=== PATIENT | male | born 1955 | race Caucasian/White ===

== ENCOUNTER 2024-05-09 08:13 | Emergency (ER) | payer MEDICARE, MEDICAID, SELFPAY ==
--- NOTE | ~2024-05-09 | CT_ITS ---
CT of the Abdomen and Pelvis: Indication: Unable to urinate Technique: 2.5 mm axial scans were obtained through the abdomen and pelvis following intravenous adm inistration of 100 cc of Omnipaque 350. Dose reduction technique was used on this scan by utilizing a utomated exposure control and iterative reconstruction technique. The dose-length product (DLP) was 9 90.42 mGy-cm. Findings: Scans through the lung bases are unremarkable. The liver, spleen, pancreas, and gallbladder are within normal limits. Small bilateral adrenal nodule s are present. There is mild bilateral hydronephrosis. No evidence of aortic aneurysm. No lymphadeno nika. There is an extremely large left inguinal hernia containing essentially the entire sigmoid colon as w ell as multiple small bowel loops and large amount of mesenteric fat. No bowel obstruction or bowel w all thickening. Small fat-containing right inguinal hernia present. Images through the pelvis were performed. Urinary bladder markedly distended. Prostate gland is enlar ged, and indents through the bladder base. Impression: Distended urinary bladder with mild bilateral hydroureteronephrosis. This is likely related to BPH, w ith enlarged prostate gland present which indents the bladder base. Underlying prostate or bladder ma lignancy not completely excluded. Correlate clinically. Extremely large left inguinal hernia containing the entire sigmoid colon as well as multiple small daniel wel loops and large amount of mesenteric fat. No bowel obstruction or bowel wall thickening. Small fat-containing right inguinal hernia. Small bilateral adrenal nodules are indeterminate on this exam, but most likely adenomas. Reviewed, dictated and finalized at [facility]. Impression: Distended urinary bladder with mild bilateral hydroureteronephrosis. This is li pasquale related to BPH, with enlarged prostate gland present which indents the kirti dder base. Underlying prostate or bladder malignancy not completely excluded. C orrelate clinically. Extremely large left inguinal hernia containing the entire sigmoid colon as wel l as multiple small bowel loops and large amount of mesenteric fat. No bowel ob struction or bowel wall thickening. Small fat-containing right inguinal hernia. Small bilateral adrenal nodules are indeterminate on this exam, but most likely adenomas.
--- NOTE | ~2024-05-09 | XR_ITS ---
XR chest 1V portable Ordering provider: Cristina Broussard MD History: 68 years Male with . unable to urinate . Comparison: None. FINDINGS: MEDIASTINUM: The cardiac silhouette is slightly enlarged. LUNGS: No infiltrates, effusions or pneumothorax. Prominent markings in the lower lobes. OTHER: No free air under the diaphragm. Degenerative the spine. IMPRESSION: No acute cardiopulmonary pathology. Reviewed, dictated and finalized at location A.
[2024-05-09 08:15] VITALS: BP 153/78; PULSE 96; RESP 18; TEMP 36.8; O2SAT 99
--- OUTSIDE RECORDS SUMMARY | 2024-05-09 08:26 | XMS_ITS | Referral Summary ---
Author Organization [facility] Address [address] [place] [address] Care Team Providers Care Delivery Truck Driver Name Role Phone Chai Zhong MD Primary Care Provider [phone] [phone] Allergies No known active allergies Medications finasteride (PROSCAR) 5 mg tablet Take 1 tablet (5 mg total) by mouth daily 30 tablet 11 12/30/2022 Active tamsulosin (FLOMAX) 0.4 mg extended release capsule Take 1 capsule (0.4 mg total) by mouth daily with dinner 30 capsule 11 12/29/2022 Active risperiDONE (RisperDAL) 1 mg tablet Take 1 tablet (1 mg total) by mouth nightly 30 tablet 12/29/2022 Active Active Problems Problem Noted Date Diagnosed Date Acute psychosis 12/25/2022 Acute urinary retention 12/23/2022 Social History Tobacco Use Types Packs/Day Years Used Date Smoking Tobacco: Never Smokeless Tobacco: Never Tobacco Cessation:Counseling Given: Not Answered Personal Safety Answer Date Recorded Have you ever been in or are you currently in a harmful physical or emotional relationship or is someone making you feel afraid or unsafe? Denies 12/24/2022 Sex and Gender Information Value Date Recorded Sex Assigned at Not on file Legal Sex Male 2:21 AM REFRIGERATOR REPAIR TECHNICIAN Gender Identity Not on file Sexual Orientation Not on file Last Filed Vital Signs Vital Sign Reading Time Taken Comments Blood Pressure 124/69 12/29/2022 3:48 PM REFRIGERATOR REPAIR TECHNICIAN Pulse 85 12/29/2022 3:48 PM REFRIGERATOR REPAIR TECHNICIAN Temperature 36.3 C (97.4 F) 12/29/2022 3:48 PM REFRIGERATOR REPAIR TECHNICIAN Respiratory Rate 20 12/29/2022 6:19 AM REFRIGERATOR REPAIR TECHNICIAN Oxygen Saturation 99% 12/29/2022 3:48 PM REFRIGERATOR REPAIR TECHNICIAN Inhaled Oxygen Concentration - - Weight 95.4 kg (210 lb 4.8 oz) 12/23/2022 10:45 PM CDT Height 182.9 cm (6') 12/23/2022 10:45 PM CDT Body Mass Index 28.52 12/23/2022 10:45 PM CDT Plan of Treatment Not on file Insurance [facility] Member Subscriber Plan / Payer (Ef fective 2022-Present) Name:Cristhian Hernandez Relation to Subscriber:Self Name:Cristhian Hernandez Payer ID:[id number] (NAIC) Type:MEDICARE RISK OTHER Address: [address] Advance Directives For more information, please contact: [phone] * Full Code (Latest Code Status on File) Date Activated Date Inactivated Comments 12/24/2022 12:23 AM 12/29/2022 9:26 PM Care Teams Delivery Truck Driver Relationship Specialty Start Date End Date Chai Zhong MD [facility] [place] [address] PCP - General Family Medicine 12/23/22
--- OUTSIDE RECORDS SUMMARY | 2024-05-09 08:26 | XMS_ITS | Clinical Summary ---
Author Organization [facility] Address [address] [place] [address] Phone Care Team Providers Care Skill Labor Name Role Phone Chai Zhong MD Primary Care Provider [phone] Allergies No known active allergies Medications docusate sodium (COLACE) 100 MG Capsule Take 1 Cap by mouth 2 times daily as needed for Constipation . To be held for loose stools/diarr hea. 180 Cap 01/11/2018 Active metoprolol Succinate (TOPROL-XL) 25 MG TABLET SR 24 HR Take 0.5 Tablets by mouth daily for 90 days. 45 Tablet 01/20/2024 04/19/19 25 spironolactone (ALDACTONE) 25 MG Tablet Take 0.5 Tablets by mouth daily for 90 days. 45 Tablet 01/20/2024 04/19/19 25 tamsulosin (FLOMAX) 0.4 MG Capsule Take 1 Capsule by mouth daily (with dinner) for 90 days. 90 Capsule 01/20/2024 04/19/19 25 Active Problems Problem Noted Date Diagnosed Date Systolic congestive heart failure 01/20/2024 Urinary retention due to benign prostatic hyperp lasia 01/10/2018 Resolved Problems Problem Noted Date Diagnosed Date Resolved Date MRSA (methicillin resistant staph aureus) culture positive 01/20/2024 01/20/2024 Abscess 01/16/2024 01/20/2024 Family History Medical History Relation Name Comments Diabetes Mother Relation Name Status Comments Father Alive Mother Social History Tobacco Use Types Packs/Day Years Used Date Smoking Tobacco: Some Days Cigars Smokeless Tobacco: Never Tobacco Cessation:Ready to Q uit: No; Counseling Given: Yes Comments:celebratory Alcohol Use Standard Drinks/Week Comments No 0 (1 standard drink = 0.6 oz pur e alcohol) [facility] Utilities Answer Date Recorded In the past 12 months has th e electric, gas, oil, or water company threatened to shut off services in your home? Patient declined 01/16/2024 Hunger Vital Sign Answer Date Recorded Within the past 12 months, y ou worried that your food would run out before you got the money to buy more. Patient declined Within the past 12 months, t he food you bought just didn't last and you didn't have money to get more. Patient declined PRAPARE - Transportation Answer Date Re corded In the past 12 months, has l ack of transportation kept you from medical appointments or from getting medications? Patient declined 01/16/2024 In the past 12 months, has l ack of transportation kept you from meetings, work, or from getting things needed for daily living? Patient declined 01/16/2024 Housing Stability Vital Sign Answer Ronak e Recorded In the last 12 months, was t here a time when you were not able to pay the mortgage or rent on time? Patient declined 01/16/20 24 In the past 12 months, how m any times have you moved where you were living? 0 01/16/2024 [facility] were you homeless or living in a usp (including now)? Patient declined 01/16/2024 Sexually Active Control Partners Comments Never Sex and Gender Information Value Date Recorded Sex Assigned at Not on file Legal Sex Male 10:38 PM CDT Gender Identity Not on file Sexual Orientation Not on file Last Filed Vital Signs Vital Sign Reading Time Taken Comments Blood Pressure 126/61 01/20/2024 2:29 PM SERVICE TECHNICIAN Pulse 76 01/19/2024 12:47 PM SERVICE TECHNICIAN Temperature 36.8 C (98.2 F) 01/20/2024 2:29 PM SERVICE TECHNICIAN Respiratory Rate 20 01/20/2024 2:2 9 PM SERVICE TECHNICIAN Oxygen Saturation 100% 01/20/2024 2:29 PM SERVICE TECHNICIAN Inhaled Oxygen Concentration - - Weight 103.5 kg (228 lb 1.6 oz) 01/16/2024 6:30 PM SERVICE TECHNICIAN Height 185.4 cm (6' 1 ) 01/16/2024 6:30 PM SERVICE TECHNICIAN Body Mass Index 30.09 01/16/2024 6:30 PM SERVICE TECHNICIAN Plan of Treatment Health Maintenance Due Date Last Done Comments Hepatitis C Virus (HCV) Screening 1955 TdaP Immunization 1955 Pneumococcal Immunization (5 0+ years) (1 of 2 - PCV) 10/26/1975 Colonoscopy 2001 Colorectal Cancer Screening 2001 Cologuard 2006 Immunochemical Fecal Occult Blood 2006 Zoster Immunization (1 of 2) 2006 Respiratory Syncytial Virus (RSV) Immunization (Adult) (1 - Risk 60-74 years 1-dose series) 2016 AAA Screening Ultrasound 2021 Influenza Immunization (#1) 2023 SARS-COV-2 Immunization ( - season) 2023 Hepatitis B Immunization Aged Out No longer eligible based on patient's age to complete this topic Meningococcal Immunization (ACWY) Aged Out No longer eligible based on patient's age to complete this topic Rotavirus Immunization Aged Out No lo nger eligible based on patient's age to complete this topic Additional Health Concerns Infection Onset Date Last Indicated MRSA 01/16/2024 01/16/2024 Insurance MEDICAID [place] MEDICARE Advance Directives * Full Code (Latest Code Status on File) Date Activated Date Inactivated Comments 01/16/2024 9:27 PM CPR-Full Terri tment: FULL ARREST: Attempt Resuscitation/CPR wit intubation and mechanical ventilation. PRE-ARREST: Use entire range of life support measures to stabilize the patient. Care Teams Skill Labor Relationship Specialty Start Date End Date Chai Zhong MD [address] [place] [address] [address] [place] [address] PCP - General Family Medicine 12/12/17
--- OUTSIDE RECORDS SUMMARY | 2024-05-09 08:26 | XMS_ITS | Clinical Summary ---
Author Organization [facility] Address [address] [place] [address] Care Team Providers Care Behavioral Health Therapist Name Role Phone Chai Zhong MD Primary Care Provider [phone] [phone] Allergies No known active allergies Medications finasteride [...] on file Legal Sex Male 2:21 AM FAGOTER Gender Identity Not on file Sexual Orientation Not on file Obstetrics History Last Filed Vital Signs Vital Sign Reading Time Taken Comments Blood Pressure 124/69 12/29/2022 3:48 PM FAGOTER Pulse 85 12/29/2022 3:48 PM FAGOTER Temperature 36.3 C (97.4 F) 12/29/2022 3:48 PM FAGOTER Respiratory Rate 20 12/29/2022 6:19 AM FAGOTER Oxygen Saturation 99% 12/29/2022 3:48 PM FAGOTER Inhaled Oxygen Concentration - - Weight 95.4 kg (210 lb 4.8 oz) 12/23/2022 10:45 PM CDT Height 182.9 cm (6') 12/23/2022 10:45 PM CDT Body Mass Index 28.52 12/23/2022 10:45 PM CDT Plan of Treatment Health Maintenance Due Date Last Done Comments Colon Cancer Screening-Colonoscopy 1955 Depression Screening 1955 Hepatitis C Screening 1956 Prostate Cancer Screening-PSA 1956 DTaP/Tdap/Td Vaccine (1 - Tdap) 10/26/1967 Hepatitis B Screening 1974 Pneumococcal vaccine 65+ (1 of 1 - PCV) 2006 Zoster Vaccine (1 of 2) 2006 Abdominal Aortic Aneurysm (AAA) Screen 2021 Well Visit 65+ 2021 Influenza Vaccine (#1) 2023 Fall Risk Assessment 12/30/2023 12/29/2022 Insurance [facility] Advance Directives For more information, please contact: [phone] * Full Code (Latest Code Status on File) Date Activated Date Inactivated Comments 12/24/2022 12:23 AM 12/29/2022 9:26 PM Care Teams Behavioral Health Therapist Relationship Specialty Start Date End Date Chai Zhong MD [address] [place] [address] [address] PCP - General Family Medicine 12/23/22
--- NOTE | 2024-05-09 08:45 | ECG_ITS ---
Test Date: 2024-05-09 09:18:40 Measurements Intervals [place] Rate: 85 P: 74 [place]: 187 QRS: -76 QRSD: 165 T: 79 QT: 423 QTc: 505 Interpretive Statements SINUS RHYTHM RIGHT BUNDLE BRANCH BLOCK [120+ ms QRS DURATION, UPRIGHT V1, 40+ ms S IN I/aVL/V4/V5/V6] LEFT ANTERIOR FASCICULAR BLOCK [QRS AXIS <= -45, QR IN I, RS IN II] LEFT VENTRICULAR HYPERTROPHY AND ST-T CHANGE [VOLTAGE CRITERIA PLUS ST/T ABNORMALITY] POSSIBLE SEPTAL MYOCARDIAL INFARCTION , OF INDETERMINATE AGE [30 ms Q WAVE IN V1/V2] ABNORMAL ECG No previous ECG available for comparison Electronically Signed On 05-09-2024 12:29:33 CDT by Randolph Espinoza M.D.
[2024-05-09 09:05] LABS: Basophils Percent Auto 0.2 % (0.2-1.2); Eosinophils Absolute Auto 0.1 K/mm3 (0-0.3); Eosinophils Percent Auto 0.8 % (0-4.4); Hematocrit 45.5 % (42.0-52.0); Hemoglobin 14.7 g/dL (14.0-18.0); Immature Granulocyte Absolute 0.04 K/mm3 (0.00-0.031); Immature Granulocyte Percent A 0.4 % (0-0.5); Lymphocytes Absolute Auto 0.82 K/mm3 (0.9-3.2); Lymphocytes Percent Auto 8.9 % (18.3-44.2); Mean Corpuscular HGB Conc 32.3 g/dl (32-36); Mean Corpuscular Hemoglobin 28.2 pg (26-34); Mean Corpuscular Volume 87.2 fl (80-100); Monocytes Absolute Auto 0.9 K/mm3 (0.1-0.6); Monocytes Percent Auto 9.7 % (2.6-8.5); Neutrophils Absolute Auto 7.3 K/mm3 (1.3-6.7); Platelet Count Result 192 k/mm3 (150-375); Red Blood Count 5.22 M/mm3 (4.6-6.20); Red Cell Distribution Width 13.3 % (11.5-14.5); White Blood Count 9.2 K/mm3 (4.5-10.0)
[2024-05-09 09:16] LABS: Prothrombin Time 13.4 Seconds (11.1-14.7)
[2024-05-09 09:17] LABS: Partial Thromboplastin Time 31.3 Seconds (22.3-36.8)
[2024-05-09] MEDS: HYDROmorphone HCL INJ (*CRX) 1 MG/ML SYR 4 MG IV PUSH (09:17)
[2024-05-09] MEDS: WATER FOR IRRIGATION, STERILE 500 ML BOTTLE (09:18)
[2024-05-09] MEDS: LIDOCAINE 2% GEL UROJET 10 ML PKG (09:18)
[2024-05-09 09:24] VITALS: BP 121/77; PULSE 86; RESP 19; O2SAT 93
[2024-05-09 09:24] LABS: Lactic Acid Reflex 1.1 mmol/L (0.7-2.0)
[2024-05-09 09:27] LABS: Alanine Aminotransferase 16 U/L (6-50); Albumin Level 4.2 g/dL (3.5-5.1); Alkaline Phosphatase 77 U/L (38-126); Anion Gap 11 mmol/L (4-12); Aspartate Amino Transferase 23 U/L (17-59); Bilirubin,Total 0.8 mg/dL (0.2-1.3); Blood Urea Nitrogen 19 mg/dL (9-20); Calcium 9.2 mg/dL (8.4-10.2); Carbon Dioxide 25 mmol/L (22-30); Chloride 104 mmol/L (98-107); Estimated CRCL calculation 82 ml/min; Estimated Glomerular Filt Rate > 60; Glucose 137 mg/dL (65-110); Sodium 140 mmol/L (137-145)
[2024-05-09 09:32] LABS: Estimated CRCL calculation 79 ml/min; Estimated Glomerular Filt Rate > 60
--- NOTE | 2024-05-09 09:41 | PC.NURSE ---
Upon arrival to room bladder scan revealed 1500mls of urine, pt was writhing in pain on bed. Pt reports he has had to have mello cath before and stated I need that one with the curve on the end. Attempted to insert coude cath and cath would insert without difficulty but did not drain urine. When cath removed blood clots noted on end of mello. Then attempted to insert 3 way cath due to amount of urine in bladder and number of blood clots noted. # way inserted without difficulty but again no urine drained from mello. Cath removed and ERP immediately notified
--- NOTE | 2024-05-09 09:41 | ED.MALEGU ---
HPI - Male Genitourinary General Chief complaint: Urogenital-Male Stated complaint: unable to urinate Time Seen by Provider: 05/09/24 08:44 Source: patient and RN notes reviewed History of Present Illness HPI Narrative: Patient presents with complaint of low abdominal pain and left sided scrotal swelling. States it has been going on for awhile. Has not been caring for himself recently, particularly while/after going through divorce. Related Data Allergies Allergy/AdvReac Type Severity Reaction Status Date / Time No Known Allergies Allergy Verified 04/28/21 16:32 [facility] Past Medical History Medical History Inguinal hernia Enlarged prostate Degenerative arthritis of knee, bilateral Hemoglobin A1c less than 7.0% last A1c in chart was 6.5 in july of 2018 Type 2 diabetes mellitus without complication, without long-term current use of insulin Surgical History Surgical History History of prostate surgery 2018 Family History Family History Father Diabetes mellitus Mother Diabetes mellitus Family history of malignant neoplasm of breast in first degree relative Sibling Family history of cardiovascular disease Social History Social History Social History: Smoking status: Current some day smoker Tobacco type: cigars Alcohol intake: current Occupation/Education: retired Gender identity (if verbalized by the patient): Male Exam Narrative: GENERAL: In moderate acute distress. HEAD: Normocephalic, atraumatic. EYES: Non injected, non icteric ENT: Nares clear, no rhinorrhea or epistaxis. Tacky mucous membranes NECK: Supple. CHEST: Speaking in full sentences. No respiratory distress. HEART: Regular rate and rhythm. . ABDOMEN: Distended with particular firmness in the lower quadrants, L > R. Not peritoneal. Very large left scrotum which is otherwise with fullness but not firm. Causes distortion of penis, displaced to the right but which otherwise which appears normal except for blood at the meatus after catheter insertion attempts. EXTREMITIES: Normal range of motion. No lower extremity edema. SKIN: Warm, dry, no rash. NEURO: No focal deficits. Alert and oriented. PSYCH: Normal mood and affect. Course Vital Signs Vital signs: Vital Signs Temperature 98.3 F 05/09/24 08:15 Pulse Rate 96 05/09/24 08:15 Respiratory Rate 18 05/09/24 08:15 Blood Pressure 153/78 H 05/09/24 08:15 Pulse Oximetry 99 05/09/24 08:15 Temperature 98.3 F 05/09/24 15:41 Pulse Rate 84 05/09/24 15:41 Respiratory Rate 18 05/09/24 15:41 Blood Pressure 125/83 05/09/24 15:41 Pulse Oximetry 98 05/09/24 15:41 MDM - Male Genitourinary MDM Narrative Medical decision making narrative: Patient presents with abdominal pain and large left scrotal swelling. In the emergency department he is afebrile with vital signs notable for hypertension. He appears markedly uncomfortable and Dilaudid 1 mg ordered. Social determinants of care: Unclear/poor social support. Not caring for himself during/after divorce. Multiple RN attempts at inserting/placing urinary catheter. They note that it seems to advance easily without resistance but with no urine output despite bladder scan >500cc. Discussed with urology VIGNESH at bedside. Mild hyperglycemia but no anion gap acidosis. CRP mildly elevated. Lactic acid normal. Urology required for insertion of urinary catheter. Performed at bedside by attending Dr Rollins.. Hematuria likely due to traumatic insertion. Improper entry with O2 saturation listed as 14%. Spoke with general surgery Dr Hardy who confirms no acute surgical intervention necessary; recommends outpatient follow up to discuss elective surgical procedure for inguinal hernia. Dr. Escobar confirms that no indication for inpatient admission from his perspective. Catheter would need to be changed within a month so he needs to be seen by Urology by then. Reviewed consultation note written by VIGNESH which confirms patient to be on finasteride and tamsulosin. These are prescribed. Plan and need for follow up discussed with patient.Confirms understanding. Otherwise feeling better and stable for discharge. Differential Diagnosis Differential diagnosis: Likely urinary tract infection, acute retention of urine, inguinal hernia and other (incarcerated/strangulated hernia; bowel obstruction/necrosis; ) Medical Records Attestation: I reviewed the patient's medical records. Medical records narrative: Reviewed last note from health system in EMR during which time had been dealing with GI and issues (enlarged prostate and hernia) - 2021; supposed to be on tamsulosin and finasteride. Had been at the time but with complicated social dynamics as that note referenes stephanie outbursts to partner at the time Lab Data Attestation: I reviewed the patient's lab results. 05/09/24 08:54 05/09/24 09:29 Labs: Lab Results 05/09/24 05/09/24 05/09/24 Range/Units 08:54 09:29 11:07 WBC 9.2 (4.5-10.0) K/mm3 RBC 5.22 (4.6-6.20) M/mm3 Hgb 14.7 (14.0-18.0) g/dL Hct 45.5 (42.0-52.0) % MCV 87.2 (80-100) fl MCH 28.2 (26-34) pg MCHC 32.3 (32-36) g/dl RDW 13.3 (11.5-14.5) % Plt Count 192 (150-375) k/mm3 MPV 10.0 (7.4-10.4) fl Immature Gran % (Auto) 0.4 (0-0.5) % Neut % (Auto) 80.0 H (45.5-73.1) % Lymph % (Auto) 8.9 L (18.3-44.2) % [place] % (Auto) 9.7 H (2.6-8.5) % Eos % (Auto) 0.8 (0-4.4) % Baso % (Auto) 0.2 (0.2-1.2) % Lymph # (Auto) 0.82 L (0.9-3.2) K/mm3 [place] # (Auto) 0.9 H (0.1-0.6) K/mm3 Eos # (Auto) 0.1 (0-0.3) K/mm3 Baso # (Auto) 0.0 (0.0-0.1) K/mm3 Abs Immat Gran (auto) 0.04 H (0.00-0.031) K/mm3 Absolute Neuts (auto) 7.3 H (1.3-6.7) K/mm3 Absolute Nucleated RBC 0.000 (0.0-0.012) K/mm3 Nucleated RBC % 0.0 (0.0-0.2) % PT 13.4 (11.1-14.7) Seconds INR 1.0 APTT 31.3 (22.3-36.8) Seconds Sodium 140 (137-145) mmol/L Potassium 3.9 (3.4-5.0) mmol/L Chloride 104 (98-107) mmol/L Carbon Dioxide 25 (22-30) mmol/L Anion Gap 11 (4-12) mmol/L BUN 19 (9-20) mg/dL Creatinine 0.86 0.90 (0.7-1.3) mg/dL Estim Creat Clear Calc 82 79 ml/min Estimated GFR > 60 > 60 (59 - ) Glucose 137 H (65-110) mg/dL Lactic Acid 1.1 (0.7-2.0) mmol/L Calcium 9.2 (8.4-10.2) mg/dL Total Bilirubin 0.8 (0.2-1.3) mg/dL AST 23 (17-59) U/L ALT 16 (6-50) U/L Alkaline Phosphatase 77 (38-126) U/L C-Reactive Protein 1.8 H (<1.0) mg/dL Total Protein 7.0 (6.3-8.2) g/dL Albumin 4.2 (3.5-5.1) g/dL Urine Color Yellow (Yellow) Urine Appearance Clear (Clear) Urine pH 6.5 (5.0-9.0) Ur Specific [place] 1.017 (1.001-1.035) Urine Protein 1+ H (Negative) mg/dL Urine Glucose (UA) Negative (Negative) mg/dL Urine Ketones Negative (Negative) mg/dL Ur Blood (Man) 2+ H (Negative) Urine Nitrate Negative (Negative) Urine Bilirubin Negative (Negative) Urine Urobilinogen 1.0 (<2.0) mg/dL Leukocyte Esterase Rfl Negative (Negative) KATHARINA/UL Urine RBC 51-100 H (0-2) /hpf Urine WBC 0-5 (0-3) /hpf Ur Squamous Epith Cells None seen (Few) /hpf Urine Bacteria None seen /hpf Urine Casts 0-2 Imaging Data Radiologist's impression: Impressions Abdomen/Pelvis CT 05/09/24 09:53 Impression: Distended urinary bladder with mild bilateral hydroureteronephrosis. This is likely related to BPH, with enlarged prostate gland present which indents the bladder base. Underlying prostate or bladder malignancy not completely excluded. Correlate clinically. Extremely large left inguinal hernia containing the entire sigmoid colon as well as multiple small bowel loops and large amount of mesenteric fat. No bowel obstruction or bowel wall thickening. Small fat-containing right inguinal hernia. Small bilateral adrenal nodules are indeterminate on this exam, but most likely adenomas. Chest X-Ray 05/09/24 10:38 IMPRESSION: No acute cardiopulmonary pathology. ECG Data EKG #1: Attestation: I personally reviewed and interpreted this ECG as follows: ECG completion date: 05/09/24 ECG completion time: 09:18 Prior ECG tracings: not available for review (No prior for comparison) Interpretation: Normal sinus rhythm at a rate of 85 beats per minute. [place] interval 187. QRS 165. QT/QTC 423/465. Poor R-wave progression across the precordial leads. RBBB given QRS greater [id number]; RSR' M-shaped pattern in V1-V3; wide, slurred S wave in lateral leads (I, aVL, V5-6). Left anterior fascicular block with rS complexes in leads II, III, aVF (small R waves, deep S waves), qR complexes in lead I , avL (small Q waves and tall R waves) and left axis deviation with Leads II, III and aVF negative and leads I and aVL positive. Pre populated algorithm suggests left ventricular hypertrophy ; S wave depth in V1 + tallest R wave height in V5-6 is <35mm and R wave in lead I + S wave in lead III is =/>25mm. No T-wave inversions. Discharge Plan Discharge Clinical Impression: RBBB (right bundle branch block with left anterior fascicular block), CRP elevated, Hyperglycemia, Hydroureteronephrosis, BPH (benign prostatic hyperplasia), Inguinal hernia, left, Adrenal nodule, Acute urinary retention Patient Disposition: Home, Self-Care Condition: Stable Instructions: Antibiotic Form, Urinary Retention in Men (ED), Enlarged Prostate (BPH) (ED), Muniz Catheter Placement and Care (ED), Inguinal Hernia (ED), Nondiabetic Hyperglycemia (ED) Additional Instructions: As we discussed, is important to follow-up with urology in the next 3-4 weeks for Muniz catheter change versus removal. Take the medications prescribed. For the inguinal hernia, follow-up with the general surgeon listed below. For general concerns follow-up with your primary care physician. Return to the emergency department with any new or worsening symptoms. Patient Language: Citizen Of [place] Prescriptions: New finasteride 5 mg tablet 5 mg PO DAILY Qty: 30 0RF tamsulosin [Flomax] 0.4 mg capsule 0.4 mg PO HS Qty: 30 0RF No Action tamsulosin 0.4 mg capsule 0.4 mg PO DAILY Qty: 90 3RF finasteride 5 mg tablet 5 mg PO DAILY Qty: 90 3RF escitalopram oxalate [Lexapro] 5 mg tablet 5 mg PO DAILY Qty: 30 0RF Rx Instructions: LAST REFILL UNTIL SEEN Follow-up/Referrals: Sharad Navarrete MD [Physician] - 3 Weeks (Patient can be seen by first available MD or VIGNESH at [facility] or [facility] locations for indwelling Muniz management. ) Chai Zhong MD [Primary Care Provider] - Cooper Hardy MD [Physician] - (general surgery) Stand Alone Forms: Work/School Release IP Time of Disposition: 14:28
[2024-05-09 09:55] VITALS: BP 130/84; PULSE 86; RESP 18; O2SAT 96
[2024-05-09 10:08] LABS: CRP 1.8 mg/dL (<1.0); Potassium 3.9 mmol/L (3.4-5.0)
--- NOTE | 2024-05-09 10:57 | PC.NURSE ---
Dr Rollins at bedside for mello placement over wire. Procedure successful.
[2024-05-09 11:00] VITALS: BP 141/94; PULSE 87; RESP 20; O2SAT 14
--- NOTE | 2024-05-09 11:04 | P.CONUR_ITS ---
Assessment and Plan Assessment and plan (1) Enlarged prostate with urinary obstruction: Code(s): N40.1 - Benign prostatic hyperplasia with lower urinary tract symptoms; N13.8 - Other obstructive and reflux uropathy Status: Acute Assessment and Plan: - Continue home finasteride/tamsulosin, suspect poor medication compliance with history psychosocial issues (2) Acute on chronic urinary retention: Code(s): R33.9 - Retention of urine, unspecified Status: Acute Assessment and Plan: - >1.5L on bladder scan - Required complex indwelling Muniz catheter placement, 18Fr Counsil-tip over guide wire at beside with large-volume output Plan - No leukocytosis, renal function stable (Cr 0.9), afebrile - Maintain indwelling Muniz catheter, secure off-tension to upper thigh, plan for exchange in clinic in 3-4 weeks at a urology office of patient's choice - Suspect retention is a chronic, worsening issue ?Neurogenic bladder? - Recommend Urodynamics and cystoscopy as outpatient for formal evaluation - Priority at this time would be management of large left inguinal hernia, recommend general surgery evaluation - No plan for inpatient urologic surgical intervention Urology to follow peripherally. Please call with questions. Urology Consult Note HPI Date Seen: 05/09/24 Requesting Physician: Cristina Broussard MD Primary Care Provider: Chai Zhong MD Consult Narrative Reason for consult: Urinary retention Narrative: Cristhian Clay is a 68 year old male who presented to the ED with complaints of not being able to urinate in the past 24 hours and mental status changes. Urology was consulted after bladder scan showed >1.5L urine and several unsuccessful attempts to place indwelling Muniz. CT AP with contrast shows d istended urinary bladder with mild bilateral hydroureteronephrosis, enlarged prostate, extremely large left inguinal hernia containing the entire sigmoid colon as well as multiple small bowel loops and large amount of mesenteric fat, small fat-containing right inguinal hernia. On exam, left inguinal hernia extends down to the left scrotum with associated edema. There is abdominal distention consistent with large-volume urinary retention. Patient reports abdominal and scrotal pain. 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 History EtOH abuse with complex psychosocial needs. Dr. Rollins was able to successfully place an 18Fr Counsil-tip catheter over a guide wire in the ER with subsequent clear davey urinary output. Urological history significant for recurrent urinary retention, obstructive BPH on tamsulosin/finasteride at one point, TURP >5yrs ago, medication noncompliance. Family medical history of prostate cancer. On chart review, he was last evaluated as inpatient by Dr. Shukla at [facility] 12/2022 with a similar presentation. He has seen Dr. Toro at [facility] in the past, records unavailable for review. Last evaluated in clinic in 2018 for retention issues and BPH management, lost to follow-up. Review of Systems 2 Gastrointestinal: Gastrointestinal: Reports abdominal pain Genitourinary: Comments: Urinary retention, scrotal swelling Psychiatric: Psychiatric: Reports confusion PMFSH Past Medical History Medical History Degenerative arthritis of knee, bilateral Hemoglobin A1c less than 7.0% last A1c in chart was 6.5 in july of 2018 Type 2 diabetes mellitus without complication, without long-term current use of insulin Surgical History Surgical History History of prostate surgery 2017 Family History Family History Father Diabetes mellitus Mother Diabetes mellitus Family history of malignant neoplasm of breast in first degree relative Sibling Family history of cardiovascular disease Social History Social History (Updated 04/28/21 @ 16:31 by Manny Alex MA) Smoking status: Current some day smoker Tobacco type: cigars Alcohol intake: current Occupation/Education: retired Gender identity (if verbalized by the patient): Male Meds Home Medications and Allergies Home Medications ?Medication ?Instructions ?Recorded ?Confirmed ?Type finasteride 5 mg tablet 5 mg PO DAILY #90 tabs 07/13/21 Rx tamsulosin 0.4 mg capsule 0.4 mg PO DAILY #90 caps 07/13/21 Rx escitalopram oxalate 5 mg tablet 5 mg PO DAILY #30 tabs 06/09/22 Rx (Lexapro) Allergies Allergy/AdvReac Type Severity Reaction Status Date / Time No Known Allergies Allergy Verified 04/28/21 16:32 Vital Signs Vital Signs - 24 hr 05/09/24 08:15 05/09/24 09:24 05/09/24 09:55 Temperature 98.3 F Pulse Rate 96 86 86 Respiratory Rate 18 19 18 Blood Pressure 153/78 H 121/77 130/84 Pulse Oximetry 99 93 96 05/09/24 11:00 Temperature Pulse Rate 87 Respiratory Rate 20 Blood Pressure 141/94 H Pulse Oximetry 14 L Exam 2 Const: General: uncomfortable HENMT: Face/Nose/Sinus: Normal nares present Resp: Effort & Inspection: normal respiratory effort GI: Inspection: distended : Other: Large left inguinal hernia extending to left scrotum Urinary Catheter: Urinary Catheter: patent and draining Psych: Other: Confused Results Labs 05/09/24 08:54 05/09/24 09:29 Labs: Short CBC 05/09/24 Range/Units 08:54 WBC 9.2 (4.5-10.0) K/mm3 Hgb 14.7 (14.0-18.0) g/dL Hct 45.5 (42.0-52.0) % Plt Count 192 (150-375) k/mm3 [facility] 05/09/24 05/09/24 08:54 09:29 Sodium 140 Potassium 3.9 Chloride 104 Carbon Dioxide 25 BUN 19 Creatinine 0.86 0.90 Glucose 137 H Calcium 9.2 Liver Function 05/09/24 Range/Units 08:54 Total Bilirubin 0.8 (0.2-1.3) mg/dL AST 23 (17-59) U/L ALT 16 (6-50) U/L Alkaline Phosphatase 77 (38-126) U/L Albumin 4.2 (3.5-5.1) g/dL
--- OUTSIDE RECORDS SUMMARY | 2024-05-09 11:17 | XMS_ITS | Clinical Summary ---
Author Organization [facility] Address [address] [place] [address] Phone Care Team Providers Care Junior Sales Assistant Name Role Phone Chai Zhong MD Primary Care Provider +1- [phone] Allergies No known active allergies Medications docusate [...] drink = 0.6 oz pur e alcohol) [facility] Utilities Answer Date Recorded In the past [...] [facility] in the [facility] 12 m [facility], were you homeless or living in a [facility] (including now)? Patient declined 01/16/2024 Sexually Active Control Partners Comments Never Sex and Gender Information Value Date Recorded Sex Assigned at Not on file Legal Sex Male 10:38 PM CDT Gender Identity Not on file Sexual Orientation Not on file Last Filed Vital Signs Vital Sign Reading Time Taken Comments Blood Pressure 126/61 01/20/2024 2:29 PM EMERGENCY PLANNER Pulse 76 01/19/2024 12:47 PM EMERGENCY PLANNER Temperature 36.8 C (98.2 F) 01/20/2024 2:29 PM EMERGENCY PLANNER Respiratory Rate 20 01/20/2024 2:2 9 PM EMERGENCY PLANNER Oxygen Saturation 100% 01/20/2024 2:29 PM EMERGENCY PLANNER Inhaled Oxygen Concentration - - Weight 103.5 kg (228 lb 1.6 oz) 01/16/2024 6:30 PM EMERGENCY PLANNER Height 185.4 cm (6' 1 ) 01/16/2024 6:30 PM EMERGENCY PLANNER Body Mass Index 30.09 01/16/2024 6:30 PM EMERGENCY PLANNER Plan of Treatment Health Maintenance Due Date [...] measures to stabilize the patient. Care Teams Junior Sales Assistant Relationship Specialty Start Date End Date Chai Zhong MD [address] [place] [address] [address] [place] [address] PCP - General Family Medicine 12/12/17
[2024-05-09 11:28] LABS: Add Urine Microscopic? YES; Appearance Urine Clear (Clear); Bacteria Urine None Seen /hpf; Bilirubin Urine Negative (Negative); Blood Urine 2+ (Negative); Color Urine Yellow (Yellow); Glucose Urine UA Negative (Negative); Ketones Urine Negative (Negative); Leukocyte Esterase Ur Negative LEU/UL (Negative); Nitrate Urine Negative (Negative); Non Pathogenic Casts 0-2; Protein Urine 1+ mg/dL (Negative); RBC Urine 51-100 /hpf (0-2); Specific Grav Ur 1.017 (1.001-1.035); Squamous Epithelial Cell Urine None Seen /hpf (Few); WBC Urine 0-5 /hpf (0-3); pH Urine 6.5 (5.0-9.0)
[2024-05-09 15:41] VITALS: BP 125/83; PULSE 84; RESP 18; TEMP 36.8; O2SAT 98
--- NOTE | 2024-05-09 15:43 | PC.NURSE ---
pt going home with indwelling mello catheter. patient verbalized understanding of use of leg bag. Leg bag applied by this RN for discharge. Pt instructed on keeping cap and tips of both tubes clean.
== END 2024-05-09 16:15 | disposition home or self-care (01) ==
PROVIDERS: Emergency Provider Student in an Organized Health Care Education/Training Program; PCP Family Medicine
DX: N40.1 Benign prostatic hyperplasia with lower urinary tract symptoms (principal); R33.8 Other retention of urine; E27.8 Other specified disorders of adrenal gland; K40.90 Unilateral inguinal hernia, without obstruction or gangrene, not specified as recurrent; N13.30 Unspecified hydronephrosis; I45.10 Unspecified right bundle-branch block; R79.82 Elevated C-reactive protein (CRP); M17.0 Bilateral primary osteoarthritis of knee
CPT/HCPCS: 36415; 51702; 71045; 74177; 80053; 81001; 83605; 85025; 85610; 85730; 86140; 87040; 93005; 96361; 96374; 99284; C1769; J1171; Q9967

== ENCOUNTER 2024-05-10 18:36 | Emergency (ER) | payer MEDICARE, MEDICAID, SELFPAY ==
--- OUTSIDE RECORDS SUMMARY | 2024-05-10 18:39 | XMS_ITS | Clinical Summary ---
Author Organization [facility] Address [address] [place] [address] Phone Care Team Providers Care Haul Truck Driver Name Role Phone Chai Zhong MD Primary Care Provider +1- [phone] Allergies No known active allergies Medications docusate [...] drink = 0.6 oz pur e alcohol) [facility] Utilities Answer Date Recorded In the past [...] any time in the past 12 m [facility], were you homeless or living in a penitentiary (including now)? Patient declined 01/16/2024 Sexually Active Control Partners Comments Never Sex and Gender Information Value Date Recorded Sex Assigned at Not on file Legal Sex Male 10:38 PM CDT Gender Identity Not on file Sexual Orientation Not on file Last Filed Vital Signs Vital Sign Reading Time Taken Comments Blood Pressure 126/61 01/20/2024 2:29 PM PARTNER MANAGEMENT CONSULTANT Pulse 76 01/19/2024 12:47 PM PARTNER MANAGEMENT CONSULTANT Temperature 36.8 C (98.2 F) 01/20/2024 2:29 PM PARTNER MANAGEMENT CONSULTANT Respiratory Rate 20 01/20/2024 2:2 9 PM PARTNER MANAGEMENT CONSULTANT Oxygen Saturation 100% 01/20/2024 2:29 PM PARTNER MANAGEMENT CONSULTANT Inhaled Oxygen Concentration - - Weight 103.5 kg (228 lb 1.6 oz) 01/16/2024 6:30 PM PARTNER MANAGEMENT CONSULTANT Height 185.4 cm (6' 1 ) 01/16/2024 6:30 PM PARTNER MANAGEMENT CONSULTANT Body Mass Index 30.09 01/16/2024 6:30 PM PARTNER MANAGEMENT CONSULTANT Plan of Treatment Health Maintenance Due Date [...] measures to stabilize the patient. Care Teams Haul Truck Driver Relationship Specialty Start Date End Date Chai Zhong MD [address] [place] [address] [address] [place] [address] PCP - General Family Medicine 12/12/17
--- OUTSIDE RECORDS SUMMARY | 2024-05-10 18:39 | XMS_ITS | Clinical Summary ---
Author Organization [facility] Address [address] [place] [address] Care Team Providers Care Recooperer Name Role Phone Chai Zhong MD Primary Care Provider +1 -[phone] Allergies No known active allergies Medications finasteride [...] on file Legal Sex Male 2:21 AM SAAS ARCHITECT Gender Identity Not on file Sexual Orientation Not on file Obstetrics History Last Filed Vital Signs Vital Sign Reading Time Taken Comments Blood Pressure 124/69 12/29/2022 3:48 PM SAAS ARCHITECT Pulse 85 12/29/2022 3:48 PM SAAS ARCHITECT Temperature 36.3 C (97.4 F) 12/29/2022 3:48 PM SAAS ARCHITECT Respiratory Rate 20 12/29/2022 6:19 AM SAAS ARCHITECT Oxygen Saturation 99% 12/29/2022 3:48 PM SAAS ARCHITECT Inhaled Oxygen Concentration - - Weight 95.4 [...] 2023 Fall Risk Assessment 12/30/2023 12/29/2022 Insurance [facility] Advance Directives For more information, please contact: [phone] * Full Code (Latest Code Status on File) Date Activated Date Inactivated Comments 12/24/2022 12:23 AM 12/29/2022 9:26 PM Care Teams Recooperer Relationship Specialty Start Date End Date Chai Zhong MD [address] [place] [address] [address] PCP - General Family Medicine 12/23/22
--- OUTSIDE RECORDS SUMMARY | 2024-05-10 18:39 | XMS_ITS | Referral Summary ---
Author Organization [facility] Address [address] [place] [address] Care Team Providers Care Tool Design Checker Name Role Phone Chai Zhong MD Primary Care Provider +1 -[phone] Allergies No known active allergies Medications finasteride [...] on file Legal Sex Male 2:21 AM TRAVEL WRITER Gender Identity Not on file Sexual Orientation Not on file Last Filed Vital Signs Vital Sign Reading Time Taken Comments Blood Pressure 124/69 12/29/2022 3:48 PM TRAVEL WRITER Pulse 85 12/29/2022 3:48 PM TRAVEL WRITER Temperature 36.3 C (97.4 F) 12/29/2022 3:48 PM TRAVEL WRITER Respiratory Rate 20 12/29/2022 6:19 AM TRAVEL WRITER Oxygen Saturation 99% 12/29/2022 3:48 PM TRAVEL WRITER Inhaled Oxygen Concentration - - Weight 95.4 kg (210 lb 4.8 oz) 12/23/2022 10:45 PM CDT Height 182.9 cm (6') 12/23/2022 10:45 PM CDT Body Mass Index 28.52 12/23/2022 10:45 PM CDT Plan of Treatment Not on file Insurance [facility] Member Subscriber Plan / Payer (Ef fective 2022-Present) Name:Cristhian Hernandez Relation to Subscriber:Self Name:Cristhian Hernandez Payer ID:[id number] (NAIC) Type:MEDICARE RISK OTHER Address: [address] Advance Directives For more information, please contact: [phone] * Full Code (Latest Code Status on File) Date Activated Date Inactivated Comments 12/24/2022 12:23 AM 12/29/2022 9:26 PM Care Teams Tool Design Checker Relationship Specialty Start Date End Date Chai Zhong MD [facility] [facility] [address] [place] [address] PCP - General Family Medicine 12/23/22
[2024-05-10 19:11] VITALS: BP 138/96; PULSE 62; RESP 20; TEMP 36.9; O2SAT 98
[2024-05-10 22:55] VITALS: BP 112/88; PULSE 94; RESP 20; TEMP 36.6; O2SAT 97
[2024-05-10 23:05] LABS: Add Urine Microscopic? YES; Appearance Urine Clear (Clear); Bilirubin Urine Negative (Negative); Blood Urine 2+ (Negative); Color Urine Yellow (Yellow); Glucose Urine UA Negative (Negative); Ketones Urine Trace mg/dL (Negative); Leukocyte Esterase Ur 2+ LEU/UL (Negative); Nitrate Urine Negative (Negative); Protein Urine 1+ mg/dL (Negative); Specific Grav Ur 1.019 (1.001-1.035); Urobilinogen Urine 0.2 mg/dL (<2.0); pH Urine 5.5 (5.0-9.0)
--- NOTE | 2024-05-10 23:10 | ED_ITS ---
HPI - General Adult General Chief complaint: Urogenital-Male Stated complaint: Clogged urinary catheter-bloody Time Seen by Provider: 05/10/24 22:53 History of Present Illness HPI narrative: Patient is a 68-year-old gentleman who presents emergency department with chief complaint of urinary retention. Patient reports that he had a Muniz catheter placed yesterday for urinary retention and reports that he has swelling in his left scrotum the patient states that his catheter is plugged up and reports that he cannot urinate Related Data Allergies Allergy/AdvReac Type Severity Reaction Status Date / Time No Known Allergies Allergy Verified 05/10/24 19:15 Review of Systems Review of Systems: A 10 system review of systems was completed on the patient and is negative except for what is stated in the HPI. Nursing and ancillary documentation was reviewed. [facility] Past Medical History Medical History Inguinal hernia Enlarged prostate Degenerative arthritis of knee, bilateral Hemoglobin A1c less than 7.0% last A1c in chart was 6.5 in july of 2018 Type 2 diabetes mellitus without complication, without long-term current use of insulin Surgical History Surgical History History of prostate surgery 2018 Family History Family History Father Diabetes mellitus Mother Diabetes mellitus Family history of malignant neoplasm of breast in first degree relative Sibling Family history of cardiovascular disease Social History Social History Social History: Smoking status: Current some day smoker Tobacco type: cigars Alcohol intake: current Occupation/Education: retired Gender identity (if verbalized by the patient): Male Exam Narrative: GENERAL: Well-appearing, well-nourished, and in no acute distress. HEAD: Normocephalic, atraumatic. EYES: PERRLA and EOMI. ENT: Nares clear, no rhinorrhea or epistaxis. Mucous membranes moist. NECK: Supple. CHEST: Clear to auscultation. No respiratory distress. HEART: Regular rate and rhythm. No murmur heard. Normal peripheral pulses. ABDOMEN: Soft, nontender, nondistended, normal active bowel sounds. EXTREMITIES: Normal range of motion. No edema. : Muniz catheter in place and draining large left inguinal hernia SKIN: Warm, dry, no rash. NEURO: No focal deficits. Alert and oriented x3. PSYCH: Normal mood and affect. Course Vital Signs Vital signs: Vital Signs Temperature 36.9 C 05/10/24 19:11 Pulse Rate 62 05/10/24 19:11 Respiratory Rate 20 05/10/24 19:11 Blood Pressure 138/96 H 05/10/24 19:11 Pulse Oximetry 98 05/10/24 19:11 Oxygen Delivery Room Air 05/10/24 19:11 Temperature 36.6 C 05/10/24 22:55 Pulse Rate 94 05/10/24 22:55 Respiratory Rate 20 05/10/24 22:55 Blood Pressure 112/88 05/10/24 22:55 Pulse Oximetry 97 05/10/24 22:55 Oxygen Delivery Room Air 05/10/24 19:11 Medical Decision Making MDM Narrative Medical decision making narrative: Differential diagnosis includes urinary obstruction Imaging was reviewed from yesterday's visit that did show a large inguinal hernia but no evidence of obstruction The patient will be discharged home to follow-up with urology and General surgery Vital Signs Vital Signs: Vital Signs Temperature 36.9 C 05/10/24 19:11 Pulse Rate 62 05/10/24 19:11 Respiratory Rate 20 05/10/24 19:11 Blood Pressure 138/96 H 05/10/24 19:11 Pulse Oximetry 98 05/10/24 19:11 Oxygen Delivery Room Air 05/10/24 19:11 Temperature 36.6 C 05/10/24 22:55 Pulse Rate 94 05/10/24 22:55 Respiratory Rate 20 05/10/24 22:55 Blood Pressure 112/88 05/10/24 22:55 Pulse Oximetry 97 05/10/24 22:55 Oxygen Delivery Room Air 05/10/24 19:11 Lab Data Labs: Lab Results 05/10/24 Range/Units 22:53 Urine Color Yellow (Yellow) Urine Appearance Clear (Clear) Urine pH 5.5 (5.0-9.0) Ur Specific [place] 1.019 (1.001-1.035) Urine Protein 1+ H (Negative) mg/dL Urine Glucose (UA) Negative (Negative) mg/dL Urine Ketones Trace H (Negative) mg/dL Ur Blood (Man) 2+ H (Negative) Urine Nitrate Negative (Negative) Urine Bilirubin Negative (Negative) Urine Urobilinogen 0.2 (<2.0) mg/dL Leukocyte Esterase Rfl 2+ H (Negative) KATHARINA/UL Urine RBC 0-2 (0-2) /hpf Urine WBC None seen (0-3) /hpf Discharge Plan Discharge Clinical Impression: Malfunction of Muniz catheter, Acute urinary obstruction, Inguinal hernia, left Patient Disposition: Home, Self-Care Condition: Stable Instructions: Antibiotic Form, Muniz Catheter Placement and Care (ED), Inguinal Hernia (ED) Patient Language: Kiswahili Prescriptions: No Action finasteride 5 mg tablet 5 mg PO DAILY Qty: 30 0RF tamsulosin [Flomax] 0.4 mg capsule 0.4 mg PO HS Qty: 30 0RF tamsulosin 0.4 mg capsule 0.4 mg PO DAILY Qty: 90 3RF finasteride 5 mg tablet 5 mg PO DAILY Qty: 90 3RF escitalopram oxalate [Lexapro] 5 mg tablet 5 mg PO DAILY Qty: 30 0RF Rx Instructions: LAST REFILL UNTIL SEEN Follow-up/Referrals: Paulina Werner MD [Physician] - Chai Zhong MD [Primary Care Provider] - Alo Aguirre MD [Physician] - Time of Disposition: 23:46
--- OUTSIDE RECORDS SUMMARY | 2024-05-10 23:11 | XMS_ITS | Clinical Summary ---
Author Organization [facility] Address [address] [place] [address] Phone Care Team Providers Care Chief Architect Name Role Phone Chai Zhong MD Primary Care Provider +1- [phone] Allergies No known active allergies Medications docusate [...] 0.6 oz pur e alcohol) [facility] Utilities Answer Date Recorded In the [...] any time in the past 12 m [facility], were you homeless or living in a retirement (including now)? Patient declined 01/16/2024 Sexually Active Control Partners Comments Never Sex and Gender Information Value Date Recorded Sex Assigned at Not on file Legal Sex Male 10:38 PM CDT Gender Identity Not on file Sexual Orientation Not on file Last Filed Vital Signs Vital Sign Reading Time Taken Comments Blood Pressure 126/61 01/20/2024 2:29 PM SEASONAL DRIVER Pulse 76 01/19/2024 12:47 PM SEASONAL DRIVER Temperature 36.8 C (98.2 F) 01/20/2024 2:29 PM SEASONAL DRIVER Respiratory Rate 20 01/20/2024 2:2 9 PM SEASONAL DRIVER Oxygen Saturation 100% 01/20/2024 2:29 PM SEASONAL DRIVER Inhaled Oxygen Concentration - - Weight 103.5 kg (228 lb 1.6 oz) 01/16/2024 6:30 PM SEASONAL DRIVER Height 185.4 cm (6' 1 ) 01/16/2024 6:30 PM SEASONAL DRIVER Body Mass Index 30.09 01/16/2024 6:30 PM SEASONAL DRIVER Plan of Treatment Health Maintenance Due Date [...] measures to stabilize the patient. Care Teams Chief Architect Relationship Specialty Start Date End Date Chai Zhong MD [address] [place] [address] [address] [place] [address] PCP - General Family Medicine 12/12/17
--- OUTSIDE RECORDS SUMMARY | 2024-05-10 23:11 | XMS_ITS | Clinical Summary ---
Author Organization [facility] Address [address] [place] [address] Care Team Providers Care Wire Setter Name Role Phone Chai Zhong MD Primary Care Provider +1 -[phone] Allergies No known active allergies Medications finasteride [...] on file Legal Sex Male 2:21 AM IRONING PLEATER Gender Identity Not on file Sexual Orientation Not on file Obstetrics History Last Filed Vital Signs Vital Sign Reading Time Taken Comments Blood Pressure 124/69 12/29/2022 3:48 PM IRONING PLEATER Pulse 85 12/29/2022 3:48 PM IRONING PLEATER Temperature 36.3 C (97.4 F) 12/29/2022 3:48 PM IRONING PLEATER Respiratory Rate 20 12/29/2022 6:19 AM IRONING PLEATER Oxygen Saturation 99% 12/29/2022 3:48 PM IRONING PLEATER Inhaled Oxygen Concentration - - Weight 95.4 [...] 2023 Fall Risk Assessment 12/30/2023 12/29/2022 Insurance [facility] Advance Directives For more information, please contact: [phone] * Full Code (Latest Code Status on File) Date Activated Date Inactivated Comments 12/24/2022 12:23 AM 12/29/2022 9:26 PM Care Teams Wire Setter Relationship Specialty Start Date End Date Chai Zhong MD [address] [place] [address] [address] PCP - General Family Medicine 12/23/22
--- OUTSIDE RECORDS SUMMARY | 2024-05-10 23:11 | XMS_ITS | Referral Summary ---
Author Organization [facility] Address [address] [place] [address] Care Team Providers Care Connie Scratcher Name Role Phone Chai Zhong MD Primary Care Provider +1 -[phone] Allergies No known active allergies Medications finasteride [...] on file Legal Sex Male 2:21 AM ENVIRONMENTAL STUDIES PROFESSOR Gender Identity Not on file Sexual Orientation Not on file Last Filed Vital Signs Vital Sign Reading Time Taken Comments Blood Pressure 124/69 12/29/2022 3:48 PM ENVIRONMENTAL STUDIES PROFESSOR Pulse 85 12/29/2022 3:48 PM ENVIRONMENTAL STUDIES PROFESSOR Temperature 36.3 C (97.4 F) 12/29/2022 3:48 PM ENVIRONMENTAL STUDIES PROFESSOR Respiratory Rate 20 12/29/2022 6:19 AM ENVIRONMENTAL STUDIES PROFESSOR Oxygen Saturation 99% 12/29/2022 3:48 PM ENVIRONMENTAL STUDIES PROFESSOR Inhaled Oxygen Concentration - - Weight 95.4 kg (210 lb 4.8 oz) 12/23/2022 10:45 PM CDT Height 182.9 cm (6') 12/23/2022 10:45 PM CDT Body Mass Index 28.52 12/23/2022 10:45 PM CDT Plan of Treatment Not on file Insurance [facility] Member Subscriber Plan / Payer (Ef fective 2022-Present) Name:Cristhian Hernandez Relation to Subscriber:Self Name:Cristhian Hernandez Payer ID:[id number] (NAIC) Type:MEDICARE RISK OTHER Address: [address] Advance Directives For more information, please contact: [phone] * Full Code (Latest Code Status on File) Date Activated Date Inactivated Comments 12/24/2022 12:23 AM 12/29/2022 9:26 PM Care Teams Connie Scratcher Relationship Specialty Start Date End Date Chai Zhong MD [facility] [place] [address] PCP - General Family Medicine 12/23/22
[2024-05-10 23:22] LABS: RBC Urine 0-2 /hpf (0-2); WBC Urine None seen /hpf (0-3)
== END 2024-05-11 00:33 | disposition home or self-care (01) ==
PROVIDERS: Emergency Provider Emergency Medicine; PCP Family Medicine
DX: T83.091A Other mechanical complication of indwelling urethral catheter, initial encounter (principal); K40.90 Unilateral inguinal hernia, without obstruction or gangrene, not specified as recurrent; E11.9 Type 2 diabetes mellitus without complications
CPT/HCPCS: 51702; 81001; 87086; 99283

== ENCOUNTER 2024-06-03 10:19 | Emergency (ER) | payer MEDICARE, SELFPAY ==
--- OUTSIDE RECORDS SUMMARY | 2024-06-03 10:20 | XMS_ITS | Clinical Summary ---
Author Organization [facility] Address [address] [place] [address] Care Team Providers Care Cyber Reverse Engineer Name Role Phone Chai Zhong MD Primary Care Provider +1 -[phone] Allergies No known active allergies Medications finasteride [...] on file Legal Sex Male 2:21 AM SPORTS CLERK Gender Identity Not on file Sexual Orientation Not on file Obstetrics History Last Filed Vital Signs Vital Sign Reading Time Taken Comments Blood Pressure 124/69 12/29/2022 3:48 PM SPORTS CLERK Pulse 85 12/29/2022 3:48 PM SPORTS CLERK Temperature 36.3 C (97.4 F) 12/29/2022 3:48 PM SPORTS CLERK Respiratory Rate 20 12/29/2022 6:19 AM SPORTS CLERK Oxygen Saturation 99% 12/29/2022 3:48 PM SPORTS CLERK Inhaled Oxygen Concentration - - Weight 95.4 [...] (AAA) Screen 2021 Well Visit 65+ 2021 Fall Risk Assessment 12/30/2023 12/29/2022 Influenza Vaccine (Season Ended) 2024 Insurance [facility] Advance Directives For more information, please contact: [phone] * Full Code (Latest Code Status on File) Date Activated Date Inactivated Comments 12/24/2022 12:23 AM 12/29/2022 9:26 PM Care Teams Cyber Reverse Engineer Relationship Specialty Start Date End Date Chai Zhong MD [address] [place] [address] [address] PCP - General Family Medicine 12/23/22
--- OUTSIDE RECORDS SUMMARY | 2024-06-03 10:20 | XMS_ITS | Clinical Summary ---
Author Organization [facility] Address [address] [place] [address] Phone Care Team Providers Care Manager Database Name Role Phone Chai Zhong MD Primary Care Provider +1- [phone] Allergies No known active allergies Medications docusate sodium (COLACE) 100 MG Capsule Take 1 Cap by mouth 2 times daily as needed for Constipatio n. To be held for loose stools/diar suze. 180 Cap 01/11/2018 Active Active Problems Problem Noted Date Diagnosed [...] = 0.6 oz pur e alcohol) [facility] Utilities Answer Date Recorded In the past 12 months has [employer], gas, oil, or water [employer] threatened to shut off services in your [...] any time in the past 12 m [facility], were you homeless or living in a long-term (including now)? Patient declined 01/16/2024 Sexually Active Control Partners Comments Never Sex and Gender Information Value Date Recorded Sex Assigned at Not on file Legal Sex Male 10:38 PM CDT Gender Identity Not on file Sexual Orientation Not on file Last Filed Vital Signs Vital Sign Reading Time Taken Comments Blood Pressure 126/61 01/20/2024 2:29 PM CLIENT DEVELOPMENT CONSULTANT Pulse 76 01/19/2024 12:47 PM CLIENT DEVELOPMENT CONSULTANT Temperature 36.8 C (98.2 F) 01/20/2024 2:29 PM CLIENT DEVELOPMENT CONSULTANT Respiratory Rate 20 01/20/2024 2:29 PM CLIENT DEVELOPMENT CONSULTANT Oxygen Saturation 100% 01/20/2024 2:29 PM CLIENT DEVELOPMENT CONSULTANT Inhaled Oxygen Concentration - - Weight 103.5 kg (228 lb 1.6 oz) 01/16/2024 6:30 PM CLIENT DEVELOPMENT CONSULTANT Height 185.4 cm (6' 1 ) 01/16/2024 6:30 PM CLIENT DEVELOPMENT CONSULTANT Body Mass Index 30.09 01/16/2024 6:30 PM CLIENT DEVELOPMENT CONSULTANT Plan of Treatment Health Maintenance Due [...] Influenza Immunization (#1) 2023 SARS-COV-2 Immunization ( season) 2023 Hepatitis B Immunization Aged Out [...] Indicated MRSA 01/16/2024 01/16/2024 Insurance [place] [id number] MEDICARE Advance Directives * Full Code (Latest Code Status on File) Date Activated Date Inactivated Comments 01/16/2024 9:27 PM CPR-Full Terri tment: FULL ARREST: Attempt Resuscitation/CPR wit intubation and mechanical ventilation. PRE-ARREST: Use entire range of life support measures to stabilize the patient. Care Teams Manager Database Relationship Specialty Start Date End Date Chai Zhong MD [address] [facility] [address] [place] [address] PCP - General Family Medicine 12/12/17
--- OUTSIDE RECORDS SUMMARY | 2024-06-03 10:20 | XMS_ITS | Referral Summary ---
Author Organization [facility] Address [address] [place] [address] Care Team Providers Care Plant Quality Manager Name Role Phone Chai Zhong MD Primary Care Provider +1 [phone] Allergies No known active allergies Medications finasteride [...] on file Legal Sex Male 2:21 AM OPERATIONAL TRAINER Gender Identity Not on file Sexual Orientation Not on file Last Filed Vital Signs Vital Sign Reading Time Taken Comments Blood Pressure 124/69 12/29/2022 3:48 PM OPERATIONAL TRAINER Pulse 85 12/29/2022 3:48 PM OPERATIONAL TRAINER Temperature 36.3 C (97.4 F) 12/29/2022 3:48 PM OPERATIONAL TRAINER Respiratory Rate 20 12/29/2022 6:19 AM OPERATIONAL TRAINER Oxygen Saturation 99% 12/29/2022 3:48 PM OPERATIONAL TRAINER Inhaled Oxygen Concentration - - Weight 95.4 kg (210 lb 4.8 oz) 12/23/2022 10:45 PM CDT Height 182.9 cm (6') 12/23/2022 10:45 PM CDT Body Mass Index 28.52 12/23/2022 10:45 PM CDT Plan of Treatment Not on file Insurance [facility] Member Subscriber Plan / Payer (Ef fective 2022-Present) Name:Cristhian Hernandez Relation to Subscriber:Self Name:Cristhian Hernandez Payer ID:[id number] (NAIC) Type:MEDICARE RISK OTHER Address: [address] Advance Directives For more information, please contact: [phone] * Full Code (Latest Code Status on File) Date Activated Date Inactivated Comments 12/24/2022 12:23 AM 12/29/2022 9:26 PM Care Teams Plant Quality Manager Relationship Specialty Start Date End Date Chai Zhong MD [facility] [address] PCP - General Family Medicine 12/23/22
[2024-06-03 10:29] VITALS: BP 124/81; PULSE 86; RESP 16; TEMP 36.4; O2SAT 97
--- NOTE | 2024-06-03 10:31 | ED_ITS ---
HPI - General Adult General Chief complaint: Urogenital-Male Stated complaint: catheter pain Time Seen by Provider: 06/03/24 10:30 Source: patient Mode of arrival: ambulatory Limitations: no limitations History of Present Illness HPI narrative: 68 years old white male came from home complaining of burning sensation at the Muniz catheter exit started in the last 24 hours. Currently feeling much better. He denies any fever, chills, nausea, vomiting, abdominal pain. Patient does not know when the last time hip Muniz catheter was changed. Related Data Allergies Allergy/AdvReac Type Severity Reaction Status Date / Time No Known Allergies Allergy Verified 06/03/24 10:37 Review of Systems 2 Review of Systems: All systems reviewed & are unremarkable except as noted in HPI and below PMFSH Past Medical History Medical History Inguinal hernia Enlarged prostate Degenerative arthritis of knee, bilateral Hemoglobin A1c less than 7.0% last A1c in chart was 6.5 in july of 2018 Type 2 diabetes mellitus without complication, without long-term current use of insulin Surgical History Surgical History History of prostate surgery 2018 Family History Family History Father Diabetes mellitus Mother Diabetes mellitus Family history of malignant neoplasm of breast in first degree relative Sibling Family history of cardiovascular disease Social History Social History Social History: Smoking status: Current some day smoker Tobacco type: cigars Alcohol intake: current Occupation/Education: retired Gender identity (if verbalized by the patient): Male Exam 2 Narrative: General appearance: Well-developed, well-nourished patient talks softly, difficult to hear him, looks exhausted and tired Skin: Normal color Head: Normocephalic, nontraumatic Eyes: Clear conjunctiva Neck: Supple, nontender Chest and respiratory: Airway patent, no respiratory distress, no accessory muscle use Heart: Regular rate/rhythm Abdomen: Soft, nontender, no organomegaly, quiet bowel sounds, large left inguinal hernia, reducible, nontender, Vascular: Normal peripheral pulses, normal capillary refill. Musculoskeletal: Normal range of motion, nontender back Neurologic: Alert and oriented ?3, PAINTER AND PAPERHANGER APPRENTICE is normal as tested, no gross motor deficit Course Vital Signs Vital signs: Vital Signs Temperature 36.4 C 06/03/24 10:29 Pulse Rate 86 06/03/24 10:29 Respiratory Rate 16 06/03/24 10:29 Blood Pressure 124/81 06/03/24 10:29 Pulse Oximetry 97 06/03/24 10:29 Oxygen Delivery Room Air 06/03/24 10:29 Temperature 36.4 C 06/03/24 10:29 Pulse Rate 87 06/03/24 11:29 Respiratory Rate 16 06/03/24 11:29 Blood Pressure 128/86 06/03/24 11:29 Pulse Oximetry 98 06/03/24 11:29 Oxygen Delivery Room Air 06/03/24 10:29 Medical Decision Making MDM Narrative Medical decision making narrative: Patient came to the ED with burning sensation at the meatus unknown last catheter change Vital signs are stable Physical examination significant for left inguinal hernia, reducible Three ways catheter in place, Differential diagnosis include urinary tract infection, catheter need to replaced. Blood workup today includes CBC, CMP NO SIGNIFICANT ABNORMALITY Urinalysis showed EVIDENCE OF INFECTION Muniz catheter ordered to be replaced PATIENT RECEIVED 1 G OF ROCEPHIN IV PRIOR TO DISCHARGE DIAGNOSIS URINARY TRACT INFECTION CATHETER RELATED DISCHARGED ON CIPRO 500 B.I.D. FOR 10 DAYS. THE PT WAS DISCHARGED TO HOME.THE PT,S CONDITION UPON DISCHARGE WAS FAIR,EDUCATION WAS PROVIDED TO THE PT IN REFERENCE TO THE FINAL IMPRESSION,DISCHARGE STUDY RESULTS,TREATMENT,PROGNOSIS AND NEED FOR FOLLOW UP . Differential Diagnosis Differential Diagnosis: As above Vital Signs Vital Signs: Vital Signs Temperature 36.4 C 06/03/24 10:29 Pulse Rate 86 06/03/24 10:29 Respiratory Rate 16 06/03/24 10:29 Blood Pressure 124/81 06/03/24 10:29 Pulse Oximetry 97 06/03/24 10:29 Oxygen Delivery Room Air 06/03/24 10:29 Temperature 36.4 C 06/03/24 10:29 Pulse Rate 87 06/03/24 11:29 Respiratory Rate 16 06/03/24 11:29 Blood Pressure 128/86 06/03/24 11:29 Pulse Oximetry 98 06/03/24 11:29 Oxygen Delivery Room Air 06/03/24 10:29 Lab Data 06/03/24 11:27 06/03/24 11:27 Labs: Lab Results 06/03/24 Range/Units 11:27 WBC 7.8 (4.5-10.0) K/mm3 RBC 4.56 L (4.6-6.20) M/mm3 Hgb 13.0 L (14.0-18.0) g/dL Hct 40.2 L (42.0-52.0) % MCV 88.2 (80-100) fl MCH 28.5 (26-34) pg MCHC 32.3 (32-36) g/dl RDW 13.8 (11.5-14.5) % Plt Count 181 (150-375) k/mm3 MPV 9.5 (7.4-10.4) fl Immature Gran % (Auto) 0.4 (0-0.5) % Neut % (Auto) 75.2 H (45.5-73.1) % Lymph % (Auto) 13.0 L (18.3-44.2) % [place]wey % (Auto) 8.3 (2.6-8.5) % Eos % (Auto) 2.6 (0-4.4) % Baso % (Auto) 0.5 (0.2-1.2) % Lymph # (Auto) 1.01 (0.9-3.2) K/mm3 [place]wey # (Auto) 0.7 H (0.1-0.6) K/mm3 Eos # (Auto) 0.2 (0-0.3) K/mm3 Baso # (Auto) 0.0 (0.0-0.1) K/mm3 Abs Immat Gran (auto) 0.03 (0.00-0.031) K/mm3 Absolute Neuts (auto) 5.9 (1.3-6.7) K/mm3 Absolute Nucleated RBC 0.000 (0.0-0.012) K/mm3 Nucleated RBC % 0.0 (0.0-0.2) % Sodium 137 (137-145) mmol/L Potassium 3.7 (3.4-5.0) mmol/L Chloride 104 (98-107) mmol/L Carbon Dioxide 27 (22-30) mmol/L Anion Gap 6 (4-12) mmol/L BUN 19 (9-20) mg/dL Creatinine 0.56 L (0.7-1.3) mg/dL Estim Creat Clear Calc 133 ml/min Estimated GFR > 60 (59 - ) Glucose 128 H (65-110) mg/dL Calcium 8.5 (8.4-10.2) mg/dL Total Bilirubin 0.5 (0.2-1.3) mg/dL AST 21 (17-59) U/L ALT 13 (6-50) U/L Alkaline Phosphatase 67 (38-126) U/L Total Protein 6.0 L (6.3-8.2) g/dL Albumin 3.6 (3.5-5.1) g/dL Urine Color Yellow (Yellow) Urine Appearance Turbid H (Clear) Urine pH 8.5 (5.0-9.0) Ur Specific [place] 1.016 (1.001-1.035) Urine Protein 3+ H (Negative) mg/dL Urine Glucose (UA) Negative (Negative) mg/dL Urine Ketones Negative (Negative) mg/dL Ur Blood (Man) 2+ H (Negative) Urine Nitrate Positive H (Negative) Urine Bilirubin Negative (Negative) Urine Urobilinogen 1.0 (<2.0) mg/dL Leukocyte Esterase Rfl 3+ H (Negative) KATHARINA/UL Urine RBC 11-20 H (0-2) /hpf Urine WBC >100 H (0-3) /hpf Ur Squamous Epith Cells None seen (Few) /hpf Triple Phos Crystals Present H (None) /hpf Urine Bacteria 4+ H /hpf Urine Casts 0-2 Critical Care Time Critical Care Time Critical Care Time: No Discharge Plan Discharge Clinical Impression: Catheter-associated urinary tract infection Patient Disposition: Home Condition: Stable Instructions: Antibiotic Form, Urinary Tract Infection in Men (ED), Muniz Catheter Placement and Care (ED) Additional Instructions: RETURN IF SYMPTOMS ARE WORSENING , CALL YOUR FAMILY PHYSICIAN FOR APPOINTMENT, TAKE TYLENOL NEEDED FOR ACHES AND PAIN, CONTINUE HOME MEDICATIONS. Patient Language: Georgian Prescriptions: New ciprofloxacin HCl [Cipro] 500 mg tablet 500 mg PO Q12H Qty: 20 0RF No Action finasteride 5 mg tablet 5 mg PO DAILY Qty: 30 0RF tamsulosin [Flomax] 0.4 mg capsule 0.4 mg PO HS Qty: 30 0RF Follow-up/Referrals: Luis Manuel Fernando APRN [Primary Care Provider] -
[2024-06-03 11:29] VITALS: BP 128/86; PULSE 87; RESP 16; O2SAT 98
[2024-06-03] MEDS: SODIUM CHLORIDE 0.9% IV 1,000 ML 999 ML IV CONT (11:32)
--- NOTE | 2024-06-03 11:37 | PC.NURSE ---
Pt urine thick with pus. RN asked pt if he using large gravity bag. Pt states he is supposed to at night, but has not been doing that.
[2024-06-03 11:44] LABS: Basophils Percent Auto 0.5 % (0.2-1.2); Eosinophils Absolute Auto 0.2 K/mm3 (0-0.3); Eosinophils Percent Auto 2.6 % (0-4.4); Hematocrit 40.2 % (42.0-52.0); Immature Granulocyte Absolute 0.03 K/mm3 (0.00-0.031); Immature Granulocyte Percent A 0.4 % (0-0.5); Lymphocytes Absolute Auto 1.01 K/mm3 (0.9-3.2); Mean Corpuscular HGB Conc 32.3 g/dl (32-36); Mean Corpuscular Hemoglobin 28.5 pg (26-34); Mean Corpuscular Volume 88.2 fl (80-100); Mean Platelet Volume 9.5 fl (7.4-10.4); Monocytes Absolute Auto 0.7 K/mm3 (0.1-0.6); Monocytes Percent Auto 8.3 % (2.6-8.5); Neutrophils Absolute Auto 5.9 K/mm3 (1.3-6.7); Neutrophils Percent Auto 75.2 % (45.5-73.1); Platelet Count Result 181 k/mm3 (150-375); Red Blood Count 4.56 M/mm3 (4.6-6.20); Red Cell Distribution Width 13.8 % (11.5-14.5); White Blood Count 7.8 K/mm3 (4.5-10.0)
[2024-06-03 11:53] LABS: Alanine Aminotransferase 13 U/L (6-50); Albumin Level 3.6 g/dL (3.5-5.1); Alkaline Phosphatase 67 U/L (38-126); Anion Gap 6 mmol/L (4-12); Aspartate Amino Transferase 21 U/L (17-59); Bilirubin,Total 0.5 mg/dL (0.2-1.3); Blood Urea Nitrogen 19 mg/dL (9-20); Calcium 8.5 mg/dL (8.4-10.2); Carbon Dioxide 27 mmol/L (22-30); Chloride 104 mmol/L (98-107); Estimated CRCL calculation 133 ml/min; Estimated Glomerular Filt Rate > 60; Glucose 128 mg/dL (65-110); Potassium 3.7 mmol/L (3.4-5.0); Sodium 137 mmol/L (137-145)
[2024-06-03 12:01] LABS: Add Urine Microscopic? YES; Appearance Urine Turbid (Clear); Bacteria Urine 4+ /hpf; Bilirubin Urine Negative (Negative); Blood Urine 2+ (Negative); Color Urine Yellow (Yellow); Glucose Urine UA Negative (Negative); Ketones Urine Negative (Negative); Leukocyte Esterase Ur 3+ LEU/UL (Negative); Nitrate Urine Positive (Negative); Non Pathogenic Casts 0-2; Protein Urine 3+ mg/dL (Negative); Specific Grav Ur 1.016 (1.001-1.035); Squamous Epithelial Cell Urine None Seen /hpf (Few); Triple Phosphate Crystal Urine Present /hpf; WBC Urine >100 /hpf (0-3); pH Urine 8.5 (5.0-9.0)
[2024-06-03 13:00] VITALS: BP 127/81; PULSE 84; RESP 16; TEMP 36.9; O2SAT 98
[2024-06-03 13:27] VITALS: BP 129/88; PULSE 90; RESP 16; TEMP 36.9; O2SAT 100
== END 2024-06-03 13:37 | disposition home or self-care (01) ==
PROVIDERS: Emergency Provider Emergency Medicine; PCP Student in an Organized Health Care Education/Training Program
DX: T83.511A Infection and inflammatory reaction due to indwelling urethral catheter, initial encounter (principal); N39.0 Urinary tract infection, site not specified; N40.0 Benign prostatic hyperplasia without lower urinary tract symptoms; E11.9 Type 2 diabetes mellitus without complications; F17.290 Nicotine dependence, other tobacco product, uncomplicated; Y84.6 Urinary catheterization as the cause of abnormal reaction of the patient, or of later complication, without mention of misadventure at the time of the procedure; Z79.899 Other long term (current) drug therapy
CPT/HCPCS: 36415; 80053; 81001; 85025; 87077; 87086; 87147; 87181; 87186; 96361; 96365; 99284; J0696; J7030

== ENCOUNTER 2024-06-19 00:27 | Emergency (ER) | payer MEDICARE, SELFPAY ==
[2024-06-19] VITALS (13 sets, daily range): BP systolic 117–130; BP diastolic 63–91; PULSE 87–95; RESP 16–22; TEMP 36.3–36.4; O2SAT 95–100
--- OUTSIDE RECORDS SUMMARY | 2024-06-19 00:30 | XMS_ITS | Clinical Summary ---
Author Organization [facility] Address [address] [place] [address] Phone Care Team Providers Care Structural Steel Trades Worker Name Role Phone Chai Zhong MD Primary Care Provider +1- [phone] Allergies No known active allergies Medications docusate [...] drink = 0.6 oz pur e alcohol) [facility] Utilities Answer Date Recorded In the past 12 months has [employer], gas, oil, or water [employer] threatened to shut off services in your [...] any time in the past 12 m [facility], were you homeless or living in a group home (including now)? Patient declined 01/16/2024 Sexually Active Control Partners Comments Never Sex and Gender Information Value Date Recorded Sex Assigned at Not on file Legal Sex Male 10:38 PM CDT Gender Identity Not on file Sexual Orientation Not on file Last Filed Vital Signs Vital Sign Reading Time Taken Comments Blood Pressure 126/61 01/20/2024 2:29 PM CASH ON DELIVERY CLERK Pulse 76 01/19/2024 12:47 PM CASH ON DELIVERY CLERK Temperature 36.8 C (98.2 F) 01/20/2024 2:29 PM CASH ON DELIVERY CLERK Respiratory Rate 20 01/20/2024 2:29 PM CASH ON DELIVERY CLERK Oxygen Saturation 100% 01/20/2024 2:29 PM CASH ON DELIVERY CLERK Inhaled Oxygen Concentration - - Weight 103.5 kg (228 lb 1.6 oz) 01/16/2024 6:30 PM CASH ON DELIVERY CLERK Height 185.4 cm (6' 1 ) 01/16/2024 6:30 PM CASH ON DELIVERY CLERK Body Mass Index 30.09 01/16/2024 6:30 PM CASH ON DELIVERY CLERK Plan of Treatment Health Maintenance Due Date [...] Indicated MRSA 01/16/2024 01/16/2024 Insurance [place] [id number] MEDICARE Advance Directives * Full Code (Latest Code Status on File) Date Activated Date Inactivated Comments 01/16/2024 9:27 PM CPR-Full Terri tment: FULL ARREST: Attempt Resuscitation/CPR wit intubation and mechanical ventilation. PRE-ARREST: Use entire range of life support measures to stabilize the patient. Care Teams Structural Steel Trades Worker Relationship Specialty Start Date End Date Chai Zhong MD [address] [facility] [address] [place] [address] PCP - General Family Medicine 12/12/17
--- OUTSIDE RECORDS SUMMARY | 2024-06-19 00:30 | XMS_ITS | Referral Summary ---
Author Organization [facility] Address [address] [place] [address] Care Team Providers Care Labor Relations Specialist Name Role Phone Chai Zhong MD Primary Care Provider +1 -[phone] Allergies No known active allergies Medications finasteride [...] on file Legal Sex Male 2:21 AM GREENBELT Gender Identity Not on file Sexual Orientation Not on file Last Filed Vital Signs Vital Sign Reading Time Taken Comments Blood Pressure 124/69 12/29/2022 3:48 PM GREENBELT Pulse 85 12/29/2022 3:48 PM GREENBELT Temperature 36.3 C (97.4 F) 12/29/2022 3:48 PM GREENBELT Respiratory Rate 20 12/29/2022 6:19 AM GREENBELT Oxygen Saturation 99% 12/29/2022 3:48 PM GREENBELT Inhaled Oxygen Concentration - - Weight 95.4 kg (210 lb 4.8 oz) 12/23/2022 10:45 PM CDT Height 182.9 cm (6') 12/23/2022 10:45 PM CDT Body Mass Index 28.52 12/23/2022 10:45 PM CDT Plan of Treatment Not on file Insurance [facility] Member Subscriber Plan / Payer (Ef fective 2022-Present) Name:Cristhian Hernandez Relation to Subscriber:Self Name:Cristhian Hernandez Payer ID:[id number] (NAIC) Group ID:Not on file Type:MEDICAID RISK OTHER Address: [place] [id number] Advance Directives For more information, please contact: [phone] * Full Code (Latest Code Status on File) Date Activated Date Inactivated Comments 12/24/2022 12:23 AM 12/29/2022 9:26 PM Care Teams Labor Relations Specialist Relationship Specialty Start Date End Date Chai Zhong MD [address] [facility] [address] PCP - General Family Medicine 12/23/22
--- OUTSIDE RECORDS SUMMARY | 2024-06-19 00:30 | XMS_ITS | Clinical Summary ---
Author Organization [facility] Address [address] [place] [address] Care Team Providers Care Councillor [employer] Name Role Phone Chai Zhong MD Primary Care Provider +1 -[phone] Allergies No known active allergies Medications finasteride [...] on file Legal Sex Male 2:21 AM WEAVING MACHINE OPERATOR Gender Identity Not on file Sexual Orientation Not on file Obstetrics History Last Filed Vital Signs Vital Sign Reading Time Taken Comments Blood Pressure 124/69 12/29/2022 3:48 PM WEAVING MACHINE OPERATOR Pulse 85 12/29/2022 3:48 PM WEAVING MACHINE OPERATOR Temperature 36.3 C (97.4 F) 12/29/2022 3:48 PM WEAVING MACHINE OPERATOR Respiratory Rate 20 12/29/2022 6:19 AM WEAVING MACHINE OPERATOR Oxygen Saturation 99% 12/29/2022 3:48 PM WEAVING MACHINE OPERATOR Inhaled Oxygen Concentration - - Weight 95.4 [...] 2006 Zoster Vaccine (1 of 2) 2006 Well Visit 65+ 2021 Fall Risk Assessment 12/30/2023 12/29/2022 Influenza Vaccine (Season Ended) 2024 Abdominal Aortic Aneurysm (AAA) Screen Completed Insurance [facility] Advance Directives For more information, please contact: [phone] * Full Code (Latest Code Status on File) Date Activated Date Inactivated Comments 12/24/2022 12:23 AM 12/29/2022 9:26 PM Care Teams Councillor [employer] Land [employer] Relationship Specialty Start Date End Date Chai Zhong MD [address] [place] [address] [address] PCP - General Family Medicine 12/23/22
--- OUTSIDE RECORDS SUMMARY | 2024-06-19 07:25 | XMS_ITS | Clinical Summary ---
Author Organization [facility] Address [address] [place] [address] Care Team Providers Care Ordnance Handler Name Role Phone Chai Zhong MD Primary Care Provider +1 -[phone] Allergies No known active allergies Medications finasteride [...] on file Legal Sex Male 2:21 AM WELL SERVICES OPERATOR Gender Identity Not on file Sexual Orientation Not on file Obstetrics History Last Filed Vital Signs Vital Sign Reading Time Taken Comments Blood Pressure 124/69 12/29/2022 3:48 PM WELL SERVICES OPERATOR Pulse 85 12/29/2022 3:48 PM WELL SERVICES OPERATOR Temperature 36.3 C (97.4 F) 12/29/2022 3:48 PM WELL SERVICES OPERATOR Respiratory Rate 20 12/29/2022 6:19 AM WELL SERVICES OPERATOR Oxygen Saturation 99% 12/29/2022 3:48 PM WELL SERVICES OPERATOR Inhaled Oxygen Concentration - - Weight [...] Abdominal Aortic Aneurysm (AAA) Screen Completed Insurance [facility] Advance Directives For more information, please contact: [phone] * Full Code (Latest Code Status on File) Date Activated Date Inactivated Comments 12/24/2022 12:23 AM 12/29/2022 9:26 PM Care Teams Ordnance Handler Relationship Specialty Start Date End Date Chai Zhong MD [address] [place] [address] [address] PCP - General Family Medicine 12/23/22
--- OUTSIDE RECORDS SUMMARY | 2024-06-19 07:25 | XMS_ITS | Clinical Summary ---
Author Organization [facility] Address [address] [place] [address] Phone Care Team Providers Care Supervisor Stone Name Role Phone Chai Zhong MD Primary Care Provider +1- [phone] Allergies No known active allergies Medications docusate [...] = 0.6 oz pur e alcohol) [facility] Utilities Answer Date Recorded In the past 12 months has [employer], gas, oil, or water [employer] threatened to shut off services in your [...] any time in the past 12 m [facility], were you homeless or living in a prison (including now)? Patient declined 01/16/2024 Sexually Active Control Partners Comments Never Sex and Gender Information Value Date Recorded Sex Assigned at Not on file Legal Sex Male 10:38 PM CDT Gender Identity Not on file Sexual Orientation Not on file Last Filed Vital Signs Vital Sign Reading Time Taken Comments Blood Pressure 126/61 01/20/2024 2:29 PM INSIGHT LEADER Pulse 76 01/19/2024 12:47 PM INSIGHT LEADER Temperature 36.8 C (98.2 F) 01/20/2024 2:29 PM INSIGHT LEADER Respiratory Rate 20 01/20/2024 2:29 PM INSIGHT LEADER Oxygen Saturation 100% 01/20/2024 2:29 PM INSIGHT LEADER Inhaled Oxygen Concentration - - Weight 103.5 kg (228 lb 1.6 oz) 01/16/2024 6:30 PM INSIGHT LEADER Height 185.4 cm (6' 1 ) 01/16/2024 6:30 PM INSIGHT LEADER Body Mass Index 30.09 01/16/2024 6:30 PM INSIGHT LEADER Plan of Treatment Health Maintenance Due Date [...] Indicated MRSA 01/16/2024 01/16/2024 Insurance [place] [id number] MEDICARE Advance Directives * Full Code (Latest Code Status on File) Date Activated Date Inactivated Comments 01/16/2024 9:27 PM CPR-Full Terri tment: FULL ARREST: Attempt Resuscitation/CPR wit intubation and mechanical ventilation. PRE-ARREST: Use entire range of life support measures to stabilize the patient. Care Teams Supervisor Stone Relationship Specialty Start Date End Date Chai Zhong MD [address] [facility] [address] [place] [address] PCP - General Family Medicine 12/12/17
--- OUTSIDE RECORDS SUMMARY | 2024-06-19 07:25 | XMS_ITS | Referral Summary ---
Author Organization [facility] Address [address] [place] [address] Care Team Providers Care Barrel Builder Name Role Phone Chai Zhong MD Primary Care Provider [phone] [phone] Allergies No known active allergies Medications finasteride [...] on file Legal Sex Male 2:21 AM ICE SELLER Gender Identity Not on file Sexual Orientation Not on file Last Filed Vital Signs Vital Sign Reading Time Taken Comments Blood Pressure 124/69 12/29/2022 3:48 PM ICE SELLER Pulse 85 12/29/2022 3:48 PM ICE SELLER Temperature 36.3 C (97.4 F) 12/29/2022 3:48 PM ICE SELLER Respiratory Rate 20 12/29/2022 6:19 AM ICE SELLER Oxygen Saturation 99% 12/29/2022 3:48 PM ICE SELLER Inhaled Oxygen Concentration - - Weight 95.4 kg (210 lb 4.8 oz) 12/23/2022 10:45 PM CDT Height 182.9 cm (6') 12/23/2022 10:45 PM CDT Body Mass Index 28.52 12/23/2022 10:45 PM CDT Plan of Treatment Not on file Insurance [facility] Member Subscriber Plan / Payer (Ef fective 2022-Present) Name:Cristhian Hernandez Relation to Subscriber:Self Name:Cristhian Hernandez Payer ID:[id number] (NAIC) Group ID:Not on file Type:MEDICAID [id number] OTHER Address: [place] [id number] Advance Directives For more information, please contact: [phone] * Full Code (Latest Code Status on File) Date Activated Date Inactivated Comments 12/24/2022 12:23 AM 12/29/2022 9:26 PM Care Teams Barrel Builder Relationship Specialty Start Date End Date Chai Zhong MD [address] [address] PCP - General Family Medicine 12/23/22
[2024-06-19 07:46] LABS: Basophils Percent Auto 0.4 % (0.2-1.2); Eosinophils Absolute Auto 0.1 K/mm3 (0-0.3); Hematocrit 40.4 % (42.0-52.0); Hemoglobin 12.7 g/dL (14.0-18.0); Immature Granulocyte Absolute 0.01 K/mm3 (0.00-0.031); Immature Granulocyte Percent A 0.1 % (0-0.5); Lymphocytes Absolute Auto 0.67 K/mm3 (0.9-3.2); Lymphocytes Percent Auto 9.4 % (18.3-44.2); Mean Corpuscular HGB Conc 31.4 g/dl (32-36); Mean Corpuscular Hemoglobin 28.3 pg (26-34); Mean Corpuscular Volume 90.2 fl (80-100); Mean Platelet Volume 9.5 fl (7.4-10.4); Monocytes Absolute Auto 0.6 K/mm3 (0.1-0.6); Monocytes Percent Auto 8.6 % (2.6-8.5); Neutrophils Absolute Auto 5.7 K/mm3 (1.3-6.7); Neutrophils Percent Auto 79.5 % (45.5-73.1); Platelet Count Result 192 k/mm3 (150-375); Red Blood Count 4.48 M/mm3 (4.6-6.20); Red Cell Distribution Width 13.8 % (11.5-14.5); White Blood Count 7.1 K/mm3 (4.5-10.0)
[2024-06-19 07:59] LABS: Add Urine Microscopic? YES; Alanine Aminotransferase 13 U/L (6-50); Albumin Level 3.5 g/dL (3.5-5.1); Alkaline Phosphatase 72 U/L (38-126); Anion Gap 6 mmol/L (4-12); Appearance Urine Turbid (Clear); Aspartate Amino Transferase 17 U/L (17-59); Bacteria Urine 4+ /hpf; Bilirubin Urine Negative (Negative); Bilirubin,Total 0.9 mg/dL (0.2-1.3); Blood Urea Nitrogen 23 mg/dL (9-20); Blood Urine 3+ (Negative); Calcium 8.2 mg/dL (8.4-10.2); Carbon Dioxide 27 mmol/L (22-30); Chloride 104 mmol/L (98-107); Color Urine Yellow (Yellow); Estimated CRCL calculation 92 ml/min; Estimated Glomerular Filt Rate > 60; Glucose 119 mg/dL (65-110); Glucose Urine UA Negative (Negative); Ketones Urine Negative (Negative); Leukocyte Esterase Ur 3+ LEU/UL (Negative); Need Manual Microscopic Reviewed; Nitrate Urine Positive (Negative); Non Pathogenic Casts >20; Potassium 3.7 mmol/L (3.4-5.0); Protein Urine 4+ mg/dL (Negative); RBC Urine >100 /hpf (0-2); Sodium 137 mmol/L (137-145); Specific Grav Ur 1.017 (1.001-1.035); Squamous Epithelial Cell Urine Occasional /hpf (Few); Urobilinogen Urine 0.2 mg/dL (<2.0); WBC Urine >100 /hpf (0-3); pH Urine 8.5 (5.0-9.0)
--- NOTE | 2024-06-19 08:38 | ED.GENADULT ---
HPI - General Adult General Chief complaint: Urogenital-Male Stated complaint: burning penis Time Seen by Provider: 06/19/24 07:07 History of Present Illness HPI narrative: Patient is a 68-year-old male who presents ER with discomfort around the tip of his penis. Chronic indwelling Muniz catheter for 1 month. Reports he has been leaking around the catheter. Has lower abdominal discomfort related to this. No fevers or chills. Has follow-up with Urology. Currently being seen by General surgery as well due to large inguinal hernia on the left side. Related Data Allergies Allergy/AdvReac Type Severity Reaction Status Date / Time No Known Allergies Allergy Verified 06/19/24 00:29 Review of Systems Review of Systems: All systems reviewed & are unremarkable except as noted in HPI and below Constitutional: Constitutional: Reports no additional constitutional complaints Cardiovascular: Cardiovascular: Reports no additional cardiovascular complaints Respiratory: Respiratory: Reports no additional respiratory complaints Gastrointestinal: Gastrointestinal: Reports no additional gastrointestinal complaints Genitourinary: Genitourinary: Reports no additional male genitourinary complaints [facility] Past Medical History Medical History Inguinal hernia Enlarged prostate Degenerative arthritis of knee, bilateral Hemoglobin A1c less than 7.0% last A1c in chart was 6.5 in july of 2018 Type 2 diabetes mellitus without complication, without long-term current use of insulin Surgical History Surgical History History of prostate surgery 2018 Family History Family History (Updated 06/12/24 @ 16:23 by Mally Delgado MA) Father Diabetes mellitus Mother Diabetes mellitus Family history of malignant neoplasm of breast in first degree relative Cancer Sibling Family history of cardiovascular disease Cancer Social History Social History (Updated 06/12/24 @ 16:27 by Mally Delgado MA) Social History: Smoking status: Current some day smoker Tobacco type: cigars Alcohol intake: current Occupation/Education: retired Gender identity (if verbalized by the patient): Male Exam Narrative: GENERAL: Well-appearing, well-nourished, and in no acute distress. HEAD: Normocephalic, atraumatic. ENT: Mucous membranes moist. CHEST: Clear to auscultation. No respiratory distress. HEART: Regular rate and rhythm. Normal peripheral pulses. ABDOMEN: Soft, nontender, nondistended. Enlarged scrotum due to hernia, no incarceration. EXTREMITIES: Normal range of motion. No edema. SKIN: Warm, dry, no rash. NEURO: Alert and oriented x3. PSYCH: Normal mood and affect. Course Course Emergency Course: Muniz exchanged. 800 mL out. 921: Discussed with urology. Previous urine grew out Proteus as well as Enterococcus. Will place patient on both Macrobid as well as and Augmentin for the next 10 days. Follow-up with urology. Vital Signs Vital signs: Vital Signs Temperature 97.3 F L 06/19/24 00:29 Pulse Rate 95 06/19/24 00:29 Respiratory Rate 22 H 06/19/24 00:29 Blood Pressure 124/67 06/19/24 00:29 Pulse Oximetry 96 06/19/24 00:29 Oxygen Delivery Room Air 06/19/24 00:29 Temperature 97.6 F 06/19/24 07:20 Pulse Rate 87 06/19/24 07:20 Respiratory Rate 16 06/19/24 07:20 Blood Pressure 125/83 06/19/24 07:46 Pulse Oximetry 98 06/19/24 07:46 Oxygen Delivery Room Air 06/19/24 00:29 Medical Decision Making Vital Signs Vital Signs: Vital Signs Temperature 97.3 F L 06/19/24 00:29 Pulse Rate 95 06/19/24 00:29 Respiratory Rate 22 H 06/19/24 00:29 Blood Pressure 124/67 06/19/24 00:29 Pulse Oximetry 96 06/19/24 00:29 Oxygen Delivery Room Air 06/19/24 00:29 Temperature 97.6 F 06/19/24 07:20 Pulse Rate 87 06/19/24 07:20 Respiratory Rate 16 06/19/24 07:20 Blood Pressure 125/83 06/19/24 07:46 Pulse Oximetry 98 06/19/24 07:46 Oxygen Delivery Room Air 06/19/24 00:29 Lab Data 06/19/24 07:39 06/19/24 07:39 Labs: Lab Results 06/19/24 Range/Units 07:39 WBC 7.1 (4.5-10.0) K/mm3 RBC 4.48 L (4.6-6.20) M/mm3 Hgb 12.7 L (14.0-18.0) g/dL Hct 40.4 L (42.0-52.0) % MCV 90.2 (80-100) fl MCH 28.3 (26-34) pg MCHC 31.4 L (32-36) g/dl RDW 13.8 (11.5-14.5) % Plt Count 192 (150-375) k/mm3 MPV 9.5 (7.4-10.4) fl Immature Gran % (Auto) 0.1 (0-0.5) % Neut % (Auto) 79.5 H (45.5-73.1) % Lymph % (Auto) 9.4 L (18.3-44.2) % [place] % (Auto) 8.6 H (2.6-8.5) % Eos % (Auto) 2.0 (0-4.4) % Baso % (Auto) 0.4 (0.2-1.2) % Lymph # (Auto) 0.67 L (0.9-3.2) K/mm3 [place] # (Auto) 0.6 (0.1-0.6) K/mm3 Eos # (Auto) 0.1 (0-0.3) K/mm3 Baso # (Auto) 0.0 (0.0-0.1) K/mm3 Abs Immat Gran (auto) 0.01 (0.00-0.031) K/mm3 Absolute Neuts (auto) 5.7 (1.3-6.7) K/mm3 Absolute Nucleated RBC 0.000 (0.0-0.012) K/mm3 Nucleated RBC % 0.0 (0.0-0.2) % Sodium 137 (137-145) mmol/L Potassium 3.7 (3.4-5.0) mmol/L Chloride 104 (98-107) mmol/L Carbon Dioxide 27 (22-30) mmol/L Anion Gap 6 (4-12) mmol/L BUN 23 H (9-20) mg/dL Creatinine 0.74 (0.7-1.3) mg/dL Estim Creat Clear Calc 92 ml/min Estimated GFR > 60 (59 - ) Glucose 119 H (65-110) mg/dL Calcium 8.2 L (8.4-10.2) mg/dL Total Bilirubin 0.9 (0.2-1.3) mg/dL AST 17 (17-59) U/L ALT 13 (6-50) U/L Alkaline Phosphatase 72 (38-126) U/L Total Protein 6.0 L (6.3-8.2) g/dL Albumin 3.5 (3.5-5.1) g/dL Urine Color Yellow (Yellow) Urine Appearance Turbid H (Clear) Urine pH 8.5 (5.0-9.0) Ur Specific [place] 1.017 (1.001-1.035) Urine Protein 4+ H (Negative) mg/dL Urine Glucose (UA) Negative (Negative) mg/dL Urine Ketones Negative (Negative) mg/dL Ur Blood (Man) 3+ H (Negative) Urine Nitrate Positive H (Negative) Urine Bilirubin Negative (Negative) Urine Urobilinogen 0.2 (<2.0) mg/dL Add Ur Microanalysis Reviewed Leukocyte Esterase Rfl 3+ H (Negative) KATHARINA/UL Urine RBC >100 H (0-2) /hpf Urine WBC >100 H (0-3) /hpf Ur Squamous Epith Cells Occasional (Few) /hpf Urine Bacteria 4+ /hpf Urine Casts >20 Discharge Plan Discharge Clinical Impression: Acute urinary retention, Acute UTI Patient Disposition: Home Condition: Stable Instructions: Antibiotic Form, Urinary Tract Infection in Men (ED), Muniz Catheter Placement and Care (ED) Additional Instructions: Follow-up with urology for further treatment evaluation. You should return to the emergency department if you develop severe nausea and vomiting and are unable to keep liquids down, if you develop severe back/flank or stomach pain, or if your symptoms are not clearly improving at home. Patient Language: Zambian Prescriptions: New nitrofurantoin monohyd/m-cryst [Macrobid] 100 mg capsule 100 mg PO Q12H Qty: 20 0RF Rx Instructions: must administer with a meal/food amoxicillin-pot clavulanate 875-125 mg tablet 1 tablet PO Q12H Qty: 20 0RF No Action finasteride 5 mg tablet 5 mg PO DAILY Qty: 30 0RF tamsulosin [Flomax] 0.4 mg capsule 0.4 mg PO HS Qty: 30 0RF ciprofloxacin HCl [Cipro] 500 mg tablet 500 mg PO Q12H Qty: 20 0RF Follow-up/Referrals: Sharad Navarrete MD [Physician] - 1 Week Chai Zhong MD [Primary Care Provider] - 1 Week
== END 2024-06-19 10:08 | disposition home or self-care (01) ==
PROVIDERS: Emergency Provider Emergency Medicine; PCP Family Medicine
DX: R33.9 Retention of urine, unspecified (principal); N39.0 Urinary tract infection, site not specified; E11.9 Type 2 diabetes mellitus without complications
CPT/HCPCS: 36415; 51700; 80053; 81001; 85025; 87077; 87086; 87186; 99283

== ENCOUNTER 2024-07-16 16:08 | Inpatient (IN) | payer MEDICARE, SELFPAY ==
[2024-07-16] VITALS (17 sets, daily range): BP systolic 101–130; BP diastolic 56–76; PULSE 64–92; RESP 12–18; TEMP 36.3; O2SAT 95–100
--- NOTE | ~2024-07-16 | XR_ITS ---
XR chest 1V portable Ordering provider: Sarah Paige APRN History: 68 years Male with . concern for CHF . Comparison: May 09, 2024 FINDINGS: MEDIASTINUM: The cardiac silhouette is slightly enlarged. Congestive marcio. LUNGS: No , effusions or pneumothorax. Bilateral prominent bronchovascular markings with interstitial thickening and minimal opacification the lung bases suggestive of pneumonia versus pulmonary edema. OTHER: No free air under the diaphragm. Degenerative changes of the spine. IMPRESSION: Highly suggestive cardiac decompensation with pulmonary edema versus pneumonitis. Clinical correlatio n and follow-up advised. Reviewed, dictated and finalized at location A. IMPRESSION: Highly suggestive cardiac decompensation with pulmonary edema versus pneumoniti s. Clinical correlation and follow-up advised.
--- NOTE | ~2024-07-16 | CT_ITS ---
CT abdomen pelvis w con Ordering provider: Meera Hooker History: 68 years Male with . large left ingional hernia . Comparison: May 09, 2024 Technique: CT abdomen and pelvis with IV and without oral contrast. Automated exposure control and it erative reconstruction technique were employed. The dose-length product was 1140.39 mGy-cm. 100 mL Om nipaque 350 was given IV. Findings: VISUALIZED LOWER CHEST: Minimal dependent atelectatic changes. UPPER ABDOMINAL ORGANS: Liver: Normal. Gallbladder: Normal. Spleen: Normal. Stomach/duodenum: Normal. Pancreas: Normal. Adrenals: Normal. Kidneys: Left kidney lower pole STONES SEEN MEASURING 4 MM AND 3 MM. PELVIC ORGANS: The bladder is underfilled with Muniz's catheter. Enlarged prostate is noted. BOWEL AND MESENTERY: Colon: No evidence of diverticulitis. Slight thickening of the wall of the rectum with fat stranding is seen anterior to the sacrum which may indicate proctitis. Normal appendix. Small Bowel: No definite obstruction. Peritoneum/mesentery: No free air or free fluid. No mesenteric lymphadenopathy. RETROPERITONEUM: Mild atheromatous disease of the abdominal aorta. No retroperitoneal lymphadenopat hy. MUSCULOSKELETAL: Superficial soft tissues: Large left inguinal hernia with small and large bowel content is seen. Flui d also is noted in the hernia sac. No definite free air is seen in the hernia sac. No dilatation seen in the bowel to suggest an obstruction. Slight thickening of the wall of the small bowel with probab ly congested vessels is noted. Possibility of a filling defect in the inferior mesenteric vein is not excluded. Right fat-containing inguinal hernia is also noted. Otherwise, The superficial soft tissue s are normal. Bones: Age appropriate degenerative changes of the spine. IMPRESSION: 1. Large left inguinal hernia with small and large bowel content with free fluid. No definite eviden ce of strangulation seen. Slightly thickened wall of the small bowel with congestive vessels is seen which may indicate incarceration. Clinical correlation and follow-up advised.. 2. Possibility of a filling defect in the inferior mesenteric vein is not excluded which may indicat e thrombus. Clinical correlation and follow-up advised. 3. fat-containing right inguinal hernia. 4. Enlarged prostate with thickened wall of the bladder. 5. Left kidney lower pole is stones. Reviewed, dictated and finalized at location A. IMPRESSION: 1. Large left inguinal hernia with small and large bowel content with free flu id. No definite evidence of strangulation seen. Slightly thickened wall of the small bowel with congestive vessels is seen which may indicate incarceration. C linical correlation and follow-up advised.. 2. Possibility of a filling defect in the inferior mesenteric vein is not excl uded which may indicate thrombus. Clinical correlation and follow-up advised. 3. fat-containing right inguinal hernia. 4. Enlarged prostate with thickened wall of the bladder. 5. Left kidney lower pole is stones.
--- OUTSIDE RECORDS SUMMARY | 2024-07-16 16:10 | XMS_ITS | Clinical Summary ---
Author Organization [facility] Address [address] [place] [address] Care Team Providers Care Frame Opener Name Role Phone Chai Zhong MD Primary Care Provider [phone] Allergies No known active allergies Medications finasteride [...] on file Legal Sex Male 2:21 AM GAGE MAKER Gender Identity Not on file Sexual Orientation Not on file Obstetrics History Last Filed Vital Signs Vital Sign Reading Time Taken Comments Blood Pressure 124/69 12/29/2022 3:48 PM GAGE MAKER Pulse 85 12/29/2022 3:48 PM GAGE MAKER Temperature 36.3 C (97.4 F) 12/29/2022 3:48 PM GAGE MAKER Respiratory Rate 20 12/29/2022 6:19 AM GAGE MAKER Oxygen Saturation 99% 12/29/2022 3:48 PM GAGE MAKER Inhaled Oxygen Concentration - - Weight 95.4 [...] Abdominal Aortic Aneurysm (AAA) Screen Completed Insurance [facility] Advance Directives For more information, please contact: [phone] * Full Code (Latest Code Status on File) Date Activated Date Inactivated Comments 12/24/2022 12:23 AM 12/29/2022 9:26 PM Care Teams Frame Opener Relationship Specialty Start Date End Date Chai Zhong MD [address] [place] [address] [address] [place] [address] PCP - General Family Medicine 12/23/22
--- OUTSIDE RECORDS SUMMARY | 2024-07-16 16:10 | XMS_ITS | Referral Summary ---
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 Gender Identity Not on file Sexual Orientation Not on file Last Filed Vital Signs Vital Sign Reading Time Taken Comments Blood Pressure 124/69 12/29/2022 3:48 PM MULTICUT LINE OPERATOR Pulse 85 12/29/2022 3:48 PM MULTICUT LINE OPERATOR Temperature 36.3 C (97.4 F) 12/29/2022 3:48 PM MULTICUT LINE OPERATOR Respiratory Rate 20 12/29/2022 6:19 AM MULTICUT LINE OPERATOR Oxygen Saturation 99% 12/29/2022 3:48 PM MULTICUT LINE OPERATOR Inhaled Oxygen Concentration - - Weight 95.4 kg (210 lb 4.8 oz) 12/23/2022 10:45 PM CDT Height 182.9 cm (6') 12/23/2022 10:45 PM CDT Body Mass Index 28.52 12/23/2022 10:45 PM CDT Plan of Treatment Not on file Insurance [facility] Advance Directives For more information, please contact: [phone] * Full Code (Latest Code Status on File) Date Activated Date Inactivated Comments 12/24/2022 12:23 AM 12/29/2022 9:26 PM Care Teams Freight Car Inspector Relationship Specialty Start Date End Date Chai Zhong MD [facility] [place] [address] PCP - General Family Medicine 12/23/22
--- OUTSIDE RECORDS SUMMARY | 2024-07-16 16:10 | XMS_ITS | Clinical Summary ---
Author Organization [facility] Address [address] [place] [address] Phone Care Team Providers Care Lead Php Developer Name Role Phone Chai Zhong MD Primary Care Provider [phone]- [phone] Allergies No known active allergies Medications docusate [...] drink = 0.6 oz pur e alcohol) [facility] Utilities Answer Date Recorded In the past 12 months has [employer], gas, oil, or water [employer] threatened to shut off services in your [...] any time in the past 12 m [facility], were you homeless or living in a jail (including now)? Patient declined 01/16/2024 Sexually Active Control Partners Comments Never Sex and Gender Information Value Date Recorded Sex Assigned at Not on file Legal Sex Male 10:38 PM CDT Gender Identity Not on file Sexual Orientation Not on file Last Filed Vital Signs Vital Sign Reading Time Taken Comments Blood Pressure 126/61 01/20/2024 2:29 PM HEART SPECIALIST Pulse 76 01/19/2024 12:47 PM HEART SPECIALIST Temperature 36.8 C (98.2 F) 01/20/2024 2:29 PM HEART SPECIALIST Respiratory Rate 20 01/20/2024 2:29 PM HEART SPECIALIST Oxygen Saturation 100% 01/20/2024 2:29 PM HEART SPECIALIST Inhaled Oxygen Concentration - - Weight 103.5 kg (228 lb 1.6 oz) 01/16/2024 6:30 PM HEART SPECIALIST Height 185.4 cm (6' 1) 01/16/2024 6:30 PM HEART SPECIALIST Body Mass Index 30.09 01/16/2024 6:30 PM HEART SPECIALIST Plan of Treatment Health Maintenance Due Date [...] Indicated MRSA 01/16/2024 01/16/2024 Insurance MEDICAID [place] [id number] MEDICARE Advance Directives * Full Code (Latest Code Status on File) Date Activated Date Inactivated Comments 01/16/2024 9:27 PM CPR-Full Terri tment: FULL ARREST: Attempt Resuscitation/CPR wit intubation and mechanical ventilation. PRE-ARREST: Use entire range of life support measures to stabilize the patient. Care Teams Lead Php Developer Relationship Specialty Start Date End Date Chai Zhong MD [address] [facility] [address] [place] [address] PCP - General Family Medicine 12/12/17
--- NOTE | 2024-07-16 16:24 | ED_ITS ---
HPI - Male Genitourinary General Chief complaint: Urogenital-Male <Meera Hooker PA-C - Last Filed: 07/16/24 16:27> Stated complaint: large testicle <Meera Hooker PA-C - Last Filed: 07/16/24 16:27> Time Seen by Provider: 07/16/24 19:26 <Meera Hooker PA-C - Last Filed: 07/16/24 16:27> Focused HPI: 68-year-old male with known large left inguinal hernia presents emergency department for increasing size of the left inguinal hernia for the past few months. Patient states the area is bothersome and uncomfortable but denies any significant pain. Denies changes in his bowel or bladder. Has a chronic indwelling Muniz catheter which states has been draining well. Denies dysuria, fever, nausea vomiting. Has followed with Dr. Werner in the past but states he has lost his phone and is unsure his next follow-up appointment is. GENERAL: Well-appearing, well-nourished, and in no acute distress. HEAD: Normocephalic, atraumatic. CHEST: Clear to auscultation. ?No respiratory distress. ABD/: Abdomen soft and nontender. chaperoned by tech: Large left inguinal hernia extending into the left scrotum without tenderness, not easily reduced due to size, soft, no overlying skin changes. Muniz in place and draining clear yellow urine HEART: Regular rate and rhythm.? NEURO: ?Alert and oriented x3. Patient screened in triage and initial orders placed.? ?Additional care and disposition to be based upon?diagnostic testing and treatment. <Meera Hooker PA-C - Last Filed: 07/16/24 16:27> Related Data Allergies/Adverse reactions: Allergies Allergy/AdvReac Type Severity Reaction Status Date / Time No Known Allergies Allergy Verified 07/17/24 01:44 <Meera Hooker PA-C - Last Filed: 07/16/24 16:27> Review of Systems 2 Review of Systems: All systems reviewed & are unremarkable except as noted in HPI and below <Sarah Paige APRN - Last Filed: 07/17/24 03:21> [facility] Past Medical History Medical History: Medical History Inguinal hernia Enlarged prostate Degenerative arthritis of knee, bilateral Hemoglobin A1c less than 7.0% last A1c in chart was 6.5 in july of 2018 Type 2 diabetes mellitus without complication, without long-term current use of insulin <Meera Hooker PA-C - Last Filed: 07/16/24 16:27> Surgical History Surgical History: Surgical History History of prostate surgery 2018 <CONSTANTIN Moyer Last Filed: 07/16/24 16:27> Family History Family History: Family History Father Diabetes mellitus Mother Diabetes mellitus Family history of malignant neoplasm of breast in first degree relative Cancer Sibling Family history of cardiovascular disease Cancer <CONSTANTIN Moyer Last Filed: 07/16/24 16:27> Social History Social History: Social History Social History: Smoking status: Current some day smoker Tobacco type: cigarettes Alcohol intake: never Substance use: never Substance use type: does not use Do You Feel Safe in your Home?: Yes Lack of Transportation: No Lack of Food: Sometimes True Current Housing: I Do Not Have Housing Concerned About Future Housing: YES Difficulty Paying Gas/Electric Bills: No Difficulty Paying for Meds: YES Currently Unemployed: No Education: High School Diploma/GED Difficulty w/ Childcare or Family Care: No Occupation/Education: retired Gender identity (if verbalized by the patient): Male Spiritual care concerns: Yes <CONSTANTIN Moyer Last Filed: 07/16/24 16:27> Exam 2 Narrative: GENERAL: Well appearing, well-nourished, non-toxic, in no acute distress. HEAD: Normocephalic, atraumatic. NECK: Supple. No adenopathy, no masses. RESPIRATORY: Airway patent, respirations nonlabored. Clear to auscultation bilaterally, no rales, rhonchi, wheezing. CARDIOVASCULAR: Regular rate and rhythm without murmurs, rubs, or gallops. Peripheral pulses equal. Bilateral lower extremity pitting edema ABDOMINAL: Soft, nontender, nondistended, no hepatosplenomegaly. Normoactive BS. MUSCULOSKELETAL: Moves all extremities. Strength/ROM intact without gross deformities. SKIN: Warm, dry, normal color. No rashes. Extreme scrotal edema, no skin tears noticed. NEURO: A&O X3. Speech clear. Cranial nerves II-XII intact. No ataxic movements. PSYCHIATRIC: Appropriate mood and affect. Normal interaction. <Sarah Paige APRN - Last Filed: 07/17/24 03:21> Course CADMIUM BURNER/PA Physician Supervision CADMIUM BURNER informed me patient would be admitted for acute heart failure. Given significant inguinal hernia that has been an issue for awhile, she also consulted other specialists. i was available for consultation while patient was in the ED but did not personally examine the patient, though I am familiar with him from previous presentations. <Cristina Broussard MD - Last Filed: 07/18/24 17:35> Vital Signs Vital signs: Vital Signs Temperature 97.3 F L 07/16/24 18:39 Pulse Rate 84 07/16/24 18:39 Respiratory Rate 16 07/16/24 18:39 Blood Pressure 111/76 07/16/24 18:39 Pulse Oximetry 99 07/16/24 18:39 Temperature 97.5 F L 07/18/24 14:00 Pulse Rate 76 07/18/24 14:00 Respiratory Rate 18 07/18/24 14:00 Blood Pressure 100/63 07/18/24 14:00 Pulse Oximetry 98 07/18/24 14:00 Oxygen Delivery Room Air 07/18/24 08:00 <Meera Hooker PA-C - Last Filed: 07/16/24 16:27> Vital Signs Temperature 97.3 F L 07/16/24 18:39 Pulse Rate 84 07/16/24 18:39 Respiratory Rate 16 07/16/24 18:39 Blood Pressure 111/76 07/16/24 18:39 Pulse Oximetry 99 07/16/24 18:39 Temperature 97.5 F L 07/18/24 14:00 Pulse Rate 76 07/18/24 14:00 Respiratory Rate 18 07/18/24 14:00 Blood Pressure 100/63 07/18/24 14:00 Pulse Oximetry 98 07/18/24 14:00 Oxygen Delivery Room Air 07/18/24 08:00 <Sarah Paige APRN - Last Filed: 07/17/24 03:21> Vital Signs Temperature 97.3 F L 07/16/24 18:39 Pulse Rate 84 07/16/24 18:39 Respiratory Rate 16 07/16/24 18:39 Blood Pressure 111/76 07/16/24 18:39 Pulse Oximetry 99 07/16/24 18:39 Temperature 97.5 F L 07/18/24 14:00 Pulse Rate 76 07/18/24 14:00 Respiratory Rate 18 07/18/24 14:00 Blood Pressure 100/63 07/18/24 14:00 Pulse Oximetry 98 07/18/24 14:00 Oxygen Delivery Room Air 07/18/24 08:00 <Cristina Broussard MD - Last Filed: 07/18/24 17:35> MDM - Male Genitourinary MDM Narrative Medical decision making narrative: 68-year-old male with known large left inguinal hernia presents emergency department for increasing size of the left inguinal hernia for the past few months. Patient states the area is bothersome and uncomfortable but denies any significant pain. Denies changes in his bowel or bladder. Has a chronic indwelling Muniz catheter which states has been draining well. Denies dysuria, fever, nausea vomiting. Has followed with Dr. Werner in the past but states he has lost his phone and is unsure his next follow-up appointment is. Labs Ordered: CBC, CMP, UA Imaging Ordered: CT abdomen pelvis Medications Ordered: Ceftriaxone IV, 1 L normal saline 125 an hour, Lasix 40 mg, ceftriaxone 1 g IV, Zofran IV Results: Patient's CT abdomen pelvis indicates 1. Large left inguinal hernia with small and large bowel content with free fluid. No definite evidence of strangulation seen. Slightly thickened wall of the small bowel with congestive vessels is seen which may indicate incarceration. Clinical correlation and follow-up advised.. 2. Possibility of a filling defect in the inferior mesenteric vein is not excluded which may indicate thrombus. Clinical correlation and follow-up advised. 3. fat-containing right inguinal hernia. 4. Enlarged prostate with thickened wall of the bladder. 5. Left kidney lower pole is stones. Diagnosis: incarcerated inguinal hernia, UTI, CHF, a.fib Consults: 2114- GI, Dr. Miller, who advised no further treatment or evaluation from his standpoint. 2144- Consulted urology, Dr. Kramer, who reports his colleagues can evaluate pt tomorrow in the hospital. He advised no further treatment or evaluation from his standpoint. 2199- Spoke with Dr. Devlin, general surgery, who will consult on pt tomorrow. He requests pt remain NPO after midnight. Patient Education/Shared MDM: Results of lab work and imaging shared with patient. It was advised pt stay in the hospital for further evaluation and specialty consult. Pt verbalized understanding and is in agreement with plan. 2214- Spoke with Dr. Betts, hospitalist, who was in agreement with plan to admit pt to the hospital. He will be admitted as an inpatient. Pt will be continued on IV fluids. Dr. Betts would like an ECHO ordered on pt d/t his new CHF diagnosis and a.fib. Pt will be admitted to the med/surg floor on telemetry. He will continue to receive Rocephin. <Sarah Paige APRN - Last Filed: 07/17/24 03:21> Differential Diagnosis Differential diagnosis: Likely urinary tract infection, prostatitis, acute retention of urine and inguinal hernia <Sarah Paige APRN - Last Filed: 07/17/24 03:21> Lab Data Attestation: I reviewed the patient's lab results. <Sarah Paige APRN - Last Filed: 07/17/24 03:21> Result diagrams: 07/18/24 06:27 07/18/24 06:27 <Meera Hooker PA-C - Last Filed: 07/16/24 16:27> Labs: Lab Results 07/16/24 07/16/24 07/16/24 Range/Units 17:54 20:31 21:38 WBC 6.2 (4.5-10.0) K/mm3 RBC 4.45 L (4.6-6.20) M/mm3 Hgb 12.7 L (14.0-18.0) g/dL Hct 40.2 L (42.0-52.0) % MCV 90.3 (80-100) fl MCH 28.5 (26-34) pg MCHC 31.6 L (32-36) g/dl RDW 13.3 (11.5-14.5) % Plt Count 208 (150-375) k/mm3 MPV 9.4 (7.4-10.4) fl Immature Gran % (Auto) 0.3 (0-0.5) % Neut % (Auto) 65.0 (45.5-73.1) % Lymph % (Auto) 22.3 (18.3-44.2) % Clarke % (Auto) 9.1 H (2.6-8.5) % Eos % (Auto) 2.7 (0-4.4) % Baso % (Auto) 0.6 (0.2-1.2) % Lymph # (Auto) 1.39 (0.9-3.2) K/mm3 Clarke # (Auto) 0.6 (0.1-0.6) K/mm3 Eos # (Auto) 0.2 (0-0.3) K/mm3 Baso # (Auto) 0.0 (0.0-0.1) K/mm3 Abs Immat Gran (auto) 0.02 (0.00-0.031) K/mm3 Absolute Neuts (auto) 4.0 (1.3-6.7) K/mm3 Absolute Nucleated RBC 0.000 (0.0-0.012) K/mm3 Nucleated RBC % 0.0 (0.0-0.2) % PT 14.0 (11.1-14.7) Seconds INR 1.0 APTT 29.6 (22.3-36.8) Seconds Sodium 138 (137-145) mmol/L Potassium 4.0 (3.4-5.0) mmol/L Chloride 100 (98-107) mmol/L Carbon Dioxide 32 H (22-30) mmol/L Anion Gap 6 (4-12) mmol/L BUN 21 H (9-20) mg/dL Creatinine 0.68 L (0.7-1.3) mg/dL Estim Creat Clear Calc 102 ml/min Estimated GFR > 60 (59 - ) Glucose 111 H (65-110) mg/dL POC Capillary Glucose (65-105) mg/dl Hemoglobin A1c (<5.7) % Lactic Acid 1.0 (0.7-2.0) mmol/L Calcium 8.4 (8.4-10.2) mg/dL Total Bilirubin 0.3 (0.2-1.3) mg/dL AST 18 (17-59) U/L ALT 12 (6-50) U/L Alkaline Phosphatase 63 (38-126) U/L Troponin I < 0.012 (0.000-0.034) ng/mL NT-Pro-B Natriuret Pep 4440 H (19.9-100) pg/mL Total Protein 6.0 L (6.3-8.2) g/dL Albumin 3.6 (3.5-5.1) g/dL Lipase 43 (23-300) U/L Urine Color Yellow (Yellow) Urine Appearance Cloudy H (Clear) Urine pH 6.0 (5.0-9.0) Ur Specific [place] > 1.045 H (1.001-1.035) Urine Protein 2+ H (Negative) mg/dL Urine Glucose (UA) Negative (Negative) mg/dL Urine Ketones Negative (Negative) mg/dL Ur Blood (Man) 3+ H (Negative) Urine Nitrate Negative (Negative) Urine Bilirubin Negative (Negative) Urine Urobilinogen 1.0 (<2.0) mg/dL Add Ur Microanalysis Reviewed Leukocyte Esterase Rfl 2+ H (Negative) KATHARINA/UL Urine RBC >100 H (0-2) /hpf Urine WBC >100 H (0-3) /hpf Urine WBC Clumps Present H (None) /HPF Ur Squamous Epith Cells None seen (Few) /hpf Urine Bacteria None seen /hpf Urine Casts 0-2 Urine Yeast (Budding) Present H (None) /hpf Urine Opiates Screen Negative (Negative) Urine Methadone Screen Negative (Negative) Ur Barbiturates Screen Negative (Negative) Ur Phencyclidine Scrn Negative (Negative) Ur Amphetamine Screen Positive A (Negative) U Benzodiazepines Scrn Negative (Negative) Urine Cocaine Screen Negative (Negative) U Cannabinoids Screen Negative (Negative) 07/17/24 07/17/24 07/17/24 Range/Units 02:14 06:05 07:32 WBC 5.6 (4.5-10.0) K/mm3 RBC 4.30 L (4.6-6.20) M/mm3 Hgb 12.3 L (14.0-18.0) g/dL Hct 38.5 L (42.0-52.0) % MCV 89.5 (80-100) fl MCH 28.6 (26-34) pg MCHC 31.9 L (32-36) g/dl RDW 13.3 (11.5-14.5) % Plt Count 211 (150-375) k/mm3 MPV 9.2 (7.4-10.4) fl Immature Gran % (Auto) 4.1 H (0-0.5) % Neut % (Auto) 61.8 (45.5-73.1) % Lymph % (Auto) 19.0 (18.3-44.2) % Clarke % (Auto) 10.6 H (2.6-8.5) % Eos % (Auto) 3.6 (0-4.4) % Baso % (Auto) 0.9 (0.2-1.2) % Lymph # (Auto) 1.06 (0.9-3.2) K/mm3 Clarke # (Auto) 0.6 (0.1-0.6) K/mm3 Eos # (Auto) 0.2 (0-0.3) K/mm3 Baso # (Auto) 0.1 (0.0-0.1) K/mm3 Abs Immat Gran (auto) 0.23 H (0.00-0.031) K/mm3 Absolute Neuts (auto) 3.4 (1.3-6.7) K/mm3 Absolute Nucleated RBC 0.000 (0.0-0.012) K/mm3 Nucleated RBC % 0.0 (0.0-0.2) % PT (11.1-14.7) Seconds INR APTT (22.3-36.8) Seconds Sodium 137 (137-145) mmol/L Potassium 3.7 (3.4-5.0) mmol/L Chloride 101 (98-107) mmol/L Carbon Dioxide 33 H (22-30) mmol/L Anion Gap 3 L (4-12) mmol/L BUN 17 (9-20) mg/dL Creatinine 0.63 L (0.7-1.3) mg/dL Estim Creat Clear Calc 124 ml/min Estimated GFR > 60 (59 - ) Glucose 101 (65-110) mg/dL POC Capillary Glucose 85 104 (65-105) mg/dl Hemoglobin A1c 5.8 H (<5.7) % Lactic Acid (0.7-2.0) mmol/L Calcium 8.2 L (8.4-10.2) mg/dL Total Bilirubin 0.5 (0.2-1.3) mg/dL AST 17 (17-59) U/L ALT 10 (6-50) U/L Alkaline Phosphatase 69 (38-126) U/L Troponin I (0.000-0.034) ng/mL NT-Pro-B Natriuret Pep (19.9-100) pg/mL Total Protein 6.0 L (6.3-8.2) g/dL Albumin 3.3 L (3.5-5.1) g/dL Lipase (23-300) U/L Urine Color (Yellow) Urine Appearance (Clear) Urine pH (5.0-9.0) Ur Specific [place] (1.001-1.035) Urine Protein (Negative) mg/dL Urine Glucose (UA) (Negative) mg/dL Urine Ketones (Negative) mg/dL Ur Blood (Man) (Negative) Urine Nitrate (Negative) Urine Bilirubin (Negative) Urine Urobilinogen (<2.0) mg/dL Add Ur Microanalysis Leukocyte Esterase Rfl (Negative) KATHARINA/UL Urine RBC (0-2) /hpf Urine WBC (0-3) /hpf Urine WBC Clumps (None) /HPF Ur Squamous Epith Cells (Few) /hpf Urine Bacteria /hpf Urine Casts Urine Yeast (Budding) (None) /hpf Urine Opiates Screen (Negative) Urine Methadone Screen (Negative) Ur Barbiturates Screen (Negative) Ur Phencyclidine Scrn (Negative) Ur Amphetamine Screen (Negative) U Benzodiazepines Scrn (Negative) Urine Cocaine Screen (Negative) U Cannabinoids Screen (Negative) 07/17/24 Range/Units 12:26 WBC (4.5-10.0) K/mm3 RBC (4.6-6.20) M/mm3 Hgb (14.0-18.0) g/dL Hct (42.0-52.0) % MCV (80-100) fl MCH (26-34) pg MCHC (32-36) g/dl RDW (11.5-14.5) % Plt Count (150-375) k/mm3 MPV (7.4-10.4) fl Immature Gran % (Auto) (0-0.5) % Neut % (Auto) (45.5-73.1) % Lymph % (Auto) (18.3-44.2) % Clarke % (Auto) (2.6-8.5) % Eos % (Auto) (0-4.4) % Baso % (Auto) (0.2-1.2) % Lymph # (Auto) (0.9-3.2) K/mm3 [place] # (Auto) (0.1-0.6) K/mm3 Eos # (Auto) (0-0.3) K/mm3 Baso # (Auto) (0.0-0.1) K/mm3 Abs Immat Gran (auto) (0.00-0.031) K/mm3 Absolute Neuts (auto) (1.3-6.7) K/mm3 Absolute Nucleated RBC (0.0-0.012) K/mm3 Nucleated RBC % (0.0-0.2) % PT (11.1-14.7) Seconds INR APTT (22.3-36.8) Seconds Sodium (137-145) mmol/L Potassium (3.4-5.0) mmol/L Chloride (98-107) mmol/L Carbon Dioxide (22-30) mmol/L Anion Gap (4-12) mmol/L BUN (9-20) mg/dL Creatinine (0.7-1.3) mg/dL Estim Creat Clear Calc ml/min Estimated GFR (59 - ) Glucose (65-110) mg/dL POC Capillary Glucose 105 (65-105) mg/dl Hemoglobin A1c (<5.7) % Lactic Acid (0.7-2.0) mmol/L Calcium (8.4-10.2) mg/dL Total Bilirubin (0.2-1.3) mg/dL AST (17-59) U/L ALT (6-50) U/L Alkaline Phosphatase (38-126) U/L Troponin I (0.000-0.034) ng/mL NT-Pro-B Natriuret Pep (19.9-100) pg/mL Total Protein (6.3-8.2) g/dL Albumin (3.5-5.1) g/dL Lipase (23-300) U/L Urine Color (Yellow) Urine Appearance (Clear) Urine pH (5.0-9.0) Ur Specific [place] (1.001-1.035) Urine Protein (Negative) mg/dL Urine Glucose (UA) (Negative) mg/dL Urine Ketones (Negative) mg/dL Ur Blood (Man) (Negative) Urine Nitrate (Negative) Urine Bilirubin (Negative) Urine Urobilinogen (<2.0) mg/dL Add Ur Microanalysis Leukocyte Esterase Rfl (Negative) KATHARINA/UL Urine RBC (0-2) /hpf Urine WBC (0-3) /hpf Urine WBC Clumps (None) /HPF Ur Squamous Epith Cells (Few) /hpf Urine Bacteria /hpf Urine Casts Urine Yeast (Budding) (None) /hpf Urine Opiates Screen (Negative) Urine Methadone Screen (Negative) Ur Barbiturates Screen (Negative) Ur Phencyclidine Scrn (Negative) Ur Amphetamine Screen (Negative) U Benzodiazepines Scrn (Negative) Urine Cocaine Screen (Negative) U Cannabinoids Screen (Negative) <Meera Hooker PA-C - Last Filed: 07/16/24 16:27> Lab Results 07/16/24 07/16/24 07/16/24 Range/Units 17:54 20:31 21:38 WBC 6.2 (4.5-10.0) K/mm3 RBC 4.45 L (4.6-6.20) M/mm3 Hgb 12.7 L (14.0-18.0) g/dL Hct 40.2 L (42.0-52.0) % MCV 90.3 (80-100) fl MCH 28.5 (26-34) pg MCHC 31.6 L (32-36) g/dl RDW 13.3 (11.5-14.5) % Plt Count 208 (150-375) k/mm3 MPV 9.4 (7.4-10.4) fl Immature Gran % (Auto) 0.3 (0-0.5) % Neut % (Auto) 65.0 (45.5-73.1) % Lymph % (Auto) 22.3 (18.3-44.2) % Clarke % (Auto) 9.1 H (2.6-8.5) % Eos % (Auto) 2.7 (0-4.4) % Baso % (Auto) 0.6 (0.2-1.2) % Lymph # (Auto) 1.39 (0.9-3.2) K/mm3 [place] # (Auto) 0.6 (0.1-0.6) K/mm3 Eos # (Auto) 0.2 (0-0.3) K/mm3 Baso # (Auto) 0.0 (0.0-0.1) K/mm3 Abs Immat Gran (auto) 0.02 (0.00-0.031) K/mm3 Absolute Neuts (auto) 4.0 (1.3-6.7) K/mm3 Absolute Nucleated RBC 0.000 (0.0-0.012) K/mm3 Nucleated RBC % 0.0 (0.0-0.2) % PT 14.0 (11.1-14.7) Seconds INR 1.0 APTT 29.6 (22.3-36.8) Seconds Sodium 138 (137-145) mmol/L Potassium 4.0 (3.4-5.0) mmol/L Chloride 100 (98-107) mmol/L Carbon Dioxide 32 H (22-30) mmol/L Anion Gap 6 (4-12) mmol/L BUN 21 H (9-20) mg/dL Creatinine 0.68 L (0.7-1.3) mg/dL Estim Creat Clear Calc 102 ml/min Estimated GFR > 60 (59 - ) Glucose 111 H (65-110) mg/dL POC Capillary Glucose (65-105) mg/dl Hemoglobin A1c (<5.7) % Lactic Acid 1.0 (0.7-2.0) mmol/L Calcium 8.4 (8.4-10.2) mg/dL Total Bilirubin 0.3 (0.2-1.3) mg/dL AST 18 (17-59) U/L ALT 12 (6-50) U/L Alkaline Phosphatase 63 (38-126) U/L Troponin I < 0.012 (0.000-0.034) ng/mL NT-Pro-B Natriuret Pep 4440 H (19.9-100) pg/mL Total Protein 6.0 L (6.3-8.2) g/dL Albumin 3.6 (3.5-5.1) g/dL Lipase 43 (23-300) U/L Urine Color Yellow (Yellow) Urine Appearance Cloudy H (Clear) Urine pH 6.0 (5.0-9.0) Ur Specific [place] > 1.045 H (1.001-1.035) Urine Protein 2+ H (Negative) mg/dL Urine Glucose (UA) Negative (Negative) mg/dL Urine Ketones Negative (Negative) mg/dL Ur Blood (Man) 3+ H (Negative) Urine Nitrate Negative (Negative) Urine Bilirubin Negative (Negative) Urine Urobilinogen 1.0 (<2.0) mg/dL Add Ur Microanalysis Reviewed Leukocyte Esterase Rfl 2+ H (Negative) KATHARINA/UL Urine RBC >100 H (0-2) /hpf Urine WBC >100 H (0-3) /hpf Urine WBC Clumps Present H (None) /HPF Ur Squamous Epith Cells None seen (Few) /hpf Urine Bacteria None seen /hpf Urine Casts 0-2 Urine Yeast (Budding) Present H (None) /hpf Urine Opiates Screen Negative (Negative) Urine Methadone Screen Negative (Negative) Ur Barbiturates Screen Negative (Negative) Ur Phencyclidine Scrn Negative (Negative) Ur Amphetamine Screen Positive A (Negative) U Benzodiazepines Scrn Negative (Negative) Urine Cocaine Screen Negative (Negative) U Cannabinoids Screen Negative (Negative) 07/17/24 07/17/24 07/17/24 Range/Units 02:14 06:05 07:32 WBC 5.6 (4.5-10.0) K/mm3 RBC 4.30 L (4.6-6.20) M/mm3 Hgb 12.3 L (14.0-18.0) g/dL Hct 38.5 L (42.0-52.0) % MCV 89.5 (80-100) fl MCH 28.6 (26-34) pg MCHC 31.9 L (32-36) g/dl RDW 13.3 (11.5-14.5) % Plt Count 211 (150-375) k/mm3 MPV 9.2 (7.4-10.4) fl Immature Gran % (Auto) 4.1 H (0-0.5) % Neut % (Auto) 61.8 (45.5-73.1) % Lymph % (Auto) 19.0 (18.3-44.2) % Clarke % (Auto) 10.6 H (2.6-8.5) % Eos % (Auto) 3.6 (0-4.4) % Baso % (Auto) 0.9 (0.2-1.2) % Lymph # (Auto) 1.06 (0.9-3.2) K/mm3 [place] # (Auto) 0.6 (0.1-0.6) K/mm3 Eos # (Auto) 0.2 (0-0.3) K/mm3 Baso # (Auto) 0.1 (0.0-0.1) K/mm3 Abs Immat Gran (auto) 0.23 H (0.00-0.031) K/mm3 Absolute Neuts (auto) 3.4 (1.3-6.7) K/mm3 Absolute Nucleated RBC 0.000 (0.0-0.012) K/mm3 Nucleated RBC % 0.0 (0.0-0.2) % PT (11.1-14.7) Seconds INR APTT (22.3-36.8) Seconds Sodium 137 (137-145) mmol/L Potassium 3.7 (3.4-5.0) mmol/L Chloride 101 (98-107) mmol/L Carbon Dioxide 33 H (22-30) mmol/L Anion Gap 3 L (4-12) mmol/L BUN 17 (9-20) mg/dL Creatinine 0.63 L (0.7-1.3) mg/dL Estim Creat Clear Calc 124 ml/min Estimated GFR > 60 (59 - ) Glucose 101 (65-110) mg/dL POC Capillary Glucose 85 104 (65-105) mg/dl Hemoglobin A1c 5.8 H (<5.7) % Lactic Acid (0.7-2.0) mmol/L Calcium 8.2 L (8.4-10.2) mg/dL Total Bilirubin 0.5 (0.2-1.3) mg/dL AST 17 (17-59) U/L ALT 10 (6-50) U/L Alkaline Phosphatase 69 (38-126) U/L Troponin I (0.000-0.034) ng/mL NT-Pro-B Natriuret Pep (19.9-100) pg/mL Total Protein 6.0 L (6.3-8.2) g/dL Albumin 3.3 L (3.5-5.1) g/dL Lipase (23-300) U/L Urine Color (Yellow) Urine Appearance (Clear) Urine pH (5.0-9.0) Ur Specific [place] (1.001-1.035) Urine Protein (Negative) mg/dL Urine Glucose (UA) (Negative) mg/dL Urine Ketones (Negative) mg/dL Ur Blood (Man) (Negative) Urine Nitrate (Negative) Urine Bilirubin (Negative) Urine Urobilinogen (<2.0) mg/dL Add Ur Microanalysis Leukocyte Esterase Rfl (Negative) KATHARINA/UL Urine RBC (0-2) /hpf Urine WBC (0-3) /hpf Urine WBC Clumps (None) /HPF Ur Squamous Epith Cells (Few) /hpf Urine Bacteria /hpf Urine Casts Urine Yeast (Budding) (None) /hpf Urine Opiates Screen (Negative) Urine Methadone Screen (Negative) Ur Barbiturates Screen (Negative) Ur Phencyclidine Scrn (Negative) Ur Amphetamine Screen (Negative) U Benzodiazepines Scrn (Negative) Urine Cocaine Screen (Negative) U Cannabinoids Screen (Negative) 07/17/24 Range/Units 12:26 WBC (4.5-10.0) K/mm3 RBC (4.6-6.20) M/mm3 Hgb (14.0-18.0) g/dL Hct (42.0-52.0) % MCV (80-100) fl MCH (26-34) pg MCHC (32-36) g/dl RDW (11.5-14.5) % Plt Count (150-375) k/mm3 MPV (7.4-10.4) fl Immature Gran % (Auto) (0-0.5) % Neut % (Auto) (45.5-73.1) % Lymph % (Auto) (18.3-44.2) % [place] % (Auto) (2.6-8.5) % Eos % (Auto) (0-4.4) % Baso % (Auto) (0.2-1.2) % Lymph # (Auto) (0.9-3.2) K/mm3 Clarke # (Auto) (0.1-0.6) K/mm3 Eos # (Auto) (0-0.3) K/mm3 Baso # (Auto) (0.0-0.1) K/mm3 Abs Immat Gran (auto) (0.00-0.031) K/mm3 Absolute Neuts (auto) (1.3-6.7) K/mm3 Absolute Nucleated RBC (0.0-0.012) K/mm3 Nucleated RBC % (0.0-0.2) % PT (11.1-14.7) Seconds INR APTT (22.3-36.8) Seconds Sodium (137-145) mmol/L Potassium (3.4-5.0) mmol/L Chloride (98-107) mmol/L Carbon Dioxide (22-30) mmol/L Anion Gap (4-12) mmol/L BUN (9-20) mg/dL Creatinine (0.7-1.3) mg/dL Estim Creat Clear Calc ml/min Estimated GFR (59 - ) Glucose (65-110) mg/dL POC Capillary Glucose 105 (65-105) mg/dl Hemoglobin A1c (<5.7) % Lactic Acid (0.7-2.0) mmol/L Calcium (8.4-10.2) mg/dL Total Bilirubin (0.2-1.3) mg/dL AST (17-59) U/L ALT (6-50) U/L Alkaline Phosphatase (38-126) U/L Troponin I (0.000-0.034) ng/mL NT-Pro-B Natriuret Pep (19.9-100) pg/mL Total Protein (6.3-8.2) g/dL Albumin (3.5-5.1) g/dL Lipase (23-300) U/L Urine Color (Yellow) Urine Appearance (Clear) Urine pH (5.0-9.0) Ur Specific [place] (1.001-1.035) Urine Protein (Negative) mg/dL Urine Glucose (UA) (Negative) mg/dL Urine Ketones (Negative) mg/dL Ur Blood (Man) (Negative) Urine Nitrate (Negative) Urine Bilirubin (Negative) Urine Urobilinogen (<2.0) mg/dL Add Ur Microanalysis Leukocyte Esterase Rfl (Negative) KATHARINA/UL Urine RBC (0-2) /hpf Urine WBC (0-3) /hpf Urine WBC Clumps (None) /HPF Ur Squamous Epith Cells (Few) /hpf Urine Bacteria /hpf Urine Casts Urine Yeast (Budding) (None) /hpf Urine Opiates Screen (Negative) Urine Methadone Screen (Negative) Ur Barbiturates Screen (Negative) Ur Phencyclidine Scrn (Negative) Ur Amphetamine Screen (Negative) U Benzodiazepines Scrn (Negative) Urine Cocaine Screen (Negative) U Cannabinoids Screen (Negative) <Sarah Paige, ASSISTED [employer]IVING ASSOCIATE - Last Filed: 07/17/24 03:21> Lab Results 07/16/24 07/16/24 07/16/24 Range/Units 17:54 20:31 21:38 WBC 6.2 (4.5-10.0) K/mm3 RBC 4.45 L (4.6-6.20) M/mm3 Hgb 12.7 L (14.0-18.0) g/dL Hct 40.2 L (42.0-52.0) % MCV 90.3 (80-100) fl MCH 28.5 (26-34) pg MCHC 31.6 L (32-36) g/dl RDW 13.3 (11.5-14.5) % Plt Count 208 (150-375) k/mm3 MPV 9.4 (7.4-10.4) fl Immature Gran % (Auto) 0.3 (0-0.5) % Neut % (Auto) 65.0 (45.5-73.1) % Lymph % (Auto) 22.3 (18.3-44.2) % Clarke % (Auto) 9.1 H (2.6-8.5) % Eos % (Auto) 2.7 (0-4.4) % Baso % (Auto) 0.6 (0.2-1.2) % Lymph # (Auto) 1.39 (0.9-3.2) K/mm3 Clarke # (Auto) 0.6 (0.1-0.6) K/mm3 Eos # (Auto) 0.2 (0-0.3) K/mm3 Baso # (Auto) 0.0 (0.0-0.1) K/mm3 Abs Immat Gran (auto) 0.02 (0.00-0.031) K/mm3 Absolute Neuts (auto) 4.0 (1.3-6.7) K/mm3 Absolute Nucleated RBC 0.000 (0.0-0.012) K/mm3 Nucleated RBC % 0.0 (0.0-0.2) % PT 14.0 (11.1-14.7) Seconds INR 1.0 APTT 29.6 (22.3-36.8) Seconds Sodium 138 (137-145) mmol/L Potassium 4.0 (3.4-5.0) mmol/L Chloride 100 (98-107) mmol/L Carbon Dioxide 32 H (22-30) mmol/L Anion Gap 6 (4-12) mmol/L BUN 21 H (9-20) mg/dL Creatinine 0.68 L (0.7-1.3) mg/dL Estim Creat Clear Calc 102 ml/min Estimated GFR > 60 (59 - ) Glucose 111 H (65-110) mg/dL POC Capillary Glucose (65-105) mg/dl Hemoglobin A1c (<5.7) % Lactic Acid 1.0 (0.7-2.0) mmol/L Calcium 8.4 (8.4-10.2) mg/dL Total Bilirubin 0.3 (0.2-1.3) mg/dL AST 18 (17-59) U/L ALT 12 (6-50) U/L Alkaline Phosphatase 63 (38-126) U/L Troponin I < 0.012 (0.000-0.034) ng/mL NT-Pro-B Natriuret Pep 4440 H (19.9-100) pg/mL Total Protein 6.0 L (6.3-8.2) g/dL Albumin 3.6 (3.5-5.1) g/dL Lipase 43 (23-300) U/L Urine Color Yellow (Yellow) Urine Appearance Cloudy H (Clear) Urine pH 6.0 (5.0-9.0) Ur Specific [place] > 1.045 H (1.001-1.035) Urine Protein 2+ H (Negative) mg/dL Urine Glucose (UA) Negative (Negative) mg/dL Urine Ketones Negative (Negative) mg/dL Ur Blood (Man) 3+ H (Negative) Urine Nitrate Negative (Negative) Urine Bilirubin Negative (Negative) Urine Urobilinogen 1.0 (<2.0) mg/dL Add Ur Microanalysis Reviewed Leukocyte Esterase Rfl 2+ H (Negative) KATHARINA/UL Urine RBC >100 H (0-2) /hpf Urine WBC >100 H (0-3) /hpf Urine WBC Clumps Present H (None) /HPF Ur Squamous Epith Cells None seen (Few) /hpf Urine Bacteria None seen /hpf Urine Casts 0-2 Urine Yeast (Budding) Present H (None) /hpf Urine Opiates Screen Negative (Negative) Urine Methadone Screen Negative (Negative) Ur Barbiturates Screen Negative (Negative) Ur Phencyclidine Scrn Negative (Negative) Ur Amphetamine Screen Positive A (Negative) U Benzodiazepines Scrn Negative (Negative) Urine Cocaine Screen Negative (Negative) U Cannabinoids Screen Negative (Negative) 07/17/24 07/17/24 07/17/24 Range/Units 02:14 06:05 07:32 WBC 5.6 (4.5-10.0) K/mm3 RBC 4.30 L (4.6-6.20) M/mm3 Hgb 12.3 L (14.0-18.0) g/dL Hct 38.5 L (42.0-52.0) % MCV 89.5 (80-100) fl MCH 28.6 (26-34) pg MCHC 31.9 L (32-36) g/dl RDW 13.3 (11.5-14.5) % Plt Count 211 (150-375) k/mm3 MPV 9.2 (7.4-10.4) fl Immature Gran % (Auto) 4.1 H (0-0.5) % Neut % (Auto) 61.8 (45.5-73.1) % Lymph % (Auto) 19.0 (18.3-44.2) % Clarke % (Auto) 10.6 H (2.6-8.5) % Eos % (Auto) 3.6 (0-4.4) % Baso % (Auto) 0.9 (0.2-1.2) % Lymph # (Auto) 1.06 (0.9-3.2) K/mm3 Clarke # (Auto) 0.6 (0.1-0.6) K/mm3 Eos # (Auto) 0.2 (0-0.3) K/mm3 Baso # (Auto) 0.1 (0.0-0.1) K/mm3 Abs Immat Gran (auto) 0.23 H (0.00-0.031) K/mm3 Absolute Neuts (auto) 3.4 (1.3-6.7) K/mm3 Absolute Nucleated RBC 0.000 (0.0-0.012) K/mm3 Nucleated RBC % 0.0 (0.0-0.2) % PT (11.1-14.7) Seconds INR APTT (22.3-36.8) Seconds Sodium 137 (137-145) mmol/L Potassium 3.7 (3.4-5.0) mmol/L Chloride 101 (98-107) mmol/L Carbon Dioxide 33 H (22-30) mmol/L Anion Gap 3 L (4-12) mmol/L BUN 17 (9-20) mg/dL Creatinine 0.63 L (0.7-1.3) mg/dL Estim Creat Clear Calc 124 ml/min Estimated GFR > 60 (59 - ) Glucose 101 (65-110) mg/dL POC Capillary Glucose 85 104 (65-105) mg/dl Hemoglobin A1c 5.8 H (<5.7) % Lactic Acid (0.7-2.0) mmol/L Calcium 8.2 L (8.4-10.2) mg/dL Total Bilirubin 0.5 (0.2-1.3) mg/dL AST 17 (17-59) U/L ALT 10 (6-50) U/L Alkaline Phosphatase 69 (38-126) U/L Troponin I (0.000-0.034) ng/mL NT-Pro-B Natriuret Pep (19.9-100) pg/mL Total Protein 6.0 L (6.3-8.2) g/dL Albumin 3.3 L (3.5-5.1) g/dL Lipase (23-300) U/L Urine Color (Yellow) Urine Appearance (Clear) Urine pH (5.0-9.0) Ur Specific [place] (1.001-1.035) Urine Protein (Negative) mg/dL Urine Glucose (UA) (Negative) mg/dL Urine Ketones (Negative) mg/dL Ur Blood (Man) (Negative) Urine Nitrate (Negative) Urine Bilirubin (Negative) Urine Urobilinogen (<2.0) mg/dL Add Ur Microanalysis Leukocyte Esterase Rfl (Negative) KATHARINA/UL Urine RBC (0-2) /hpf Urine WBC (0-3) /hpf Urine WBC Clumps (None) /HPF Ur Squamous Epith Cells (Few) /hpf Urine Bacteria /hpf Urine Casts Urine Yeast (Budding) (None) /hpf Urine Opiates Screen (Negative) Urine Methadone Screen (Negative) Ur Barbiturates Screen (Negative) Ur Phencyclidine Scrn (Negative) Ur Amphetamine Screen (Negative) U Benzodiazepines Scrn (Negative) Urine Cocaine Screen (Negative) U Cannabinoids Screen (Negative) 07/17/24 Range/Units 12:26 WBC (4.5-10.0) K/mm3 RBC (4.6-6.20) M/mm3 Hgb (14.0-18.0) g/dL Hct (42.0-52.0) % MCV (80-100) fl MCH (26-34) pg MCHC (32-36) g/dl RDW (11.5-14.5) % Plt Count (150-375) k/mm3 MPV (7.4-10.4) fl Immature Gran % (Auto) (0-0.5) % Neut % (Auto) (45.5-73.1) % Lymph % (Auto) (18.3-44.2) % Clarke % (Auto) (2.6-8.5) % Eos % (Auto) (0-4.4) % Baso % (Auto) (0.2-1.2) % Lymph # (Auto) (0.9-3.2) K/mm3 Clarke # (Auto) (0.1-0.6) K/mm3 Eos # (Auto) (0-0.3) K/mm3 Baso # (Auto) (0.0-0.1) K/mm3 Abs Immat Gran (auto) (0.00-0.031) K/mm3 Absolute Neuts (auto) (1.3-6.7) K/mm3 Absolute Nucleated RBC (0.0-0.012) K/mm3 Nucleated RBC % (0.0-0.2) % PT (11.1-14.7) Seconds INR APTT (22.3-36.8) Seconds Sodium (137-145) mmol/L Potassium (3.4-5.0) mmol/L Chloride (98-107) mmol/L Carbon Dioxide (22-30) mmol/L Anion Gap (4-12) mmol/L BUN (9-20) mg/dL Creatinine (0.7-1.3) mg/dL Estim Creat Clear Calc ml/min Estimated GFR (59 - ) Glucose (65-110) mg/dL POC Capillary Glucose 105 (65-105) mg/dl Hemoglobin A1c (<5.7) % Lactic Acid (0.7-2.0) mmol/L Calcium (8.4-10.2) mg/dL Total Bilirubin (0.2-1.3) mg/dL AST (17-59) U/L ALT (6-50) U/L Alkaline Phosphatase (38-126) U/L Troponin I (0.000-0.034) ng/mL NT-Pro-B Natriuret Pep (19.9-100) pg/mL Total Protein (6.3-8.2) g/dL Albumin (3.5-5.1) g/dL Lipase (23-300) U/L Urine Color (Yellow) Urine Appearance (Clear) Urine pH (5.0-9.0) Ur Specific [place] (1.001-1.035) Urine Protein (Negative) mg/dL Urine Glucose (UA) (Negative) mg/dL Urine Ketones (Negative) mg/dL Ur Blood (Man) (Negative) Urine Nitrate (Negative) Urine Bilirubin (Negative) Urine Urobilinogen (<2.0) mg/dL Add Ur Microanalysis Leukocyte Esterase Rfl (Negative) KATHARINA/UL Urine RBC (0-2) /hpf Urine WBC (0-3) /hpf Urine WBC Clumps (None) /HPF Ur Squamous Epith Cells (Few) /hpf Urine Bacteria /hpf Urine Casts Urine Yeast (Budding) (None) /hpf Urine Opiates Screen (Negative) Urine Methadone Screen (Negative) Ur Barbiturates Screen (Negative) Ur Phencyclidine Scrn (Negative) Ur Amphetamine Screen (Negative) U Benzodiazepines Scrn (Negative) Urine Cocaine Screen (Negative) U Cannabinoids Screen (Negative) <Cristina Broussard MD - Last Filed: 07/18/24 17:35> Imaging Data Attestation: I personally reviewed and interpreted this imaging study as follows: < Sarah Paige, JAMEE - Last Filed: 07/17/24 03:21> Radiologist's impression: Impressions Abdomen/Pelvis CT 07/16/24 20:33 IMPRESSION: 1. Large left inguinal hernia with small and large bowel content with free fluid. No definite evidence of strangulation seen. Slightly thickened wall of the small bowel with congestive vessels is seen which may indicate incarceration. Clinical correlation and follow-up advised.. 2. Possibility of a filling defect in the inferior mesenteric vein is not excluded which may indicate thrombus. Clinical correlation and follow-up advised. 3. fat-containing right inguinal hernia. 4. Enlarged prostate with thickened wall of the bladder. 5. Left kidney lower pole is stones. Chest X-Ray 07/16/24 21:46 IMPRESSION: Highly suggestive cardiac decompensation with pulmonary edema versus pneumonitis. Clinical correlation and follow-up advised. <Sarah Paige, JAMEE - Last Filed: 07/17/24 03:21> Discharge Plan Discharge Clinical Impression: Incarcerated left inguinal hernia, Catheter-associated urinary tract infection, Chronic indwelling Muniz catheter, Congestive heart failure, Atrial fibrillation <Meera Hooker PA-C - Last Filed: 07/16/24 16:27> Patient Disposition: Still a Patient <Meera Hooker PA-C - Last Filed: 07/16/24 16:27> Condition: Stable <Meera Hooker PA-C - Last Filed: 07/16/24 16:27>
[2024-07-16 18:01] LABS: Basophils Percent Auto 0.6 % (0.2-1.2); Eosinophils Absolute Auto 0.2 K/mm3 (0-0.3); Eosinophils Percent Auto 2.7 % (0-4.4); Hematocrit 40.2 % (42.0-52.0); Hemoglobin 12.7 g/dL (14.0-18.0); Immature Granulocyte Absolute 0.02 K/mm3 (0.00-0.031); Immature Granulocyte Percent A 0.3 % (0-0.5); Lymphocytes Absolute Auto 1.39 K/mm3 (0.9-3.2); Lymphocytes Percent Auto 22.3 % (18.3-44.2); Mean Corpuscular HGB Conc 31.6 g/dl (32-36); Mean Corpuscular Hemoglobin 28.5 pg (26-34); Mean Corpuscular Volume 90.3 fl (80-100); Mean Platelet Volume 9.4 fl (7.4-10.4); Monocytes Absolute Auto 0.6 K/mm3 (0.1-0.6); Monocytes Percent Auto 9.1 % (2.6-8.5); Platelet Count Result 208 k/mm3 (150-375); Red Blood Count 4.45 M/mm3 (4.6-6.20); Red Cell Distribution Width 13.3 % (11.5-14.5); White Blood Count 6.2 K/mm3 (4.5-10.0)
[2024-07-16 18:13] LABS: Alanine Aminotransferase 12 U/L (6-50); Albumin Level 3.6 g/dL (3.5-5.1); Alkaline Phosphatase 63 U/L (38-126); Anion Gap 6 mmol/L (4-12); Aspartate Amino Transferase 18 U/L (17-59); Bilirubin,Total 0.3 mg/dL (0.2-1.3); Blood Urea Nitrogen 21 mg/dL (9-20); Calcium 8.4 mg/dL (8.4-10.2); Carbon Dioxide 32 mmol/L (22-30); Chloride 100 mmol/L (98-107); Estimated CRCL calculation 102 ml/min; Estimated Glomerular Filt Rate > 60; Glucose 111 mg/dL (65-110); Sodium 138 mmol/L (137-145)
--- OUTSIDE RECORDS SUMMARY | 2024-07-16 19:42 | XMS_ITS | Referral Summary ---
Author Organization [facility] Address [address] [place] [address] Care Team Providers Care Single Pass Soil Stabilizer Operator Name Role Phone Chai Zhong MD Primary Care Provider [phone] [phone] Allergies No known active allergies Medications finasteride [...] on file Legal Sex Male 2:21 AM CIRCULATING NURSE Gender Identity Not on file Sexual Orientation Not on file Last Filed Vital Signs Vital Sign Reading Time Taken Comments Blood Pressure 124/69 12/29/2022 3:48 PM CIRCULATING NURSE Pulse 85 12/29/2022 3:48 PM CIRCULATING NURSE Temperature 36.3 C (97.4 F) 12/29/2022 3:48 PM CIRCULATING NURSE Respiratory Rate 20 12/29/2022 6:19 AM CIRCULATING NURSE Oxygen Saturation 99% 12/29/2022 3:48 PM CIRCULATING NURSE Inhaled Oxygen Concentration - - Weight 95.4 kg (210 lb 4.8 oz) 12/23/2022 10:45 PM CDT Height 182.9 cm (6') 12/23/2022 10:45 PM CDT Body Mass Index 28.52 12/23/2022 10:45 PM CDT Plan of Treatment Not on file Insurance [facility] Advance Directives For more information, please contact: [phone] * Full Code (Latest Code Status on File) Date Activated Date Inactivated Comments 12/24/2022 12:23 AM 12/29/2022 9:26 PM Care Teams Single Pass Soil Stabilizer Operator Relationship Specialty Start Date End Date Chai Zhong MD [facility] [facility] [place] [address] PCP - General Family Medicine 12/23/22
--- OUTSIDE RECORDS SUMMARY | 2024-07-16 19:42 | XMS_ITS | Clinical Summary ---
Author Organization [facility] Address [address] [place] [address] Phone Care Team Providers Care Food Assembler Name Role Phone Chai Zhong MD Primary Care Provider [phone] Allergies No known active allergies Medications docusate [...] drink = 0.6 oz pur e alcohol) [facility] Utilities Answer Date Recorded In the past 12 months has Vaughn Burton, gas, oil, or water [employer] threatened to shut off services in your [...] any time in the past 12 m [facility], were you homeless or living in a custodial (including now)? Patient declined 01/16/2024 Sexually Active Control Partners Comments Never Sex and Gender Information Value Date Recorded Sex Assigned at Not on file Legal Sex Male 10:38 PM CDT Gender Identity Not on file Sexual Orientation Not on file Last Filed Vital Signs Vital Sign Reading Time Taken Comments Blood Pressure 126/61 01/20/2024 2:29 PM EPIC KALEIDOSCOPE ANALYST Pulse 76 01/19/2024 12:47 PM EPIC KALEIDOSCOPE ANALYST Temperature 36.8 C (98.2 F) 01/20/2024 2:29 PM EPIC KALEIDOSCOPE ANALYST Respiratory Rate 20 01/20/2024 2:29 PM EPIC KALEIDOSCOPE ANALYST Oxygen Saturation 100% 01/20/2024 2:29 PM EPIC KALEIDOSCOPE ANALYST Inhaled Oxygen Concentration - - Weight 103.5 kg (228 lb 1.6 oz) 01/16/2024 6:30 PM EPIC KALEIDOSCOPE ANALYST Height 185.4 cm (6' 1) 01/16/2024 6:30 PM EPIC KALEIDOSCOPE ANALYST Body Mass Index 30.09 01/16/2024 6:30 PM EPIC KALEIDOSCOPE ANALYST Plan of Treatment Health Maintenance Due Date [...] Indicated MRSA 01/16/2024 01/16/2024 Insurance [place]ID [place] [id number] MEDICARE Advance Directives * Full Code (Latest Code Status on File) Date Activated Date Inactivated Comments 01/16/2024 9:27 PM CPR-Full Terri tment: FULL ARREST: Attempt Resuscitation/CPR wit intubation and mechanical ventilation. PRE-ARREST: Use entire range of life support measures to stabilize the patient. Care Teams Food Assembler Relationship Specialty Start Date End Date Chai Zhong MD [address] [facility] [address] [place] [address] PCP - General Family Medicine 12/12/17
--- OUTSIDE RECORDS SUMMARY | 2024-07-16 19:43 | XMS_ITS | Clinical Summary ---
Author Organization [facility] Address [address] [place] [address] Care Team Providers Care Graves Registration Specialist Name Role Phone Chai Zhong MD Primary Care Provider [phone] [phone] Allergies No known active allergies Medications finasteride [...] on file Legal Sex Male 2:21 AM MILK TESTER Gender Identity Not on file Sexual Orientation Not on file Obstetrics History Last Filed Vital Signs Vital Sign Reading Time Taken Comments Blood Pressure 124/69 12/29/2022 3:48 PM MILK TESTER Pulse 85 12/29/2022 3:48 PM MILK TESTER Temperature 36.3 C (97.4 F) 12/29/2022 3:48 PM MILK TESTER Respiratory Rate 20 12/29/2022 6:19 AM MILK TESTER Oxygen Saturation 99% 12/29/2022 3:48 PM MILK TESTER Inhaled Oxygen Concentration - - Weight 95.4 [...] Abdominal Aortic Aneurysm (AAA) Screen Completed Insurance [facility] Advance Directives For more information, please contact: [phone] * Full Code (Latest Code Status on File) Date Activated Date Inactivated Comments 12/24/2022 12:23 AM 12/29/2022 9:26 PM Care Teams Graves Registration Specialist Relationship Specialty Start Date End Date Chai Zhong MD [address] [place] [address] [address] [place] [address] PCP - General Family Medicine 12/23/22
--- NOTE | 2024-07-16 20:05 | PC.NURSE ---
Pt to ed with c/o mello leaking around catheter. At time of rn at bedside to replace mello, 3 way mello found to be missing a cap and urine leaking from that port where blue cap should be. 3 way catheter removed and replaced with new catheter following hospital policy. Minimal initial urine out put estimated 10 ml approximately.
[2024-07-16 20:17] LABS: NT Pro B Type Natriuretic Pept 4440 pg/mL (19.9-100)
--- NOTE | 2024-07-16 20:21 | ECG_ITS ---
Test Date: 2024-07-16 21:12:01 Measurements Intervals [place] Rate: 82 P: 0 ME: 0 QRS: -75 QRSD: 172 T: 97 QT: 432 QTc: 505 Interpretive Statements ATRIAL FIBRILLATION RIGHT BUNDLE BRANCH BLOCK Compared to ECG 05/09/2024 09:18:40 NO SIGNIFICANT CHANGES Electronically Signed On 07-17-2024 14:00:54 CDT by Betty Martins M.D.
[2024-07-16] MEDS: FUROSEMIDE INJ 40 MG/4 ML VIAL IV PUSH (20:30)
[2024-07-16 20:37] LABS: Lipase 43 U/L (23-300)
[2024-07-16 20:50] LABS: Troponin I < 0.012 ng/mL (0.000-0.034)
[2024-07-16 20:57] LABS: Add Urine Microscopic? YES; Appearance Urine Cloudy (Clear); Bacteria Urine None Seen /hpf; Bilirubin Urine Negative (Negative); Blood Urine 3+ (Negative); Budding Yeast Urine Present /hpf; Color Urine Yellow (Yellow); Glucose Urine UA Negative (Negative); Ketones Urine Negative (Negative); Leukocyte Esterase Ur 2+ LEU/UL (Negative); Need Manual Microscopic Reviewed; Nitrate Urine Negative (Negative); Non Pathogenic Casts 0-2; Protein Urine 2+ mg/dL (Negative); RBC Urine >100 /hpf (0-2); Specific Grav Ur > 1.045 (1.001-1.035); Squamous Epithelial Cell Urine None Seen /hpf (Few); WBC Clumps Urine Present /HPF; WBC Urine >100 /hpf (0-3)
[2024-07-16 20:59] LABS: Barbiturate Screen Urine Negative (Negative); Benzodiazepines Screen Urine Negative (Negative)
[2024-07-16 21:01] LABS: Cannabinoid Screen Urine Negative (Negative); Cocaine Screen Urine Negative (Negative); Methadone Screen Urine Negative (Negative); Opiate Screen Urine Negative (Negative); Phencyclidine Screen Urine Negative (Negative)
[2024-07-16 21:34] LABS: Amphetamine Screen Urine Positive (Negative)
--- NOTE | 2024-07-16 21:46 | PC.NURSE ---
1st set of blood cultures collected rt ac by olga thompson 2nd set of blood cultures collected lt ac by kelly nunes abx started after both sets of blood cultures obtained via kurin devices.
[2024-07-16 21:58] LABS: Partial Thromboplastin Time 29.6 Seconds (22.3-36.8)
[2024-07-17] VITALS (10 sets, daily range): BP systolic 108–131; BP diastolic 54–80; PULSE 69–91; RESP 13–16; TEMP 36.5–37.4; O2SAT 93–99; BMI 30.7
--- NOTE | 2024-07-17 01:45 | PC.NURSE ---
PATIENT CAME ONTO UNIT AT 0120
[2024-07-17 02:16] LABS: Glucose Point of Care 85 mg/dl (65-105)
--- NOTE | 2024-07-17 06:00 | ECHO_ITS ---
Patient Info Name: Cristhian Clay Age: 68 years : 1955 Gender: Male Ht: 73 in Wt: 209 lbs BSA: 2.22 m2 HR: 83 bpm BP: 109 / 72 mmHg Heart Rhythm: Atrial Fibrillation Technical Quality: Good, Fair Exam Date: 07/17/2024 10:48 AM Patient Status: O Admit Date: 07/16/2024 Exam Type: CA echo doppler color flow Complete two-dimensional, color flow and Doppler transthoracic echocardiogram is performed. Staff Referring Physician: Sarah Paige Blending Coordinator: Dannielle Steen Attending Provider: Tashia Betts DO Summary 1. Complete two-dimensional, color flow and Doppler transthoracic echocardiogram is performed. 2. Left ventricular chamber dimension is moderately enlarged. 3. Left ventricular systolic function is moderately globally reduced, estimated at 40-45. 4. There is mild concentric increased left ventricular wall thickness. 5. The left ventricular diastolic function is abnormal. 6. E/e' 8 is minimally elevated. 7. Left atrial chamber dimension is moderately enlarged. 8. Right atrial chamber dimension is mildly enlarged. 9. There is mild aortic valve sclerosis. 10. There is moderate mitral valve regurgitation. 11. There is mild tricuspid valve regurgitation. 12. No pulmonary hypertension, estimated pulmonary arterial systolic pressure is 36 mmHg. 13. Dilated inferior vena cava with >50% collapse upon inspiration consistent with elevated right atrial pressure, 10 mmHg. Left Ventricle Atrial fibrillation. Left ventricular chamber dimension is moderately enlarged. Left ventricular systolic function is moderately globally reduced, estimated at 40-45. There is mild concentric increased left ventricular wall thickness. The left ventricular diastolic function is abnormal. E/e' 8 is minimally elevated. Right Ventricle Right ventricular chamber dimension is normal. Right ventricular systolic function is normal and with normal TAPSE 2.7 cm. Left Atria Left atrial chamber dimension is moderately enlarged. Right Atria Right atrial chamber dimension is mildly enlarged. Aortic Valve The aortic valve is trileaflet. There is mild aortic valve sclerosis. There is no aortic valve stenosis. There is no aortic valve regurgitation. Pulmonic Valve There is no pulmonic regurgitation. Mitral Valve There is no mitral valve stenosis. There is moderate mitral valve regurgitation. Tricuspid Valve There is mild tricuspid valve regurgitation. No pulmonary hypertension, estimated pulmonary arterial systolic pressure is 36 mmHg. Pericardium/Pleural There is no pericardial effusion. Inferior Vena Cava Dilated inferior vena cava with >50% collapse upon inspiration consistent with elevated right atrial pressure, 10 mmHg. Aorta The aortic root size at the sinus of Valsalva is normal. Left Ventricular Outflow Tract Name Value Normal LVOT 2D LVOT Diameter 2.3 cm LVOT Doppler LVOT Peak Velocity 110 cm/s LVOT Peak Gradient 4 mmHg LVOT Mean Gradient 2 mmHg LVOT VTI 20 cm LVOT VTI/AV VTI Ratio 0.6 LVOT Stroke Volume 85 ml LVOT CO 16.2 l/min LVOT CI 7.3 l/min/m2 Pulmonic Valve Name Value Normal PV Doppler PV Peak Velocity 87 cm/s PV Peak Gradient 3 mmHg Mitral Valve Name Value Normal MV Diastolic Function MV E Peak Velocity 89 cm/s MV A Peak Velocity 4 cm/s MV E/A 22.3 MV Decel Time (PW) 260 ms MV Annular TDI MV E/e' (Septal) 11.0 MV E/e' (Lateral) 7.1 MV E/e' (Average) 9.0 Tricuspid Valve Name Value Normal TV Regurgitation Doppler TR Peak Velocity 253 cm/s TR Peak Gradient 22 mmHg Estimated PAP/RSVP RA Pressure 10 mmHg <=5 PA Systolic Pressure 36 mmHg <36 RV Systolic Pressure 36 mmHg <36 TV Annular TDI TV Lateral Bri s' Velocity 12.5 cm/s >=9.5 Aorta Name Value Normal Ascending Aorta Ao Root Diameter (MM) 4.0 cm Ao Root Diam Index (MM) 1.8 cm/m2 Aortic Valve Name Value Normal AV Doppler AV Peak Velocity 158 cm/s AV Peak Gradient 9 mmHg AV Mean Gradient 5 mmHg AV VTI 31 cm AV Area (Cont Eq VTI) 2.7 cm2 >=3.0 AV Area (Cont Eq Anant) 2.9 cm2 AV DI (Anant) 0.70 AV Regurgitation 2D LVOT Area 4.2 cm2 Ventricles Name Value Normal LV Dimensions 2D/MM IVS Diastolic Thickness (2D) 1.2 cm 0.6-1.0 LVID Diastole (2D) 6.4 cm 4.2-5.8 LVIW Diastolic Thickness (2D) 1.2 cm 0.6-1.0 LVID Systole (2D) 5.0 cm 2.5-4.0 LVOT Diameter 2.3 cm LV Mass (2D Cubed) 345.89 g 88.00-224.00 LV Mass Index (2D Cubed) 155 g/m2 49-115 Relative Wall Thickness (2D) 0.37 <=0.42 LV Fractional Shortening/Ejection Fraction 2D/MM LV Fractional Shortening (2D) 22 % 25-43 LV EF (2D Teichholz) 43 % LV Diastolic Volume (4C MOD) 211 ml LV EF (4C MOD) 36 % LV Diastolic Volume (2C MOD) 206 ml LV EF (2C MOD) 39 % LV Diastolic Volume (BP MOD) 211 ml 62-150 LV Diastolic Volume Index (BP MOD) 95 ml/m2 34-74 LV Systolic Volume (BP MOD) 137 ml 21-61 LV Systolic Volume Index (BP MOD) 62 ml/m2 11-31 LV EF (BP MOD) 35 % 52-72 LV Diastolic Length (4C) 8.4 cm LV Systolic Length (4C) 7.2 cm LV Stroke Volume (4C MOD) 75 ml RV Dimensions 2D/MM RVID Diastole (2D) 5.2 cm 2.1-3.5 Atria Name Value Normal LA Dimensions LA Dimension (MM) 4.9 cm 3.0-4.0 LA Volume (4C A-L) 85 ml LA Volume (BP A-L) 83 ml RA Dimensions RA Systolic Major Jensen Length (4C) 5.1 cm 2.1-2.7 RA Area (4C) 19.4 cm2 <=18.0 Report Signatures
[2024-07-17 06:08] LABS: Glucose Point of Care 104 mg/dl (65-105)
--- NOTE | 2024-07-17 07:34 | P.HP_ITS ---
H&P: HPI History of Present Illness Date/Time: 07/17/24 07:34 Chief Complaint: Left inguinal hernia Narrative: Patient is a 68-year-old male with a past medical history of AFib, CHF, BPH, chronic indwelling catheter for the past 2 months due to chronic urinary retention, T2DM, who presents to the hospital with worsening enlargement of the known left inguinal hernia. He states that he has had this hernia for a while, when prompted further patient reports approximately 1 year. States that it has progressively gotten worse over the past couple months, but still denies any pain unless excessive. Patient has a chronic indwelling Muniz catheter, no issues at this time. Denies any chest pain, shortness a breath, nausea/vomiting dizziness, headaches, or bowel complaints. He has been following with Dr. Werner of General Surgery for the inguinal hernia but has not been able to follow-up with his office recently. No history of EGD or previous colonoscopy. Denies any previous abdominal surgeries. In ED: 36.3? C, 84 HR, 16 RR, BP 111/76, 99% RA WBC 6.2 HGB 12.7, HCT 40.2. Na 138, K 4.0, BUN 21, creatinine 0.68, glucose 111 Abdomen/pelvis CT: Large left inguinal hernia with small and large bowel content free fluid. No definite evidence of strangulation seen. Slightly thickened wall of the small bowel was congested vessels is seen which may indicate incarceration. Possibility of filling defect in the inferior mesenteric vein not excluded which may indicate thrombus. Fat containing right inguinal hernia. Enlarged prostate with thickened gallbladder Chest x-ray: Mildly suggestive of cardiac decompensation pulmonary edema versus pneumonitis EKG: Atrial fibrillation, right bundle-branch block UA: Cloudy, 2+ protein, 3+ blood, 2+ leukocyte esterase, > 100 RBC, >100 WBC, WBC clumps Review of Systems Review of Systems: All systems reviewed & are unremarkable except as noted in HPI and below PMFSH Past Medical History Medical History Inguinal hernia Enlarged prostate Degenerative arthritis of knee, bilateral Hemoglobin A1c less than 7.0% last A1c in chart was 6.5 in july of 2018 Type 2 diabetes mellitus without complication, without long-term current use of insulin Surgical History Surgical History History of prostate surgery 2018 Family History Family History Father Diabetes mellitus Mother Diabetes mellitus Family history of malignant neoplasm of breast in first degree relative Cancer Sibling Family history of cardiovascular disease Cancer Social History Social History Social History: Smoking status: Current some day smoker Tobacco type: cigarettes Alcohol intake: never Substance use: never Substance use type: does not use Do You Feel Safe in your Home?: Yes Lack of Transportation: No Lack of Food: Sometimes True Current Housing: I Do Not Have Housing Concerned About Future Housing: YES Difficulty Paying Gas/Electric Bills: No Difficulty Paying for Meds: YES Currently Unemployed: No Education: High School Diploma/GED Difficulty w/ Childcare or Family Care: No Occupation/Education: retired Gender identity (if verbalized by the patient): Male Spiritual care concerns: Yes Meds Home Medications and Allergies Home Medications ?Medication ?Instructions ?Recorded ?Confirmed ?Type finasteride 5 mg tablet 5 mg PO DAILY #30 tabs 05/09/24 07/17/24 Rx tamsulosin 0.4 mg capsule (Flomax) 0.4 mg PO HS #30 caps 05/09/24 07/17/24 Rx Allergies Allergy/AdvReac Type Severity Reaction Status Date / Time No Known Allergies Allergy Verified 07/17/24 01:44 Vital Signs Vital Signs - 24 hr 07/16/24 18:39 07/16/24 20:56 07/16/24 21:14 Temperature 97.3 F L Pulse Rate 84 Respiratory Rate 16 Blood Pressure 111/76 Pulse Oximetry 99 99 98 Oxygen Delivery 07/16/24 21:15 07/16/24 21:16 07/16/24 22:06 Temperature Pulse Rate 78 Respiratory Rate 17 Blood Pressure 101/59 L Pulse Oximetry 100 100 99 Oxygen Delivery 07/16/24 22:15 07/16/24 22:16 07/16/24 22:31 Temperature Pulse Rate 75 77 92 Respiratory Rate 18 15 17 Blood Pressure 124/72 130/62 Pulse Oximetry 100 98 95 Oxygen Delivery 07/16/24 22:32 07/16/24 22:45 07/16/24 22:47 Temperature Pulse Rate 64 69 76 Respiratory Rate 12 16 14 Blood Pressure 101/56 L Pulse Oximetry 99 98 98 Oxygen Delivery 07/16/24 23:00 07/16/24 23:02 07/16/24 23:15 Temperature Pulse Rate 77 77 91 Respiratory Rate 17 14 12 Blood Pressure 111/71 Pulse Oximetry 100 98 97 Oxygen Delivery 07/16/24 23:16 07/16/24 23:49 07/17/24 00:00 Temperature Pulse Rate 77 82 77 Respiratory Rate 12 15 Blood Pressure 106/59 L Pulse Oximetry 98 98 93 Oxygen Delivery 07/17/24 00:15 07/17/24 00:16 07/17/24 01:01 Temperature 97.9 F Pulse Rate 69 75 84 Respiratory Rate 16 13 16 Blood Pressure 114/63 108/54 L Pulse Oximetry 96 94 97 Oxygen Delivery 07/17/24 01:28 07/17/24 03:24 07/17/24 04:00 Temperature 98.4 F Pulse Rate 75 85 Respiratory Rate 16 Blood Pressure 109/66 Pulse Oximetry 99 Oxygen Delivery Room Air 07/17/24 04:53 Temperature 99.4 F Pulse Rate 91 Respiratory Rate 16 Blood Pressure 109/72 Pulse Oximetry 98 Oxygen Delivery Exam Narrative: Gen - ill appearing male in no acute respiratory distress who is nontoxic- appearing lying semi recumbent in bed HEENT - normocephalic. Atraumatic. Pupils equal round and reactive. Extraocular motions intact. Sclera clear and anicteric. Nares patent. Moist mucous membranes. No facial asymmetry. Neck - neck was supple. No dominant adenopathy, thyromegaly or masses. Chest - lungs are clear to auscultation bilaterally. No wheezes or crackles. CV - heart was regular rate and rhythm. S1-S2. No murmurs gallops or rubs. GI - Large left inguinal hernia, significantly enlarged scrotal sac. No tenderness upon palpation or breaks in the skin. Abdomen was soft. Nontender. Nondistended. Positive bowel sounds. No organomegaly or masses. Ext - no clubbing, cyanosis or edema. 2+ DP pulses bilaterally. Neuro - patient is alert and oriented x4. Strength is 5/5 in both upper and lower extremities. Cranial nerves 2-12 are intact. Speech is clear. Psych - normal mood and affect. Patient is pleasant and cooperative. Skin - warm and dry. No rashes noted. Urinary Catheter: Urinary Catheter: patent and draining H&P: Results Labs Labs: Short CBC 07/16/24 Range/Units 17:54 WBC 6.2 (4.5-10.0) K/mm3 Hgb 12.7 L (14.0-18.0) g/dL Hct 40.2 L (42.0-52.0) % Plt Count 208 (150-375) k/mm3 BMP 07/16/24 17:54 Sodium 138 Potassium 4.0 Chloride 100 Carbon Dioxide 32 H BUN 21 H Creatinine 0.68 L Glucose 111 H Calcium 8.4 Cardiac Enzymes 07/16/24 Range/Units 17:54 Troponin I < 0.012 (0.000-0.034) ng/mL Liver Function 07/16/24 Range/Units 17:54 Total Bilirubin 0.3 (0.2-1.3) mg/dL AST 18 (17-59) U/L ALT 12 (6-50) U/L Alkaline Phosphatase 63 (38-126) U/L Albumin 3.6 (3.5-5.1) g/dL Urine 07/16/24 Range/Units 20:31 Urine Color Yellow (Yellow) Urine Appearance Cloudy H (Clear) Urine pH 6.0 (5.0-9.0) Ur Specific [place] > 1.045 H (1.001-1.035) Urine Protein 2+ H (Negative) mg/dL Urine Glucose (UA) Negative (Negative) mg/dL Assessment and Plan Assessment and plan (1) Incarcerated left inguinal hernia: Code(s): K40.30 - Unilateral inguinal hernia, with obstruction, without gangrene, not specified as recurrent Status: Acute Assessment and Plan: 68y/o male has a known left inguinal hernia, follows with Dr. Werner in the outpatient setting has been following this hernia for several months now. Patient reports this hernia has been an issue for around a year now, but has gotten worse over the past several weeks. Denies any pain or tenderness. * CT Abd/pelvis * Large left inguinal hernia with small and large bowel content with free fluid. No definite evidence of strangulation seen. Slightly thickened wall of the small bowel with congestive vessels is seen which may indicate incarceration. * Possibility of a filling defect in the inferior mesenteric vein is not excluded which may indicate thrombus * Fat-containing right inguinal hernia. * GI, General Surgery, and Urology consulted * Continue IV abx * General surgery consult * No acute surgical indications at this time * Will need to clear (urinary) infection prior to surgical intervention * Restart diet (2) Urinary tract infection: Code(s): N39.0 - Urinary tract infection, site not specified Status: Acute Assessment and Plan: - UA:Cloudy, 2+ protein, 3+ blood, 2+ leukocyte esterase, > 100 RBC, >100 WBC, WBC clumps - UC obtained on 07/16 - started on IV Rocephin (3) Chronic indwelling Muniz catheter: Code(s): Z97.8 - Presence of other specified devices Status: Acute Assessment and Plan: * Chronic * Patent and draining * Urinalysis suggestive UTI, urine cultures pending at this time * IV Rocephin (4) Atrial fibrillation: Code(s): I48.91 - Unspecified atrial fibrillation Status: Acute Assessment and Plan: * Stable, not on any medications at this time (5) Congestive heart failure: Code(s): I50.9 - Heart failure, unspecified Status: Acute Assessment and Plan: - Symptoms: Stable, no symptoms at this time - Current medications: none - BNP: 4440 - EKG: AFib, RBBB - Chest XR: Highly suggestive cardiac decompensation with pulmonary edema versus pneumonitis. - Echo: Moderately enlarged LV chamber dimension, LV systolic function reduced, EF 40-45%, mild concentric increased left ventricular wall thickness, LA chamber dimension moderately enlarged, are atrial mildly enlarged, moderate MVR, mild TVR, no pulmonary hypertension. Dilated inferior vena cava with > 50% collapse upon aspiration - Monitor vital signs, I&Os, BUN/creatinine, daily weights, neuro status and patient is a fall risk - Monitor serum electrolytes, Keep serum Potassium>4 and serum Magnesium>2 and CBC - Cardiology consult pending (6) Type 2 diabetes mellitus without complication, without long-term current use of insulin: Code(s): E11.9 - Type 2 diabetes mellitus without complications Status: Chronic Assessment and Plan: - hypoglycemia protocol - POC blood glucose ACHS - home medication - none - A1C pending (7) Abnormal digestive system diagnostic imaging: Code(s): R93.3 - Abnormal findings on diagnostic imaging of other parts of digestive tract Status: Acute Assessment and Plan: * Abd/Pelvis CT: Possibility of a filling defect in the inferior mesenteric vein is not excluded which may indicate thrombus * GI Consulted, appreciate further recommendations * Physical exam is benign, patient denies any nausea/or any abdominal pain * Will eventually need surgical intervention regarding scrotal hernia Quality VTE Prophylaxis VTE prophylaxis: mechanical ordered
[2024-07-17 07:54] LABS: Basophils Absolute Auto 0.1 K/mm3 (0.0-0.1); Basophils Percent Auto 0.9 % (0.2-1.2); Eosinophils Absolute Auto 0.2 K/mm3 (0-0.3); Eosinophils Percent Auto 3.6 % (0-4.4); Hematocrit 38.5 % (42.0-52.0); Hemoglobin 12.3 g/dL (14.0-18.0); Immature Granulocyte Absolute 0.23 K/mm3 (0.00-0.031); Immature Granulocyte Percent A 4.1 % (0-0.5); Lymphocytes Absolute Auto 1.06 K/mm3 (0.9-3.2); Mean Corpuscular HGB Conc 31.9 g/dl (32-36); Mean Corpuscular Hemoglobin 28.6 pg (26-34); Mean Corpuscular Volume 89.5 fl (80-100); Mean Platelet Volume 9.2 fl (7.4-10.4); Monocytes Absolute Auto 0.6 K/mm3 (0.1-0.6); Monocytes Percent Auto 10.6 % (2.6-8.5); Neutrophils Absolute Auto 3.4 K/mm3 (1.3-6.7); Neutrophils Percent Auto 61.8 % (45.5-73.1); Platelet Count Result 211 k/mm3 (150-375); Red Cell Distribution Width 13.3 % (11.5-14.5); White Blood Count 5.6 K/mm3 (4.5-10.0)
[2024-07-17 08:03] LABS: Alanine Aminotransferase 10 U/L (6-50); Albumin Level 3.3 g/dL (3.5-5.1); Alkaline Phosphatase 69 U/L (38-126); Anion Gap 3 mmol/L (4-12); Aspartate Amino Transferase 17 U/L (17-59); Bilirubin,Total 0.5 mg/dL (0.2-1.3); Blood Urea Nitrogen 17 mg/dL (9-20); Calcium 8.2 mg/dL (8.4-10.2); Carbon Dioxide 33 mmol/L (22-30); Chloride 101 mmol/L (98-107); Estimated CRCL calculation 124 ml/min; Estimated Glomerular Filt Rate > 60; Glucose 101 mg/dL (65-110); Potassium 3.7 mmol/L (3.4-5.0); Sodium 137 mmol/L (137-145)
--- NOTE | 2024-07-17 08:25 | P.CONGI_ITS ---
Assessment and Plan Assessment and plan (1) Abnormal digestive system diagnostic imaging: Code(s): R93.3 - Abnormal findings on diagnostic imaging of other parts of digestive tract Status: Acute (2) Incarcerated left inguinal hernia: Code(s): K40.30 - Unilateral inguinal hernia, with obstruction, without gangrene, not specified as recurrent Status: Acute (3) Right inguinal hernia: Code(s): K40.90 - Unilateral inguinal hernia, without obstruction or gangrene, not specified as recurrent Status: Acute Plan 1. Abnormal imaging digestive/possible mesenteric venous thrombosis/large left inguinal hernia/right inguinal hernia: Patient has never had a colonoscopy. Family history negative for CRC or IBD. CT showing large left inguinal hernia with small and large bowel content with free fluid. No definite evidence of strangulation seen. Slightly thickened wall of the small bowel with congestive vessels is seen which may indicate incarceration and possibility of a filling defect in the inferior mesenteric vein is not excluded which may indicate thrombus. Fat containing right inguinal hernia also noted. Patient was seen by Dr. Werner 06/12/2024 who recommended that urological issues be addressed prior to proceeding with surgical repair. Patient had an 18 serbian catheter placed 05/09/2024 by urology during a hospitalization in April. Patient denies any GI complaints that would correlate with possible mesenteric venous thrombosis or bowel incarceration. Denies any recent change in bowel habits. He states that he is having 2-3 bowel movements daily that are formed non urgent and do not require straining. Denies any abdominal pain. * Surgery and urology on case further recommendations per specialists * Patient can follow-up outpatient if he would like to proceed with screening colonoscopy in the future Thank you very much for allowing me to share in the care of this very nice patient. This report may have been done utilizing a voice recognition system. Attempts have been made to correct errors. However, there may be uncorrected grammatical, spelling, and recognition errors present. GI Consult Note Consult date/time: 07/17/24 08:25 Reason for consult: Possible mesenteric venous thrombosis HPI: Cristhian Clay is a 68 year old male with PMSH of A-Fib, CHF, BPH, chronic indwelling Muniz cath x 2 months, type 2 diabetes. He presented to the ER with complaints of enlargement of known left inguinal hernia. GI has been consulted for possible mesenteric venous thrombosis. Patient states that other than his large inguinal hernia he is having no GI issues. He denies abdominal pain, nausea, vomiting, bloating, odynophagia, dysphagia, reflux, regurgitation, early satiety, appetite or weight loss. He is having 2-3 bowel movements daily that are formed, not urgent and do not require straining. He denies any current or history of constipation. Denies diarrhea, hematochezia, or melena. He uses ibuprofen on a rare as needed basis and denies any aspirin or anticoagulant use. He states that he has never had an EGD or colonoscopy. Denies any prior abdominal surgery. Family history negative for CRC or IBD. Patient states that he ?smokes a small amount? denies alcohol or marijuana use. ENDOSCOPY HISTORY: Patient has never had an EGD or colonoscopy LABS AND STOOL STUDIES: Labs 07/17/2024: Sodium 137, potassium 3.7, BUN 17, creatinine 0.63, GFR >60, calcium 8.2 WBC 6, Hgb 12, Hct 39, MCV 90, platelets 211, INR 1.0 Total bilirubin 0.5, AST 17, ALT 10, Alkaline Phos 69, albumin 3.3 and lipase 43 BNP 4440 IMAGING: Chest Xray 07/16/2024: IMPRESSION: Highly suggestive cardiac decompensation with pulmonary edema versus pneumonitis. Clinical correlation and follow-up advised. CT abd/pelvis w/contrast 07/16/2024: Findings: VISUALIZED LOWER CHEST: Minimal dependent atelectatic changes. UPPER ABDOMINAL ORGANS: Liver: Normal. Gallbladder: Normal. Spleen: Normal. Stomach/duodenum: Normal. Pancreas: Normal. Adrenals: Normal. Kidneys: Left kidney lower pole STONES SEEN MEASURING 4 MM AND 3 MM. PELVIC ORGANS: The bladder is underfilled with Muniz's catheter. Enlarged prostate is noted. BOWEL AND MESENTERY: Colon: No evidence of diverticulitis. Slight thickening of the wall of the rectum with fat stranding is seen anterior to the sacrum which may indicate proctitis. Normal appendix. Small Bowel: No definite obstruction. Peritoneum/mesentery: No free air or free fluid. No mesenteric lymphadenopathy. RETROPERITONEUM: Mild atheromatous disease of the abdominal aorta. No retroperitoneal lymphadenopathy. MUSCULOSKELETAL: Superficial soft tissues: Large left inguinal hernia with small and large bowel content is seen. Fluid also is noted in the hernia sac. No definite free air is seen in the hernia sac. No dilatation seen in the bowel to suggest an obstruction. Slight thickening of the wall of the small bowel with probably congested vessels is noted. Possibility of a filling defect in the inferior mesenteric vein is not excluded. Right fat-containing inguinal hernia is also noted. Otherwise, The superficial soft tissues are normal. Bones: Age appropriate degenerative changes of the spine. IMPRESSION: 1. Large left inguinal hernia with small and large bowel content with free fluid. No definite evidence of strangulation seen. Slightly thickened wall of the small bowel with congestive vessels is seen which may indicate incarceration. Clinical correlation and follow-up advised. 2. Possibility of a filling defect in the inferior mesenteric vein is not excluded which may indicate thrombus. Clinical correlation and follow-up advised. 3. fat-containing right inguinal hernia. 4. Enlarged prostate with thickened wall of the bladder. 5. Left kidney lower pole is stones. CT abd/pelvis w/contrast 05/09/2024: Impression: Distended urinary bladder with mild bilateral hydroureteronephrosis. This is likely related to BPH, with enlarged prostate gland present which indents the bladder base. Underlying prostate or bladder malignancy not completely excluded. Correlate clinically. Extremely large left inguinal hernia containing the entire sigmoid colon as well as multiple small bowel loops and large amount of mesenteric fat. No bowel obstruction or bowel wall thickening. Small fat-containing right inguinal hernia. Small bilateral adrenal nodules are indeterminate on this exam, but most likely adenomas. Review of Systems 2 Constitutional: Constitutional: Reports as per HPI ENT: Reports as per HPI Cardiovascular: Cardiovascular: Reports as per HPI, Denies chest pain and Denies dyspnea Respiratory: Respiratory: Denies cough and Denies dyspnea Gastrointestinal: Gastrointestinal: Reports as per HPI Genitourinary: Comments: Indwelling Muniz catheter placed in April Musculoskeletal: Musculoskeletal: Reports as per HPI Integumentary/Breasts: Skin/Breast: Reports as per HPI Psychiatric: Psychiatric: Reports as per HPI Endocrine: Endocrine: Reports no additional endocrine complaints Hematologic/Lymphatic: Hematologic/Lymphatic: Reports no additional hematologic/lymphatic complaints [facility] Past Medical History Medical History Inguinal hernia Enlarged prostate Degenerative arthritis of knee, bilateral Hemoglobin A1c less than 7.0% last A1c in chart was 6.5 in july of 2018 Type 2 diabetes mellitus without complication, without long-term current use of insulin Surgical History Surgical History History of prostate surgery 2018 Family History Family History Father Diabetes mellitus Mother Diabetes mellitus Family history of malignant neoplasm of breast in first degree relative Cancer Sibling Family history of cardiovascular disease Cancer Social History Social History Social History: Smoking status: Current some day smoker Tobacco type: cigarettes Alcohol intake: never Substance use: never Substance use type: does not use Do You Feel Safe in your Home?: Yes Lack of Transportation: No Lack of Food: Sometimes True Current Housing: I Do Not Have Housing Concerned About Future Housing: YES Difficulty Paying Gas/Electric Bills: No Difficulty Paying for Meds: YES Currently Unemployed: No Education: High School Diploma/GED Difficulty w/ Childcare or Family Care: No Occupation/Education: retired Gender identity (if verbalized by the patient): Male Spiritual care concerns: Yes Meds Home Medications and Allergies Home Medications ?Medication ?Instructions ?Recorded ?Confirmed ?Type finasteride 5 mg tablet 5 mg PO DAILY #30 tabs 05/09/24 07/17/24 Rx tamsulosin 0.4 mg capsule (Flomax) 0.4 mg PO HS #30 caps 05/09/24 07/17/24 Rx Allergies Allergy/AdvReac Type Severity Reaction Status Date / Time No Known Allergies Allergy Verified 07/17/24 01:44 Vital Signs Vital Signs - 24 hr 07/16/24 18:39 07/16/24 20:56 07/16/24 21:14 Temperature 97.3 F L Pulse Rate 84 Respiratory Rate 16 Blood Pressure 111/76 Pulse Oximetry 99 99 98 Oxygen Delivery 07/16/24 21:15 07/16/24 21:16 07/16/24 22:06 Temperature Pulse Rate 78 Respiratory Rate 17 Blood Pressure 101/59 L Pulse Oximetry 100 100 99 Oxygen Delivery 07/16/24 22:15 07/16/24 22:16 07/16/24 22:31 Temperature Pulse Rate 75 77 92 Respiratory Rate 18 15 17 Blood Pressure 124/72 130/62 Pulse Oximetry 100 98 95 Oxygen Delivery 07/16/24 22:32 07/16/24 22:45 07/16/24 22:47 Temperature Pulse Rate 64 69 76 Respiratory Rate 12 16 14 Blood Pressure 101/56 L Pulse Oximetry 99 98 98 Oxygen Delivery 07/16/24 23:00 07/16/24 23:02 07/16/24 23:15 Temperature Pulse Rate 77 77 91 Respiratory Rate 17 14 12 Blood Pressure 111/71 Pulse Oximetry 100 98 97 Oxygen Delivery 07/16/24 23:16 07/16/24 23:49 07/17/24 00:00 Temperature Pulse Rate 77 82 77 Respiratory Rate 12 15 Blood Pressure 106/59 L Pulse Oximetry 98 98 93 Oxygen Delivery 07/17/24 00:15 07/17/24 00:16 07/17/24 01:01 Temperature 97.9 F Pulse Rate 69 75 84 Respiratory Rate 16 13 16 Blood Pressure 114/63 108/54 L Pulse Oximetry 96 94 97 Oxygen Delivery 07/17/24 01:28 07/17/24 03:24 07/17/24 04:00 Temperature 98.4 F Pulse Rate 75 85 Respiratory Rate 16 Blood Pressure 109/66 Pulse Oximetry 99 Oxygen Delivery Room Air 07/17/24 04:53 Temperature 99.4 F Pulse Rate 91 Respiratory Rate 16 Blood Pressure 109/72 Pulse Oximetry 98 Oxygen Delivery Exam 2 Const: General: cooperative, healthy appearing, comfortable, no acute distress and well developed Orientation/consciousness: oriented to person, oriented to place, oriented to time and patient oriented x3 HENMT: Head: normal to inspection, normocephalic and atraumatic Mouth: Yes Normal oral and palatal mucosa present and Yes moist mucous membranes Eyes: General: appearance normal, both eyes and all related structures C onjunctivae: conjunctivae normal Sclera: sclerae normal Pupils: Equal, round and reactive pupils present Neck: Neck: normal visual inspection Chest: Chest palpation & inspection: normal inspection of the chest Resp: Effort & Inspection: normal respiratory effort and able to speak in complete sentences Auscultation: clear to auscultation bilaterally Cardio: Jugular venous distension: no JVD Rate: regular rate Rhythm: r egular rhythm Heart sounds: S1 normal heart sound present and S2 normal heart sound present GI: Inspection: normal to inspection GI Palp: Yes Soft to palpation and Yes No hepatosplenomegaly present Auscultation: normal bowel sounds Rectal Exam: deferred Other: Large left inguinal hernia Urinary Catheter: Urinary Catheter: patent and draining Skin: General skin exam: normal color and no rashes or lesions noted Neuro: General: oriented to person, oriented to place, oriented to time and patient oriented x3 Cranial nerves: Yes Equal, round and reactive pupils present Speech: normal speech Extrem: General: normal to inspection and no clubbing, cyanosis or edema Psych: Appearance: grossly normal and well kempt Affect: normal affect Results Labs 07/17/24 07:32 07/17/24 07:32 Labs: Short CBC 07/16/24 07/17/24 Range/Units 17:54 07:32 WBC 6.2 5.6 (4.5-10.0) K/mm3 Hgb 12.7 L 12.3 L (14.0-18.0) g/dL Hct 40.2 L 38.5 L (42.0-52.0) % Plt Count 208 211 (150-375) k/mm3 BMP 07/16/24 07/17/24 17:54 07:32 Sodium 138 137 Potassium 4.0 3.7 Chloride 100 101 Carbon Dioxide 32 H 33 H BUN 21 H 17 Creatinine 0.68 L 0.63 L Glucose 111 H 101 Calcium 8.4 8.2 L Cardiac Enzymes 07/16/24 Range/Units 17:54 Troponin I < 0.012 (0.000-0.034) ng/mL Liver Function 07/16/24 07/17/24 Range/Units 17:54 07:32 Total Bilirubin 0.3 0.5 (0.2-1.3) mg/dL AST 18 17 (17-59) U/L ALT 12 10 (6-50) U/L Alkaline Phosphatase 63 69 (38-126) U/L Albumin 3.6 3.3 L (3.5-5.1) g/dL Urine 07/16/24 Range/Units 20:31 Urine Color Yellow (Yellow) Urine Appearance Cloudy H (Clear) Urine pH 6.0 (5.0-9.0) Ur Specific [place] > 1.045 H (1.001-1.035) Urine Protein 2+ H (Negative) mg/dL Urine Glucose (UA) Negative (Negative) mg/dL
--- NOTE | 2024-07-17 10:05 | PM.CNGS ---
Assessment and Plan Assessment and plan (1) Incarcerated left inguinal hernia: Code(s): K40.30 - Unilateral inguinal hernia, with obstruction, without gangrene, not specified as recurrent Status: Acute Assessment and Plan: This is a 68-year-old male with known large left inguinal hernia who presented to the ED due to concern for increasing size of the hernia. Patient denies any pain in the area, but he states that the size of it is bothersome and uncomfortable. Denies any changes to bowel or bladder habits. He has a chronic indwelling Muniz catheter which is draining well. CT scan represents large left inguinal hernia with small and large bowel content with free fluid. No definite evidence of strangulation seen. Slightly thickened wall of the small bowel with congestive vessels is seen which may indicate incarceration. Continue IV antibiotics, IV fluids. Maintain NPO status and plan for surgical intervention. (2) Right inguinal hernia: Code(s): K40.90 - Unilateral inguinal hernia, without obstruction or gangrene, not specified as recurrent Status: Acute History of Present Illness Consult details Consult date: 07/17/24 Narrative: Patient is a 68 year male with history of BPH and acute on chronic urinary retention with recurrent large left inguinal hernia who presented to the ED yesterday evening due to increasing size of the hernia. He states that he has had this hernia for ?a while? but that over the past few months it has continued to increase in size. Patient denies any significant pain but states that the size of the hernia is becoming inconvenient and embarrassing. He denies changes in bowel or bladder habits. He has a chronic indwelling Muniz catheter which he has not had any issues with. No fever or white count. Patient had previously seen Dr. Werner in clinic for this issue, but he lost his phone and thus has not been able to make his follow-up appointments. Upon chart review, patient was last seen by Dr. Werner on 06/12/2024 and was advised to address urological issues prior to proceeding with any surgical repair. CT scan positive for large left inguinal hernia with small and large bowel content with free fluid. No definite evidence of strangulation seen. Slightly thickened wall of the small bowel with congestive vessels is seen which may indicate incarceration. Of note, fat-containing right inguinal hernia was also seen. [facility] Past Medical History Medical History Inguinal hernia Enlarged prostate Degenerative arthritis of knee, bilateral Hemoglobin A1c less than 7.0% last A1c in chart was 6.5 in july of 2018 Type 2 diabetes mellitus without complication, without long-term current use of insulin Surgical History Surgical History History of prostate surgery 2018 Family History Family History Father Diabetes mellitus Mother Diabetes mellitus Family history of malignant neoplasm of breast in first degree relative Cancer Sibling Family history of cardiovascular disease Cancer Social History Social History Social History: Smoking status: Current some day smoker Tobacco type: cigarettes Alcohol intake: never Substance use: never Substance use type: does not use Do You Feel Safe in your Home?: Yes Lack of Transportation: No Lack of Food: Sometimes True Current Housing: I Do Not Have Housing Concerned About Future Housing: YES Difficulty Paying Gas/Electric Bills: No Difficulty Paying for Meds: YES Currently Unemployed: No Education: High School Diploma/GED Difficulty w/ Childcare or Family Care: No Occupation/Education: retired Gender identity (if verbalized by the patient): Male Spiritual care concerns: Yes Meds Home Medications and Allergies Home Medications ?Medication ?Instructions ?Recorded ?Confirmed ?Type finasteride 5 mg tablet 5 mg PO DAILY #30 tabs 05/09/24 07/17/24 Rx tamsulosin 0.4 mg capsule (Flomax) 0.4 mg PO HS #30 caps 05/09/24 07/17/24 Rx Allergies Allergy/AdvReac Type Severity Reaction Status Date / Time No Known Allergies Allergy Verified 07/17/24 01:44 Vital Signs Vital Signs - 24 hr 07/16/24 18:39 07/16/24 20:56 07/16/24 21:14 Temperature 97.3 F L Pulse Rate 84 Respiratory Rate 16 Blood Pressure 111/76 Pulse Oximetry 99 99 98 Oxygen Delivery 07/16/24 21:15 07/16/24 21:16 07/16/24 22:06 Temperature Pulse Rate 78 Respiratory Rate 17 Blood Pressure 101/59 L Pulse Oximetry 100 100 99 Oxygen Delivery 07/16/24 22:15 07/16/24 22:16 07/16/24 22:31 Temperature Pulse Rate 75 77 92 Respiratory Rate 18 15 17 Blood Pressure 124/72 130/62 Pulse Oximetry 100 98 95 Oxygen Delivery 07/16/24 22:32 07/16/24 22:45 07/16/24 22:47 Temperature Pulse Rate 64 69 76 Respiratory Rate 12 16 14 Blood Pressure 101/56 L Pulse Oximetry 99 98 98 Oxygen Delivery 07/16/24 23:00 07/16/24 23:02 07/16/24 23:15 Temperature Pulse Rate 77 77 91 Respiratory Rate 17 14 12 Blood Pressure 111/71 Pulse Oximetry 100 98 97 Oxygen Delivery 07/16/24 23:16 07/16/24 23:49 07/17/24 00:00 Temperature Pulse Rate 77 82 77 Respiratory Rate 12 15 Blood Pressure 106/59 L Pulse Oximetry 98 98 93 Oxygen Delivery 07/17/24 00:15 07/17/24 00:16 07/17/24 01:01 Temperature 97.9 F Pulse Rate 69 75 84 Respiratory Rate 16 13 16 Blood Pressure 114/63 108/54 L Pulse Oximetry 96 94 97 Oxygen Delivery 07/17/24 01:28 07/17/24 03:24 07/17/24 04:00 Temperature 98.4 F Pulse Rate 75 85 Respiratory Rate 16 Blood Pressure 109/66 Pulse Oximetry 99 Oxygen Delivery Room Air 07/17/24 04:53 Temperature 99.4 F Pulse Rate 91 Respiratory Rate 16 Blood Pressure 109/72 Pulse Oximetry 98 Oxygen Delivery Exam : Male General Exam: Yes erythema and No tenderness Other: Significantly enlarged, erythematous scrotal sac. No tenderness to palpation. No breaks in the skin noted. Normal male genitalia with indwelling Muniz catheter. Urinary Catheter: Urinary Catheter: patent and draining Results Labs 07/17/24 07:32 07/17/24 07:32 Labs: Abnormal lab results 07/16/24 07/16/24 07/17/24 Range/Units 17:54 20:31 07:32 RBC 4.45 L 4.30 L (4.6-6.20) M/mm3 Hgb 12.7 L 12.3 L (14.0-18.0) g/dL Hct 40.2 L 38.5 L (42.0-52.0) % MCHC 31.6 L 31.9 L (32-36) g/dl Immature Gran % (Auto) 4.1 H (0-0.5) % [place] % (Auto) 9.1 H 10.6 H (2.6-8.5) % Abs Immat Gran (auto) 0.23 H (0.00-0.031) K/mm3 Carbon Dioxide 32 H 33 H (22-30) mmol/L Anion Gap 3 L (4-12) mmol/L BUN 21 H (9-20) mg/dL Creatinine 0.68 L 0.63 L (0.7-1.3) mg/dL Glucose 111 H (65-110) mg/dL Calcium 8.2 L (8.4-10.2) mg/dL NT-Pro-B Natriuret Pep 4440 H (19.9-100) pg/mL Total Protein 6.0 L 6.0 L (6.3-8.2) g/dL Albumin 3.3 L (3.5-5.1) g/dL Urine Appearance Cloudy H (Clear) Ur Specific [place] > 1.045 H (1.001-1.035) Urine Protein 2+ H (Negative) mg/dL Ur Blood (Man) 3+ H (Negative) Leukocyte Esterase Rfl 2+ H (Negative) KATHARINA/UL Urine RBC >100 H (0-2) /hpf Urine WBC >100 H (0-3) /hpf Urine WBC Clumps Present H (None) /HPF Urine Yeast (Budding) Present H (None) /hpf Ur Amphetamine Screen Positive A (Negative) Diabetes panel 07/16/24 07/17/24 Range/Units 17:54 07:32 Sodium 138 137 (137-145) mmol/L Potassium 4.0 3.7 (3.4-5.0) mmol/L Chloride 100 101 (98-107) mmol/L Carbon Dioxide 32 H 33 H (22-30) mmol/L BUN 21 H 17 (9-20) mg/dL Creatinine 0.68 L 0.63 L (0.7-1.3) mg/dL Glucose 111 H 101 (65-110) mg/dL Calcium 8.4 8.2 L (8.4-10.2) mg/dL AST 18 17 (17-59) U/L ALT 12 10 (6-50) U/L Alkaline Phosphatase 63 69 (38-126) U/L Total Protein 6.0 L 6.0 L (6.3-8.2) g/dL Albumin 3.6 3.3 L (3.5-5.1) g/dL Calcium panel 07/16/24 07/17/24 Range/Units 17:54 07:32 Calcium 8.4 8.2 L (8.4-10.2) mg/dL Albumin 3.6 3.3 L (3.5-5.1) g/dL Pituitary panel 07/16/24 07/17/24 Range/Units 17:54 07:32 Sodium 138 137 (137-145) mmol/L Potassium 4.0 3.7 (3.4-5.0) mmol/L Chloride 100 101 (98-107) mmol/L Carbon Dioxide 32 H 33 H (22-30) mmol/L BUN 21 H 17 (9-20) mg/dL Creatinine 0.68 L 0.63 L (0.7-1.3) mg/dL Glucose 111 H 101 (65-110) mg/dL Calcium 8.4 8.2 L (8.4-10.2) mg/dL Adrenal panel 07/16/24 07/17/24 Range/Units 17:54 07:32 Sodium 138 137 (137-145) mmol/L Potassium 4.0 3.7 (3.4-5.0) mmol/L Chloride 100 101 (98-107) mmol/L Carbon Dioxide 32 H 33 H (22-30) mmol/L BUN 21 H 17 (9-20) mg/dL Creatinine 0.68 L 0.63 L (0.7-1.3) mg/dL Glucose 111 H 101 (65-110) mg/dL Calcium 8.4 8.2 L (8.4-10.2) mg/dL Total Bilirubin 0.3 0.5 (0.2-1.3) mg/dL AST 18 17 (17-59) U/L ALT 12 10 (6-50) U/L Alkaline Phosphatase 63 69 (38-126) U/L Total Protein 6.0 L 6.0 L (6.3-8.2) g/dL Albumin 3.6 3.3 L (3.5-5.1) g/dL All other labs normal.
--- NOTE | 2024-07-17 12:10 | IVDEFINITY ---
Pt refused Definity today for echo, could be open to it if needed per physician - KW 07/17/24
[2024-07-17 12:30] LABS: Glucose Point of Care 105 mg/dl (65-105)
--- NOTE | 2024-07-17 13:33 | P.CONUR_ITS ---
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 - Continue culture-directed antibiotics for ?UTI - Schedule follow-up in urology clinic for formal prostate evaluation. Exchange indwelling Muniz every 3-4weeks. - Coordinate with general surgery regarding timing of hernia repair - hernia repair needs to be done before addressing urological issues. Urology Consult Note HPI Date Seen: 07/17/24 Requesting Physician: Tashia Betts DO Primary Care Provider: Chai Zhong MD Consult Narrative Narrative: Cristhian Clay is a 68-year-old male with history of BPH, bilateral inguinal hernias, type 2 diabetes, and chronic urinary retention requiring indwelling Muniz catheter. He was admitted on 07/16/2024 due to increasing size of his left inguinal hernia over the past few months. He reports the hernia is bothersome and uncomfortable but denies significant pain. He has not followed up with urology since April 2024 when he had an [address] imaging shows large left inguinal hernia with small and large bowel content and free fluid. Per patient report, he had his Muniz catheter exchanged yesterday for a 24 Kosovan three-way catheter. Umniz currently draining pale yellow with sediment. -PERTINENT LABS: 07/17/2024 - WBC 4.3, HGB 12.3, Cr 0.63 -PERTINENT IMAGIN07/16/2024 CT ABDOMEN/PELVIS WITH CONTRAST - Large left inguinal hernia with small and large bowel content with free fluid. No definite evidence of strangulation. Slightly thickened wall of small bowel with congestive vessels suggesting possible incarceration. Fat-containing right inguinal hernia. Enlarged prostate with thickened bladder wall. Left kidney lower pole stones measuring 4mm and 3mm. Review of Systems 2 Constitutional: Constitutional: Reports weakness Eyes: Eyes: Reports no additional eye complaints ENT: Reports Normal hearing present Respiratory: Respiratory: Denies dyspnea Gastrointestinal: Gastrointestinal: Denies abdominal pain Comments: Hernia Genitourinary: Genitourinary: Denies hematuria [facility] Past Medical History Medical History Inguinal hernia Enlarged prostate Degenerative arthritis of knee, bilateral Hemoglobin A1c less than 7.0% last A1c in chart was 6.5 in july of 2018 Type 2 diabetes mellitus without complication, without long-term current use of insulin Surgical History Surgical History History of prostate surgery 2018 Family History Family History Father Diabetes mellitus Mother Diabetes mellitus Family history of malignant neoplasm of breast in first degree relative Cancer Sibling Family history of cardiovascular disease Cancer Social History Social History Social History: Smoking status: Current some day smoker Tobacco type: cigarettes Alcohol intake: never Substance use: never Substance use type: does not use Do You Feel Safe in your Home?: Yes Lack of Transportation: No Lack of Food: Sometimes True Current Housing: I Do Not Have Housing Concerned About Future Housing: YES Difficulty Paying Gas/Electric Bills: No Difficulty Paying for Meds: YES Currently Unemployed: No Education: High School Diploma/GED Difficulty w/ Childcare or Family Care: No Occupation/Education: retired Gender identity (if verbalized by the patient): Male Spiritual care concerns: Yes Meds Home Medications and Allergies Home Medications ?Medication ?Instructions ?Recorded ?Confirmed ?Type finasteride 5 mg tablet 5 mg PO DAILY #30 tabs 05/09/24 07/17/24 Rx tamsulosin 0.4 mg capsule (Flomax) 0.4 mg PO HS #30 caps 05/09/24 07/17/24 Rx Allergies Allergy/AdvReac Type Severity Reaction Status Date / Time No Known Allergies Allergy Verified 07/17/24 01:44 Vital Signs Vital Signs - 24 hr 07/16/24 18:39 07/16/24 20:56 07/16/24 21:14 Temperature 97.3 F L Pulse Rate 84 Respiratory Rate 16 Blood Pressure 111/76 Pulse Oximetry 99 99 98 Oxygen Delivery 07/16/24 21:15 07/16/24 21:16 07/16/24 22:06 Temperature Pulse Rate 78 Respiratory Rate 17 Blood Pressure 101/59 L Pulse Oximetry 100 100 99 Oxygen Delivery 07/16/24 22:15 07/16/24 22:16 07/16/24 22:31 Temperature Pulse Rate 75 77 92 Respiratory Rate 18 15 17 Blood Pressure 124/72 130/62 Pulse Oximetry 100 98 95 Oxygen Delivery 07/16/24 22:32 07/16/24 22:45 07/16/24 22:47 Temperature Pulse Rate 64 69 76 Respiratory Rate 12 16 14 Blood Pressure 101/56 L Pulse Oximetry 99 98 98 Oxygen Delivery 07/16/24 23:00 07/16/24 23:02 07/16/24 23:15 Temperature Pulse Rate 77 77 91 Respiratory Rate 17 14 12 Blood Pressure 111/71 Pulse Oximetry 100 98 97 Oxygen Delivery 07/16/24 23:16 07/16/24 23:49 07/17/24 00:00 Temperature Pulse Rate 77 82 77 Respiratory Rate 12 15 Blood Pressure 106/59 L Pulse Oximetry 98 98 93 Oxygen Delivery 07/17/24 00:15 07/17/24 00:16 07/17/24 01:01 Temperature 97.9 F Pulse Rate 69 75 84 Respiratory Rate 16 13 16 Blood Pressure 114/63 108/54 L Pulse Oximetry 96 94 97 Oxygen Delivery 07/17/24 01:28 07/17/24 03:24 07/17/24 04:00 Temperature 98.4 F Pulse Rate 75 85 Respiratory Rate 16 Blood Pressure 109/66 Pulse Oximetry 99 Oxygen Delivery Room Air 07/17/24 04:53 07/17/24 08:00 Temperature 99.4 F Pulse Rate 91 Respiratory Rate 16 Blood Pressure 109/72 Pulse Oximetry 98 Oxygen Delivery Room Air Exam 2 Const: General: comfortable and no acute distress HENMT: Face/Nose/Sinus: Normal nares present Eyes: General: appearance normal, both eyes and all related structures Resp: Effort & Inspection: normal respiratory effort : Other: Very large left inguinal hernia Urinary Catheter: Urinary Catheter: patent and draining Results Labs 07/17/24 07:32 07/17/24 07:32 Labs: Short CBC 07/16/24 07/17/24 Range/Units 17:54 07:32 WBC 6.2 5.6 (4.5-10.0) K/mm3 Hgb 12.7 L 12.3 L (14.0-18.0) g/dL Hct 40.2 L 38.5 L (42.0-52.0) % Plt Count 208 211 (150-375) k/mm3 BMP 07/16/24 07/17/24 17:54 07:32 Sodium 138 137 Potassium 4.0 3.7 Chloride 100 101 Carbon Dioxide 32 H 33 H BUN 21 H 17 Creatinine 0.68 L 0.63 L Glucose 111 H 101 Calcium 8.4 8.2 L Cardiac Enzymes 07/16/24 Range/Units 17:54 Troponin I < 0.012 (0.000-0.034) ng/mL Liver Function 07/16/24 07/17/24 Range/Units 17:54 07:32 Total Bilirubin 0.3 0.5 (0.2-1.3) mg/dL AST 18 17 (17-59) U/L ALT 12 10 (6-50) U/L Alkaline Phosphatase 63 69 (38-126) U/L Albumin 3.6 3.3 L (3.5-5.1) g/dL Urine 07/16/24 Range/Units 20:31 Urine Color Yellow (Yellow) Urine Appearance Cloudy H (Clear) Urine pH 6.0 (5.0-9.0) Ur Specific [place] > 1.045 H (1.001-1.035) Urine Protein 2+ H (Negative) mg/dL Urine Glucose (UA) Negative (Negative) mg/dL
[2024-07-17 16:53] LABS: Glucose Point of Care 94 mg/dl (65-105)
[2024-07-17 17:36] LABS: Hemoglobin A1C 5.8 % (<5.7)
[2024-07-17] MEDS: TAMSULOSIN HCL 0.4 MG CAPSULE PO (21:51)
[2024-07-17 23:17] LABS: Glucose Point of Care 98 mg/dl (65-105)
[2024-07-18 05:45] LABS: Glucose Point of Care 90 mg/dl (65-105)
[2024-07-18 05:46] VITALS: BP 105/69; PULSE 75; RESP 16; TEMP 36.6; O2SAT 93
[2024-07-18 06:48] LABS: Basophils Absolute Auto 0.1 K/mm3 (0.0-0.1); Basophils Percent Auto 0.8 % (0.2-1.2); Eosinophils Absolute Auto 0.2 K/mm3 (0-0.3); Eosinophils Percent Auto 3.4 % (0-4.4); Hematocrit 39.8 % (42.0-52.0); Hemoglobin 12.7 g/dL (14.0-18.0); Immature Granulocyte Absolute 0.01 K/mm3 (0.00-0.031); Immature Granulocyte Percent A 0.2 % (0-0.5); Lymphocytes Absolute Auto 1.21 K/mm3 (0.9-3.2); Lymphocytes Percent Auto 19.4 % (18.3-44.2); Mean Corpuscular HGB Conc 31.9 g/dl (32-36); Mean Corpuscular Hemoglobin 28.3 pg (26-34); Mean Corpuscular Volume 88.6 fl (80-100); Mean Platelet Volume 9.2 fl (7.4-10.4); Monocytes Absolute Auto 0.7 K/mm3 (0.1-0.6); Monocytes Percent Auto 10.6 % (2.6-8.5); Neutrophils Absolute Auto 4.1 K/mm3 (1.3-6.7); Neutrophils Percent Auto 65.6 % (45.5-73.1); Platelet Count Result 190 k/mm3 (150-375); Red Blood Count 4.49 M/mm3 (4.6-6.20); White Blood Count 6.2 K/mm3 (4.5-10.0)
[2024-07-18 06:57] LABS: Alanine Aminotransferase 9 U/L (6-50); Albumin Level 3.4 g/dL (3.5-5.1); Alkaline Phosphatase 71 U/L (38-126); Anion Gap 4 mmol/L (4-12); Aspartate Amino Transferase 16 U/L (17-59); Bilirubin,Total 0.6 mg/dL (0.2-1.3); Blood Urea Nitrogen 17 mg/dL (9-20); Calcium 8.3 mg/dL (8.4-10.2); Carbon Dioxide 29 mmol/L (22-30); Chloride 102 mmol/L (98-107); Estimated CRCL calculation 126 ml/min; Estimated Glomerular Filt Rate > 60; Glucose 91 mg/dL (65-110); Potassium 3.8 mmol/L (3.4-5.0); Sodium 135 mmol/L (137-145)
[2024-07-18] MEDS: FINASTERIDE 5 MG TABLET PO (08:37)
--- NOTE | 2024-07-18 09:26 | PM.PNGS ---
Progress Note: A&P Assessment and Plan (1) Incarcerated left inguinal hernia: Code(s): K40.30 - Unilateral inguinal hernia, with obstruction, without gangrene, not specified as recurrent Status: Acute Assessment and Plan: Large chronic left inguinal hernia containing a significant amount of bowel. Not currently incarcerated/strangulated. Scrotal support ordered Will need surgical repair once infection has been adequately treated Advance diet to regular diet (2) Right inguinal hernia: Code(s): K40.90 - Unilateral inguinal hernia, without obstruction or gangrene, not specified as recurrent Status: Acute Plan I have discussed the patient's case and plan of care with Dr. Werner. Subjective Subjective Date/Time Seen: 07/18/24 09:26 Patient reports: no new complaints, tolerating liquids well and flatus Interval history: No acute events overnight. Patient denies abdominal pain or pain related to his inguinal hernia. He is concerned about his living situation after discharge as he has been living in his car and staying with friends at times. He is tolerating clear liquids with no nausea, vomiting. Review of Systems Review of Systems: All systems reviewed & are unremarkable except as noted in HPI and below Exam GI: Inspection: non-distended GI Palp: Yes Soft to palpation, No Tenderness to palpation present (GI), No Guarding due to palpation present (GI) and No Rebound tenderness present Auscultation: normal bowel sounds Other: large left inguinal hernia extending into the scrotum, this is nontender and partially reducible : Penis: Yes normal penis Urinary Catheter: Urinary Catheter: patent and draining Objective Data Vital Signs Vital Signs: Vital Signs - 24 hr 07/17/24 12:00 07/17/24 14:13 07/17/24 20:54 Temperature 97.7 F 98.3 F Pulse Rate 82 81 82 Respiratory Rate 16 16 Blood Pressure 122/80 131/73 Pulse Oximetry 97 96 Oxygen Delivery 07/17/24 21:45 07/18/24 05:46 Temperature 97.8 F Pulse Rate 75 Respiratory Rate 16 Blood Pressure 105/69 Pulse Oximetry 93 Oxygen Delivery Room Air Intake/Output Intake/Output: Intake & Output 07/15/24 07/16/24 07/17/24 07/18/24 23:59 23:59 23:59 23:59 Intake Total 50 50 Output Total 0 4700 825 Balance 50 -4650 -825 Meds/Results Medications: Active Medications Generic Name Dose Route Start Last Admin Trade Name Freq PRN Reason Stop Dose Admin Acetaminophen 650 mg 07/16/24 23:28 Acetaminophen 325 Mg Tablet PO Q4H PRN Mild Pain (1-3) or Fever Finasteride 5 mg 07/18/24 09:00 07/18/24 08:37 Finasteride 5 Mg Tablet PO 5 mg DAILY AMELIA Administration Ceftriaxone Sodium 1 gm in 50 mls @ 100 mls/hr 07/17/24 21:00 07/17/24 22:22 Rocephin 1 Gm/Ns 50 Ml IVPB Infused Q24H AMELIA Infusion Ondansetron HCl 4 mg 07/16/24 23:28 Ondansetron Inj 4 Mg/2 Ml Vial IV PUSH Q4H PRN Nausea Perflutren Lipid Microsphere 0 ml 07/16/24 23:38 Perflutren Lipid Microspheres 1.5 Ml Vial Diluted To 10 Ml Total Volume IV PUSH 07/19/24 23:38 ONCE PRN adequate visualization Protocol Tamsulosin HCl 0.4 mg 07/17/24 21:00 07/17/24 21:51 Tamsulosin Hcl 0.4 Mg Capsule PO 0.4 mg HS AMELIA Administration Radiology Results: ITS Impressions Abdomen/Pelvis CT 07/16/24 20:33 IMPRESSION: 1. Large left inguinal hernia with small and large bowel content with free fluid. No definite evidence of strangulation seen. Slightly thickened wall of the small bowel with congestive vessels is seen which may indicate incarceration. Clinical correlation and follow-up advised.. 2. Possibility of a filling defect in the inferior mesenteric vein is not excluded which may indicate thrombus. Clinical correlation and follow-up advised. 3. fat-containing right inguinal hernia. 4. Enlarged prostate with thickened wall of the bladder. 5. Left kidney lower pole is stones. Chest X-Ray 07/16/24 21:46 IMPRESSION: Highly suggestive cardiac decompensation with pulmonary edema versus pneumonitis. Clinical correlation and follow-up advised. Labs Labs: Laboratory Results - last 24 hr 07/17/24 07/17/24 07/17/24 07:32 12:26 16:51 WBC RBC Hgb Hct MCV MCH MCHC RDW Plt Count MPV Immature Gran % (Auto) Neut % (Auto) Lymph % (Auto) [place] % (Auto) Eos % (Auto) Baso % (Auto) Lymph # (Auto) [place] # (Auto) Eos # (Auto) Baso # (Auto) Abs Immat Gran (auto) Absolute Neuts (auto) Absolute Nucleated RBC Nucleated RBC % Sodium Potassium Chloride Carbon Dioxide Anion Gap BUN Creatinine Estim Creat Clear Calc Estimated GFR Glucose POC Capillary Glucose 105 94 Hemoglobin A1c 5.8 H Calcium Total Bilirubin AST ALT Alkaline Phosphatase Total Protein Albumin 07/17/24 07/18/24 07/18/24 23:13 05:00 06:27 WBC 6.2 RBC 4.49 L Hgb 12.7 L Hct 39.8 L MCV 88.6 MCH 28.3 MCHC 31.9 L RDW 13.0 Plt Count 190 MPV 9.2 Immature Gran % (Auto) 0.2 Neut % (Auto) 65.6 Lymph % (Auto) 19.4 [place] % (Auto) 10.6 H Eos % (Auto) 3.4 Baso % (Auto) 0.8 Lymph # (Auto) 1.21 [place] # (Auto) 0.7 H Eos # (Auto) 0.2 Baso # (Auto) 0.1 Abs Immat Gran (auto) 0.01 Absolute Neuts (auto) 4.1 Absolute Nucleated RBC 0.000 Nucleated RBC % 0.0 Sodium 135 L Potassium 3.8 Chloride 102 Carbon Dioxide 29 Anion Gap 4 BUN 17 Creatinine 0.62 L Estim Creat Clear Calc 126 Estimated GFR > 60 Glucose 91 POC Capillary Glucose 98 90 Hemoglobin A1c Calcium 8.3 L Total Bilirubin 0.6 AST 16 L ALT 9 Alkaline Phosphatase 71 Total Protein 6.0 L Albumin 3.4 L
[2024-07-18] MEDS: polyethylene glycoL 3350 17 GM POWD.PACK PO (10:16)
[2024-07-18 11:53] LABS: Glucose Point of Care 216 mg/dl (65-105)
[2024-07-18 14:00] VITALS: BP 100/63; PULSE 76; RESP 18; TEMP 36.4; O2SAT 98
--- NOTE | 2024-07-18 15:21 | P.DS_ITS ---
DS: Admitting Diagnosis Discharge Date 07/18/2024 0915 Admitting Diagnosis Incarcerated inguinal hernia DS: Discharge Diagnosis Discharge Diagnosis (1) Incarcerated left inguinal hernia: Code(s): K40.30 - Unilateral inguinal hernia, with obstruction, without gangrene, not specified as recurrent Status: Acute Assessment and Plan: 68y/o male has a known left inguinal hernia, follows with Dr. Werner in the outpatient setting has been following this hernia for several months now. Josseline ent reports this hernia has been an issue for around a year now, but has gotten worse over the past several weeks. Denies any pain or tenderness. * CT Abd/pelvis * Large left inguinal hernia with small and large bowel content with free fluid. No definite evidence of strangulation seen. Slightly thickened wall of the small bowel with congestive vessels is seen which may indicate incarceration. * Possibility of a filling defect in the inferior mesenteric vein is not excluded which may indicate thrombus * Fat-containing right inguinal hernia. * GI, General Surgery, and Urology consulted * Continue IV abx * General surgery consult * No acute surgical indications at this time * Will need to clear (urinary) infection prior to surgical intervention * Restart diet (2) Urinary tract infection: Code(s): N39.0 - Urinary tract infection, site not specified Status: Acute Assessment and Plan: - UA:Cloudy, 2+ protein, 3+ blood, 2+ leukocyte esterase, > 100 RBC, >100 WBC, WBC clumps - UC obtained on 07/16 - started on IV Rocephin (3) Chronic indwelling Muniz catheter: Code(s): Z97.8 - Presence of other specified devices Status: Acute Assessment and Plan: * Chronic * Patent and draining * Urinalysis suggestive UTI, urine cultures pending at this time * IV Rocephin (4) Atrial fibrillation: Code(s): I48.91 - Unspecified atrial fibrillation Status: Acute Assessment and Plan: * Stable, not on any medications at this time (5) Congestive heart failure: Code(s): I50.9 - Heart failure, unspecified Status: Acute Assessment and Plan: - Symptoms: Stable, no symptoms at this time - Current medications: none - BNP: 4440 - EKG: AFib, RBBB - Chest XR: Highly suggestive cardiac decompensation with pulmonary edema versus pneumonitis. - Echo: Moderately enlarged LV chamber dimension, LV systolic function reduced, EF 40-45%, mild concentric increased left ventricular wall thickness, LA chamber dimension moderately enlarged, are atrial mildly enlarged, moderate MVR, mild TVR, no pulmonary hypertension. Dilated inferior vena cava with > 50% collapse upon aspiration - Monitor vital signs, I&Os, BUN/creatinine, daily weights, neuro status and patient is a fall risk - Monitor serum electrolytes, Keep serum Potassium>4 and serum Magnesium>2 and CBC - Cardiology consult pending (6) Type 2 diabetes mellitus without complication, without long-term current use of insulin: Code(s): E11.9 - Type 2 diabetes mellitus without complications Status: Chronic Assessment and Plan: - hypoglycemia protocol - POC blood glucose ACHS - home medication - none - A1C pending (7) Abnormal digestive system diagnostic imaging: Code(s): R93.3 - Abnormal findings on diagnostic imaging of other parts of digestive tract Status: Acute Assessment and Plan: * Abd/Pelvis CT: Possibility of a filling defect in the inferior mesenteric vein is not excluded which may indicate thrombus * GI Consulted, appreciate further recommendations * Physical exam is benign, patient denies any nausea/or any abdominal pain * Will eventually need surgical intervention regarding scrotal hernia DS: Summary Hospital Course Reason for hospitalization: Patient is a 68-year-old male with a past medical history of AFib, CHF, BPH, chronic indwelling catheter for the past 2 months due to chronic urinary retention, T2DM, who presents to the hospital with worsening enlargement of the known left inguinal hernia. He states that he has had this hernia for a while, when prompted further patient reports approximately 1 year. States that it has progressively gotten worse over the past couple months, but still denies any pain unless excessive. Patient has a chronic indwelling Muniz catheter, no issues at this time. Denies any chest pain, shortness a breath, nausea/vomiting dizziness, headaches, or bowel complaints. He has been following with Dr. Werner of General Surgery for the inguinal hernia but has not been able to follow-up with his office recently. No history of EGD or previous colonoscopy. Denies any previous abdominal surgeries. Hospital Course: Urology evaluated the patient along with general surgery. Urology is recommending keeping the Muniz catheter until the hernia surgery is performed. Did talk to surgery multiple times who recommended that the UTI was fully treated however urine culture is negative at this time. Patient does have a chronic Muniz and normally has a Muniz which is currently draining and appears well. Patient will go home as he is doing well. He denies any current chest pain, shortness a breath, nausea, vomiting, diarrhea constipation. Patient will need to follow-up outpatient for further intervention. Educated whom plan of care has been updated with the patient who agrees with this this time. Status at Discharge Functional status at discharge: independent ambulation Overall status at discharge: patient is progressing back to baseline Time Spent with Patient Time attestation: Total time spent providing and/or coordinating discharge services: 56 minutes Time spent: Greater than 30 minutes Specific discharge activities: Diagnostic testing, chart review, developing a treatment plan, education, care coordination documentation, physical exam, result review Exam Narrative: Gen - ill appearing male in no acute respiratory distress who is nontoxic- appearing lying semi recumbent in bed HEENT - normocephalic. Atraumatic. Pupils equal round and reactive. Extraocular motions intact. Sclera clear and anicteric. Nares patent. Moist mucous membranes. No facial asymmetry. Neck - neck was supple. No dominant adenopathy, thyromegaly or masses. Chest - lungs are clear to auscultation bilaterally. No wheezes or crackles. CV - heart was regular rate and rhythm. S1-S2. No murmurs gallops or rubs. GI - Large left inguinal hernia, significantly enlarged scrotal sac. No tenderness upon palpation or breaks in the skin. Abdomen was soft. Nontender. Nondistended. Positive bowel sounds. No organomegaly or masses. Ext - no clubbing, cyanosis or edema. 2+ DP pulses bilaterally. Neuro - patient is alert and oriented x4. Strength is 5/5 in both upper and lower extremities. Cranial nerves 2-12 are intact. Speech is clear. Psych - normal mood and affect. Patient is pleasant and cooperative. Skin - warm and dry. No rashes noted. Urinary Catheter: Urinary Catheter: patent and draining DS: Data Data Completed and Pending Labs on day of discharge: Labs from last 24 hours 07/18/24 07/18/24 07/18/24 11:49 06:27 05:00 WBC 6.2 RBC 4.49 L Hgb 12.7 L Hct 39.8 L MCV 88.6 MCH 28.3 MCHC 31.9 L RDW 13.0 Plt Count 190 MPV 9.2 Immature Gran % (Auto) 0.2 Neut % (Auto) 65.6 Lymph % (Auto) 19.4 [place] % (Auto) 10.6 H Eos % (Auto) 3.4 Baso % (Auto) 0.8 Lymph # (Auto) 1.21 [place] # (Auto) 0.7 H Eos # (Auto) 0.2 Baso # (Auto) 0.1 Abs Immat Gran (auto) 0.01 Absolute Neuts (auto) 4.1 Absolute Nucleated RBC 0.000 Nucleated RBC % 0.0 Sodium 135 L Potassium 3.8 Chloride 102 Carbon Dioxide 29 Anion Gap 4 BUN 17 Creatinine 0.62 L Estim Creat Clear Calc 126 Estimated GFR > 60 Glucose 91 POC Capillary Glucose 216 H 90 Hemoglobin A1c Calcium 8.3 L Total Bilirubin 0.6 AST 16 L ALT 9 Alkaline Phosphatase 71 Total Protein 6.0 L Albumin 3.4 L 07/17/24 07/17/24 07/17/24 23:13 16:51 07:32 WBC RBC Hgb Hct MCV MCH MCHC RDW Plt Count MPV Immature Gran % (Auto) Neut % (Auto) Lymph % (Auto) [place] % (Auto) Eos % (Auto) Baso % (Auto) Lymph # (Auto) [place] # (Auto) Eos # (Auto) Baso # (Auto) Abs Immat Gran (auto) Absolute Neuts (auto) Absolute Nucleated RBC Nucleated RBC % Sodium Potassium Chloride Carbon Dioxide Anion Gap BUN Creatinine Estim Creat Clear Calc Estimated GFR Glucose POC Capillary Glucose 98 94 Hemoglobin A1c 5.8 H Calcium Total Bilirubin AST ALT Alkaline Phosphatase Total Protein Albumin Preliminary micro results at discharge 07/16/24 21:38 Blood Culture - Preliminary Blood 07/16/24 21:45 Blood Culture - Preliminary Blood Discharge Plan Discharge Attending physician on discharge: Emory Patricio Consulting providers: Kushal Kramer; Jas Devlin; Moisés Glover; Chai Lynn Discharging Clinician: Prince Maldonado Patient Disposition: Home Activity: may shower, unlimited and as tolerated Diet: regular Discharge Instructions: * Take all medications as prescribed even if feeling better * Eat well balanced meals and stay hydrated * Keep active to remain strong * Avoid use of diapers or pads * Good renetta Care every 2 hours * Trend urine output * If you should experience any chest pain, shortness of breath, temps >100.4 or any other worrisome symptoms please follow up with your PCP come back to the hospital * Follow up with your primary in 1 weeks * It has been a pleasure taking care of you thank you for using our services Patient Instructions: Antibiotic Form Patient Language: Croatian Stand Alone Forms: General Discharge Information Follow-up/Referrals: Paulina Werner MD [Physician] - Call for Appointment Chai Zhong MD [Primary Care Provider] - 1 Week Kushal Kramer MD [Physician] - Call for Appointment Discharge Medications: No Action finasteride 5 mg tablet 5 mg PO DAILY Qty: 30 0RF tamsulosin [Flomax] 0.4 mg capsule 0.4 mg PO HS Qty: 30 0RF Date of admission: 07/17/24 13:29 Primary Care Provider: Chai Zhong Admitting Provider: Tashia Betts Attending physician on admission: Tashia Betts Condition: Stable Quality VTE Prophylaxis VTE prophylaxis: mechanical ordered Hospitalist MIPS Heart Failure (Exclusion) Patient has history of Heart Transplant or Left Ventricular Assistive Device?: No IF YES, STOP HERE Heart Failure (Qualifier) Patient has current or prior documentation of LVEF less than or equal to 40%, or mod/servere depressed LVSF?: No IF NO, STOP HERE
[2024-07-20 15:01] LABS: Estimated CRCL calculation 99 ml/min; Estimated Glomerular Filt Rate > 60
== END 2024-07-18 16:05 | disposition home or self-care (01) | DRG 393 ==
LOC: ANHED 19:41 → ANH3MEDSUR 07-17 00:29
PROVIDERS: Physician Assistant; Admitting Provider Internal Medicine; Emergency Provider Registered Nurse; PCP Family Medicine; Visit Provider Nurse Practitioner
DX: K40.30 Unilateral inguinal hernia, with obstruction, without gangrene, not specified as recurrent (principal); I50.23 Acute on chronic systolic (congestive) heart failure; I48.91 Unspecified atrial fibrillation; N40.1 Benign prostatic hyperplasia with lower urinary tract symptoms; E11.9 Type 2 diabetes mellitus without complications; R33.8 Other retention of urine; Z72.0 Tobacco use
CPT/HCPCS: 36415; 71045; 74177; 80053; 80307; 81001; 82565; 82948; 83036; 83605; 83690; 83880; 84484; 85025; 85610; 85730; 87040; 87086; 93005; 93306; 96365; 96375; 99212; 99285; A9270; G0378; G0463; J0696; J1938; Q9967

== ENCOUNTER 2024-08-18 06:59 | Emergency (ER) | payer MEDICARE, SELFPAY ==
--- NOTE | ~2024-08-18 | CT_ITS ---
EXAMINATION: CT abdomen pelvis w con DATE: 08/18/2024 09:00 INDICATION: Left inguinal hernia TECHNIQUE: Computed tomography (CT) of the abdomen and pelvis was performed with 100 mL Omnipaque-350 intravenous contrast. Automated exposure control and iterative reconstruction technique were employe d. The dose-length product was 2553.37 mGy-cm. COMPARISON: 07/16/2024 FINDINGS: Small right pleural effusion. Mild dependent atelectasis in the bilateral lower lobes, right greater than left. Borderline heart size. Atherosclerotic coronary artery calcific lesion. No pericardial eff usion. Small amount of fluid surrounding the largely decompressed gallbladder. Liver, spleen, pancrea s, bilateral adrenal glands and right kidney are normal. There are couple nonobstructing stones at th e lower pole the left kidney the larger measuring 6 mm. Normal appendix. Portion of the sigmoid colon and a very long 6 length of small bowel extends into a very large indirect left inguinal hernia whic h measures 28.2 cm craniocaudally by 18.9 x 13.6 cm in maximal transaxial dimensions. Moderate-sized fat-containing right indirect inguinal hernia. There are also small bilateral hydroceles. No bowel ob struction. Muniz catheter within the bladder. 8 mm bladder stone near the left ureterovesicular junct ion. There is irregular mucosal contour at the base of the bladder which could be related to mass eff ect from the enlarged prostate which measures 6.2 x 6.2 cm in transaxial dimensions. Alternatively th is could be due to bladder wall thickening in the setting of bladder cancer. No pathologically enlarg ed abdominal or pelvic lymphadenopathy. Moderate lumbar spondylosis. There are bridging osteophytes at multiple levels the lower thoracic spine consistent with diffuse idiopathic skeletal hyperostosis (DISH). IMPRESSION: 1. Very large left inguinal hernia containing portion of the sigmoid colon and a large length of nono bstructed small bowel. 2. Nephrolithiasis including 8 mm stone stone near the left ureterovesicular junction, unclear whethe r still within the ureteral orifice or freely mobile in the bladder. No associated hydronephrosis. 3. Irregular mucosal contour at the base of the bladder likely related to mass effect from the underl lake enlarged prostate and secondary trabeculation resulting from secondary obstruction. Differential includes bladder cancer however reported recent cystoscopy was unremarkable aside from trabeculation . 4. Moderate-sized fat-containing right inguinal hernia. 5. Nonspecific small amount of ascites around the decompressed gallbladder. 6. Small posterior layering right pleural effusion. 7. Borderline heart size. Reviewed, dictated and finalized at location A. IMPRESSION: 1. Very large left inguinal hernia containing portion of the sigmoid colon and a large length of nonobstructed small bowel. 2. Nephrolithiasis including 8 mm stone stone near the left ureterovesicular ju nction, unclear whether still within the ureteral orifice or freely mobile in t he bladder. No associated hydronephrosis. 3. Irregular mucosal contour at the base of the bladder likely related to mass effect from the underlying enlarged prostate and secondary trabeculation result ing from secondary obstruction. Differential includes bladder cancer however re ported recent cystoscopy was unremarkable aside from trabeculation. 4. Moderate-sized fat-containing right inguinal hernia. 5. Nonspecific small amount of ascites around the decompressed gallbladder. 6. Small posterior layering right pleural effusion. 7. Borderline heart size.
[2024-08-18 07:19] VITALS: BP 119/79; PULSE 95; RESP 18; TEMP 36.6; O2SAT 98
[2024-08-18 08:09] LABS: Basophils Percent Auto 0.4 % (0.2-1.2); Eosinophils Absolute Auto 0.2 K/mm3 (0-0.3); Eosinophils Percent Auto 1.6 % (0-4.4); Hematocrit 37.6 % (42.0-52.0); Hemoglobin 11.9 g/dL (14.0-18.0); Immature Granulocyte Absolute 0.03 K/mm3 (0.00-0.031); Immature Granulocyte Percent A 0.3 % (0-0.5); Lymphocytes Absolute Auto 1.31 K/mm3 (0.9-3.2); Lymphocytes Percent Auto 14.3 % (18.3-44.2); Mean Corpuscular HGB Conc 31.6 g/dl (32-36); Mean Corpuscular Hemoglobin 28.3 pg (26-34); Mean Corpuscular Volume 89.5 fl (80-100); Mean Platelet Volume 10.2 fl (7.4-10.4); Monocytes Absolute Auto 0.9 K/mm3 (0.1-0.6); Monocytes Percent Auto 9.2 % (2.6-8.5); Neutrophils Absolute Auto 6.8 K/mm3 (1.3-6.7); Neutrophils Percent Auto 74.2 % (45.5-73.1); Platelet Count Result 203 k/mm3 (150-375); Red Cell Distribution Width 13.5 % (11.5-14.5); White Blood Count 9.2 K/mm3 (4.5-10.0)
[2024-08-18 08:20] LABS: Lactic Acid Reflex 0.9 mmol/L (0.7-2.0)
[2024-08-18 08:21] LABS: Alanine Aminotransferase 13 U/L (6-50); Albumin Level 3.7 g/dL (3.5-5.1); Alkaline Phosphatase 77 U/L (38-126); Anion Gap 8 mmol/L (4-12); Aspartate Amino Transferase 18 U/L (17-59); Bilirubin,Total 0.3 mg/dL (0.2-1.3); Blood Urea Nitrogen 23 mg/dL (9-20); Calcium 9.2 mg/dL (8.4-10.2); Carbon Dioxide 26 mmol/L (22-30); Chloride 104 mmol/L (98-107); Estimated CRCL calculation 91 ml/min; Estimated Glomerular Filt Rate > 60; Glucose 126 mg/dL (65-110); Sodium 138 mmol/L (137-145); Total Protein 6.8 g/dL (6.3-8.2)
[2024-08-18] MEDS: NACL 0.9% IRRIGATION POUR BOTTLE 500 ML (08:32)
--- NOTE | 2024-08-18 08:49 | ED.GENADULT ---
HPI - General Adult General Chief complaint: Urogenital-Male Stated complaint: Incontinence, L testicle swelling Time Seen by Provider: 08/18/24 07:21 History of Present Illness HPI narrative: Patient is a poor historian and cannot provide any accurate information about what the current plans with general surgery and urology in regards to his hernia and indwelling mello. This is a 68-year-old male with a large left inguinal hernia and a indwelling Mello presenting with Mello malfunction. He said that his Mello stopped draining about 2 days ago. He is leaking around the sides of it. He does not have any lower abdominal pain. He does not want know when he last saw urology. Related Data Allergies Allergy/AdvReac Type Severity Reaction Status Date / Time No Known Allergies Allergy Verified 08/18/24 07:55 [facility] Past Medical History Medical History Inguinal hernia Enlarged prostate Degenerative arthritis of knee, bilateral Hemoglobin A1c less than 7.0% last A1c in chart was 6.5 in july of 2018 Type 2 diabetes mellitus without complication, without long-term current use of insulin Surgical History Surgical History History of prostate surgery 2018 Family History Family History Father Diabetes mellitus Mother Diabetes mellitus Family history of malignant neoplasm of breast in first degree relative Cancer Sibling Family history of cardiovascular disease Cancer Social History Social History Social History: Smoking status: Current some day smoker Tobacco type: cigarettes Alcohol intake: never Substance use: never Substance use type: does not use Do You Feel Safe in your Home?: Yes Lack of Transportation: No Lack of Food: Sometimes True Current Housing: I Do Not Have Housing Concerned About Future Housing: YES Difficulty Paying Gas/Electric Bills: No Difficulty Paying for Meds: YES Currently Unemployed: No Education: High School Diploma/GED Difficulty w/ Childcare or Family Care: No Occupation/Education: retired Gender identity (if verbalized by the patient): Male Spiritual care concerns: Yes Exam Narrative: APPEARANCE: No apparent distress. Head: atraumatic. EYES: EOMI, NOSE: Atraumatic NECK: Trachea midline RESPIRATORY: No increased work of breathing, clear to auscultation CARDIOVASCULAR: RRR, pitting edema lower extremities ABDOMINAL: Soft nontender no guarding or rebound, no suprapubic tenderness, patient has a large left inguinal hernia with extrusion into the left scrotum, non reducible but no tenderness or skin discoloration. MUSCULOSKELETAl: No obvious deformities NEURO: Alert. Moving 4/4 extremities SKIN:: Warm, dry. Normal color PSYCHIATRIC: Normal affect Course Vital Signs Vital signs: Vital Signs Temperature 97.8 F 08/18/24 07:19 Pulse Rate 95 08/18/24 07:19 Respiratory Rate 18 08/18/24 07:19 Blood Pressure 119/79 08/18/24 07:19 Pulse Oximetry 98 08/18/24 07:19 Temperature 97.8 F 08/18/24 07:19 Pulse Rate 69 08/18/24 10:08 Respiratory Rate 15 08/18/24 10:08 Blood Pressure 112/79 08/18/24 10:08 Pulse Oximetry 97 08/18/24 10:08 Medical Decision Making MDM Narrative Medical decision making narrative: -Course: 68-year-old male presenting with a malfunctioning Mello. Mello was switched out and is now draining davey colored urine. Patient has no other complaints at this time. UA indicative infection. Patient has grown out Enterococcus and Proteus in the past. Will be discharged on Augmentin and Macrobid. Patient instructed to follow-up with urology and General surgery for further management of his hernia and urinary retention. From reading the notes it appears that the surgeons want to wait until his urinary issues are resolved and the urologists want to wait until his hernia is resolved. It would behoove them to speak to each other in figure out a plan of action for this gentleman. -DDX includes but is not limited to: UTI, urinary retention, dislodged Mello Vital Signs Vital Signs: Vital Signs Temperature 97.8 F 08/18/24 07:19 Pulse Rate 95 08/18/24 07:19 Respiratory Rate 18 08/18/24 07:19 Blood Pressure 119/79 08/18/24 07:19 Pulse Oximetry 98 08/18/24 07:19 Temperature 97.8 F 08/18/24 07:19 Pulse Rate 69 08/18/24 10:08 Respiratory Rate 15 08/18/24 10:08 Blood Pressure 112/79 08/18/24 10:08 Pulse Oximetry 97 08/18/24 10:08 Lab Data 08/18/24 07:58 08/18/24 07:58 Labs: Lab Results 08/18/24 08/18/24 08/18/24 Range/Units 07:57 07:58 09:44 WBC 9.2 (4.5-10.0) K/mm3 RBC 4.20 L (4.6-6.20) M/mm3 Hgb 11.9 L (14.0-18.0) g/dL Hct 37.6 L (42.0-52.0) % MCV 89.5 (80-100) fl MCH 28.3 (26-34) pg MCHC 31.6 L (32-36) g/dl RDW 13.5 (11.5-14.5) % Plt Count 203 (150-375) k/mm3 MPV 10.2 (7.4-10.4) fl Immature Gran % (Auto) 0.3 (0-0.5) % Neut % (Auto) 74.2 H (45.5-73.1) % Lymph % (Auto) 14.3 L (18.3-44.2) % [place] % (Auto) 9.2 H (2.6-8.5) % Eos % (Auto) 1.6 (0-4.4) % Baso % (Auto) 0.4 (0.2-1.2) % Lymph # (Auto) 1.31 (0.9-3.2) K/mm3 [place] # (Auto) 0.9 H (0.1-0.6) K/mm3 Eos # (Auto) 0.2 (0-0.3) K/mm3 Baso # (Auto) 0.0 (0.0-0.1) K/mm3 Abs Immat Gran (auto) 0.03 (0.00-0.031) K/mm3 Absolute Neuts (auto) 6.8 H (1.3-6.7) K/mm3 Absolute Nucleated RBC 0.000 (0.0-0.012) K/mm3 Nucleated RBC % 0.0 (0.0-0.2) % Sodium 138 (137-145) mmol/L Potassium 4.0 (3.4-5.0) mmol/L Chloride 104 (98-107) mmol/L Carbon Dioxide 26 (22-30) mmol/L Anion Gap 8 (4-12) mmol/L BUN 23 H (9-20) mg/dL Creatinine 0.75 (0.7-1.3) mg/dL Estim Creat Clear Calc 91 ml/min Estimated GFR > 60 (59 - ) Glucose 126 H (65-110) mg/dL Lactic Acid 0.9 (0.7-2.0) mmol/L Calcium 9.2 (8.4-10.2) mg/dL Total Bilirubin 0.3 (0.2-1.3) mg/dL AST 18 (17-59) U/L ALT 13 (6-50) U/L Alkaline Phosphatase 77 (38-126) U/L Total Protein 6.8 (6.3-8.2) g/dL Albumin 3.7 (3.5-5.1) g/dL Urine Color Yellow (Yellow) Urine Appearance Turbid H (Clear) Urine pH 6.5 (5.0-9.0) Ur Specific [place] 1.033 (1.001-1.035) Urine Protein 3+ H (Negative) mg/dL Urine Glucose (UA) Negative (Negative) mg/dL Urine Ketones Trace H (Negative) mg/dL Ur Blood (Man) 3+ H (Negative) Urine Nitrate Positive H (Negative) Urine Bilirubin Negative (Negative) Urine Urobilinogen 1.0 (<2.0) mg/dL Add Ur Microanalysis Reviewed Leukocyte Esterase Rfl 3+ H (Negative) KATHARINA/UL Urine RBC >100 H (0-2) /hpf Urine WBC >100 H (0-3) /hpf Ur Squamous Epith Cells None seen (Few) /hpf Urine Bacteria 4+ /hpf Urine Casts 3-5 Urine Opiates Screen Negative (Negative) Urine Methadone Screen Negative (Negative) Ur Barbiturates Screen Negative (Negative) Ur Phencyclidine Scrn Negative (Negative) Ur Amphetamine Screen Pending U Benzodiazepines Scrn Negative (Negative) Urine Cocaine Screen Negative (Negative) U Cannabinoids Screen Negative (Negative) Ethyl Alcohol < 10 (<10) mg/dL Discharge Plan Discharge Clinical Impression: Malfunction of Mello catheter, Acute UTI Patient Disposition: Home Condition: Stable Instructions: Antibiotic Form, Catheter-associated Urinary Tract Infection (ED) Additional Instructions: He was seen emergency department for malfunctioning Mello. Has been replaced and is now draining. Urine is indicative infection. Please take both Augmentin and Macrobid. Please follow-up with urologist and general surgeon in 1 week for further management. Patient Language: Telugu Prescriptions: New amoxicillin-pot clavulanate 875-125 mg tablet 1 tablet PO Q12H Qty: 20 0RF nitrofurantoin monohyd/m-cryst [Macrobid] 100 mg capsule 100 mg PO Q12H 7 Days Qty: 14 0RF Rx Instructions: must administer with a meal/food No Action finasteride 5 mg tablet 5 mg PO DAILY Qty: 30 0RF tamsulosin [Flomax] 0.4 mg capsule 0.4 mg PO HS Qty: 30 0RF Follow-up/Referrals: Paulina Werner MD [Physician] - 1 Week ([place]ernia) Gisselle Rollins MD [Physician] - 1 Week (Urinary retention ) Chai Zhong MD [Primary Care Provider] -
[2024-08-18 09:49] LABS: Ethanol < 10 mg/dL (<10)
[2024-08-18 10:08] VITALS: BP 112/79; PULSE 69; RESP 15; O2SAT 97
[2024-08-18 11:03] LABS: Barbiturate Screen Urine Negative (Negative); Benzodiazepines Screen Urine Negative (Negative); Cannabinoid Screen Urine Negative (Negative); Cocaine Screen Urine Negative (Negative); Methadone Screen Urine Negative (Negative); Phencyclidine Screen Urine Negative (Negative)
[2024-08-18 11:15] LABS: Opiate Screen Urine Negative (Negative)
[2024-08-18 11:30] LABS: Add Urine Microscopic? YES; Appearance Urine Turbid (Clear); Bacteria Urine 4+ /hpf; Bilirubin Urine Negative (Negative); Blood Urine 3+ (Negative); Color Urine Yellow (Yellow); Glucose Urine UA Negative (Negative); Ketones Urine Trace mg/dL (Negative); Leukocyte Esterase Ur 3+ LEU/UL (Negative); Need Manual Microscopic Reviewed; Nitrate Urine Positive (Negative); Protein Urine 3+ mg/dL (Negative); RBC Urine >100 /hpf (0-2); Specific Grav Ur 1.033 (1.001-1.035); Squamous Epithelial Cell Urine None Seen /hpf (Few); WBC Urine >100 /hpf (0-3); pH Urine 6.5 (5.0-9.0)
[2024-08-18 11:57] LABS: Amphetamine Screen Urine Positive (Negative)
[2024-08-18 12:49] VITALS: BP 103/83; PULSE 82; RESP 18; O2SAT 98
== END 2024-08-18 11:30 | disposition home or self-care (01) ==
PROVIDERS: Emergency Provider Emergency Medicine; PCP Family Medicine
DX: T83.031A Leakage of indwelling urethral catheter, initial encounter (principal); N39.0 Urinary tract infection, site not specified; K40.90 Unilateral inguinal hernia, without obstruction or gangrene, not specified as recurrent; E11.9 Type 2 diabetes mellitus without complications; N40.0 Benign prostatic hyperplasia without lower urinary tract symptoms; M17.0 Bilateral primary osteoarthritis of knee; F17.210 Nicotine dependence, cigarettes, uncomplicated; Y84.6 Urinary catheterization as the cause of abnormal reaction of the patient, or of later complication, without mention of misadventure at the time of the procedure; Z79.899 Other long term (current) drug therapy; N20.0 Calculus of kidney; R93.41 Abnormal radiologic findings on diagnostic imaging of renal pelvis, ureter, or bladder
CPT/HCPCS: 36415; 51702; 74177; 80053; 80307; 81001; 82077; 83605; 85025; 87040; 87086; 87186; 99284; Q9967

== ENCOUNTER 2024-08-19 05:54 | Emergency (ER) | payer MEDICARE, SELFPAY ==
[2024-08-19 05:55] VITALS: BP 127/76; PULSE 100; RESP 16; TEMP 36.8; O2SAT 97
--- NOTE | 2024-08-19 08:10 | ED.GENADULT ---
HPI - General Adult General Chief complaint: Urogenital-Male Stated complaint: AMAYA CATH PROBLEM Time Seen by Provider: 08/19/24 07:47 History of Present Illness HPI narrative: Patient has very poor insight into his medical conditions or how to manage them. This is a 68-year-old male presenting with Amaya malfunction. A new Amaya was placed yesterday. Patient is concerned that it is not draining. No abdominal pain. He did not fill his prescriptions for antibiotics. Related Data Allergies Allergy/AdvReac Type Severity Reaction Status Date / Time No Known Allergies Allergy Verified 08/18/24 07:55 PENDING SALE TO [facility] Past Medical History Medical History Inguinal hernia Enlarged prostate Degenerative arthritis of knee, bilateral Hemoglobin A1c less than 7.0% last A1c in chart was 6.5 in july of 2018 Type 2 diabetes mellitus without complication, without long-term current use of insulin Surgical History Surgical History History of prostate surgery 2018 Family History Family History Father Diabetes mellitus Mother Diabetes mellitus Family history of malignant neoplasm of breast in first degree relative Cancer Sibling Family history of cardiovascular disease Cancer Social History Social History Social History: Smoking status: Current some day smoker Tobacco type: cigarettes Alcohol intake: never Substance use: never Substance use type: does not use Do You Feel Safe in your Home?: Yes Lack of Transportation: No Lack of Food: Sometimes True Current Housing: I Do Not Have Housing Concerned About Future Housing: YES Difficulty Paying Gas/Electric Bills: No Difficulty Paying for Meds: YES Currently Unemployed: No Education: High School Diploma/GED Difficulty w/ Childcare or Family Care: No Occupation/Education: retired Gender identity (if verbalized by the patient): Male Spiritual care concerns: Yes Exam Narrative: APPEARANCE: No apparent distress. Head: atraumatic. EYES: EOMI, NOSE: Atraumatic NECK: Trachea midline RESPIRATORY: No increased rate of breathing CARDIOVASCULAR: RRR, ABDOMINAL: Large left inguinal hernia on the left scrotum. No overlying skin changes. Nontender. : Amaya catheter in place MUSCULOSKELETAl: No obvious deformities NEURO: Alert. Moving 4/4 extremities SKIN:: Warm, dry. Normal color PSYCHIATRIC: Normal affect Course Vital Signs Vital signs: Vital Signs Temperature 98.2 F 08/19/24 05:55 Pulse Rate 100 08/19/24 05:55 Respiratory Rate 16 08/19/24 05:55 Blood Pressure 127/76 08/19/24 05:55 Pulse Oximetry 97 08/19/24 05:55 Oxygen Delivery Room Air 08/19/24 05:55 Temperature 98.2 F 08/19/24 05:55 Pulse Rate 100 08/19/24 05:55 Respiratory Rate 16 08/19/24 05:55 Blood Pressure 127/76 08/19/24 05:55 Pulse Oximetry 97 08/19/24 05:55 Oxygen Delivery Room Air 08/19/24 05:55 Medical Decision Making MDM Narrative Medical decision making narrative: -Course: 68-year-old male presenting with a nondraining Amaya. Balloon was deflated and the Amaya was advanced and the Amaya is now draining. He was given a dose of his antibiotics. He is instructed to fill his antibiotics, take them as prescribed and then call his urologist so that he can undergo a trial of voiding. Patient discharged. Vital Signs Vital Signs: Vital Signs Temperature 98.2 F 08/19/24 05:55 Pulse Rate 100 08/19/24 05:55 Respiratory Rate 16 08/19/24 05:55 Blood Pressure 127/76 08/19/24 05:55 Pulse Oximetry 97 08/19/24 05:55 Oxygen Delivery Room Air 08/19/24 05:55 Temperature 98.2 F 08/19/24 05:55 Pulse Rate 100 08/19/24 05:55 Respiratory Rate 16 08/19/24 05:55 Blood Pressure 127/76 08/19/24 05:55 Pulse Oximetry 97 08/19/24 05:55 Oxygen Delivery Room Air 08/19/24 05:55 Discharge Plan Discharge Clinical Impression: Complication of Amaya catheter Patient Disposition: Home Condition: Stable Instructions: Antibiotic Form, Amaya Catheter Placement and Care (ED) Additional Instructions: Please go to the pharmacy and fill the prescriptions for antibiotics and take them as directed. Then called the urology clinic and schedule an appointment for early next week. Return if you develop fevers, flank pain or abdominal pain, or if your condition is getting worse. Patient Language: Luxembourger Prescriptions: No Action amoxicillin-pot clavulanate 875-125 mg tablet 1 tablet PO Q12H Qty: 20 0RF nitrofurantoin monohyd/m-cryst [Macrobid] 100 mg capsule 100 mg PO Q12H 7 Days Qty: 14 0RF Rx Instructions: must administer with a meal/food finasteride 5 mg tablet 5 mg PO DAILY Qty: 30 0RF tamsulosin [Flomax] 0.4 mg capsule 0.4 mg PO HS Qty: 30 0RF Follow-up/Referrals: Gisselle Rollins MD [Physician] - 3 Days (repeated amaya malfunctions) Chai Zhong MD [Primary Care Provider] -
--- NOTE | 2024-08-19 08:14 | PC.NURSE ---
EDP Dr. Juarez at bedside with US. States to advance catheter farther to enter completely into bladder. Catheter advanced, urine output noted. 200mL cloudy yellow urine draining into catheter bag.
[2024-08-19] MEDS: NITROFURANTOIN MONOHYD MACROCR 100 MG CAP PO (08:33)
[2024-08-19] MEDS: AMOXICILLIN/CLAVULANATE K 875-125 MG TAB 1 TABLET PO (08:33)
[2024-08-19 08:45] VITALS: BP 113/69; PULSE 84; RESP 20; TEMP 36.6; O2SAT 98
== END 2024-08-19 08:46 | disposition home or self-care (01) ==
PROVIDERS: Emergency Provider Emergency Medicine; PCP Family Medicine
DX: T83.028A Displacement of other urinary catheter, initial encounter (principal); F17.210 Nicotine dependence, cigarettes, uncomplicated; E11.9 Type 2 diabetes mellitus without complications; M17.0 Bilateral primary osteoarthritis of knee; Y73.1 Therapeutic (nonsurgical) and rehabilitative gastroenterology and urology devices associated with adverse incidents
CPT/HCPCS: 99283; A9270

== ENCOUNTER 2024-09-04 05:17 | Inpatient (IN) | payer MEDICARE, SELFPAY ==
[2024-09-04] VITALS (8 sets, daily range): BP systolic 101–127; BP diastolic 72–82; PULSE 68–83; RESP 12–16; TEMP 36.7–36.9; O2SAT 93–99; BMI 29.9
--- NOTE | ~2024-09-04 | XR_ITS ---
XR chest 1V portable Ordering provider: Edwin Khan MD History: 68 years Male with . short of breath . Comparison: September 04, 2024 FINDINGS: MEDIASTINUM: The cardiac silhouette is moderately enlarged. Congestive marcio. LUNGS: No effusions or pneumothorax. Bilateral basal and left perihilar opacification suggestive of p neumonia. Underlying pulmonary edema is not excluded. OTHER: No free air under the diaphragm. Degenerative changes of the spine. IMPRESSION: Bilateral pneumonia with highly suggestive underlying pulmonary edema. Reviewed, dictated and finalized at location A.
--- NOTE | ~2024-09-04 | XR_ITS ---
Portable chest x-ray Comparison: 07/16/2024 Clinical History: Fluid overload Findings: Minimal right pleural effusion present. Probable minimal haziness the right lung base. Lef t lung clear. Cardiomediastinal silhouette is stable. Bones and soft tissues are unremarkable. Impression: Minimal right pleural effusion with probable minimal right basilar pulmonary edema. Reviewed, dictated and finalized at [facility]. Impression: Minimal right pleural effusion with probable minimal right basilar pulmonary ed [place].
--- NOTE | ~2024-09-04 | US_ITS ---
BILATERAL LOWER EXTREMITY VENOUS ULTRASOUND Ordering provider: Edwin Khan MD History: . Edema . Comparison: None. FINDINGS: RIGHT LOWER EXTREMITY VEINS: --COMMON FEMORAL: Patent and free of thrombus. Normal compressibility, phasic flow and augmentation. --PROXIMAL SUPERFICIAL FEMORAL: Patent and free of thrombus. Normal compressibility, phasic flow and augmentation. --DISTAL SUPERFICIAL FEMORAL: Patent and free of thrombus. Normal compressibility, phasic flow and au gmentation. --POPLITEAL: Patent and free of thrombus. Normal compressibility, phasic flow and augmentation. --POSTERIOR TIBIAL: Patent and free of thrombus. Normal compressibility, phasic flow and augmentation . LEFT LOWER EXTREMITY VEINS: --COMMON FEMORAL: Patent and free of thrombus. Normal compressibility, phasic flow and augmentation. --PROXIMAL SUPERFICIAL FEMORAL: Patent and free of thrombus. Normal compressibility, phasic flow and augmentation. --DISTAL SUPERFICIAL FEMORAL: Patent and free of thrombus. Normal compressibility, phasic flow and au gmentation. --POPLITEAL: Patent and free of thrombus. Normal compressibility, phasic flow and augmentation. --POSTERIOR TIBIAL: Patent and free of thrombus. Normal compressibility, phasic flow and augmentation . Complex cystic structure is seen in the posterior left knee measuring 4.5 x 1 x 2.3 cm suggestive of Frey's cyst. IMPRESSION: Negative bilateral lower extremity venous US. No deep vein thrombosis. Reviewed, dictated and finalized at location A.
--- NOTE | ~2024-09-04 | XR_ITS ---
XR chest 1V portable 09/08/2024 09:43 Indication: Shortness of breath Procedure: AP portable chest Comparison: Comparison to multiple prior studies sequentially, with oldest reviewed study dated 05/09. Findings: There is mild interstitial edema. Cardiomegaly. No significant effusion. The lungs are hype rinflated which is consistent with, but not diagnostic of chronic obstructive pulmonary disease. No p neumothorax. Impression: 1: Cardiomegaly with mild interstitial edema. Reviewed, dictated and finalized at location A. Impression: 1: Cardiomegaly with mild interstitial edema.
--- OUTSIDE RECORDS SUMMARY | 2024-09-04 05:21 | XMS_ITS | Clinical Summary ---
Author Organization [facility] Address [address] [place] [address] Phone Care Team Providers Care Flocculator Operator Name Role Phone Chai Zhong MD Primary Care Provider [phone] Allergies No known active allergies Medications docusate [...] drink = 0.6 oz pur e alcohol) [facility] Utilities Answer Date Recorded In the past 12 months has [place], gas, oil, or water [employer] threatened to shut off services in your [...] any time in the past 12 m [facility], were you homeless or living in a assisted (including now)? Patient declined 01/16/2024 Sexually Active Control Partners Comments Never Sex and Gender Information Value Date Recorded Sex Assigned at Not on file Legal Sex Male 10:38 PM CDT Gender Identity Not on file Sexual Orientation Not on file Last Filed Vital Signs Vital Sign Reading Time Taken Comments Blood Pressure 126/61 01/20/2024 2:29 PM TREASURY ASSOCIATE Pulse 76 01/19/2024 12:47 PM TREASURY ASSOCIATE Temperature 36.8 C (98.2 F) 01/20/2024 2:29 PM TREASURY ASSOCIATE Respiratory Rate 20 01/20/2024 2:29 PM TREASURY ASSOCIATE Oxygen Saturation 100% 01/20/2024 2:29 PM TREASURY ASSOCIATE Inhaled Oxygen Concentration - - Weight 103.5 kg (228 lb 1.6 oz) 01/16/2024 6:30 PM TREASURY ASSOCIATE Height 185.4 cm (6' 1) 01/16/2024 6:30 PM TREASURY ASSOCIATE Body Mass Index 30.09 01/16/2024 6:30 PM TREASURY ASSOCIATE Plan of Treatment Health Maintenance Due Date Last Done Comments Hepatitis C Virus (HCV) Screening 1955 TdaP Immunization 1955 Pneumococcal Immunization (5 0+ years) (1 of 2 - PCV) 10/26/1975 Cologuard 2001 Colonoscopy 2001 Colorectal Cancer Screening 2001 Immunochemical Fecal Occult Blood 2001 Zoster Immunization (1 of 2) 2006 Respiratory Syncytial Virus (RSV) Immunization (Adult) (1 - Risk 60-74 years 1-dose series) 2016 AAA Screening Ultrasound 2021 SARS-COV-2 Immunization ( season) 2023 Influenza Immunization (#1) 2024 Hepatitis B Immunization Aged Out No longer eligible based on patient's age to complete this topic Human Papillomavirus (HPV) Immunization Aged Out No longer eligible b ased on patient's age to complete this topic [...] measures to stabilize the patient. Care Teams Flocculator Operator Relationship Specialty Start Date End Date Chai Zhong MD [address] [place] [address] [address] [place] [address] PCP - General Family Medicine 12/12/17
--- OUTSIDE RECORDS SUMMARY | 2024-09-04 05:21 | XMS_ITS | Referral Summary ---
Author Organization [facility] Address [address] [place] [address] Care Team Providers Care E Commerce Solution Architect Name Role Phone Chai Zhong MD Primary Care Provider [phone] [phone] Allergies No known active allergies Medications finasteride [...] on file Legal Sex Male 2:21 AM PIPE INSULATOR HELPER Gender Identity Not on file Sexual Orientation Not on file Last Filed Vital Signs Vital Sign Reading Time Taken Comments Blood Pressure 124/69 12/29/2022 3:48 PM PIPE INSULATOR HELPER Pulse 85 12/29/2022 3:48 PM PIPE INSULATOR HELPER Temperature 36.3 C (97.4 F) 12/29/2022 3:48 PM PIPE INSULATOR HELPER Respiratory Rate 20 12/29/2022 6:19 AM PIPE INSULATOR HELPER Oxygen Saturation 99% 12/29/2022 3:48 PM PIPE INSULATOR HELPER Inhaled Oxygen Concentration - - Weight 95.4 kg (210 lb 4.8 oz) 12/23/2022 10:45 PM CDT Height 182.9 cm (6') 12/23/2022 10:45 PM CDT Body Mass Index 28.52 12/23/2022 10:45 PM CDT Plan of Treatment Not on file Insurance [facility] Advance Directives For more information, please contact: [phone] * Full Code (Latest Code Status on File) Date Activated Date Inactivated Comments 12/24/2022 12:23 AM 12/29/2022 9:26 PM Care Teams E Commerce Solution Architect Relationship Specialty Start Date End Date Chai Zhong MD [facility] [place] [place] [address] PCP - General Family Medicine 12/23/22
--- OUTSIDE RECORDS SUMMARY | 2024-09-04 05:21 | XMS_ITS | Clinical Summary ---
Author Organization [facility] Address [address] [place] [address] Care Team Providers Care Mortgage Coordinator Name Role Phone Chai Zhong MD Primary Care Provider [phone] [phone] Allergies No known active allergies Medications finasteride [...] on file Legal Sex Male 2:21 AM PATIENT BILLER Gender Identity Not on file Sexual Orientation Not on file Obstetrics History Last Filed Vital Signs Vital Sign Reading Time Taken Comments Blood Pressure 124/69 12/29/2022 3:48 PM PATIENT BILLER Pulse 85 12/29/2022 3:48 PM PATIENT BILLER Temperature 36.3 C (97.4 F) 12/29/2022 3:48 PM PATIENT BILLER Respiratory Rate 20 12/29/2022 6:19 AM PATIENT BILLER Oxygen Saturation 99% 12/29/2022 3:48 PM PATIENT BILLER Inhaled Oxygen Concentration - - Weight 95.4 [...] Fall Risk Assessment 12/30/2023 12/29/2022 Influenza Vaccine (#1) 2024 Abdominal Aortic Aneurysm (AAA) Screen Completed Insurance [facility] Advance Directives For more information, please contact: [phone] * Full Code (Latest Code Status on File) Date Activated Date Inactivated Comments 12/24/2022 12:23 AM 12/29/2022 9:26 PM Care Teams Mortgage Coordinator Relationship Specialty Start Date End Date Chai Zhong MD [address] [place] [address] [address] [place] [address] PCP - General Family Medicine 12/23/22
[2024-09-04 05:52] LABS: Hematocrit 36.6 % (42.0-52.0); Hemoglobin 11.3 g/dL (14.0-18.0); Immature Granulocyte Percent A 0.3 % (0-0.5); Lymphocytes Absolute Auto 1.79 K/mm3 (0.9-3.2); Mean Corpuscular HGB Conc 30.9 g/dl (32-36); Mean Corpuscular Hemoglobin 27.4 pg (26-34); Mean Corpuscular Volume 88.6 fl (80-100); Nucleated Red Blood Cells Absolute Auto 0.000 K/mm3 (0.0-0.012); Nucleated Red Blood Cells Perc 0.0 % (0.0-0.2); Platelet Count Result 198 k/mm3 (150-375); Red Blood Count 4.13 M/mm3 (4.6-6.20); White Blood Count 6.8 K/mm3 (4.5-10.0)
[2024-09-04 06:09] LABS: Alanine Aminotransferase 15 U/L (6-50); Albumin Level 3.5 g/dL (3.5-5.1); Alkaline Phosphatase 77 U/L (38-126); Anion Gap 7 mmol/L (4-12); Aspartate Amino Transferase 21 U/L (17-59); Bilirubin,Total 0.5 mg/dL (0.2-1.3); Blood Urea Nitrogen 19 mg/dL (9-20); Calcium 8.4 mg/dL (8.4-10.2); Carbon Dioxide 26 mmol/L (22-30); Chloride 104 mmol/L (98-107); Estimated Glomerular Filt Rate > 60; Glucose 112 mg/dL (65-110); Magnesium 2.2 mg/dL (1.6-2.3); Potassium 3.9 mmol/L (3.4-5.0); Sodium 137 mmol/L (137-145); Total Protein 6.7 g/dL (6.3-8.2)
[2024-09-04 06:16] LABS: NT Pro B Type Natriuretic Pept 10700 pg/mL (19.9-100)
--- NOTE | 2024-09-04 06:20 | ED.EXTPRO ---
HPI - Extremity Problem General Chief complaint: Extremity Problem,Nontraumatic Stated complaint: bilateral leg swelling Time Seen by Provider: 09/04/24 05:26 History of Present Illness HPI Narrative: Patient is a 68-year-old male who presents to the emergency department this evening complaining of bilateral lower extremity edema. Patient states that he has had lower extremity edema for a while but within the last 1-2 weeks it has significantly worsened. When asked regarding heart failure history, he states that he was told that at 1 point, patient is a poor historian has very little insight to his medical history. Was seen at our facility approximately 2 weeks ago for Muniz catheter malfunction as patient does have an indwelling Muniz catheter due to history of BPH and at that time he was prescribed antibiotics for UTI which the patient states that he completed. Patient also has a very large scrotum secondary to an inguinal hernia on the left side which he states general surgery is following with they are waiting for him to be fully medically cleared before performing surgery. Patient denies any chest pain or shortness of breath, any additional symptoms or concerns at this time. Related Data Allergies Allergy/AdvReac Type Severity Reaction Status Date / Time No Known Allergies Allergy Verified 09/04/24 05:19 Review of Systems Review of Systems: All systems are reviewed and are negative unless stated otherwise in the HPI. [facility] Past Medical History Medical History Inguinal hernia Enlarged prostate Degenerative arthritis of knee, bilateral Hemoglobin A1c less than 7.0% last A1c in chart was 6.5 in july of 2018 Type 2 diabetes mellitus without complication, without long-term current use of insulin Surgical History Surgical History History of prostate surgery 2018 Family History Family History Father Diabetes mellitus Mother Diabetes mellitus Family history of malignant neoplasm of breast in first degree relative Cancer Sibling Family history of cardiovascular disease Cancer Social History Social History Social History: Smoking status: Current some day smoker Tobacco type: cigarettes Alcohol intake: never Substance use: never Substance use type: does not use Do You Feel Safe in your Home?: Yes Lack of Transportation: No Lack of Food: Sometimes True Current Housing: I Do Not Have Housing Concerned About Future Housing: YES Difficulty Paying Gas/Electric Bills: No Difficulty Paying for Meds: YES Currently Unemployed: No Education: High School Diploma/GED Difficulty w/ Childcare or Family Care: No Occupation/Education: retired Gender identity (if verbalized by the patient): Male Spiritual care concerns: Yes Exam Narrative: General: Alert, awake, afebrile, in no acute distress. HEENT: PERRL, no rhinorrhea, no post nasal drip, oropharynx clear. Neck: Trachea midline, no JVD, no lymphadenopathy. Cardiovascular: Regular rate and rhythm, no murmurs, rubs or gallops, bilateral lower extremity 4+ edema. Respiratory: Clear to auscultation bilaterally, no tachypnea, no wheezing, no rhonchi, no rubs, no respiratory distress. Abdomen: Soft, nontender, nondistended, no rebound, no guarding, no peritoneal signs, large left inguinal hernia extending into the left scrotum. Musculoskeletal: No joint swelling or deformity, normal muscle tone. Skin: No rashes or petechia, no signs of infection. Psychiatric: Alert and oriented, normal behavior and judgment for situation. Neurological: Alert and oriented to person, place, and time. Follows all commands. No focal deficits, speech is clear and fluent. Course Vital Signs Vital signs: Vital Signs Temperature 98.1 F 09/04/24 06:23 Pulse Rate 83 09/04/24 06:23 Respiratory Rate 12 09/04/24 06:23 Blood Pressure 127/82 09/04/24 06:23 Pulse Oximetry 99 09/04/24 06:23 Oxygen Delivery Room Air 09/04/24 06:23 Temperature 98.1 F 09/04/24 06:23 Pulse Rate 83 09/04/24 06:23 Respiratory Rate 12 09/04/24 06:23 Blood Pressure 127/82 09/04/24 06:23 Pulse Oximetry 99 09/04/24 06:23 Oxygen Delivery Room Air 09/04/24 06:23 MDM - Extremity (Nontraumatic) MDM Narrative Medical decision making narrative: The patient was evaluated by myself in the emergency department. History is obtained from patient who is an independent historian and physical exam was performed. External medical records were reviewed at this time. IV was established and pertinent tests were ordered. Patient was administered 40 mg of IV Lasix at this time. Laboratory [place] [address] otherwise unremarkable. Imaging studies obtained included CXR which was independently interpreted by me revealing no acute cardiopulmonary process, which is pending final radiology interpretation. Differential diagnosis considerations include fluid overload, heart failure, venous insufficiency. Comorbidities impacting this visit include medical noncompliance. I have evaluated and discussed social determinants of health with the patient that could potentially impact subsequent diagnosis and treatment plans. On repeat assessment of the patient, reevaluation revealed that the patient is doing well and is in no acute distress. Patient symptoms have improved since he arrived to our emergency department. Repeat vital signs were all reviewed and noted to be stable. Differential diagnosis and treatment plan were discussed with the patient at bedside. Patient agrees with discussion and after shared medical decision making agrees with admission. All questions were answered to the patient's satisfaction. Case was discussed with the on-call hospitalist Dr. Waller at 0620 and he accepted admission for IV diuresis. Lab Data 09/04/24 05:41 09/04/24 05:41 Labs: Lab Results 09/04/24 Range/Units 05:41 WBC 6.8 (4.5-10.0) K/mm3 RBC 4.13 L (4.6-6.20) M/mm3 Hgb 11.3 L (14.0-18.0) g/dL Hct 36.6 L (42.0-52.0) % MCV 88.6 (80-100) fl MCH 27.4 (26-34) pg MCHC 30.9 L (32-36) g/dl RDW 13.3 (11.5-14.5) % Plt Count 198 (150-375) k/mm3 MPV 9.4 (7.4-10.4) fl Immature Gran % (Auto) 0.3 (0-0.5) % Neut % (Auto) 60.3 (45.5-73.1) % Lymph % (Auto) 26.4 (18.3-44.2) % [place] % (Auto) 9.5 H (2.6-8.5) % Eos % (Auto) 3.1 (0-4.4) % Baso % (Auto) 0.4 (0.2-1.2) % Lymph # (Auto) 1.79 (0.9-3.2) K/mm3 [place] # (Auto) 0.6 (0.1-0.6) K/mm3 Eos # (Auto) 0.2 (0-0.3) K/mm3 Baso # (Auto) 0.0 (0.0-0.1) K/mm3 Abs Immat Gran (auto) 0.02 (0.00-0.031) K/mm3 Absolute Neuts (auto) 4.1 (1.3-6.7) K/mm3 Absolute Nucleated RBC 0.000 (0.0-0.012) K/mm3 Nucleated RBC % 0.0 (0.0-0.2) % Sodium 137 (137-145) mmol/L Potassium 3.9 (3.4-5.0) mmol/L Chloride 104 (98-107) mmol/L Carbon Dioxide 26 (22-30) mmol/L Anion Gap 7 (4-12) mmol/L BUN 19 (9-20) mg/dL Creatinine 0.73 (0.7-1.3) mg/dL Estim Creat Clear Calc Not Reportable Estimated GFR > 60 (59 - ) Glucose 112 H (65-110) mg/dL Calcium 8.4 (8.4-10.2) mg/dL Magnesium 2.2 (1.6-2.3) mg/dL Total Bilirubin 0.5 (0.2-1.3) mg/dL AST 21 (17-59) U/L ALT 15 (6-50) U/L Alkaline Phosphatase 77 (38-126) U/L NT-Pro-B Natriuret Pep 39226 H (19.9-100) pg/mL Total Protein 6.7 (6.3-8.2) g/dL Albumin 3.5 (3.5-5.1) g/dL Discharge Plan Discharge Clinical Impression: Bilateral edema of lower extremity Patient Disposition: Still a Patient Condition: Stable Patient Language: Lao Prescriptions: No Action amoxicillin-pot clavulanate 875-125 mg tablet 1 tablet PO Q12H Qty: 20 0RF nitrofurantoin monohyd/m-cryst [Macrobid] 100 mg capsule 100 mg PO Q12H 7 Days Qty: 14 0RF Rx Instructions: must administer with a meal/food finasteride 5 mg tablet 5 mg PO DAILY Qty: 30 0RF tamsulosin [Flomax] 0.4 mg capsule 0.4 mg PO HS Qty: 30 0RF Follow-up/Referrals: Chai Zhong MD [Primary Care Provider] - Time of Disposition: 06:50
[2024-09-04] MEDS: FUROSEMIDE INJ 40 MG/4 ML VIAL IV PUSH ×2 (06:29→16:40)
--- NOTE | 2024-09-04 06:46 | PC.NURSE ---
EDP stated not to put a new mello in due to a recent admission and recent change.
--- NOTE | 2024-09-04 08:11 | PM.IMHP ---
H&P: HPI History of Present Illness Date/Time: 09/04/24 08:11 <Edwin Khan MD - Last Filed: 09/04/24 15:15> Chief Complaint: Extremity edema <Edwin Khan MD - Last Filed: 09/04/24 15:15> Narrative: ER-HPI Narrative: Patient is a 68-year-old male who presents to the emergency department this evening complaining of bilateral lower extremity edema. Patient states that he has had lower extremity edema for a while but within the last 1-2 weeks it has significantly worsened. When asked regarding heart failure history, he states that he was told that at 1 point, patient is a poor historian has very little insight to his medical history. Was seen at our facility approximately 2 weeks ago for Muniz catheter malfunction as patient does have an indwelling Muniz catheter due to history of BPH and at that time he was prescribed antibiotics for UTI which the patient states that he completed. Patient also has a very large scrotum secondary to an inguinal hernia on the left side which he states general surgery is following with they are waiting for him to be fully medically cleared before performing surgery. Patient denies any chest pain or shortness of breath, any additional symptoms or concerns at this time. Patient is a 68-year-old male who presents to the emergency department this evening complaining of bilateral lower extremity edema. Patient states that he has had lower extremity edema for a while but within the last 1-2 weeks it has significantly worsened. When asked regarding heart failure history, he states that he was told that at 1 point, patient is a poor historian has very little insight to his medical history. Was seen at our facility approximately 2 weeks ago for Muniz catheter malfunction as patient does have an indwelling Muniz catheter due to history of BPH and at that time he was prescribed antibiotics for UTI which the patient states that he completed. Patient also has a very large scrotum secondary to an inguinal hernia on the left side which he states general surgery is following with they are waiting for him to be fully medically cleared before performing surgery. Patient denies any chest pain or shortness of breath, any additional symptoms or concerns at this time. In the ED he was noted to lower extremity edema with large left into the scrotum. His vitals were otherwise stable. Data reveal 6.8 hemoglobin 11.3 platelet of 198. Chem normal electrolytes 0.7 LFTs were normal BNP at 10 700 albumin 3 point. Patient received a dose of IV Lasix. Chest x-ray acute cardiopulmonary process. Patient admitted for further treatment. patient with history of systolic dysfunction with moderately reduce EF of 40-45% most likely patient is have acute on chronic systolic congestive heart failure, will treat with Lasix 40mg IV, will have PT/OT evaluate the patient, will monitor and further recommendation to follow. <Flavia Nelson MD - Last Filed: 09/04/24 12:56> [facility] Past Medical History Medical History: Medical History Inguinal hernia Enlarged prostate Degenerative arthritis of knee, bilateral Hemoglobin A1c less than 7.0% last A1c in chart was 6.5 in july of 2018 Type 2 diabetes mellitus without complication, without long-term current use of insulin <Edwin Khan MD - Last Filed: 09/04/24 15:15> Surgical History Surgical History: Surgical History History of prostate surgery 2018 <Edwin Khan MD - Last Filed: 09/04/24 15:15> Family History Family History: Family History Father Diabetes mellitus Mother Diabetes mellitus Family history of malignant neoplasm of breast in first degree relative Cancer Sibling Family history of cardiovascular disease Cancer <Edwin Khan MD - Last Filed: 09/04/24 15:15> Social History Social History: Social History Social History: Smoking packs per day: 0.5 Smoking cigarettes per day: 10.0 Years smoked: 5 Smoking pack-years: 2.50 Smoking status: Current every day smoker Tobacco type: cigarettes Alcohol intake: unknown Substance use: current Substance use type: does not use Other substance usage details: I don't remember Do You Feel Safe in your Home?: Yes Lack of Transportation: No Lack of Food: Sometimes True Current Housing: I Do Not Have Housing Concerned About Future Housing: YES Difficulty Paying Gas/Electric Bills: YES Difficulty Paying for Meds: YES Currently Unemployed: No Education: Decline to Answer Difficulty w/ Childcare or Family Care: No Occupation/Education: retired Gender identity (if verbalized by the patient): Male Spiritual care concerns: No <Edwin Khan MD - Last Filed: 09/04/24 15:15> Meds Home Medications and Allergies Home medications: Home Medications ?Medication ?Instructions ?Recorded ?Confirmed ?Type finasteride 5 mg tablet 5 mg PO DAILY #30 tabs 05/09/24 09/04/24 Rx tamsulosin 0.4 mg capsule (Flomax) 0.4 mg PO HS #30 caps 05/09/24 09/04/24 Rx <Edwin Khan MD - Last Filed: 09/04/24 15:15> Allergies/Adverse reactions: Allergies Allergy/AdvReac Type Severity Reaction Status Date / Time No Known Allergies Allergy Verified 09/04/24 10:34 <Edwin Khan MD - Last Filed: 09/04/24 15:15> Vital Signs Vital Signs - 24 hr 09/04/24 06:23 Temperature 98.1 F Pulse Rate 83 Respiratory Rate 12 Blood Pressure 127/82 Pulse Oximetry 99 Oxygen Delivery Room Air <Edwin Khan MD - Last Filed: 09/04/24 15:15> Exam Narrative: Patient is comfortable, NAD HEENT: eyes are clear and none icteric LUNGS: Bilateral fair entry with rales and rhonchi HEART: RR S1S2 ABD: BS+, Soft and nontender Lower extremities: Bilateral edema SKIN: nonjaundiced Neuro: grossly intact. <Flavia Nelson MD - Last Filed: 09/04/24 12:56> H&P: Results Labs Labs: Short CBC 09/04/24 Range/Units 05:41 WBC 6.8 (4.5-10.0) K/mm3 Hgb 11.3 L (14.0-18.0) g/dL Hct 36.6 L (42.0-52.0) % Plt Count 198 (150-375) k/mm3 BMP 09/04/24 05:41 Sodium 137 Potassium 3.9 Chloride 104 Carbon Dioxide 26 BUN 19 Creatinine 0.73 Glucose 112 H Calcium 8.4 Liver Function 09/04/24 Range/Units 05:41 Total Bilirubin 0.5 (0.2-1.3) mg/dL AST 21 (17-59) U/L ALT 15 (6-50) U/L Alkaline Phosphatase 77 (38-126) U/L Albumin 3.5 (3.5-5.1) g/dL <Edwin Khan MD - Last Filed: 09/04/24 15:15> Assessment and Plan Assessment and plan (1) Congestive heart failure: Code(s): I50.9 - Heart failure, unspecified <Edwin Khan MD - Last Filed: 09/04/24 15:15> Status: Acute <Edwin Khan MD - Last Filed: 09/04/24 15:15> (2) RBBB (right bundle branch block with left anterior fascicular block): Code(s): I45.2 - Bifascicular block <Edwin Khan MD - Last Filed: 09/04/24 15:15> Status: Acute <Edwin Khan MD - Last Filed: 09/04/24 15:15> (3) Atrial fibrillation: Code(s): I48.91 - Unspecified atrial fibrillation <Edwin Khan MD - Last Filed: 09/04/24 15:15> Status: Acute <Edwin Khan MD - Last Filed: 09/04/24 15:15> (4) Type 2 diabetes mellitus without complication, without long-term current use of insulin: Code(s): E11.9 - Type 2 diabetes mellitus without complications <Edwin Khan MD - Last Filed: 09/04/24 15:15> Status: Chronic <Edwin Khan MD - Last Filed: 09/04/24 15:15> (5) Acute on chronic urinary retention: Code(s): R33.9 - Retention of urine, unspecified <Edwin Khan MD - Last Filed: 09/04/24 15:15> Status: Acute <Edwin Khan MD - Last Filed: 09/04/24 15:15> Assessment and Plan: Patient is a 68-year-old male who presents to the emergency department this evening complaining of bilateral lower extremity edema. Patient states that he has had lower extremity edema for a while but within the last 1-2 weeks it has significantly worsened. When asked regarding heart failure history, he states that he was told that at 1 point, patient is a poor historian has very little insight to his medical history. Was seen at our facility approximately 2 weeks ago for Muniz catheter malfunction as patient does have an indwelling Muniz catheter due to history of BPH and at that time he was prescribed antibiotics for UTI which the patient states that he completed. Patient also has a very large scrotum secondary to an inguinal hernia on the left side which he states general surgery is following with they are waiting for him to be fully medically cleared before performing surgery. Patient denies any chest pain or shortness of breath, any additional symptoms or concerns at this time. In the ED he was noted to lower extremity edema with large left into the scrotum. His vitals were otherwise stable. Data reveal 6.8 hemoglobin 11.3 platelet of 198. Chem normal electrolytes 0.7 LFTs were normal BNP at 10 700 albumin 3 point. Patient received a dose of IV Lasix. Chest x-ray Minimal right pleural effusion with probable minimal right basilar pulmonary edema. Patient admitted for further treatment. Bilateral lower extremity edema elevated BNP 09625. Albumin is 3.5. Continue diuresis as ordered. Will check venous duplex. Check echocardiogram. Acute on chronic systolic diastolic congestive heart failure Large Left inguinal hernia containing portion of sigmoid colon and small bowel and moderate size right inguinal hernia patient with history of systolic dysfunction with moderately reduce EF of 40-45% most likely patient is have acute on chronic systolic and diastolic congestive heart failure, will treat with Lasix 40mg IV, will have PT/OT evaluate the patient, will monitor and further recommendation to follow. 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 Left renal calculi/bladder stone noted on CT Atrial fibrillation Congestive heart failure echo with EF 40-45% mildly concentric increased left ventricular wall thickness. LA chamber moderately enlarged right atrium mildly enlarged moderate MVR mild TVR no pulmonary hypertension. 06/2024. Pre diabetes A1c 5.8 DVT prophylaxis Code status full code <Flavia Nelson MD - Last Filed: 09/04/24 12:56> Quality VTE Prophylaxis VTE prophylaxis: pharmacologic ordered <Flavia Nelson MD - Last Filed: 09/04/24 12:56> Hospitalist MIPS Advance Care Plan I have confirmed that the patient's Advanced Care Plan is present, code status is documented, or surrogate decision maker is listed in patient medical record.: Yes <Edwin Khan MD - Last Filed: 09/04/24 15:15> Yes <Flavia Nelson MD - Last Filed: 09/04/24 12:56> Medication Reconciliation I have utilized all available resources to obtain, update and review the patients current medications (includes all prescriptions, OTC, herbals, cannabis, and nutritional supplements).: Yes <Edwin Khan MD - Last Filed: 09/04/24 15:15>
--- NOTE | 2024-09-04 08:28 | ECG_ITS ---
Test Date: 2024-09-04 09:07:25 Measurements Intervals [place] Rate: 89 P: 0 W[place]: 0 QRS: -66 QRSD: 154 T: 95 QT: 437 QTc: 533 Interpretive Statements ATRIAL FIBRILLATION LEFT AXIS DEVIATION [QRS AXIS < -30] RIGHT BUNDLE BRANCH BLOCK CANNOT RULE OUT PREVIOUS ANTERIOR INFARCTION ABNORMAL ECG Compared to ECG 07/16/2024 21:12:01 SLIGHTLY DIFFERENT PRECORDIAL LEAD POSITION OTHERWISE NO SIGNIFICANT CHANGE Electronically Signed On 09-04-2024 10:18:43 CDT by Chai Lynn M.D.
[2024-09-04 09:04] LABS: Hemoglobin A1C 6.5 % (<5.7)
--- NOTE | 2024-09-04 09:35 | ADMGEN ---
This patient, Cristhian Clay, was admitted to [facility] Surg Room 304-02. Patient/family oriented to hospital policies and general routines including ID bracelet, bed and alarms, visiting hours, pain management, procedures, bathroom and other care routines, personal items, smoking policy, room service/diet, and visiting hours. Information on how to activate the Rapid Response Team has been discussed. Patient/Family are encouraged to report perceived risks to care and to ask questions if they do not understand what they are told or what they should do.
--- NOTE | 2024-09-04 12:56 | P.HP_ITS ---
H&P: HPI History of Present Illness Date/Time: 09/04/24 12:56 Chief Complaint: Extremity edema Narrative: Narrative: Patient is a 68-year-old male who presents to the emergency department this evening complaining of bilateral lower extremity edema. Patient states that he has had lower extremity edema for a while but within the last 1-2 weeks it has significantly worsened. When asked regarding heart failure history, he states that he was told that at 1 point, patient is a poor historian has very little insight to his medical history. Was seen at our facility approximately 2 weeks ago for Muniz catheter malfunction as patient does have an indwelling Muniz catheter due to history of BPH and at that time he was prescribed antibiotics for UTI which the patient states that he completed. Patient also has a very large scrotum secondary to an inguinal hernia on the left side which he states general surgery is following with they are waiting for him to be fully medically cleared before performing surgery. Patient denies any chest pain or shortness of breath, any additional symptoms or concerns at this time. In the ED he was noted to lower extremity edema with large left into the scrotum. His vitals were otherwise stable. Data reveal 6.8 hemoglobin 11.3 platelet of 198. Chem normal electrolytes 0.7 LFTs were normal BNP at 10 700 albumin 3 point. Patient received a dose of IV Lasix. Chest x-ray acute cardiopulmonary process. Patient admitted for further treatment. <Edwin Khan MD - Last Filed: 09/04/24 08:28> ER-HPI Narrative: Patient is a 68-year-old male who presents to the emergency department this evening complaining of bilateral lower extremity edema. Patient states that he has had lower extremity edema for a while but within the last 1-2 weeks it has significantly worsened. When asked regarding heart failure history, he states that he was told that at 1 point, patient is a poor historian has very little insight to his medical history. Was seen at our facility approximately 2 weeks ago for Muniz catheter malfunction as patient does have an indwelling Muniz catheter due to history of BPH and at that time he was prescribed antibiotics for UTI which the patient states that he completed. Patient also has a very large scrotum secondary to an inguinal hernia on the left side which he states general surgery is following with they are waiting for him to be fully medically cleared before performing surgery. Patient denies any chest pain or shortness of breath, any additional symptoms or concerns at this time. Patient is a 68-year-old male who presents to the emergency department this evening complaining of bilateral lower extremity edema. Patient states that he has had lower extremity edema for a while but within the last 1-2 weeks it has significantly worsened. When asked regarding heart failure history, he states that he was told that at 1 point, patient is a poor historian has very little insight to his medical history. Was seen at our facility approximately 2 weeks ago for Muniz catheter malfunction as patient does have an indwelling Muniz catheter due to history of BPH and at that time he was prescribed antibiotics for UTI which the patient states that he completed. Patient also has a very large scrotum secondary to an inguinal hernia on the left side which he states general surgery is following with they are waiting for him to be fully medically cleared before performing surgery. Patient denies any chest pain or shortness of breath, any additional symptoms or concerns at this time. In the ED he was noted to lower extremity edema with large left into the scrotum. His vitals were otherwise stable. Data reveal 6.8 hemoglobin 11.3 platelet of 198. Chem normal electrolytes 0.7 LFTs were normal BNP at 10 700 albumin 3 point. Patient received a dose of IV Lasix. Chest x-ray acute cardiopulmonary process. Patient admitted for further treatment. patient with history of systolic dysfunction with moderately reduce EF of 40-45% most likely patient is have acute on chronic systolic congestive heart failure, will treat with Lasix 40mg IV, will have PT/OT evaluate the patient, will preet tor and further recommendation to follow. <Flavia Nelson MD - Last Filed: 09/04/24 12:56> [facility] Past Medical History Medical History Inguinal hernia Enlarged prostate Degenerative arthritis of knee, bilateral Hemoglobin A1c less than 7.0% last A1c in chart was 6.5 in july of 2018 Type 2 diabetes mellitus without complication, without long-term current use of insulin Surgical History Surgical History History of prostate surgery 2018 Family History Family History Father Diabetes mellitus Mother Diabetes mellitus Family history of malignant neoplasm of breast in first degree relative Cancer Sibling Family history of cardiovascular disease Cancer Social History Social History Social History: Smoking packs per day: 0.5 Smoking cigarettes per day: 10.0 Years smoked: 5 Smoking pack-years: 2.50 Smoking status: Current every day smoker Tobacco type: cigarettes Alcohol intake: unknown Substance use: current Substance use type: does not use Other substance usage details: I don't remember Do You Feel Safe in your Home?: Yes Lack of Transportation: No Lack of Food: Sometimes True Current Housing: I Do Not Have Housing Concerned About Future Housing: YES Difficulty Paying Gas/Electric Bills: YES Difficulty Paying for Meds: YES Currently Unemployed: No Education: Decline to Answer Difficulty w/ Childcare or Family Care: No Occupation/Education: retired Gender identity (if verbalized by the patient): Male Spiritual care concerns: No Meds Home Medications and Allergies Home Medications ?Medication ?Instructions ?Recorded ?Confirmed ?Type finasteride 5 mg tablet 5 mg PO DAILY #30 tabs 05/09/24 09/04/24 Rx tamsulosin 0.4 mg capsule (Flomax) 0.4 mg PO HS #30 caps 05/09/24 09/04/24 Rx Allergies Allergy/AdvReac Type Severity Reaction Status Date / Time No Known Allergies Allergy Verified 09/04/24 10:34 Vital Signs Vital Signs - 24 hr 09/04/24 06:23 09/04/24 08:00 09/04/24 08:30 Temperature 36.7 C Pulse Rate 83 74 Respiratory Rate 12 16 Blood Pressure 127/82 106/76 Pulse Oximetry 99 96 99 Oxygen Delivery Room Air Room Air 09/04/24 09:00 09/04/24 10:53 Temperature 36.9 C Pulse Rate 70 68 Respiratory Rate 16 16 Blood Pressure 101/72 105/72 Pulse Oximetry 96 99 Oxygen Delivery Exam Narrative: Patient is comfortable, NAD HEENT: eyes are clear and none icteric LUNGS: Bilateral fair entry with rales and rhonchi HEART: RR S1S2 ABD: BS+, Soft and nontender Lower extremities: Bilateral edema SKIN: nonjaundiced Neuro: grossly intact. H&P: Results Labs Labs: Short CBC 09/04/24 Range/Units 05:41 WBC 6.8 (4.5-10.0) K/mm3 Hgb 11.3 L (14.0-18.0) g/dL Hct 36.6 L (42.0-52.0) % Plt Count 198 (150-375) k/mm3 BMP 09/04/24 05:41 Sodium 137 Potassium 3.9 Chloride 104 Carbon Dioxide 26 BUN 19 Creatinine 0.73 Glucose 112 H Calcium 8.4 Liver Function 09/04/24 Range/Units 05:41 Total Bilirubin 0.5 (0.2-1.3) mg/dL AST 21 (17-59) U/L ALT 15 (6-50) U/L Alkaline Phosphatase 77 (38-126) U/L Albumin 3.5 (3.5-5.1) g/dL Assessment and Plan Assessment and plan (1) Congestive heart failure: Code(s): I50.9 - Heart failure, unspecified Status: Acute (2) RBBB (right bundle branch block with left anterior fascicular block): Code(s): I45.2 - Bifascicular block Status: Acute (3) Atrial fibrillation: Code(s): I48.91 - Unspecified atrial fibrillation Status: Acute (4) Type 2 diabetes mellitus without complication, without long-term current use of insulin: Code(s): E11.9 - Type 2 diabetes mellitus without complications Status: Chronic (5) Acute on chronic urinary retention: Code(s): R33.9 - Retention of urine, unspecified Status: Acute Plan Patient is a 68-year-old male who presents to the emergency department this evening complaining of bilateral lower extremity edema. Patient states that he has had lower extremity edema for a while but within the last 1-2 weeks it has significantly worsened. When asked regarding heart failure history, he states that he was told that at 1 point, patient is a poor historian has very little insight to his medical history. Was seen at our facility approximately 2 weeks ago for Muniz catheter malfunction as patient does have an indwelling Muniz catheter due to history of BPH and at that time he was prescribed antibiotics for UTI which the patient states that he completed. Patient also has a very large scrotum secondary to an inguinal hernia on the left side which he states general surgery is following with they are waiting for him to be fully medically cleared before performing surgery. Patient denies any chest pain or shortness of breath, any additional symptoms or concerns at this time. In the ED he was noted to lower extremity edema with large left into the scrotum. His vitals were otherwise stable. Data reveal 6.8 hemoglobin 11.3 platelet of 198. Chem normal electrolytes 0.7 LFTs were normal BNP at 10 700 albumin 3 point. Patient received a dose of IV Lasix. Chest x-ray Minimal right pleural effusion with probable minimal right basilar pulmonary edema. Patient admitted for further treatment. Bilateral lower extremity edema elevated BNP 78629. Albumin is 3.5. Continue diuresis as ordered. Will check venous duplex. Check echocardiogram. 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 LA chamber moderately enlarged right atrium mildly enlarged moderate MVR mild TVR no pulmonary hypertension. 06/2024. Pre diabetes A1c 5.8 DVT prophylaxis Code status full code <Edwin Khan MD - Last Filed: 09/04/24 08:28> Patient is a 68-year-old male who presents to the emergency department this evening complaining of bilateral lower extremity edema. Patient states that he has had lower extremity edema for a while but within the last 1-2 weeks it has significantly worsened. When asked regarding heart failure history, he states that he was told that at 1 point, patient is a poor historian has very little insight to his medical history. Was seen at our facility approximately 2 weeks ago for Muniz catheter malfunction as patient does have an indwelling Muniz catheter due to history of BPH and at that time he was prescribed antibiotics for UTI which the patient states that he completed. Patient also has a very large scrotum secondary to an inguinal hernia on the left side which he states general surgery is following with they are waiting for him to be fully medically cleared before performing surgery. Patient denies any chest pain or shortness of breath, any additional symptoms or concerns at this time. In the ED he was noted to lower extremity edema with large left into the scrotum. His vitals were otherwise stable. Data reveal 6.8 hemoglobin 11.3 platelet of 198. Chem normal electrolytes 0.7 LFTs were normal BNP at 10 700 albumin 3 point. Patient received a dose of IV Lasix. Chest x-ray Minimal right pleural effusion with probable minimal right basilar pulmonary edema. Patient admitted for further treatment. Bilateral lower extremity edema elevated BNP 36637. Albumin is 3.5. Continue diuresis as ordered. Will check venous duplex. Check echocardiogram. Acute on chronic systolic diastolic congestive heart failure Large Left inguinal hernia containing portion of sigmoid colon and small bowel and moderate size right inguinal hernia patient with history of systolic dysfunction with moderately reduce EF of 40-45% most likely patient is have acute on chronic systolic and diastolic congestive heart failure, will treat with Lasix 40mg IV, will have PT/OT evaluate the patient, will monitor and further recommendation to follow. 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 Left renal calculi/bladder stone noted on CT Atrial fibrillation Congestive heart failure echo with EF 40-45% mildly concentric increased left ventricular wall thickness. LA chamber moderately enlarged right atrium mildly enlarged moderate MVR mild TVR no pulmonary hypertension. 06/2024. Pre diabetes A1c 5.8 DVT prophylaxis Code status full code <Flavia Nelson MD - Last Filed: 09/04/24 12:56> Quality VTE Prophylaxis VTE prophylaxis: pharmacologic ordered Hospitalist [facility] Advance Care Plan I have confirmed that the patient's Advanced Care Plan is present, code status is documented, or surrogate decision maker is listed in patient medical record.: Yes Medication Reconciliation The patient is not eligible for med reconciliation; the patient is in a emergent medical situation where delaying treatment would jeopardize the patients health.: Yes
--- NOTE | 2024-09-04 14:47 | WPDURCON ---
Assessment and Plan Assessment and plan (1) Chronic indwelling Muniz catheter: Code(s): Z97.8 - Presence of other specified devices Status: Chronic (2) Urinary tract infection: Qualifiers: Urinary tract infection type: catheter-associated UTI Indwelling urinary catheter type: indwelling urethral catheter Encounter type: initial encounter Qualified Code(s): T83.511A - Infection and inflammatory reaction due to indwelling urethral catheter, initial encounter; N39.0 - Urinary tract infection, site not specified Code(s): N39.0 - Urinary tract infection, site not specified Status: Acute (3) Enlarged prostate with urinary obstruction: Code(s): N40.1 - Benign prostatic hyperplasia with lower urinary tract symptoms; N13.8 - Other obstructive and reflux uropathy Status: Chronic Plan - Chronic urinary retention with indwelling Muniz catheter, status post exchange on 08/18/2024. He is due for another exchange in two weeks. - Suspect untreated catheter-associated urinary tract infection (CAUTI) with Enterobacter, diagnosed 08/18/2024. - Very large, incarcerated left inguinal hernia and moderate right inguinal hernia. This is the priority for surgical intervention before any urologic procedures can be considered. - Benign prostatic hyperplasia (BPH) with significant prostate enlargement. - Multiple urolithiasis, including a left lower pole renal stone and a bladder stone. - Acute on chronic systolic and diastolic congestive heart failure. - Multiple psychosocial issues impacting medical care, including medication noncompliance and failure to follow up with specialists. Plan: - Agree with current plan for culture-directed IV antibiotics for untreated CAUTI. - Continue home medications finasteride and tamsulosin. - Recommend social work and case management consultation to assist with outpatient coordination of care, including follow-up appointments and medication access. - Stressed the importance of hernia repair with General Surgery before any urologic intervention can be considered. The patient was advised that the catheter likely cannot be discontinued until the hernia is repaired to prevent recurrence of urinary retention. - Consider the possibility of performing a cystoscopy at the time of the hernia repair to further evaluate the prostate and bladder. - No inpatient urologic surgical intervention is planned. The patient will need to follow up as an outpatient for catheter management and further prostate evaluation, including a possible voiding trial after hernia repair. Provided instructions on how to contact our office to schedule an appointment. Urology Consult Note HPI Date Seen: 09/04/24 Requesting Physician: Salome Waller MD Primary Care Provider: Chai Zhong MD Consult Narrative Reason for consult: Chronic urinary retention, CAUTI Narrative: This is a 68-year-old male with a history of BPH, chronic urinary retention managed with an indwelling Muniz catheter, congestive heart failure, atrial fibrillation, type 2 diabetes mellitus, and a very large left inguinal hernia. He presents to the hospital with worsening bilateral lower extremity edema over the last two weeks. He is a poor historian. He was seen in the ED on 08/18/2024 for a malfunctioning Muniz catheter, at which time a new indwelling Muniz was placed. He was also diagnosed with an Enterobacter CAUTI. He has not followed up with Urology or General Surgery as an outpatient. He has a history of medication noncompliance and significant psychosocial issues, including housing and food insecurity. Home medications include finasteride and tamsulosin. He has no known allergies. -PERTINENT LABS: 09/04/2024 - WBC 6.8, HGB 11.3, Cr 0.73 07/17/2024 - WBC 4.3, HGB 12.3, Cr 0.63 -PERTINENT IMAGIN08/18/2024 CT abdomen pelvis w con (JESSICA) - Very large left inguinal hernia measuring 28.2 x 18.9 x 13.6 cm containing a portion of the sigmoid colon and a large length of small bowel. Moderate-sized fat-containing right indirect inguinal hernia. 8 mm bladder stone near the left ureterovesicular junction. Irregular mucosal contour at the base of the bladder, likely from mass effect from an enlarged prostate measuring 6.2 x 6.2 cm. Nonobstructing 6 mm stone at the lower pole of the left kidney. Small bilateral hydroceles. Small right pleural effusion and borderline heart size. 07/16/2024 CT ABD PEL W CON (JESSICA) - Large left inguinal hernia with small and large bowel content with free fluid and findings suggestive of incarceration. Fat-containing right inguinal hernia. Enlarged prostate with thickened bladder wall. Left kidney lower pole stones measuring 4 mm and 3 mm. Review of Systems Constitutional: Constitutional: Reports lethargy Eyes: Eyes: Reports no additional eye complaints ENT: Reports Normal hearing present Cardiovascular: Cardiovascular: Reports leg edema Respiratory: Respiratory: Denies dyspnea Gastrointestinal: Gastrointestinal: Reports no additional gastrointestinal complaints Genitourinary: Genitourinary: Reports as per HPI Musculoskeletal: Musculoskeletal: Reports no additional musculoskeletal complaints Psychiatric: Psychiatric: Reports as per HPI [facility] Past Medical History Medical History Inguinal hernia Enlarged prostate Degenerative arthritis of knee, bilateral Hemoglobin A1c less than 7.0% last A1c in chart was 6.5 in july of 2018 Type 2 diabetes mellitus without complication, without long-term current use of insulin Surgical History Surgical History History of prostate surgery 2018 Family History Family History Father Diabetes mellitus Mother Diabetes mellitus Family history of malignant neoplasm of breast in first degree relative Cancer Sibling Family history of cardiovascular disease Cancer Social History Social History Social History: Smoking packs per day: 0.5 Smoking cigarettes per day: 10.0 Years smoked: 5 Smoking pack-years: 2.50 Smoking status: Current every day smoker Tobacco type: cigarettes Alcohol intake: unknown Substance use: current Substance use type: does not use Other substance usage details: I don't remember Do You Feel Safe in your Home?: Yes Lack of Transportation: No Lack of Food: Sometimes True Current Housing: I Do Not Have Housing Concerned About Future Housing: YES Difficulty Paying Gas/Electric Bills: YES Difficulty Paying for Meds: YES Currently Unemployed: No Education: Decline to Answer Difficulty w/ Childcare or Family Care: No Occupation/Education: retired Gender identity (if verbalized by the patient): Male Spiritual care concerns: No Meds Home Medications and Allergies Home Medications ?Medication ?Instructions ?Recorded ?Confirmed ?Type finasteride 5 mg tablet 5 mg PO DAILY #30 tabs 05/09/24 09/04/24 Rx tamsulosin 0.4 mg capsule (Flomax) 0.4 mg PO HS #30 caps 05/09/24 09/04/24 Rx Allergies Allergy/AdvReac Type Severity Reaction Status Date / Time No Known Allergies Allergy Verified 09/04/24 10:34 Vital Signs Vital Signs - 24 hr 09/04/24 06:23 09/04/24 08:00 09/04/24 08:30 Temperature 98.1 F Pulse Rate 83 74 Respiratory Rate 12 16 Blood Pressure 127/82 106/76 Pulse Oximetry 99 96 99 Oxygen Delivery Room Air Room Air 09/04/24 09:00 09/04/24 10:53 Temperature 98.5 F Pulse Rate 70 68 Respiratory Rate 16 16 Blood Pressure 101/72 105/72 Pulse Oximetry 96 99 Oxygen Delivery Exam Const: General: comfortable and no acute distress HENMT: Other: Poor dentition Resp: Effort & Inspection: normal respiratory effort GI: Other: Large inguinal hernia Urinary Catheter: Urinary Catheter: patent and draining and urine clear Neuro: Speech: normal speech Psych: Affect: normal affect Results Labs 09/04/24 05:41 09/04/24 05:41 Labs: Short CBC 09/04/24 Range/Units 05:41 WBC 6.8 (4.5-10.0) K/mm3 Hgb 11.3 L (14.0-18.0) g/dL Hct 36.6 L (42.0-52.0) % Plt Count 198 (150-375) k/mm3 [facility] 09/04/24 05:41 Sodium 137 Potassium 3.9 Chloride 104 Carbon Dioxide 26 BUN 19 Creatinine 0.73 Glucose 112 H Calcium 8.4 Liver Function 09/04/24 Range/Units 05:41 Total Bilirubin 0.5 (0.2-1.3) mg/dL AST 21 (17-59) U/L ALT 15 (6-50) U/L Alkaline Phosphatase 77 (38-126) U/L Albumin 3.5 (3.5-5.1) g/dL
--- NOTE | 2024-09-04 14:48 | PM.CNGS ---
Assessment and Plan Assessment and plan (1) Incarcerated left inguinal hernia: Code(s): K40.30 - Unilateral inguinal hernia, with obstruction, without gangrene, not specified as recurrent Status: Acute Assessment and Plan: Patient presented with severely swollen testicles. Previously seen in the office in May by Dr. Bingham and again about a month ago when he was admitted. He was instructed to get his urological issues taking care of prior to proceeding with any type of surgical intervention. He does not know any pain to the area, more so just discomfort with walking and movement. No changes in bowel or bladder habits. Patient now [place] severe bilateral [place] [address]. He will need to get cardiac and urologic clearance prior to proceeding with surgery. No immediate surgical intervention necessary, as he can be seen outpatient for this issue. We will sign off at this time. Please reach out with any issues. (2) Right inguinal hernia: Code(s): K40.90 - Unilateral inguinal hernia, without obstruction or gangrene, not specified as recurrent Status: Acute Assessment and Plan: See above (3) Bilateral edema of lower extremity: Code(s): R60.0 - Localized edema Status: Acute (4) Congestive heart failure: Code(s): I50.9 - Heart failure, unspecified Status: Acute (5) Atrial fibrillation: Code(s): I48.91 - Unspecified atrial fibrillation Status: Acute (6) Type 2 diabetes mellitus without complication, without long-term current use of insulin: Code(s): E11.9 - Type 2 diabetes mellitus without complications Status: Chronic (7) Chronic indwelling Muniz catheter: Code(s): Z97.8 - Presence of other specified devices Status: Chronic Plan Discussed patient's case and plan of care with Dr. Devlin. History of Present Illness Consult details Consult date: 09/04/24 Reason for consult: other (Left inguinal hernia) Requesting physician: Flavia Nelson MD Narrative: Patient is a 68-year-old male with history of type 2 diabetes mellitus and chronic urinary retention secondary to BPH requiring chronic indwelling Muniz catheter who we have been asked to see in surgical consultation for a left inguinal hernia. Patient is well known to our team as he has been seen in the office by Dr. Werner (06/12/2024) and recently admitted about a month ago 07/16-07/18. During his office visit and again during his admission, it was emphasized that he gets his urological issues addressed prior to proceeding with any surgical repair. Patient presented to the ED this morning with concerns for bilateral lower extremity swelling. He states that he has had this swelling for a while but that it has increased and worsened within the past 1-2 weeks. Patient is unaware of any past diagnosis of heart failure, but BNP was found to be 10,700. Venous Doppler study was negative bilaterally with no DVT. Chest x-ray was obtained and demonstrated minimal right pleural effusion with probable minimal right basilar pulmonary edema. Patient denies any pain to his scrotum, aside from discomfort with walking and movement due to size. Scrotum has seemingly increased in size since he was last seen a month ago. No current issues with indwelling Muniz catheter. Reports bowel movement today. No nausea, vomiting, or fevers. FORMERLY [facility], [facility] Past Medical History Medical History Inguinal hernia Enlarged prostate Degenerative arthritis of knee, bilateral Hemoglobin A1c less than 7.0% last A1c in chart was 6.5 in july of 2018 Type 2 diabetes mellitus without complication, without long-term current use of insulin Surgical History Surgical History History of prostate surgery 2018 Family History Family History Father Diabetes mellitus Mother Diabetes mellitus Family history of malignant neoplasm of breast in first degree relative Cancer Sibling Family history of cardiovascular disease Cancer Social History Social History Social History: Smoking packs per day: 0.5 Smoking cigarettes per day: 10.0 Years smoked: 5 Smoking pack-years: 2.50 Smoking status: Current every day smoker Tobacco type: cigarettes Alcohol intake: unknown Substance use: current Substance use type: does not use Other substance usage details: I don't remember Do You Feel Safe in your Home?: Yes Lack of Transportation: No Lack of Food: Sometimes True Current Housing: I Do Not Have Housing Concerned About Future Housing: YES Difficulty Paying Gas/Electric Bills: YES Difficulty Paying for Meds: YES Currently Unemployed: No Education: Decline to Answer Difficulty w/ Childcare or Family Care: No Occupation/Education: retired Gender identity (if verbalized by the patient): Male Spiritual care concerns: No Meds Home Medications and Allergies Home Medications ?Medication ?Instructions ?Recorded ?Confirmed ?Type finasteride 5 mg tablet 5 mg PO DAILY #30 tabs 05/09/24 09/04/24 Rx tamsulosin 0.4 mg capsule (Flomax) 0.4 mg PO HS #30 caps 05/09/24 09/04/24 Rx Allergies Allergy/AdvReac Type Severity Reaction Status Date / Time No Known Allergies Allergy Verified 09/04/24 10:34 Vital Signs Vital Signs - 24 hr 09/04/24 06:23 09/04/24 08:00 09/04/24 08:30 Temperature 98.1 F Pulse Rate 83 74 Respiratory Rate 12 16 Blood Pressure 127/82 106/76 Pulse Oximetry 99 96 99 Oxygen Delivery Room Air Room Air 09/04/24 09:00 09/04/24 10:53 Temperature 98.5 F Pulse Rate 70 68 Respiratory Rate 16 16 Blood Pressure 101/72 105/72 Pulse Oximetry 96 99 Oxygen Delivery Exam Const: General: comfortable and no acute distress Eyes: General: appearance normal, both eyes and all related structures Neck: Neck: supple Resp: Effort & Inspection: normal respiratory effort Cardio: Rate: regular rate Rhythm: regular rhythm : Other: Severe edema and swelling to scrotum Extrem: Other: Severe edema to bilateral lower extremities. Bilateral DP pulses present. Mild skin changes present. No open wounds or lacerations. Psych: Mental Status: mental status grossly normal Results Labs 09/04/24 05:41 09/04/24 05:41 Labs: Abnormal lab results 09/04/24 Range/Units 05:41 RBC 4.13 L (4.6-6.20) M/mm3 Hgb 11.3 L (14.0-18.0) g/dL Hct 36.6 L (42.0-52.0) % MCHC 30.9 L (32-36) g/dl [place] % (Auto) 9.5 H (2.6-8.5) % Glucose 112 H (65-110) mg/dL Hemoglobin A1c 6.5 H (<5.7) % NT-Pro-B Natriuret Pep 59730 H (19.9-100) pg/mL Diabetes panel 09/04/24 Range/Units 05:41 Sodium 137 (137-145) mmol/L Potassium 3.9 (3.4-5.0) mmol/L Chloride 104 (98-107) mmol/L Carbon Dioxide 26 (22-30) mmol/L BUN 19 (9-20) mg/dL Creatinine 0.73 (0.7-1.3) mg/dL Glucose 112 H (65-110) mg/dL Hemoglobin A1c 6.5 H (<5.7) % Calcium 8.4 (8.4-10.2) mg/dL AST 21 (17-59) U/L ALT 15 (6-50) U/L Alkaline Phosphatase 77 (38-126) U/L Total Protein 6.7 (6.3-8.2) g/dL Albumin 3.5 (3.5-5.1) g/dL Calcium panel 09/04/24 Range/Units 05:41 Calcium 8.4 (8.4-10.2) mg/dL Albumin 3.5 (3.5-5.1) g/dL Pituitary panel 09/04/24 Range/Units 05:41 Sodium 137 (137-145) mmol/L Potassium 3.9 (3.4-5.0) mmol/L Chloride 104 (98-107) mmol/L Carbon Dioxide 26 (22-30) mmol/L BUN 19 (9-20) mg/dL Creatinine 0.73 (0.7-1.3) mg/dL Glucose 112 H (65-110) mg/dL Calcium 8.4 (8.4-10.2) mg/dL Adrenal panel 09/04/24 Range/Units 05:41 Sodium 137 (137-145) mmol/L Potassium 3.9 (3.4-5.0) mmol/L Chloride 104 (98-107) mmol/L Carbon Dioxide 26 (22-30) mmol/L BUN 19 (9-20) mg/dL Creatinine 0.73 (0.7-1.3) mg/dL Glucose 112 H (65-110) mg/dL Calcium 8.4 (8.4-10.2) mg/dL Total Bilirubin 0.5 (0.2-1.3) mg/dL AST 21 (17-59) U/L ALT 15 (6-50) U/L Alkaline Phosphatase 77 (38-126) U/L Total Protein 6.7 (6.3-8.2) g/dL Albumin 3.5 (3.5-5.1) g/dL All other labs normal.
[2024-09-04 19:12] LABS: Cannabinoid Screen Urine Negative (Negative)
[2024-09-04] MEDS: TAMSULOSIN HCL 0.4 MG CAPSULE PO (21:00)
[2024-09-05 05:33] VITALS: BP 100/71; PULSE 83; RESP 16; TEMP 36.7; O2SAT 93
[2024-09-05 06:01] LABS: Hematocrit 36.0 % (42.0-52.0); Hemoglobin 11.1 g/dL (14.0-18.0); Mean Corpuscular HGB Conc 30.8 g/dl (32-36); Mean Corpuscular Hemoglobin 27.5 pg (26-34); Mean Corpuscular Volume 89.3 fl (80-100); Platelet Count Result 195 k/mm3 (150-375); Red Blood Count 4.03 M/mm3 (4.6-6.20); White Blood Count 6.5 K/mm3 (4.5-10.0)
[2024-09-05 06:26] LABS: Anion Gap 6 mmol/L (4-12); Blood Urea Nitrogen 19 mg/dL (9-20); Calcium 8.4 mg/dL (8.4-10.2); Carbon Dioxide 30 mmol/L (22-30); Chloride 102 mmol/L (98-107); Estimated CRCL calculation 97 ml/min; Estimated Glomerular Filt Rate > 60; Glucose 106 mg/dL (65-110); Magnesium 2.1 mg/dL (1.6-2.3); Potassium 3.9 mmol/L (3.4-5.0); Sodium 138 mmol/L (137-145)
[2024-09-05] MEDS: FUROSEMIDE INJ 40 MG/4 ML VIAL IV PUSH ×2 (09:01→18:00)
[2024-09-05] MEDS: FINASTERIDE 5 MG TABLET PO (09:01)
[2024-09-05] MEDS: ENOXAPARIN 40 MG/0.4 ML SYRINGE SUB-Q (09:02)
[2024-09-05] MEDS: cefTRIAXone 1 GM in SODIUM CHLORIDE 0.9% IV 50 ML 100 ML IVPB (12:11)
[2024-09-05 14:39] VITALS: BP 106/61; PULSE 92; RESP 16; TEMP 36.8; O2SAT 95
--- NOTE | 2024-09-05 15:49 | PM.IMPN ---
Progress Note: A&P Assessment and Plan (1) Congestive heart failure: Code(s): I50.9 - Heart failure, unspecified Status: Acute (2) RBBB (right bundle branch block with left anterior fascicular block): Code(s): I45.2 - Bifascicular block Status: Acute (3) Atrial fibrillation: Code(s): I48.91 - Unspecified atrial fibrillation Status: Acute (4) Type 2 diabetes mellitus without complication, without long-term current use of insulin: Code(s): E11.9 - Type 2 diabetes mellitus without complications Status: Chronic (5) Acute on chronic urinary retention: Code(s): R33.9 - Retention of urine, unspecified Status: Acute Plan Patient is a 68-year-old male who presents to the emergency department this evening complaining of bilateral lower extremity edema. Patient states that he has had lower extremity edema for a while but within the last 1-2 weeks it has significantly worsened. When asked regarding heart failure history, he states that he was told that at 1 point, patient is a poor historian has very little insight to his medical history. Was seen at our facility approximately 2 weeks ago for Muniz catheter malfunction as patient does have an indwelling Muniz catheter due to history of BPH and at that time he was prescribed antibiotics for UTI which the patient states that he completed. Patient also has a very large scrotum secondary to an inguinal hernia on the left side which he states general surgery is following with they are waiting for him to be fully medically cleared before performing surgery. Patient denies any chest pain or shortness of breath, any additional symptoms or concerns at this time. In the ED he was noted to lower extremity edema with large left into the scrotum. His vitals were otherwise stable. Data reveal 6.8 hemoglobin 11.3 platelet of 198. Chem normal electrolytes 0.7 LFTs were normal BNP at 10 700 albumin 3 point. Patient received a dose of IV Lasix. Chest x-ray Minimal right pleural effusion with probable minimal right basilar pulmonary edema. Patient admitted for further treatment. Bilateral lower extremity edema elevated BNP 85763. Albumin is 3.5. Continue diuresis as ordered. Will check venous duplex. Check echocardiogram. 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 LA chamber moderately enlarged right atrium mildly enlarged moderate MVR mild TVR no pulmonary hypertension. 06/2024. Pre diabetes A1c 5.8 DVT prophylaxis Code status full code <Edwin Khan MD - Last Filed: 09/04/24 08:28> Patient is a 68-year-old male who presents to the emergency department this evening complaining of bilateral lower extremity edema. Patient states that he has had lower extremity edema for a while but within the last 1-2 weeks it has significantly worsened. When asked regarding heart failure history, he states that he was told that at 1 point, patient is a poor historian has very little insight to his medical history. Was seen at our facility approximately 2 weeks ago for Muniz catheter malfunction as patient does have an indwelling Muniz catheter due to history of BPH and at that time he was prescribed antibiotics for UTI which the patient states that he completed. Patient also has a very large scrotum secondary to an inguinal hernia on the left side which he states general surgery is following with they are waiting for him to be fully medically cleared before performing surgery. Patient denies any chest pain or shortness of breath, any additional symptoms or concerns at this time. In the ED he was noted to lower extremity edema with large left into the scrotum. His vitals were otherwise stable. Data reveal 6.8 hemoglobin 11.3 platelet of 198. Chem normal electrolytes 0.7 LFTs were normal BNP at 10 700 albumin 3 point. Patient received a dose of IV Lasix. Chest x-ray Minimal right pleural effusion with probable minimal right basilar pulmonary edema. Patient admitted for further treatment. Bilateral lower extremity edema elevated BNP 34285. Albumin is 3.5. Continue diuresis as ordered. Will check venous duplex. Check echocardiogram. Acute on chronic systolic diastolic congestive heart failure Large Left inguinal hernia containing portion of sigmoid colon and small bowel and moderate size right inguinal hernia patient with history of systolic dysfunction with moderately reduce EF of 40-45% most likely patient is have acute on chronic systolic and diastolic congestive heart failure, will treat with Lasix 40mg IV, will have PT/OT evaluate the patient, will monitor and further recommendation to follow. 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 Left renal calculi/bladder stone noted on CT Atrial fibrillation Patient presented with lower extremities edema is found to have acute on chronic systolic congestive heart failure, patient is being diuresed and his edema is improving, patient has also history of illicit drug use and patient is positive for amphetamine, patient remains clinical stable and does not show any sign of withdrawal will monitor, patient has enlarged scrotum seen by urologist and general surgery, further recommendation to follow. patient is clinically stable, will CPM. Congestive heart failure echo with EF 40-45% mildly concentric increased left ventricular wall thickness. LA chamber moderately enlarged right atrium mildly enlarged moderate MVR mild TVR no pulmonary hypertension. 06/2024. Pre diabetes A1c 5.8 DVT prophylaxis Code status full code <Flavia Nelson MD - Last Filed: 09/04/24 12:56> Subjective Date/time seen: 09/05/24 15:49 Interval history: Patient is a 68-year-old male who presents to the emergency department this evening complaining of bilateral lower extremity edema. Patient states that he has had lower extremity edema for a while but within the last 1-2 weeks it has significantly worsened. When asked regarding heart failure history, he states that he was told that at 1 point, patient is a poor historian has very little insight to his medical history. Was seen at our facility approximately 2 weeks ago for Muniz catheter malfunction as patient does have an indwelling Muniz catheter due to history of BPH and at that time he was prescribed antibiotics for UTI which the patient states that he completed. Patient also has a very large scrotum secondary to an inguinal hernia on the left side which he states general surgery is following with they are waiting for him to be fully medically cleared before performing surgery. Patient denies any chest pain or shortness of breath, any additional symptoms or concerns at this time. In the ED he was noted to lower extremity edema with large left into the scrotum. His vitals were otherwise stable. Data reveal 6.8 hemoglobin 11.3 platelet of 198. Chem normal electrolytes 0.7 LFTs were normal BNP at 10 700 albumin 3 point. Patient received a dose of IV Lasix. Chest x-ray acute cardiopulmonary process. Patient admitted for further treatment. patient with history of systolic dysfunction with moderately reduce EF of 40-45% most likely patient is have acute on chronic systolic congestive heart failure, will treat with Lasix 40mg IV, will have PT/OT evaluate the patient, will monitor and further recommendation to follow. <Flavia Nelson MD - Last Filed: 09/04/24 12:56 Patient presented with lower extremities edema is found to have acute on chronic systolic congestive heart failure, patient is being diuresed and his edema is improving, patient has also history of illicit drug use and patient is positive for amphetamine, patient remains clinical stable and does not show any sign of withdrawal will monitor, patient has enlarged scrotum seen by urologist and general surgery, further recommendation to follow. patient is clinically stable, will CPM. Review of Systems Review of Systems: - CONSTITUTIONAL: Denies weight loss, fever and chills. - HEENT: Denies changes in vision and hearing - RESPIRATORY: Denies SOB and cough. - CV: Denies palpitations and CP. - GI: Denies abdominal pain, nausea, vomiting and diarrhea. - : Denies dysuria and urinary frequency. - MSK: Denies myalgia and joint pain. - SKIN: Denies rash and pruritus. - NEUROLOGICAL: Denies headache and syncope. - PSYCHIATRIC: Denies recent changes in mood. Denies anxiety and depression. Objective Data Vital Signs Vital Signs: Vital Signs - 24 hr 09/04/24 20:00 09/04/24 21:32 09/05/24 05:33 Temperature 36.8 C 36.7 C Pulse Rate 81 81 83 Respiratory Rate 16 16 16 Blood Pressure 103/73 100/71 Pulse Oximetry 93 93 93 Oxygen Delivery Room Air 09/05/24 14:39 Temperature 36.8 C Pulse Rate 92 Respiratory Rate 16 Blood Pressure 106/61 Pulse Oximetry 95 Oxygen Delivery Intake/Output Intake/Output: Intake & Output 09/02/24 09/03/24 09/04/24 09/05/24 23:59 23:59 23:59 23:59 Intake Total 240 1060 Output Total 1400 2900 Balance -1160 -1840 Meds/Results Medications: Active Medications Generic Name Dose Route Start Last Admin Trade Name Freq PRN Reason Stop Dose Admin Citalopram Hydrobromide 10 mg 09/06/24 09:00 Citalopram Hydrobromide 10 Mg Tablet PO QAM [facility] Clonidine HCl 0.1 mg 09/05/24 12:42 Clonidine Hcl 0.1 Mg Tablet PO Q12HR PRN withdrawal symptoms-tachycardia, restlessness, tremors Enoxaparin Sodium 40 mg 09/05/24 09:00 09/05/24 09:02 Enoxaparin 40 Mg/0.4 Ml Syringe SUB-Q 40 mg DAILY AMELIA Administration Finasteride 5 mg 09/05/24 09:00 09/05/24 09:01 Finasteride 5 Mg Tablet PO 5 mg DAILY AMELIA Administration Furosemide 40 mg 09/04/24 17:00 09/05/24 09:01 Furosemide Inj 40 Mg/4 Ml Vial IV PUSH 40 mg BID AMELIA Administration Ceftriaxone Sodium 1 gm/ 50 mls @ 100 mls/hr 09/05/24 09:00 09/05/24 12:11 Sodium Chloride IVPB 100 mls/hr Q24H AMELIA Administration Tamsulosin HCl 0.4 mg 09/04/24 21:00 09/04/24 21:00 Tamsulosin Hcl 0.4 Mg Capsule PO 0.4 mg HS AMELIA Administration Radiology Results: ITS Impressions Chest X-Ray 09/04/24 07:35 Impression: Minimal right pleural effusion with probable minimal right basilar pulmonary edema. Venous Doppler Study 09/04/24 09:19 IMPRESSION: Negative bilateral lower extremity venous US. No deep vein thrombosis. Labs Labs: Laboratory Results - last 24 hr 09/04/24 09/05/24 18:36 05:03 WBC 6.5 RBC 4.03 L Hgb 11.1 L Hct 36.0 L MCV 89.3 MCH 27.5 MCHC 30.8 L RDW 13.4 Plt Count 195 MPV 10.1 Sodium 138 Potassium 3.9 Chloride 102 Carbon Dioxide 30 Anion Gap 6 BUN 19 Creatinine 0.79 Estim Creat Clear Calc 97 Estimated GFR > 60 Glucose 106 Calcium 8.4 Magnesium 2.1 Urine Opiates Screen Negative Urine Methadone Screen Negative Ur Barbiturates Screen Negative Ur Phencyclidine Scrn Negative Ur Amphetamine Screen Positive A U Benzodiazepines Scrn Negative Urine Cocaine Screen Negative U Cannabinoids Screen Negative Quality VTE Prophylaxis VTE prophylaxis: pharmacologic ordered
[2024-09-05] MEDS: ACETAMINOPHEN 325 MG TABLET 650 MG PO (20:43)
[2024-09-05] MEDS: KETOROLAC 15 MG/ML VIAL (*BKC) IV PUSH (20:43)
[2024-09-05] MEDS: TAMSULOSIN HCL 0.4 MG CAPSULE PO (20:44)
[2024-09-05 20:59] VITALS: O2SAT 92
[2024-09-05 21:43] VITALS: BP 107/79; PULSE 88; RESP 18; TEMP 36.7; O2SAT 94
[2024-09-06 05:50] VITALS: BP 113/77; PULSE 82; RESP 20; TEMP 36.3; O2SAT 93
[2024-09-06 06:09] LABS: Hematocrit 36.7 % (42.0-52.0); Hemoglobin 11.5 g/dL (14.0-18.0); Mean Corpuscular HGB Conc 31.3 g/dl (32-36); Mean Corpuscular Hemoglobin 27.5 pg (26-34); Mean Corpuscular Volume 87.8 fl (80-100); Platelet Count Result 178 k/mm3 (150-375); Red Blood Count 4.18 M/mm3 (4.6-6.20); White Blood Count 6.7 K/mm3 (4.5-10.0)
[2024-09-06 06:37] LABS: Anion Gap 5 mmol/L (4-12); Blood Urea Nitrogen 22 mg/dL (9-20); Calcium 8.4 mg/dL (8.4-10.2); Carbon Dioxide 31 mmol/L (22-30); Chloride 100 mmol/L (98-107); Estimated CRCL calculation 84 ml/min; Estimated Glomerular Filt Rate > 60; Glucose 110 mg/dL (65-110); Magnesium 2.0 mg/dL (1.6-2.3); Potassium 4.0 mmol/L (3.4-5.0); Sodium 136 mmol/L (137-145)
--- NOTE | 2024-09-06 08:00 | P.PNIM_ITS ---
Progress Note: A&P Assessment and Plan (1) Congestive heart failure: Code(s): I50.9 - Heart failure, unspecified Status: Acute (2) RBBB (right bundle branch block with left anterior fascicular block): Code(s): I45.2 - Bifascicular block Status: Acute (3) Atrial fibrillation: Code(s): I48.91 - Unspecified atrial fibrillation Status: Acute (4) Type 2 diabetes mellitus without complication, without long-term current use of insulin: Code(s): E11.9 - Type 2 diabetes mellitus without complications Status: Chronic (5) Acute on chronic urinary retention: Code(s): R33.9 - Retention of urine, unspecified Status: Acute Plan Patient is a 68-year-old male who presents to the emergency department this evening complaining of bilateral lower extremity edema. Patient states that he has had lower extremity edema for a while but within the last 1-2 weeks it has significantly worsened. When asked regarding heart failure history, he states that he was told that at 1 point, patient is a poor historian has very little insight to his medical history. Was seen at our facility approximately 2 weeks ago for Muniz catheter malfunction as patient does have an indwelling Muniz catheter due to history of BPH and at that time he was prescribed antibiotics for UTI which the patient states that he completed. Patient also has a very large scrotum secondary to an inguinal hernia on the left side which he states general surgery is following with they are waiting for him to be fully medically cleared before performing surgery. Patient denies any chest pain or shortness of breath, any additional symptoms or concerns at this time. In the ED he was noted to lower extremity edema with large left into the scrotum. His vitals were otherwise stable. Data reveal 6.8 hemoglobin 11.3 platelet of 198. Chem normal electrolytes 0.7 LFTs were normal BNP at 10 700 albumin 3 point. Patient received a dose of IV Lasix. Chest x-ray Minimal right pleural effusion with probable minimal right basilar pulmonary edema. Patient admitted for further treatment. Bilateral lower extremity edema elevated BNP [id number]. Albumin is 3.5. Continue diuresis as ordered. Venous duplex negative for DVT. 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 Urology consulted Recent urine culture with Klebsiella aerogenes started on ceftriaxone Left renal calculi/bladder stone noted on CT Atrial fibrillation Congestive heart failure echo with EF 40-45% mildly concentric increased left ventricular wall thickness. LA chamber moderately enlarged right atrium mildly enlarged moderate MVR mild TVR no pulmonary hypertension. 06/2024. Surgery /urology is awaiting cardiac evaluation. Will consult Cardiology. As he may need stress test to further evaluate. He has not made it to the cardiology for evaluation Pre diabetes A1c 5.8 DVT prophylaxis Code status full code History of illicit drug use UDS positive for amphetamine Subjective Date/time seen: 09/06/24 08:00 Interval history: No overnight events. Leg swelling improved. Review of Systems Review of Systems: All systems reviewed & are unremarkable except as noted in HPI and below Exam Narrative: Patient is comfortable, NAD HEENT: eyes are clear and none icteric LUNGS: Bilateral fair entry with rales and rhonchi HEART: RR S1S2 ABD: BS+, Soft and nontender large inguinal hernia Lower extremities: Bilateral edema trace to 1+ SKIN: nonjaundiced Neuro: grossly intact. Objective Data Vital Signs Vital Signs: Vital Signs - 24 hr 09/05/24 14:39 09/05/24 20:59 09/05/24 21:43 Temperature 98.2 F 98.0 F Pulse Rate 92 88 Respiratory Rate 16 18 Blood Pressure 106/61 107/79 Pulse Oximetry 95 92 94 Oxygen Delivery Room Air 09/06/24 05:50 Temperature 97.4 F L Pulse Rate 82 Respiratory Rate 20 Blood Pressure 113/77 Pulse Oximetry 93 Oxygen Delivery Intake/Output Intake/Output: Intake & Output 09/03/24 09/04/24 09/05/24 09/06/24 23:59 23:59 23:59 23:59 Intake Total 240 1730 250 Output Total 1400 2900 1500 Balance -1160 -1170 -1250 Meds/Results Medications: Active Medications Generic Name Dose Route Start Last Admin Trade Name Freq PRN Reason Stop Dose Admin Acetaminophen 650 mg 09/05/24 20:20 09/05/24 20:43 Acetaminophen 325 Mg Tablet PO 650 mg Q4H PRN Administration Headache Citalopram Hydrobromide 10 mg 09/06/24 09:00 Citalopram Hydrobromide 10 Mg Tablet PO QAM AMELIA Clonidine HCl 0.1 mg 09/05/24 12:42 Clonidine Hcl 0.1 Mg Tablet PO Q12HR PRN withdrawal symptoms-tachycardia, restlessness, tremors Enoxaparin Sodium 40 mg 09/05/24 09:00 09/05/24 09:02 Enoxaparin 40 Mg/0.4 Ml Syringe SUB-Q 40 mg DAILY AMELIA Administration Finasteride 5 mg 09/05/24 09:00 09/05/24 09:01 Finasteride 5 Mg Tablet PO 5 mg DAILY AMLEIA Administration Furosemide 40 mg 09/04/24 17:00 09/05/24 18:00 Furosemide Inj 40 Mg/4 Ml Vial IV PUSH 40 mg BID AMELIA Administration Ceftriaxone Sodium 1 gm/ 50 mls @ 100 mls/hr 09/05/24 09:00 09/05/24 12:41 Sodium Chloride IVPB Infused Q24H AMELIA Infusion Ketorolac Tromethamine 15 mg 09/05/24 20:20 09/05/24 20:43 Ketorolac 15 Mg/Ml Vial (*Bkc) IV PUSH 15 mg Q6H PRN Administration Pain Rated 4-6 Tamsulosin HCl 0.4 mg 09/04/24 21:00 09/05/24 20:44 Tamsulosin Hcl 0.4 Mg Capsule PO 0.4 mg HS AMELIA Administration Radiology Results: ITS Impressions Chest X-Ray 09/04/24 07:35 Impression: Minimal right pleural effusion with probable minimal right basilar pulmonary edema. Venous Doppler Study 09/04/24 09:19 IMPRESSION: Negative bilateral lower extremity venous US. No deep vein thrombosis. Labs Labs: Laboratory Results - last 24 hr 09/06/24 05:28 WBC 6.7 RBC 4.18 L Hgb 11.5 L Hct 36.7 L MCV 87.8 MCH 27.5 MCHC 31.3 L RDW 13.2 Plt Count 178 MPV 10.0 Sodium 136 L Potassium 4.0 Chloride 100 Carbon Dioxide 31 H Anion Gap 5 BUN 22 H Creatinine 0.92 Estim Creat Clear Calc 84 Estimated GFR > 60 Glucose 110 Calcium 8.4 Magnesium 2.0
[2024-09-06 08:35] LABS: NT Pro B Type Natriuretic Pept 9930 pg/mL (19.9-100)
[2024-09-06] MEDS: FINASTERIDE 5 MG TABLET PO (09:13)
[2024-09-06] MEDS: CITALOPRAM HYDROBROMIDE 10 MG TABLET PO (09:13)
[2024-09-06] MEDS: ENOXAPARIN 40 MG/0.4 ML SYRINGE SUB-Q (09:14)
[2024-09-06] MEDS: FUROSEMIDE INJ 40 MG/4 ML VIAL IV PUSH ×2 (09:14→16:37)
[2024-09-06] MEDS: cefTRIAXone 1 GM in SODIUM CHLORIDE 0.9% IV 50 ML 100 ML IVPB (09:14)
--- NOTE | 2024-09-06 11:53 | P.CONCA_ITS ---
Assessment and Plan Assessment and plan (1) Congestive heart failure: Qualifiers: Heart failure type: systolic Code(s): I50.9 - Heart failure, unspecified Status: Acute Assessment and Plan: Echocardiogram from June of this year demonstrated mildly reduced LV systolic function with EF 40-45%. He also has moderate MR. * Edema improving with IV furosemide, but still significant. Continue furosemide 40 mg IV b.i.d. * Will start medical therapy with lisinopril 5mg daily for now. He is normotensive, so may not tolerate much GDMT * Obtain daily weights * Strict I&O * CATALINO hose * Daily BMP while diuresing (2) Atrial fibrillation: Code(s): I48.91 - Unspecified atrial fibrillation Status: Acute Assessment and Plan: Atrial fibrillation demonstrated on EKG from June and again this admission. * He is not on telemetry but vital signs documentation shows controlled heart rates * Not requiring any rate control agents * He has a [id number] score of 3 (age, CHF, diabetes) - anticoagulation is indicated. Will start Xarelto 20mg daily (3) Type 2 diabetes mellitus without complication, without long-term current use of insulin: Code(s): E11.9 - Type 2 diabetes mellitus without complications Status: Chronic Assessment and Plan: Not requiring insulin at this point (4) Acute on chronic urinary retention: Code(s): R33.9 - Retention of urine, unspecified Status: Acute Assessment and Plan: Secondary to BPH. He has a chronic indwelling catheter. Urology following. History of Present Illness History of Present Illness Consult date/time: 09/06/24 11:53 Requesting physician: Edwin Khan MD Consult reason: congestive heart failure Reason For Visit: Bilateral Lower Extremity Edema Narrative: Cristhian Clay is a 68 year old male admitted to the hospital with a chief complaint of bilateral lower extremity swelling. Cardiology is consulted for congestive heart failure and atrial fibrillation. He denies any history of cardiac problems, however, he seems to have poor health literacy and insight into his medical problems. He tells me that he has developed significant bilateral lower extremity swelling over the past couple of weeks because he has been living out of his car and is in a seated position almost all the time. He denies any chest pain, shortness of breath, or palpitations. Beyond this information I was unable to obtain more of a history because he avoids answering my questions and is only interested in talking about his living situation and other social problems. Review of Systems 2 Review of Systems: All systems reviewed & are unremarkable except as noted in HPI and below PMFSH Past Medical History Medical History Inguinal hernia Enlarged prostate Degenerative arthritis of knee, bilateral Hemoglobin A1c less than 7.0% last A1c in chart was 6.5 in july of 2018 Type 2 diabetes mellitus without complication, without long-term current use of insulin Surgical History Surgical History History of prostate surgery 2018 Family History Family History Father Diabetes mellitus Mother Diabetes mellitus Family history of malignant neoplasm of breast in first degree relative Cancer Sibling Family history of cardiovascular disease Cancer Social History Social History Social History: Smoking packs per day: 0.5 Smoking cigarettes per day: 10.0 Years smoked: 5 Smoking pack-years: 2.50 Smoking status: Current every day smoker Tobacco type: cigarettes Alcohol intake: unknown Substance use: current Substance use type: does not use Other substance usage details: I don't remember Do You Feel Safe in your Home?: Yes Lack of Transportation: No Lack of Food: Sometimes True Current Housing: I Do Not Have Housing Concerned About Future Housing: YES Difficulty Paying Gas/Electric Bills: YES Difficulty Paying for Meds: YES Currently Unemployed: No Education: Decline to Answer Difficulty w/ Childcare or Family Care: No Occupation/Education: retired Gender identity (if verbalized by the patient): Male Spiritual care concerns: No Meds Home Medications and Allergies Home Medications ?Medication ?Instructions ?Recorded ?Confirmed ?Type finasteride 5 mg tablet 5 mg PO DAILY #30 tabs 05/09/24 09/04/24 Rx tamsulosin 0.4 mg capsule (Flomax) 0.4 mg PO HS #30 caps 05/09/24 09/04/24 Rx Allergies Allergy/AdvReac Type Severity Reaction Status Date / Time No Known Allergies Allergy Verified 09/04/24 10:34 Vital Signs Vital Signs - 24 hr 09/05/24 14:39 09/05/24 20:59 09/05/24 21:43 Temperature 36.8 C 36.7 C Pulse Rate 92 88 Respiratory Rate 16 18 Blood Pressure 106/61 107/79 Pulse Oximetry 95 92 94 Oxygen Delivery Room Air 09/06/24 05:50 Temperature 36.3 C L Pulse Rate 82 Respiratory Rate 20 Blood Pressure 113/77 Pulse Oximetry 93 Oxygen Delivery Exam 2 Const: General: comfortable, no acute distress, alert and awake O rientation/consciousness: patient oriented x3 HENMT: Head: normal to inspection Eyes: General: appearance normal, both eyes and all related structures P upils: Equal, round and reactive pupils present Neck: Neck: normal visual inspection, supple and no JVD Carotids: normal carotid upstroke Resp: Effort & Inspection: normal respiratory effort Auscultation: crackles on the right Cardio: Rate: regular rate Rhythm: abnormal rhythm irregularly irregular Heart sounds: S1 normal heart sound present, S2 normal heart sound present and no murmurs GI: Auscultation: normal bowel sounds Urinary Catheter: Urinary Catheter: patent and draining Skin: General skin exam: normal color Neuro: General: patient oriented x3 Cranial nerves: Yes Equal, round and reactive pupils present Extrem: General: edema and pedal edema Other: bilateral 2+ pitting edema Psych: Appearance: grossly normal Mental Status: mental status grossly normal Results Labs and Meds 09/06/24 05:28 09/06/24 05:28 Lab results: CBC 09/06/24 Range/Units 05:28 WBC 6.7 (4.5-10.0) K/mm3 RBC 4.18 L (4.6-6.20) M/mm3 Hgb 11.5 L (14.0-18.0) g/dL Hct 36.7 L (42.0-52.0) % Plt Count 178 (150-375) k/mm3 Comprehensive Metabolic Panel 09/06/24 Range/Units 05:28 Sodium 136 L (137-145) mmol/L Potassium 4.0 (3.4-5.0) mmol/L Chloride 100 (98-107) mmol/L Carbon Dioxide 31 H (22-30) mmol/L BUN 22 H (9-20) mg/dL Creatinine 0.92 (0.7-1.3) mg/dL Glucose 110 (65-110) mg/dL Calcium 8.4 (8.4-10.2) mg/dL Intake and Output 09/05/24 09/06/24 09/06/24 23:59 07:59 15:59 Intake Total 620 250 180 Output Total 1500 Balance 620 -1250 180 Intake: Oral 620 250 180 Output: Catheter Urine 1500 Urethral Catheter 1500
[2024-09-06 14:00] VITALS: BP 132/92; PULSE 69; RESP 20; TEMP 36.6; O2SAT 96
[2024-09-06 21:12] VITALS: O2SAT 95
[2024-09-06 21:16] VITALS: BP 116/82; PULSE 67; RESP 16; TEMP 36.4; O2SAT 95
[2024-09-06] MEDS: TAMSULOSIN HCL 0.4 MG CAPSULE PO (21:23)
[2024-09-06] MEDS: ENOXAPARIN 120 MG/0.8 ML SYRINGE 110 MG SUB-Q (21:23)
--- NOTE | 2024-09-07 | ECHO_ITS ---
Patient Info Name: Cristhian Clay Age: 68 years : 1955 Gender: Male Ht: 76 in Wt: 243 lbs BSA: 2.45 m2 HR: 108 bpm BP: 106 / 75 mmHg Heart Rhythm: Atrial Fibrillation Technical Quality: Good Exam Date: 09/07/2024 8:35 AM Patient Status: I Admit Date: 09/04/2024 Exam Type: CA echo dop color flow w con Complete two-dimensional, color flow and Doppler transthoracic echocardiogram is performed with contrast to opacify the left ventricle and to improve the deliniation of the left ventricle endocardial borders. Staff Referring Physician: Edwin Khan Senior Lead Developer: Annie Samano Attending Provider: Salome Waller Contrast/Agitated Saline Contrast/Ag. Saline: Definity Amount: 2.00 ml Administered By: Annie Samano Existing IV Access: Yes IV Access Condition: patent with no signs of infiltration Summary 1. Definity contrast used to improve exam quality. 2. Four-chamber cardiac dilation with significant systolic dysfunction. 3. Left ventricular enlargement with ejection fraction visually estimates at 35%. 4. Moderate mitral and tricuspid valve regurgitation. 5. Atrial fibrillation. Left Ventricle Left ventricular chamber dimension is moderately enlarged. Left ventricular systolic function is moderately reduced, estimated at 30-35. Right Ventricle Right ventricular chamber dimension is moderately enlarged. Left Atria Left atrial chamber dimension is moderately enlarged. Right Atria Right atrial chamber dimension is moderately enlarged. Aortic Valve The aortic valve is normal. Pulmonic Valve The pulmonic valve is normal. Mitral Valve The mitral valve has normal leaflets. There is moderate mitral valve regurgitation. Tricuspid Valve The tricuspid valve leaflets are normal. There is moderate tricuspid valve regurgitation. Pericardium/Pleural The pericardium appears normal. Aorta The aortic root size at the sinus of Valsalva is normal. Left Ventricular Outflow Tract Name Value Normal LVOT 2D LVOT Diameter 2.3 cm LVOT Doppler LVOT Peak Velocity 129 cm/s LVOT Peak Gradient 7 mmHg LVOT Mean Gradient 4 mmHg LVOT VTI 25 cm LVOT Stroke Volume 105 ml LVOT CO 11.4 l/min LVOT CI 4.6 l/min/m2 Pulmonic Valve Name Value Normal RVOT Doppler RVOT Peak Velocity 73 cm/s RVOT Peak Gradient 2 mmHg PV Doppler PV Peak Velocity 90 cm/s PV Peak Gradient 3 mmHg Mitral Valve Name Value Normal MV Regurgitation Doppler MR Peak Gradient 95 mmHg MV Diastolic Function MV E Peak Velocity 101 cm/s MV A Peak Velocity 29 cm/s MV E/A 3.5 MV Decel Time (PW) 160 ms MV Annular TDI MV E/e' (Septal) 18.0 MV E/e' (Lateral) 8.5 MV E/e' (Average) 13.3 Tricuspid Valve Name Value Normal TV Regurgitation Doppler TR Peak Velocity 346 cm/s TR Peak Gradient 44 mmHg Aortic Valve Name Value Normal AV Doppler AV Peak Velocity 118 cm/s AV Peak Gradient 6 mmHg AV Area (Cont Eq Anant) 4.6 cm2 AV DI (Anant) 1.09 AV Regurgitation 2D LVOT Area 4.2 cm2 Ventricles Name Value Normal LV Dimensions 2D/MM IVS Diastolic Thickness (2D) 1.0 cm 0.6-1.0 LVID Diastole (2D) 6.4 cm 4.2-5.8 LVIW Diastolic Thickness (2D) 1.0 cm 0.6-1.0 LVID Systole (2D) 5.2 cm 2.5-4.0 LVOT Diameter 2.3 cm LV Mass (2D Cubed) 273.42 g 88.00-224.00 LV Mass Index (2D Cubed) 112 g/m2 49-115 Relative Wall Thickness (2D) 0.30 <=0.42 LV Fractional Shortening/Ejection Fraction 2D/MM LV Fractional Shortening (2D) 19 % 25-43 LV EF (2D Teichholz) 39 % LV Diastolic Volume (4C MOD) 243 ml LV EF (4C MOD) 36 % LV Diastolic Volume (2C MOD) 315 ml LV EF (2C MOD) 37 % LV Diastolic Volume (BP MOD) 287 ml 62-150 LV Diastolic Volume Index (BP MOD) 117 ml/m2 34-74 LV Systolic Volume (BP MOD) 178 ml 21-61 LV Systolic Volume Index (BP MOD) 73 ml/m2 11-31 LV EF (BP MOD) 38 % 52-72 LV Diastolic Length (4C) 8.9 cm LV Systolic Length (4C) 7.9 cm LV Stroke Volume (4C MOD) 87 ml Atria Name Value Normal LA Dimensions LA Volume (4C A-L) 73 ml LA Volume (BP A-L) 85 ml RA Dimensions RA Systolic Major [place] Length (4C) 6.5 cm 2.1-2.7 RA Area (4C) 26.8 cm2 <=18.0 Report Signatures
[2024-09-07 05:18] VITALS: BP 106/75; PULSE 74; RESP 16; TEMP 36.7; O2SAT 93
[2024-09-07 06:02] LABS: Hematocrit 36.5 % (42.0-52.0); Hemoglobin 11.8 g/dL (14.0-18.0); Mean Corpuscular HGB Conc 32.3 g/dl (32-36); Mean Corpuscular Hemoglobin 27.9 pg (26-34); Mean Corpuscular Volume 86.3 fl (80-100); Platelet Count Result 171 k/mm3 (150-375); Red Blood Count 4.23 M/mm3 (4.6-6.20); White Blood Count 7.2 K/mm3 (4.5-10.0)
[2024-09-07 07:05] LABS: Anion Gap 8 mmol/L (4-12); Blood Urea Nitrogen 22 mg/dL (9-20); Calcium 8.4 mg/dL (8.4-10.2); Carbon Dioxide 31 mmol/L (22-30); Chloride 98 mmol/L (98-107); Estimated CRCL calculation 94 ml/min; Estimated Glomerular Filt Rate > 60; Glucose 114 mg/dL (65-110); Magnesium 2.0 mg/dL (1.6-2.3); Potassium 3.8 mmol/L (3.4-5.0); Sodium 137 mmol/L (137-145)
--- NOTE | 2024-09-07 08:03 | P.PNIM_ITS ---
Progress Note: A&P Assessment and Plan (1) Congestive heart failure: Qualifiers: Heart failure type: systolic Code(s): I50.9 - Heart failure, unspecified Status: Acute (2) RBBB (right bundle branch block with left anterior fascicular block): Code(s): I45.2 - Bifascicular block Status: Acute (3) Atrial fibrillation: Code(s): I48.91 - Unspecified atrial fibrillation Status: Acute (4) Type 2 diabetes mellitus without complication, without long-term current use of insulin: Code(s): E11.9 - Type 2 diabetes mellitus without complications Status: Chronic (5) Acute on chronic urinary retention: Code(s): R33.9 - Retention of urine, unspecified Status: Acute Plan Patient is a 68-year-old male who presents to the emergency department this evening complaining of bilateral lower extremity edema. Patient states that he has had lower extremity edema for a while but within the last 1-2 weeks it has significantly worsened. When asked regarding heart failure history, he states that he was told that at 1 point, patient is a poor historian has very little insight to his medical history. Was seen at our facility approximately 2 weeks ago for Muniz catheter malfunction as patient does have an indwelling Muniz catheter due to history of BPH and at that time he was prescribed antibiotics for UTI which the patient states that he completed. Patient also has a very large scrotum secondary to an inguinal hernia on the left side which he states general surgery is following with they are waiting for him to be fully medically cleared before performing surgery. Patient denies any chest pain or shortness of breath, any additional symptoms or concerns at this time. In the ED he was noted to lower extremity edema with large left into the scrotum. His vitals were otherwise stable. Data reveal 6.8 hemoglobin 11.3 platelet of 198. Chem normal electrolytes 0.7 LFTs were normal BNP at 10 700 albumin 3 point. Patient received a dose of IV Lasix. Chest x-ray Minimal right pleural effusion with probable minimal right basilar pulmonary edema. Patient admitted for further treatment. Bilateral lower extremity edema elevated BNP [id number]. Albumin is 3.5. Continue diuresis as ordered. Venous duplex negative for DVT. Chest x-ray with pulmonary edema 09/06/2024. Acute on chronic systolic diastolic congestive heart failure. On diuresis with Lasix 40 mg IV b.i.d.. Echo ordered. 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 Urology consulted Recent urine culture with Klebsiella aerogenes started on ceftriaxone Left renal calculi/bladder stone noted on CT Atrial fibrillation rate controlled. Chads Vasc score at least 2 with CHF now qualifies for anticoagulation. Xarelto at discharge will check pricing for the patient Congestive heart failure echo with EF 40-45% mildly concentric increased left ventricular wall thickness. LA chamber moderately enlarged right atrium mildly enlarged moderate MVR mild TVR no pulmonary hypertension. 06/2024. Surgery/u rology is awaiting cardiac evaluation. As he may need stress test to further evaluate. He has not made it to the cardiology for evaluation. Cardiology consulted. Will repeat echo to evaluate valve regurgitation as well as recheck his EF. He has been placed on lisinopril for his cardiomyopathy. He might also need a beta-alex as tolerated Moderate mitral valve regurgitation Pre diabetes A1c 5.8 DVT prophylaxis Lovenox Code status full code History of illicit drug use UDS positive for amphetamine Subjective Date/time seen: 09/07/24 08:03 Interval history: No overnight events. Next still have shortness of breath with exertion. No abdominal pain nausea vomiting. Review of Systems Review of Systems: All systems reviewed & are unremarkable except as noted in HPI and below Exam Narrative: Patient is comfortable, NAD HEENT: eyes are clear and none icteric LUNGS: Bilateral fair entry with rales and rhonchi HEART: RR S1S2 ABD: BS+, Soft and nontender large inguinal hernia Lower extremities: Bilateral edema trace to 1+ SKIN: nonjaundiced Neuro: grossly intact. Objective Data Vital Signs Vital Signs: Vital Signs - 24 hr 09/06/24 14:00 09/06/24 20:30 09/06/24 21:12 Temperature 97.8 F Pulse Rate 69 Respiratory Rate 20 Blood Pressure 132/92 H Pulse Oximetry 96 95 Oxygen Delivery Room Air Room Air 09/06/24 21:16 09/07/24 05:18 Temperature 97.6 F 98.1 F Pulse Rate 67 74 Respiratory Rate 16 16 Blood Pressure 116/82 106/75 Pulse Oximetry 95 93 Oxygen Delivery Intake/Output Intake/Output: Intake & Output 09/04/24 09/05/24 09/06/24 09/07/24 23:59 23:59 23:59 23:59 Intake Total 240 1730 900 200 Output Total 1400 2900 3350 400 Balance -1160 -1170 -2450 -200 Meds/Results Medications: Active Medications Generic Name Dose Route Start Last Admin Trade Name Freq PRN Reason Stop Dose Admin Acetaminophen 650 mg 09/05/24 20:20 09/05/24 20:43 Acetaminophen 325 Mg Tablet PO 650 mg Q4H PRN Administration Headache Citalopram Hydrobromide 10 mg 09/06/24 09:00 09/06/24 09:13 Citalopram Hydrobromide 10 Mg Tablet PO 10 mg QAM AMELIA Administration Clonidine HCl 0.1 mg 09/05/24 12:42 09/06/24 22:24 Clonidine Hcl 0.1 Mg Tablet PO 0.1 mg Q12HR PRN Administration withdrawal symptoms-tachycardia, restlessness, tremors Enoxaparin Sodium 110 mg 09/06/24 21:00 09/06/24 21:23 Enoxaparin 120 Mg/0.8 Ml Syringe SUB-Q 110 mg Q12HR AMELIA Administration Finasteride 5 mg 09/05/24 09:00 09/06/24 09:13 Finasteride 5 Mg Tablet PO 5 mg DAILY AMELIA Administration Furosemide 40 mg 09/04/24 17:00 09/06/24 16:37 Furosemide Inj 40 Mg/4 Ml Vial IV PUSH 40 mg BID AMELIA Administration Ceftriaxone Sodium 1 gm/ 50 mls @ 100 mls/hr 09/05/24 09:00 09/06/24 09:44 Sodium Chloride IVPB Infused Q24H AMELIA Infusion Ketorolac Tromethamine 15 mg 09/05/24 20:20 09/05/24 20:43 Ketorolac 15 Mg/Ml Vial (*Bkc) IV PUSH 15 mg Q6H PRN Administration Pain Rated 4-6 Lisinopril 5 mg 09/06/24 14:45 09/06/24 14:50 Lisinopril 5 Mg Tablet PO 5 mg QAM AMELIA Administration Perflutren Lipid Microsphere 0 ml 09/06/24 08:05 Perflutren Lipid Microspheres 1.5 Ml Vial Diluted To 10 Ml Total Volume IV PUSH 09/09/24 08:05 ONCE PRN adequate visualization Protocol Tamsulosin HCl 0.4 mg 09/04/24 21:00 09/06/24 21:23 Tamsulosin Hcl 0.4 Mg Capsule PO 0.4 mg HS AMELIA Administration Radiology Results: ITS Impressions Venous Doppler Study 09/04/24 09:19 IMPRESSION: Negative bilateral lower extremity venous US. No deep vein thrombosis. Chest X-Ray 09/06/24 16:47 IMPRESSION: Bilateral pneumonia with highly suggestive underlying pulmonary edema. Labs Labs: Laboratory Results - last 24 hr 09/06/24 09/07/24 05:28 05:41 WBC 7.2 RBC 4.23 L Hgb 11.8 L Hct 36.5 L MCV 86.3 MCH 27.9 MCHC 32.3 RDW 13.2 Plt Count 171 MPV 10.2 Sodium 137 Potassium 3.8 Chloride 98 Carbon Dioxide 31 H Anion Gap 8 BUN 22 H Creatinine 0.82 Estim Creat Clear Calc 94 Estimated GFR > 60 Glucose 114 H Calcium 8.4 Magnesium 2.0 NT-Pro-B Natriuret Pep 9930 H
--- NOTE | 2024-09-07 08:45 | P.PNCA_ITS ---
Progress Note: A&P Assessment and Plan (1) Congestive heart failure: Qualifiers: Heart failure type: systolic Code(s): I50.9 - Heart failure, unspecified Status: Acute Assessment and Plan: Echocardiogram from June of this year demonstrated mildly reduced LV systolic function with EF 40-45%. Repeat echocardiogram during this admission shows further decline in systolic function with EF 35%. He also has moderate MR and TR. 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 * Edema improving with IV furosemide. Continue furosemide 40 mg IV b.i.d. * Medical therapy with lisinopril 5mg daily. Will add spironolactone 12.5mg as well. Add coreg if BP is stable * Obtain daily weights * Strict I&O * CATALINO hose * Daily BMP while diuresing * There was some discussion about a preoperative ischemic evaluation. Spoke with general surgery PA, seems there is no plan for inpatient hernia repair. Therefore, ischemic evaluation can be done as an outpatient. He is not endorsing any anginal symptoms, troponin negative. (2) Atrial fibrillation: Code(s): I48.91 - Unspecified atrial fibrillation Status: Acute Assessment and Plan: Atrial fibrillation demonstrated on EKG from June and again this admission. * He is not on telemetry but vital signs documentation shows controlled heart rates * Not requiring any rate control agents * He has a [id number] score of 3 (age, CHF, diabetes) - anticoagulation is indicated. On therapeutic dose lovenox for now, can shift to DOAC at discharge. Concern about his ability to afford Xarelto or Eliquis. Concern with safety of warfarin as he has a documented history of noncompliance with medical follow up. (3) Type 2 diabetes mellitus without complication, without long-term current use of insulin: Code(s): E11.9 - Type 2 diabetes mellitus without complications Status: Chronic Assessment and Plan: Not requiring insulin at this point (4) Acute on chronic urinary retention: Code(s): R33.9 - Retention of urine, unspecified Status: Acute Assessment and Plan: Secondary to BPH. He has a chronic indwelling catheter. Urology following. Subjective Date/time seen: 09/07/24 08:45 Interval history: Cardiology follow up visit Feels okay. Denies shortness of breath, chest pain. Swelling improving. Review of Systems Review of Systems: All systems reviewed & are unremarkable except as noted in HPI and below Exam Const: General: comfortable, no acute distress, alert and awake Orientation/consciousness: patient oriented x3 HENMT: Head: normal to inspection Eyes: General: appearance normal, both eyes and all related structures Pupils: Equal, round and reactive pupils present Neck: Neck: normal visual inspection, supple and no JVD Carotids: normal carotid upstroke Resp: Effort & Inspection: normal respiratory effort Auscultation: crackles on the right Cardio: Rate: regular rate Rhythm: abnormal rhythm irregularly irregular Heart sounds: S1 normal heart sound present, S2 normal heart sound present and no murmurs GI: Auscultation: normal bowel sounds Urinary Catheter: Urinary Catheter: patent and draining Skin: General skin exam: normal color Neuro: General: patient oriented x3 Cranial nerves: Yes Equal, round and reactive pupils present Extrem: General: edema and pedal edema Other: bilateral 1-2+ pitting edema Psych: Appearance: grossly normal Mental Status: mental status grossly normal Objective Data Vital Signs Vital Signs: Vital Signs - 24 hr 09/06/24 14:00 09/06/24 20:30 09/06/24 21:12 Temperature 36.6 C Pulse Rate 69 Respiratory Rate 20 Blood Pressure 132/92 H Pulse Oximetry 96 95 Oxygen Delivery Room Air Room Air 09/06/24 21:16 09/07/24 05:18 Temperature 36.4 C 36.7 C Pulse Rate 67 74 Respiratory Rate 16 16 Blood Pressure 116/82 106/75 Pulse Oximetry 95 93 Oxygen Delivery Intake/Output Intake/Output: Intake & Output 09/04/24 09/05/24 09/06/24 09/07/24 23:59 23:59 23:59 23:59 Intake Total 240 1730 900 200 Output Total 1400 2900 3350 400 Balance -1160 -1170 -2450 -200 Meds/Results Medications: Active Medications Generic Name Dose Route Start Last Admin Trade Name Freq PRN Reason Stop Dose Admin Acetaminophen 650 mg 09/05/24 20:20 09/05/24 20:43 Acetaminophen 325 Mg Tablet PO 650 mg Q4H PRN Administration Headache Citalopram Hydrobromide 10 mg 09/06/24 09:00 09/06/24 09:13 Citalopram Hydrobromide 10 Mg Tablet PO 10 mg QAM AMELIA Administration Clonidine HCl 0.1 mg 09/05/24 12:42 09/06/24 22:24 Clonidine Hcl 0.1 Mg Tablet PO 0.1 mg Q12HR PRN Administration withdrawal symptoms-tachycardia, restlessness, tremors Enoxaparin Sodium 110 mg 09/06/24 21:00 09/06/24 21:23 Enoxaparin 120 Mg/0.8 Ml Syringe SUB-Q 110 mg Q12HR AMELIA Administration Finasteride 5 mg 09/05/24 09:00 09/06/24 09:13 Finasteride 5 Mg Tablet PO 5 mg DAILY AMELIA Administration Furosemide 40 mg 09/04/24 17:00 09/06/24 16:37 Furosemide Inj 40 Mg/4 Ml Vial IV PUSH 40 mg BID AMELIA Administration Ceftriaxone Sodium 1 gm/ 50 mls @ 100 mls/hr 09/05/24 09:00 09/06/24 09:44 Sodium Chloride IVPB Infused Q24H AMELIA Infusion Ketorolac Tromethamine 15 mg 09/05/24 20:20 09/05/24 20:43 Ketorolac 15 Mg/Ml Vial (*[facility]) IV PUSH 15 mg Q6H PRN Administration Pain Rated 4-6 Lisinopril 5 mg 09/06/24 14:45 09/06/24 14:50 Lisinopril 5 Mg Tablet PO 5 mg QAM AMELIA Administration Perflutren Lipid Microsphere 0 ml 09/06/24 08:05 Perflutren Lipid Microspheres 1.5 Ml Vial Diluted To 10 Ml Total Volume IV PUSH 09/09/24 08:05 ONCE PRN adequate visualization Protocol Tamsulosin HCl 0.4 mg 09/04/24 21:00 09/06/24 21:23 Tamsulosin Hcl 0.4 Mg Capsule PO 0.4 mg HS AMELIA Administration Radiology Results: ITS Impressions Venous Doppler Study 09/04/24 09:19 IMPRESSION: Negative bilateral lower extremity venous US. No deep vein thrombosis. Chest X-Ray 09/06/24 16:47 IMPRESSION: Bilateral pneumonia with highly suggestive underlying pulmonary edema. Labs Labs: Laboratory Results - last 24 hr 09/07/24 05:41 WBC 7.2 RBC 4.23 L Hgb 11.8 L Hct 36.5 L MCV 86.3 MCH 27.9 MCHC 32.3 RDW 13.2 Plt Count 171 MPV 10.2 Sodium 137 Potassium 3.8 Chloride 98 Carbon Dioxide 31 H Anion Gap 8 BUN 22 H Creatinine 0.82 Estim Creat Clear Calc 94 Estimated GFR > 60 Glucose 114 H Calcium 8.4 Magnesium 2.0 Quality VTE Prophylaxis VTE prophylaxis: pharmacologic ordered
[2024-09-07] MEDS: cefTRIAXone 1 GM in SODIUM CHLORIDE 0.9% IV 50 ML 100 ML IVPB (09:15)
[2024-09-07] MEDS: FINASTERIDE 5 MG TABLET PO (09:16)
[2024-09-07] MEDS: ENOXAPARIN 120 MG/0.8 ML SYRINGE 110 MG SUB-Q ×2 (09:16→20:49)
[2024-09-07] MEDS: CITALOPRAM HYDROBROMIDE 10 MG TABLET PO (09:16)
[2024-09-07] MEDS: FUROSEMIDE INJ 40 MG/4 ML VIAL IV PUSH ×2 (09:16→16:23)
[2024-09-07] MEDS: PERFLUTREN LIPID MICROSPHERES 1.5 ML VIAL DILUTED TO 10 ML TOTAL VOLUME IV PUSH (11:55)
--- NOTE | 2024-09-07 11:55 | IVDEFINITY ---
Prior to administration of IV Definity the patient was educated on the risks and benefits of the imaging enhancing agent including potential adverse side effects. The patient verbalized understanding. Allergies were verified. No exclusion criteria were identified and at least one of the following inclusion criteria were met: 1) physician request, 2) patient technically difficult to image (per the [place] [employer] guidelines of two or more segments not discernable within the apical view), or 3) questionable left ventricular function. ?
[2024-09-07 14:00] VITALS: BP 111/74; PULSE 71; RESP 18; TEMP 37; O2SAT 94
[2024-09-07 20:06] VITALS: BP 104/68; PULSE 74; RESP 16; TEMP 36.9; O2SAT 94
[2024-09-07] MEDS: TAMSULOSIN HCL 0.4 MG CAPSULE PO (20:49)
[2024-09-07] MEDS: KETOROLAC 15 MG/ML VIAL (*BKC) IV PUSH (20:57)
[2024-09-08 05:20] VITALS: BP 118/82; PULSE 77; RESP 17; TEMP 36.5; O2SAT 96
[2024-09-08 06:07] LABS: Hematocrit 36.4 % (42.0-52.0); Hemoglobin 11.3 g/dL (14.0-18.0); Mean Corpuscular HGB Conc 31.0 g/dl (32-36); Mean Corpuscular Hemoglobin 27.5 pg (26-34); Mean Corpuscular Volume 88.6 fl (80-100); Platelet Count Result 164 k/mm3 (150-375); Red Blood Count 4.11 M/mm3 (4.6-6.20); White Blood Count 5.8 K/mm3 (4.5-10.0)
[2024-09-08 06:25] LABS: Anion Gap 6 mmol/L (4-12); Blood Urea Nitrogen 24 mg/dL (9-20); Calcium 8.2 mg/dL (8.4-10.2); Carbon Dioxide 31 mmol/L (22-30); Chloride 99 mmol/L (98-107); Estimated CRCL calculation 96 ml/min; Estimated Glomerular Filt Rate > 60; Glucose 99 mg/dL (65-110); Magnesium 2.1 mg/dL (1.6-2.3); Potassium 3.4 mmol/L (3.4-5.0); Sodium 136 mmol/L (137-145)
--- NOTE | 2024-09-08 08:56 | P.PNIM_ITS ---
Progress Note: A&P Assessment and Plan (1) Congestive heart failure: Qualifiers: Heart failure type: systolic Code(s): I50.9 - Heart failure, unspecified Status: Acute (2) RBBB (right bundle branch block with left anterior fascicular block): Code(s): I45.2 - Bifascicular block Status: Acute (3) Atrial fibrillation: Code(s): I48.91 - Unspecified atrial fibrillation Status: Acute (4) Type 2 diabetes mellitus without complication, without long-term current use of insulin: Code(s): E11.9 - Type 2 diabetes mellitus without complications Status: Chronic (5) Acute on chronic urinary retention: Code(s): R33.9 - Retention of urine, unspecified Status: Acute Plan Patient is a 68-year-old male who presents to the emergency department this evening complaining of bilateral lower extremity edema. Patient states that he has had lower extremity edema for a while but within the last 1-2 weeks it has significantly worsened. When asked regarding heart failure history, he states that he was told that at 1 point, patient is a poor historian has very little insight to his medical history. Was seen at our facility approximately 2 weeks ago for Muniz catheter malfunction as patient does have an indwelling Muniz catheter due to history of BPH and at that time he was prescribed antibiotics for UTI which the patient states that he completed. Patient also has a very large scrotum secondary to an inguinal hernia on the left side which he states general surgery is following with they are waiting for him to be fully medically cleared before performing surgery. Patient denies any chest pain or shortness of breath, any additional symptoms or concerns at this time. In the ED he was noted to lower extremity edema with large left into the scrotum. His vitals were otherwise stable. Data reveal 6.8 hemoglobin 11.3 platelet of 198. Chem normal electrolytes 0.7 LFTs were normal BNP at 10 700 albumin 3 point. Patient received a dose of IV Lasix. Chest x-ray Minimal right pleural effusion with probable minimal right basilar pulmonary edema. Patient admitted for further treatment. Bilateral lower extremity edema elevated BNP [id number]. Albumin is 3.5. Continue diuresis as ordered. Venous duplex negative for DVT. Chest x-ray with pulmonary edema 09/06/2024. Acute on chronic systolic diastolic congestive heart failure. On diuresis with Lasix 40 mg IV b.i.d.. Echo ordered. 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 Urology consulted Recent urine culture with Klebsiella aerogenes started on ceftriaxone. Switched to Bactrim to finish the course Left renal calculi/bladder stone noted on CT Atrial fibrillation rate controlled. Chads Vasc score at least 2 with CHF now qualifies for anticoagulation. Xarelto at discharge will check pricing for the patient Congestive heart failure echo with EF 40-45% mildly concentric increased left ventricular wall thickness. LA chamber moderately enlarged right atrium mildly enlarged moderate MVR mild TVR no pulmonary hypertension. 06/2024. Surgery/urology is awaiting cardiac evaluation. As he may need stress test to further evaluate. He has not made it to the cardiology for evaluation. Cardiology consulted. Will repeat echo to evaluate valve regurgitation as well as recheck his EF. He has been placed on lisinopril for his cardiomyopathy. He has been started on carvedilol as well as spironolactone. Moderate mitral valve regurgitation Pre diabetes A1c 5.8 DVT prophylaxis Lovenox therapeutic. Switched to Xarelto or Eliquis Code status full code History of illicit drug use UDS positive for amphetamine Subjective Date/time seen: 09/08/24 08:56 Interval history: No overnight events. Breathing is better. Feels weak. Feels he may retirement placement Review of Systems Review of Systems: All systems reviewed & are unremarkable except as noted in HPI and below Exam Narrative: Patient is comfortable, NAD HEENT: eyes are clear and none icteric LUNGS: Bilateral fair entry with rales and rhonchi HEART: RR S1S2 ABD: BS+, Soft and nontender large inguinal hernia Lower extremities: Bilateral edema trace to 1+ SKIN: nonjaundiced Neuro: grossly intact. Objective Data Vital Signs Vital Signs: Vital Signs - 24 hr 09/07/24 14:00 09/07/24 20:06 09/08/24 05:20 Temperature 98.6 F 98.4 F 97.7 F Pulse Rate 71 74 77 Respiratory Rate 18 16 17 Blood Pressure 111/74 104/68 118/82 Pulse Oximetry 94 94 96 Intake/Output Intake/Output: Intake & Output 07/1609/06/24 09/07/24 09/08/24 23:59 23:59 23:59 23:59 Intake Total 5829 724 5296 240 Output Total 2900 3350 2050 650 Balance -2890 -2450 -1000 -458 Meds/Results Medications: Active Medications Generic Name Dose Route Start Last Admin Trade Name Freq PRN Reason Stop Dose Admin Acetaminophen 650 mg 09/05/24 20:20 09/05/24 20:43 Acetaminophen 325 Mg Tablet PO 650 mg Q4H PRN Administration Headache Citalopram Hydrobromide 10 mg 09/06/24 09:00 09/07/24 09:16 Citalopram Hydrobromide 10 Mg Tablet PO 10 mg QAM AMELIA Administration Clonidine HCl 0.1 mg 09/05/24 12:42 09/06/24 22:24 Clonidine Hcl 0.1 Mg Tablet PO 0.1 mg Q12HR PRN Administration withdrawal symptoms-tachycardia, restlessness, tremors Enoxaparin Sodium 110 mg 09/06/24 21:00 09/07/24 20:49 Enoxaparin 120 Mg/0.8 Ml Syringe SUB-Q 110 mg Q12HR AMELIA Administration Finasteride 5 mg 09/05/24 09:00 09/07/24 09:16 Finasteride 5 Mg Tablet PO 5 mg DAILY AMELIA Administration Furosemide 40 mg 09/04/24 17:00 09/07/24 16:23 Furosemide Inj 40 Mg/4 Ml Vial IV PUSH 40 mg BID AMELIA Administration Ketorolac Tromethamine 15 mg 09/05/24 20:20 09/07/24 20:57 Ketorolac 15 Mg/Ml Vial (*[facility]) IV PUSH 15 mg Q6H PRN Administration Pain Rated 4-6 Lisinopril 5 mg 09/06/24 14:45 09/07/24 09:16 Lisinopril 5 Mg Tablet PO 5 mg QAM AMELIA Administration Spironolactone 12.5 mg 09/08/24 09:00 Spironolactone 12.5 Mg Tablet PO QAM AMELIA Tamsulosin HCl 0.4 mg 09/04/24 21:00 09/07/24 20:49 Tamsulosin Hcl 0.4 Mg Capsule PO 0.4 mg HS AMELIA Administration Trimethoprim/Sulfamethoxazole 1 tab 09/08/24 09:00 Sulfamethoxazole/Trimethoprim 800/160 Mg Ds Tablet PO 09/10/24 21:01 Q12HR AMELIA Radiology Results: ITS Impressions Venous Doppler Study 09/04/24 09:19 IMPRESSION: Negative bilateral lower extremity venous US. No deep vein thrombosis. Chest X-Ray 09/06/24 16:47 IMPRESSION: Bilateral pneumonia with highly suggestive underlying pulmonary edema. Labs Labs: Laboratory Results - last 24 hr 09/08/24 05:17 WBC 5.8 RBC 4.11 L Hgb 11.3 L Hct 36.4 L MCV 88.6 MCH 27.5 MCHC 31.0 L RDW 13.3 Plt Count 164 MPV 10.1 Sodium 136 L Potassium 3.4 Chloride 99 Carbon Dioxide 31 H Anion Gap 6 BUN 24 H Creatinine 0.80 Estim Creat Clear Calc 96 Estimated GFR > 60 Glucose 99 Calcium 8.2 L Magnesium 2.1
[2024-09-08] MEDS: FUROSEMIDE INJ 40 MG/4 ML VIAL IV PUSH (09:05)
[2024-09-08] MEDS: FINASTERIDE 5 MG TABLET PO (09:05)
[2024-09-08] MEDS: ENOXAPARIN 120 MG/0.8 ML SYRINGE 110 MG SUB-Q ×2 (09:05→21:14)
[2024-09-08] MEDS: CITALOPRAM HYDROBROMIDE 10 MG TABLET PO (09:06)
[2024-09-08] MEDS: SULFAMETHOXAZOLE/TRIMETHOPRIM 800/160 MG DS TABLET 1 TAB PO ×2 (09:06→21:14)
--- NOTE | 2024-09-08 13:07 | PM.PNCARD ---
Progress Note: A&P Assessment and Plan (1) Congestive heart failure: Qualifiers: Heart failure type: systolic Code(s): I50.9 - Heart failure, unspecified Status: Acute Plan 68-year-old man with: Congestive heart failure with reduced ejection fraction. Appropriate guideline directed medical therapy has been started which he is tolerating well. Will not adjust his heart failure medications today. I am going to stop his IV furosemide since he is now euvolemic and start oral furosemide tomorrow. Patient's principal concern at this time is repair of his inguinal hernia. Chai Lynn MD [facility] Subjective Date/time seen: Date of service: 09/08/24 13:07 Interval history: Cardiology follow up visit 09/08/2024: Patient feels relatively well he denies any significant dyspnea was wet resting quietly flat in bed on room air when I came into see him. No cardiovascular concerns. He wants to talk mostly about his inguinal hernia. Exam Const: General: comfortable, no acute distress, alert and awake Orientation/consciousness: patient oriented x3 HENMT: Head: normal to inspection Eyes: General: appearance normal, both eyes and all related structures Pupils: Equal, round and reactive pupils present Neck: Neck: normal visual inspection, supple and no JVD Carotids: normal carotid upstroke Resp: Effort & Inspection: normal respiratory effort Auscultation: crackles on the right Cardio: Rate: regular rate Rhythm: abnormal rhythm irregularly irregular Heart sounds: S1 normal heart sound present, S2 normal heart sound present and no murmurs GI: Auscultation: normal bowel sounds Urinary Catheter: Urinary Catheter: patent and draining Skin: General skin exam: normal color Neuro: General: patient oriented x3 Cranial nerves: Yes Equal, round and reactive pupils present Extrem: General: edema Other: Lower extremity edema has essentially resolved Psych: Appearance: grossly normal Mental Status: mental status grossly normal Objective Data Vital Signs Vital Signs: Vital Signs - 24 hr 09/07/24 14:00 09/07/24 20:06 09/08/24 05:20 Temperature 37.0 C 36.9 C 36.5 C Pulse Rate 71 74 77 Respiratory Rate 18 16 17 Blood Pressure 111/74 104/68 118/82 Pulse Oximetry 94 94 96 Oxygen Delivery 09/08/24 08:00 09/08/24 10:19 Temperature Pulse Rate Respiratory Rate Blood Pressure Pulse Oximetry Oxygen Delivery Room Air Room Air Intake/Output Intake/Output: Intake & Output 09/05/24 09/06/24 09/07/24 09/08/24 23:59 23:59 23:59 23:59 Intake Total 4777 813 7613 480 Output Total 2900 3350 2050 650 Balance -1170 -2450 -1000 -170 Meds/Results Medications: Active Medications Generic Name Dose Route Start Last Admin Trade Name Freq PRN Reason Stop Dose Admin Acetaminophen 650 mg 09/05/24 20:20 09/05/24 20:43 Acetaminophen 325 Mg Tablet PO 650 mg Q4H PRN Administration Headache Citalopram Hydrobromide 10 mg 09/06/24 09:00 09/08/24 09:06 Citalopram Hydrobromide 10 Mg Tablet PO 10 mg QAM AMELIA Administration Clonidine HCl 0.1 mg 09/05/24 12:42 09/06/24 22:24 Clonidine Hcl 0.1 Mg Tablet PO 0.1 mg Q12HR PRN Administration withdrawal symptoms-tachycardia, restlessness, tremors Enoxaparin Sodium 110 mg 09/06/24 21:00 09/08/24 09:05 Enoxaparin 120 Mg/0.8 Ml Syringe SUB-Q 110 mg Q12HR AMELIA Administration Finasteride 5 mg 09/05/24 09:00 09/08/24 09:05 Finasteride 5 Mg Tablet PO 5 mg DAILY AMELIA Administration Ketorolac Tromethamine 15 mg 09/05/24 20:20 09/07/24 20:57 Ketorolac 15 Mg/Ml Vial (*[facility]) IV PUSH 15 mg Q6H PRN Administration Pain Rated 4-6 Lisinopril 5 mg 09/06/24 14:45 09/08/24 09:06 Lisinopril 5 Mg Tablet PO 5 mg QAM AMELIA Administration Spironolactone 12.5 mg 09/08/24 09:00 09/08/24 09:06 Spironolactone 12.5 Mg Tablet PO 12.5 mg QAM AMELIA Administration Tamsulosin HCl 0.4 mg 09/04/24 21:00 09/07/24 20:49 Tamsulosin Hcl 0.4 Mg Capsule PO 0.4 mg HS AMELIA Administration Trimethoprim/Sulfamethoxazole 1 tab 09/08/24 09:00 09/08/24 09:06 Sulfamethoxazole/Trimethoprim 800/160 Mg Ds Tablet PO 09/10/24 21:01 1 tab Q12HR AMELIA Administration Radiology Results: ITS Impressions Venous Doppler Study 09/04/24 09:19 IMPRESSION: Negative bilateral lower extremity venous US. No deep vein thrombosis. Chest X-Ray 09/08/24 10:44 Impression: 1: Cardiomegaly with mild interstitial edema. Labs Labs: Laboratory Results - last 24 hr 09/08/24 05:17 WBC 5.8 RBC 4.11 L Hgb 11.3 L Hct 36.4 L MCV 88.6 MCH 27.5 MCHC 31.0 L RDW 13.3 Plt Count 164 MPV 10.1 Sodium 136 L Potassium 3.4 Chloride 99 Carbon Dioxide 31 H Anion Gap 6 BUN 24 H Creatinine 0.80 Estim Creat Clear Calc 96 Estimated GFR > 60 Glucose 99 Calcium 8.2 L Magnesium 2.1
[2024-09-08 14:00] VITALS: BP 105/42; PULSE 77; RESP 17; TEMP 36.1; O2SAT 94
[2024-09-08 20:00] VITALS: BP 102/70; PULSE 80; RESP 16; TEMP 36.9; O2SAT 96
[2024-09-08 21:04] VITALS: O2SAT 96
[2024-09-08] MEDS: TAMSULOSIN HCL 0.4 MG CAPSULE PO (21:14)
[2024-09-09 06:25] VITALS: BP 107/73; PULSE 75; RESP 17; TEMP 36.6; O2SAT 95
[2024-09-09 06:27] LABS: Hematocrit 36.2 % (42.0-52.0); Hemoglobin 11.6 g/dL (14.0-18.0); Mean Corpuscular HGB Conc 32.0 g/dl (32-36); Mean Corpuscular Hemoglobin 27.6 pg (26-34); Mean Corpuscular Volume 86.2 fl (80-100); Platelet Count Result 162 k/mm3 (150-375); Red Blood Count 4.20 M/mm3 (4.6-6.20); White Blood Count 6.0 K/mm3 (4.5-10.0)
[2024-09-09 06:46] LABS: Anion Gap 5 mmol/L (4-12); Blood Urea Nitrogen 24 mg/dL (9-20); Calcium 8.4 mg/dL (8.4-10.2); Carbon Dioxide 28 mmol/L (22-30); Chloride 101 mmol/L (98-107); Estimated CRCL calculation 98 ml/min; Estimated Glomerular Filt Rate > 60; Glucose 102 mg/dL (65-110); Magnesium 2.1 mg/dL (1.6-2.3); Potassium 3.8 mmol/L (3.4-5.0); Sodium 134 mmol/L (137-145)
[2024-09-09 07:44] VITALS: O2SAT 92
--- NOTE | 2024-09-09 09:02 | PM.PNCARD ---
Progress Note: A&P Assessment and Plan (1) Congestive heart failure: Qualifiers: Heart failure type: systolic Code(s): I50.9 - Heart failure, unspecified Status: Acute Plan 68-year-old man with: Heart failure with reduced ejection fraction. Tolerating low doses of guideline directed medical therapy including lisinopril and Aldactone. His furosemide has been transition to oral regimen starting today. He does not need any further adjustments at this time to his medical regime. Will continue to follow with you while he is in the hospital. Chai Lynn MD [facility] Subjective Date/time seen: Date of service: 09/09/24 09:02 Interval history: Cardiology follow up visit 09/09/2024: Follow-up visit for systolic heart failure. Patient is resting comfortably in bed after eating his breakfast. No respiratory distress offers no cardiovascular symptoms today. Denies shortness of breath edema etc.. Exam Const: General: comfortable, no acute distress, alert and awake Orientation/consciousness: patient oriented x3 HENMT: Head: normal to inspection Eyes: General: appearance normal, both eyes and all related structures Pupils: Equal, round and reactive pupils present Neck: Neck: normal visual inspection, supple and no JVD Carotids: normal carotid upstroke Resp: Effort & Inspection: normal respiratory effort Other: No audible rales at this time Cardio: Rate: regular rate Rhythm: abnormal rhythm irregularly irregular Heart sounds: S1 normal heart sound present, S2 normal heart sound present and no murmurs GI: Auscultation: normal bowel sounds Urinary Catheter: Urinary Catheter: patent and draining Skin: General skin exam: normal color Neuro: General: patient oriented x3 Cranial nerves: Yes Equal, round and reactive pupils present Extrem: General: edema and pedal edema Other: Lower extremity edema has essentially resolved Psych: Appearance: grossly normal Mental Status: mental status grossly normal Objective Data Vital Signs Vital Signs: Vital Signs - 24 hr 09/08/24 10:19 09/08/24 14:00 09/08/24 20:00 Temperature 36.1 C L 36.9 C Pulse Rate 77 80 Respiratory Rate 17 16 Blood Pressure 105/42 L 102/70 Pulse Oximetry 94 96 Oxygen Delivery Room Air Fraction of Inspired Oxygen 09/08/24 21:04 09/09/24 06:25 09/09/24 07:44 Temperature 36.6 C Pulse Rate 75 Respiratory Rate 17 Blood Pressure 107/73 Pulse Oximetry 96 95 92 Oxygen Delivery Autopap Room Air Fraction of Inspired Oxygen 21 Intake/Output Intake/Output: Intake & Output 09/06/24 09/07/24 09/08/24 09/09/24 23:59 23:59 23:59 23:59 Intake Total 900 1050 1360 360 Output Total 3350 2050 1900 600 Balance -2450 -1000 -540 -240 Meds/Results Medications: Active Medications Generic Name Dose Route Start Last Admin Trade Name Freq PRN Reason Stop Dose Admin Acetaminophen 650 mg 09/05/24 20:20 09/05/24 20:43 Acetaminophen 325 Mg Tablet PO 650 mg Q4H PRN Administration Headache Citalopram Hydrobromide 10 mg 09/06/24 09:00 09/08/24 09:06 Citalopram Hydrobromide 10 Mg Tablet PO 10 mg QAM AMELIA Administration Clonidine HCl 0.1 mg 09/05/24 12:42 09/06/24 22:24 Clonidine Hcl 0.1 Mg Tablet PO 0.1 mg Q12HR PRN Administration withdrawal symptoms-tachycardia, restlessness, tremors Enoxaparin Sodium 110 mg 09/06/24 21:00 09/08/24 21:14 Enoxaparin 120 Mg/0.8 Ml Syringe SUB-Q 110 mg Q12HR AMELIA Administration Finasteride 5 mg 09/05/24 09:00 09/08/24 09:05 Finasteride 5 Mg Tablet PO 5 mg DAILY AMELIA Administration Furosemide 40 mg 09/09/24 09:00 Furosemide 40 Mg Tablet PO DAILY AMELIA Ketorolac Tromethamine 15 mg 09/05/24 20:20 09/07/24 20:57 Ketorolac 15 Mg/Ml Vial (*[facility]) IV PUSH 15 mg Q6H PRN Administration Pain Rated 4-6 Lisinopril 5 mg 09/06/24 14:45 09/08/24 09:06 Lisinopril 5 Mg Tablet PO 5 mg QAM AMELIA Administration Spironolactone 12.5 mg 09/08/24 09:00 09/08/24 09:06 Spironolactone 12.5 Mg Tablet PO 12.5 mg QAM AMELIA Administration Tamsulosin HCl 0.4 mg 09/04/24 21:00 09/08/24 21:14 Tamsulosin Hcl 0.4 Mg Capsule PO 0.4 mg HS AMELIA Administration Trimethoprim/Sulfamethoxazole 1 tab 09/08/24 09:00 09/08/24 21:14 Sulfamethoxazole/Trimethoprim 800/160 Mg Ds Tablet PO 09/10/24 21:01 1 tab Q12HR AMELIA Administration Radiology Results: ITS Impressions Venous Doppler Study 09/04/24 09:19 IMPRESSION: Negative bilateral lower extremity venous US. No deep vein thrombosis. Chest X-Ray 09/08/24 10:44 Impression: 1: Cardiomegaly with mild interstitial edema. Labs Labs: Laboratory Results - last 24 hr 09/09/24 05:19 WBC 6.0 RBC 4.20 L Hgb 11.6 L Hct 36.2 L MCV 86.2 MCH 27.6 MCHC 32.0 RDW 13.3 Plt Count 162 MPV 10.7 H Sodium 134 L Potassium 3.8 Chloride 101 Carbon Dioxide 28 Anion Gap 5 BUN 24 H Creatinine 0.78 Estim Creat Clear Calc 98 Estimated GFR > 60 Glucose 102 Calcium 8.4 Magnesium 2.1
[2024-09-09 09:15] VITALS: PULSE 71
[2024-09-09] MEDS: ENOXAPARIN 120 MG/0.8 ML SYRINGE 110 MG SUB-Q ×2 (09:16→22:07)
[2024-09-09] MEDS: FUROSEMIDE 40 MG TABLET PO (09:17)
[2024-09-09] MEDS: CITALOPRAM HYDROBROMIDE 10 MG TABLET PO (09:17)
[2024-09-09] MEDS: FINASTERIDE 5 MG TABLET PO (09:17)
[2024-09-09] MEDS: SULFAMETHOXAZOLE/TRIMETHOPRIM 800/160 MG DS TABLET 1 TAB PO ×2 (09:17→22:07)
--- NOTE | 2024-09-09 10:42 | PM.IMPN ---
Progress Note: A&P Assessment and Plan (1) Congestive heart failure: Qualifiers: Heart failure type: systolic Code(s): I50.9 - Heart failure, unspecified Status: Acute Assessment and Plan: BNP markedly elevated on admission. Echo completed which demonstrates EF 35%. Has been seen in consultation by Cardiology. He has been diuresed with IV Lasix and this morning has transitioned to p.o. diuretics. He is euvolemic at this time. Continue lisinopril and spironolactone. No further adjustments to medication regimen at this time per Cardiology recommendations. Monitor volume status (2) Atrial fibrillation: Code(s): I48.91 - Unspecified atrial fibrillation Status: Acute Assessment and Plan: Rate is controlled. He is on therapeutic Lovenox at this time due to [id number] score of 3. Will need to transition to DOAC at discharge, however there is concern for cost of Eliquis or Xarelto. He is not a great candidate for warfarin given his noncompliance/poor follow-up. Appreciate care coordination assistance regarding javed checking for Eliquis versus Xarelto. (3) Acute on chronic urinary retention: Code(s): R33.9 - Retention of urine, unspecified Status: Acute Assessment and Plan: Seen in consultation by Urology during admission. This is felt to be due to BPH with significant prostate enlargement. Continue with Muniz catheter at this time. Consider urologic intervention in the future which cannot be completed until he undergoes hernia repair, per Urology recommendations. Continue tamsulosin and finasteride (4) Incarcerated left inguinal hernia: Code(s): K40.30 - Unilateral inguinal hernia, with obstruction, without gangrene, not specified as recurrent Status: Acute Assessment and Plan: Has been seen in consultation by General surgery. This has been a longstanding issue which she has previously seen Dr. Werner for. Per General surgery, he requires urologic and cardiac clearance before he can proceed with surgery which can be completed as an outpatient. No immediate surgical intervention is required at this time. (5) Urinary tract infection: Qualifiers: Encounter type: initial encounter Indwelling urinary catheter type: indwelling urethral catheter Urinary tract infection type: catheter-associated UTI Qualified Code(s): T83.511A - Infection and inflammatory reaction due to indwelling urethral catheter, initial encounter; N39.0 - Urinary tract infection, site not specified Code(s): N39.0 - Urinary tract infection, site not specified Status: Acute Assessment and Plan: Per Urology, CAUTI is suspected. He had positive urine culture with growth of Enterobacter 08/18/2024. He is currently on p.o. Bactrim. Remains afebrile and WBC is within normal limits. Repeat culture was not obtained on presentation, however patient appears to be improving on current regimen, therefore will continue Bactrim through 09/10/2024. (6) Right hand pain: Code(s): M79.641 - Pain in right hand Status: Acute Assessment and Plan: No swelling or deformity on exam. Patient denies injury or accident. Continue supportive care. Consider x-ray if persistent (7) Type 2 diabetes mellitus without complication, without long-term current use of insulin: Code(s): E11.9 - Type 2 diabetes mellitus without complications Status: Chronic Assessment and Plan: A1c is 6.5. He is not on insulin or oral hypoglycemics. Blood sugars have been well controlled during admission. Continue with appropriate dietary/lifestyle management Subjective Date/time seen: 09/09/24 10:42 Interval history: Cristhian continues to feel poorly today. He complains of scrotal discomfort and pressure which makes him very uncomfortable. He also complains of some right hand pain which she states has been persistent since his presentation. He endorses mild shortness of breath. Denies cough. Denies chest pain or palpitations. Denies abdominal pain, nausea, vomiting, fever, or chills. Reports normal bowel movements. Appetite is good. Reports no issues with Muniz catheter. No additional concerns at this time. Review of Systems Review of Systems: All systems reviewed & are unremarkable except as noted in HPI and below Exam Narrative: Neuro: awake, alert and oriented x4, speech clear, no focal neuro deficits noted HEENMT: normocephalic, atraumatic, EOMI, sclerae anicteric, moist oral mucosa Neck: supple, no lymphadenopathy Respiratory: clear to auscultation bilaterally, nonlabored breathing Cardio: regular rate, regular rhythm with S1-S2 Abdomen: nondistended, normoactive bowel sounds, soft, nontender to palpation, no rigidity or guarding : Muniz catheter draining clear yellow urine, significantly swollen scrotum secondary to large inguinal hernia Extremities: Right hand without evidence of swelling or deformity, BLE without edema, erythema, cyanosis, clubbing, or tenderness to palpation, DP pulses 2+ bilaterally Skin: no rashes or lesions, warm and dry Psych: appropriate mood and affect, judgment and insight intact Objective Data Vital Signs Vital Signs: Vital Signs - 24 hr 09/08/24 14:00 09/08/24 20:00 09/08/24 21:04 Temperature 97 F L 98.4 F Pulse Rate 77 80 Respiratory Rate 17 16 Blood Pressure 105/42 L 102/70 Pulse Oximetry 94 96 96 Oxygen Delivery Autopap Fraction of Inspired Oxygen 09/09/24 06:25 09/09/24 07:44 09/09/24 09:00 Temperature 97.9 F Pulse Rate 75 Respiratory Rate 17 Blood Pressure 107/73 Pulse Oximetry 95 92 Oxygen Delivery Room Air Room Air Fraction of Inspired Oxygen 21 09/09/24 09:15 09/09/24 09:34 Temperature Pulse Rate 71 Respiratory Rate Blood Pressure Pulse Oximetry Oxygen Delivery Room Air Fraction of Inspired Oxygen Intake/Output Intake/Output: Intake & Output 09/06/24 09/07/24 09/08/24 09/09/24 23:59 23:59 23:59 23:59 Intake Total 900 1050 1360 600 Output Total 3350 2050 1900 600 Balance -2450 -1000 -540 0 Meds/Results Medications: Active Medications Generic Name Dose Route Start Last Admin Trade Name Freq PRN Reason Stop Dose Admin Acetaminophen 650 mg 09/05/24 20:20 09/05/24 20:43 Acetaminophen 325 Mg Tablet PO 650 mg Q4H PRN Administration Headache Citalopram Hydrobromide 10 mg 09/06/24 09:00 09/09/24 09:17 Citalopram Hydrobromide 10 Mg Tablet PO 10 mg QAM AMELIA Administration Clonidine HCl 0.1 mg 09/05/24 12:42 09/06/24 22:24 Clonidine Hcl 0.1 Mg Tablet PO 0.1 mg Q12HR PRN Administration withdrawal symptoms-tachycardia, restlessness, tremors Enoxaparin Sodium 110 mg 09/06/24 21:00 09/09/24 09:16 Enoxaparin 120 Mg/0.8 Ml Syringe SUB-Q 110 mg Q12HR AMELIA Administration Finasteride 5 mg 09/05/24 09:00 09/09/24 09:17 Finasteride 5 Mg Tablet PO 5 mg DAILY AMELIA Administration Furosemide 40 mg 09/09/24 09:00 09/09/24 09:17 Furosemide 40 Mg Tablet PO 40 mg DAILY AMELIA Administration Ketorolac Tromethamine 15 mg 09/05/24 20:20 09/07/24 20:57 Ketorolac 15 Mg/Ml Vial (*Bkc) IV PUSH 15 mg Q6H PRN Administration Pain Rated 4-6 Lisinopril 5 mg 09/06/24 14:45 09/09/24 09:17 Lisinopril 5 Mg Tablet PO 5 mg QAM AMELIA Administration Spironolactone 12.5 mg 09/08/24 09:00 09/09/24 09:17 Spironolactone 12.5 Mg Tablet PO 12.5 mg QAM AMELIA Administration Tamsulosin HCl 0.4 mg 09/04/24 21:00 09/08/24 21:14 Tamsulosin Hcl 0.4 Mg Capsule PO 0.4 mg HS AMELIA Administration Trimethoprim/Sulfamethoxazole 1 tab 09/08/24 09:00 09/09/24 09:17 Sulfamethoxazole/Trimethoprim 800/160 Mg Ds Tablet PO 09/10/24 21:01 1 tab Q12HR AMELIA Administration Radiology Results: ITS Impressions Venous Doppler Study 09/04/24 09:19 IMPRESSION: Negative bilateral lower extremity venous US. No deep vein thrombosis. Chest X-Ray 09/08/24 10:44 Impression: 1: Cardiomegaly with mild interstitial edema. Labs Labs: Laboratory Results - last 24 hr 09/09/24 05:19 WBC 6.0 RBC 4.20 L Hgb 11.6 L Hct 36.2 L MCV 86.2 MCH 27.6 MCHC 32.0 RDW 13.3 Plt Count 162 MPV 10.7 H Sodium 134 L Potassium 3.8 Chloride 101 Carbon Dioxide 28 Anion Gap 5 BUN 24 H Creatinine 0.78 Estim Creat Clear Calc 98 Estimated GFR > 60 Glucose 102 Calcium 8.4 Magnesium 2.1 Quality VTE Prophylaxis VTE prophylaxis: pharmacologic ordered Hospitalist MIPS Advance Care Plan I have confirmed that the patient's Advanced Care Plan is present, code status is documented, or surrogate decision maker is listed in patient medical record.: Yes Medication Reconciliation I have utilized all available resources to obtain, update and review the patients current medications (includes all prescriptions, OTC, herbals, cannabis, and nutritional supplements).: Yes
[2024-09-09 14:00] VITALS: BP 115/65; PULSE 76; RESP 18; TEMP 36.5; O2SAT 95
[2024-09-09 21:02] VITALS: BP 131/85; PULSE 76; RESP 16; TEMP 36.6; O2SAT 97
[2024-09-09] MEDS: TAMSULOSIN HCL 0.4 MG CAPSULE PO (22:07)
[2024-09-10 05:18] VITALS: BP 122/76; PULSE 76; RESP 18; TEMP 37.2; O2SAT 95
[2024-09-10 06:03] LABS: Hematocrit 34.6 % (42.0-52.0); Hemoglobin 11.1 g/dL (14.0-18.0); Mean Corpuscular HGB Conc 32.1 g/dl (32-36); Mean Corpuscular Hemoglobin 27.8 pg (26-34); Mean Corpuscular Volume 86.7 fl (80-100); Platelet Count Result 154 k/mm3 (150-375); Red Blood Count 3.99 M/mm3 (4.6-6.20); White Blood Count 5.1 K/mm3 (4.5-10.0)
[2024-09-10 06:37] LABS: Anion Gap 5 mmol/L (4-12); Blood Urea Nitrogen 20 mg/dL (9-20); Calcium 8.3 mg/dL (8.4-10.2); Carbon Dioxide 27 mmol/L (22-30); Chloride 100 mmol/L (98-107); Estimated CRCL calculation 93 ml/min; Estimated Glomerular Filt Rate > 60; Glucose 101 mg/dL (65-110); Magnesium 2.1 mg/dL (1.6-2.3); Potassium 3.7 mmol/L (3.4-5.0); Sodium 132 mmol/L (137-145)
--- NOTE | 2024-09-10 08:32 | P.PNIM_ITS ---
Progress Note: A&P Assessment and Plan (1) Congestive heart failure: Qualifiers: Heart failure type: systolic Code(s): I50.9 - Heart failure, unspecified Status: Acute Assessment and Plan: BNP markedly elevated on admission. Echo completed which demonstrates EF 35%. Has been seen in consultation by Cardiology. He has been diuresed with IV Lasix and this morning has transitioned to p.o. diuretics. He is euvolemic at this time. Continue lisinopril and spironolactone. No further adjustments to medication regimen at this time per Cardiology recommendations. --Continue diuretics (2) Hyponatremia: Code(s): E87.1 - Hypo-osmolality and hyponatremia Status: Acute Assessment and Plan: Sodium 132, down from 137 --Likely related to diuretics. Fluid restriction --BMP in a week (3) Alcoholic: Code(s): F10.20 - Alcohol dependence, uncomplicated Status: Acute Time Spent With Patient Time: 54 minutes Subjective Date/time seen: 09/10/24 08:32 Interval history: CHF exacerbation VSS Najera check for eliquis was free Review of Systems Review of Systems: - CONSTITUTIONAL: Denies weight loss, fe ponce and chills. - HEENT: Denies changes in vision and he aring - RESPIRATORY: Denies SOB and cough. - CV: Denies palpitations and CP. - GI: Denies abdominal pain, nausea, vom iting and diarrhea. - : Denies dysuria and urinary frequen cy. - MSK: Denies myalgia and joint pain. - SKIN: Denies rash and pruritus. - NEUROLOGICAL: Denies headache and sync ope. - PSYCHIATRIC: Denies recent changes in mood. Denies anxiety and depression. All systems reviewed & are unremarkable except as noted in HPI and below Exam Narrative: Neuro: awake, alert and oriented x4, speech clear, no focal neuro deficits noted HEENMT: normocephalic, atraumatic, EOMI, sclerae anicteric, moist oral mucosa Neck: supple, no lymphadenopathy Respiratory: clear to auscultation bilaterally, nonlabored breathing Cardio: regular rate, regular rhythm with S1-S2 Abdomen: nondistended, normoactive bowel sounds, soft, nontender to palpation, no rigidity or guarding : Muniz catheter draining clear yellow urine, significantly swollen scrotum secondary to large inguinal hernia Extremities: Right hand without evidence of swelling or deformity, BLE without edema, erythema, cyanosis, clubbing, or tenderness to palpation, DP pulses 2+ bilaterally Skin: no rashes or lesions, warm and dry Psych: appropriate mood and affect, calm Objective Data Vital Signs Vital Signs: Vital Signs - 24 hr 09/09/24 09:00 09/09/24 09:15 09/09/24 09:34 Temperature Pulse Rate 71 Respiratory Rate Blood Pressure Pulse Oximetry Oxygen Delivery Room Air Room Air 09/09/24 14:00 09/09/24 21:02 09/09/24 22:20 Temperature 97.7 F 97.8 F Pulse Rate 76 76 Respiratory Rate 18 16 Blood Pressure 115/65 131/85 Pulse Oximetry 95 97 Oxygen Delivery Room Air 09/10/24 05:18 Temperature 98.9 F Pulse Rate 76 Respiratory Rate 18 Blood Pressure 122/76 Pulse Oximetry 95 Oxygen Delivery Intake/Output Intake/Output: Intake & Output 09/07/24 09/08/24 09/09/24 09/10/24 23:59 23:59 23:59 23:59 Intake Total 1050 1360 1770 400 Output Total 2050 1900 1450 650 Balance -1000 -540 320 -250 Meds/Results Medications: Active Medications Generic Name Dose Route Start Last Admin Trade Name Darianq PRN Reason Stop Dose Admin Acetaminophen 650 mg 09/05/24 20:20 09/05/24 20:43 Acetaminophen 325 Mg Tablet PO 650 mg Q4H PRN Administration Headache Citalopram Hydrobromide 10 mg 09/06/24 09:00 09/09/24 09:17 Citalopram Hydrobromide 10 Mg Tablet PO 10 mg QAM AMELIA Administration Clonidine HCl 0.1 mg 09/05/24 12:42 09/06/24 22:24 Clonidine Hcl 0.1 Mg Tablet PO 0.1 mg Q12HR PRN Administration withdrawal symptoms-tachycardia, restlessness, tremors Enoxaparin Sodium 110 mg 09/06/24 21:00 09/09/24 22:07 Enoxaparin 120 Mg/0.8 Ml Syringe SUB-Q 110 mg Q12HR AMELIA Administration Finasteride 5 mg 09/05/24 09:00 09/09/24 09:17 Finasteride 5 Mg Tablet PO 5 mg DAILY AMELIA Administration Furosemide 40 mg 09/09/24 09:00 09/09/24 09:17 Furosemide 40 Mg Tablet PO 40 mg DAILY AMELIA Administration Ketorolac Tromethamine 15 mg 09/05/24 20:20 09/07/24 20:57 Ketorolac 15 Mg/Ml Vial (*Bkc) IV PUSH 15 mg Q6H PRN Administration Pain Rated 4-6 Lisinopril 5 mg 09/06/24 14:45 09/09/24 09:17 Lisinopril 5 Mg Tablet PO 5 mg QAM AMELIA Administration Miscellaneous Information 1 each 09/10/24 00:01 Toradol Needs To Be Renewed Or It Will Automatically Discontinue. XX 10/10/24 00:00 CLARIFY AMELIA Spironolactone 12.5 mg 09/08/24 09:00 09/09/24 09:17 Spironolactone 12.5 Mg Tablet PO 12.5 mg QAM AMELIA Administration Tamsulosin HCl 0.4 mg 09/04/24 21:00 09/09/24 22:07 Tamsulosin Hcl 0.4 Mg Capsule PO 0.4 mg HS AMELIA Administration Trimethoprim/Sulfamethoxazole 1 tab 09/08/24 09:00 09/09/24 22:07 Sulfamethoxazole/Trimethoprim 800/160 Mg Ds Tablet PO 09/10/24 21:01 1 tab Q12HR AMELIA Administration Radiology Results: ITS Impressions Venous Doppler Study 09/04/24 09:19 IMPRESSION: Negative bilateral lower extremity venous US. No deep vein thrombosis. Chest X-Ray 09/08/24 10:44 Impression: 1: Cardiomegaly with mild interstitial edema. Labs Labs: Laboratory Results - last 24 hr 09/10/24 05:39 WBC 5.1 RBC 3.99 L Hgb 11.1 L Hct 34.6 L MCV 86.7 MCH 27.8 MCHC 32.1 RDW 13.2 Plt Count 154 MPV 10.5 H Sodium 132 L Potassium 3.7 Chloride 100 Carbon Dioxide 27 Anion Gap 5 BUN 20 Creatinine 0.83 Estim Creat Clear Calc 93 Estimated GFR > 60 Glucose 101 Calcium 8.3 L Magnesium 2.1 Quality VTE Prophylaxis VTE prophylaxis: pharmacologic ordered Hospitalist [facility] Advance Care Plan I have confirmed that the patient's Advanced Care Plan is present, code status is documented, or surrogate decision maker is listed in patient medical record.: Yes Medication Reconciliation I have utilized all available resources to obtain, update and review the patients current medications (includes all prescriptions, OTC, herbals, cannabis, and nutritional supplements).: Yes
[2024-09-10] MEDS: FUROSEMIDE 40 MG TABLET PO (09:15)
[2024-09-10] MEDS: CITALOPRAM HYDROBROMIDE 10 MG TABLET PO (09:15)
[2024-09-10] MEDS: ENOXAPARIN 120 MG/0.8 ML SYRINGE 110 MG SUB-Q (09:15)
[2024-09-10] MEDS: FINASTERIDE 5 MG TABLET PO (09:15)
[2024-09-10] MEDS: SULFAMETHOXAZOLE/TRIMETHOPRIM 800/160 MG DS TABLET 1 TAB PO (09:15)
--- NOTE | 2024-09-10 13:50 | PM.DS ---
DS: Admitting Diagnosis Discharge Date 09/10/2024 Admitting Diagnosis Congestive Heart Failure DS: Discharge Diagnosis Discharge Diagnosis (1) Congestive heart failure: Qualifiers: Heart failure type: systolic Code(s): I50.9 - Heart failure, unspecified Status: Acute (2) Acute on chronic urinary retention: Code(s): R33.9 - Retention of urine, unspecified Status: Acute (3) Urinary tract infection: Qualifiers: Encounter type: initial encounter Indwelling urinary catheter type: indwelling urethral catheter Urinary tract infection type: catheter-associated UTI Qualified Code(s): T83.511A - Infection and inflammatory reaction due to indwelling urethral catheter, initial encounter; N39.0 - Urinary tract infection, site not specified Code(s): N39.0 - Urinary tract infection, site not specified Status: Acute DS: Summary Hospital Course Reason for hospitalization: Copied from HPI 09/04/2024: Patient is a 68-year-old male who presents to the emergency department this evening complaining of bilateral lower extremity edema. Patient states that he has had lower extremity edema for a while but within the last 1-2 weeks it has significantly worsened. When asked regarding heart failure history, he states that he was told that at 1 point, patient is a poor historian has very little insight to his medical history. Was seen at our facility approximately 2 weeks ago for Muniz catheter malfunction as patient does have an indwelling Muniz catheter due to history of BPH and at that time he was prescribed antibiotics for UTI which the patient states that he completed. Patient also has a very large scrotum secondary to an inguinal hernia on the left side which he states general surgery is following with they are waiting for him to be fully medically cleared before performing surgery. Patient denies any chest pain or shortness of breath, any additional symptoms or concerns at this time. In the ED he was noted to lower extremity edema with large left into the scrotum. His vitals were otherwise stable. Data reveal 6.8 hemoglobin 11.3 platelet of 198. Chem normal electrolytes 0.7 LFTs were normal BNP at 10 700 albumin 3 point. Patient received a dose of IV Lasix. Chest x-ray acute cardiopulmonary process. Patient admitted for further treatment. <Edwin hKan MD - Last Filed: 09/04/24 08:28> ER-HPI Narrative: Patient is a 68-year-old male who presents to the emergency department this evening complaining of bilateral lower extremity edema. Patient states that he has had lower extremity edema for a while but within the last 1-2 weeks it has significantly worsened. When asked regarding heart failure history, he states that he was told that at 1 point, patient is a poor historian has very little insight to his medical history. Was seen at our facility approximately 2 weeks ago for Muniz catheter malfunction as patient does have an indwelling Muniz catheter due to history of BPH and at that time he was prescribed antibiotics for UTI which the patient states that he completed. Patient also has a very large scrotum secondary to an inguinal hernia on the left side which he states general surgery is following with they are waiting for him to be fully medically cleared before performing surgery. Patient denies any chest pain or shortness of breath, any additional symptoms or concerns at this time. Patient is a 68-year-old male who presents to the emergency department this evening complaining of bilateral lower extremity edema. Patient states that he has had lower extremity edema for a while but within the last 1-2 weeks it has significantly worsened. When asked regarding heart failure history, he states that he was told that at 1 point, patient is a poor historian has very little insight to his medical history. Was seen at our facility approximately 2 weeks ago for Muniz catheter malfunction as patient does have an indwelling Muniz catheter due to history of BPH and at that time he was prescribed antibiotics for UTI which the patient states that he completed. Patient also has a very large scrotum secondary to an inguinal hernia on the left side which he states general surgery is following with they are waiting for him to be fully medically cleared before performing surgery. Patient denies any chest pain or shortness of breath, any additional symptoms or concerns at this time. In the ED he was noted to lower extremity edema with large left into the scrotum. His vitals were otherwise stable. Data reveal 6.8 hemoglobin 11.3 platelet of 198. Chem normal electrolytes 0.7 LFTs were normal BNP at 10 700 albumin 3 point. Patient received a dose of IV Lasix. Chest x-ray acute cardiopulmonary process. Patient admitted for further treatment. patient with history of systolic dysfunction with moderately reduce EF of 40-45% most likely patient is have acute on chronic systolic congestive heart failure, will treat with Lasix 40mg IV, will have PT/OT evaluate the patient, will monitor and further recommendation to follow. Hospital Course: Patient admitted primarily for a CHF exacerbation. Doing well and euvolemic on exam at discharge. Congestive heart failure: BNP markedly elevated on admission. Echo completed which demonstrates EF 35%. Has been seen in consultation by Cardiology. He has been diuresed with IV Lasix and this morning has transitioned to p.o. diuretics. He is euvolemic at this time. --Continue furosemide, lisinopril, and spironolactone. Atrial fibrillation: Rate is controlled. He is on therapeutic Lovenox at this time due to [id number] score of 3. Will need to transition to DOAC at discharge, was free through insurance. Appreciate care coordination assistance regarding javed checking for Eliquis versus Xarelto. Acute on chronic urinary retention: Seen in consultation by Urology during admission. This is felt to be due to BPH with significant prostate enlargement. Continue with Muniz catheter at this time. Consider urologic intervention in the future which cannot be completed until he undergoes hernia repair, per Urology recommendations. Continue tamsulosin and finasteride Incarcerated left inguinal hernia: Has been seen in consultation by General surgery. This has been a longstanding issue which she has previously seen Dr. Werner for. Per General surgery, he requires urologic and cardiac clearance before he can proceed with surgery which can be completed as an outpatient. No immediate surgical intervention is required at this time. Urinary tract infection: Per Urology, CAUTI is suspected. He had positive urine culture with growth of Enterobacter 08/18/2024. He is currently on p.o. Bactrim. Remains afebrile and WBC is within normal limits. Repeat culture was not obtained on presentation, however patient appears to be improving on current regimen, therefore will continue Bactrim to 09/10/2024. Right hand pain: No swelling or deformity on exam. Patient denies injury or accident. Continue supportive care. Consider x-ray outpatient if persistent Type 2 diabetes mellitus without complication, without long-term current use of insulin: A1c is 6.5. He is not on insulin or oral hypoglycemics. Blood sugars have been well controlled during admission. Continue with appropriate dietary/lifestyle management Status at Discharge Cognitive/behavioral status at discharge: A&Ox4 Time Spent with Patient Time attestation: Total time spent providing and/or coordinating discharge services: 57 minutes Exam Narrative: General - Awake and alert. No acute distress Eyes - PERRLA, EOM intact ENT - No thrush, No erythema Neck - No noticeable or palpable swelling Lymph Nodes - No lymphadenopathy Cardiovascular - RRR no m/r/g, no JVD Lungs: Clear to auscultation, No wheezing, use of accessory muscles, no crackles Skin - Skin warm and dry, no wounds or rashes Abdomen - Normal bowel sounds, abdomen soft and nontender Extremities - No edema, cyanosis or clubbing Musculoskeletal - 5/5 strength, normal range of motion, no swollen or erythematous joints. Neurological ? Alert and oriented x 3, CN 2-12 grossly intact. Psych: Normal mood and affect DS: Data Data Completed and Pending Labs on day of discharge: Labs from last 24 hours 09/10/24 05:39 WBC 5.1 RBC 3.99 L Hgb 11.1 L Hct 34.6 L MCV 86.7 MCH 27.8 MCHC 32.1 RDW 13.2 Plt Count 154 MPV 10.5 H Sodium 132 L Potassium 3.7 Chloride 100 Carbon Dioxide 27 Anion Gap 5 BUN 20 Creatinine 0.83 Estim Creat Clear Calc 93 Estimated GFR > 60 Glucose 101 Calcium 8.3 L Magnesium 2.1 Discharge Plan Discharge Attending physician on discharge: Lindy Kent Consulting providers: Sharad Navarrete; Laurie Mccain Discharging Clinician: Lindy Kent Anticipated Discharge Date/Time: 09/10/24 13:23 Patient Disposition: Home Activity: may shower Diet: diabetic Discharge Instructions: Restrict fluids to 1.5 liters a day (for sodium levels) Follow up with your PCP in 1-2 weeks Follow up with urology for catheter management in 2 weeks Patient Instructions: Antibiotic Form, Heart Failure (DC) Patient Language: Vietnamese Stand Alone Forms: General Discharge Information Follow-up/Referrals: Chai Zhong MD [Primary Care Provider] - 2 Weeks Derek García MD [Physician] - Call for Appointment (Catheter exchange, formal prostate evaluation ) Discharge Medications: New furosemide 40 mg Tablet 40 mg PO DAILY 30 Days Qty: 30 0RF lisinopril 5 mg Tablet 5 mg PO QAM Qty: 30 0RF citalopram [Celexa] 20 mg Tablet 10 mg PO QAM Qty: 30 0RF apixaban 5 mg tablet 5 mg PO BID Qty: 60 1RF Continued tamsulosin [Flomax] 0.4 mg capsule 0.4 mg PO HS Qty: 30 0RF finasteride 5 mg tablet 5 mg PO DAILY Qty: 30 0RF Other Ambulatory Orders: Basic Metabolic Panel (Routine) Timeframe: 1 Week Location: Determined by Patient Ordered By: Lindy Kent Complete Blood Count with Diff (Routine) Timeframe: 1 Week Location: Determined by Patient Ordered By: Lindy Kent Date of admission: 09/04/24 08:44 Primary Care Provider: Chai Zhong Admitting Provider: Salome Waller Attending physician on admission: Salome Waller Condition: Stable Quality VTE Prophylaxis VTE prophylaxis: pharmacologic ordered Hospitalist MIPS Heart Failure (Exclusion) Patient has history of Heart Transplant or Left Ventricular Assistive Device?: No IF YES, STOP HERE Heart Failure (Qualifier) Patient has current or prior documentation of LVEF less than or equal to 40%, or mod/servere depressed LVSF?: Yes IF NO, STOP HERE If Yes, Heart Failure (Qualifier) Patient was prescribed or already taking an Angiotensin-Converting Enzyme (CHER) Inhibitor, or Antiotensin Receptor Barb (ARB): Yes Patient was prescribed or already taking bisoprolol, carvedilol, or sustained release metoprolol succinate: No If Medications not prescribed/taking Reason patient not prescribed/taking bisoprolol, carvedilol, or sustained realease metoprolol succinate: Medical reasons: allergy, intolerance, contraindication or other
== END 2024-09-10 14:45 | disposition home or self-care (01) | DRG 292 ==
LOC: ANHED 06:50 → ANH3MEDSUR 08:46
PROVIDERS: Family Medicine; Internal Medicine; Admitting Provider General Practice; Emergency Provider Emergency Medicine; PCP Family Medicine; Visit Provider Nurse Practitioner Acute Care
DX: I50.43 Acute on chronic combined systolic (congestive) and diastolic (congestive) heart failure (principal); N39.0 Urinary tract infection, site not specified; T83.511A Infection and inflammatory reaction due to indwelling urethral catheter, initial encounter; B96.89 Other specified bacterial agents as the cause of diseases classified elsewhere; R33.9 Retention of urine, unspecified; K40.90 Unilateral inguinal hernia, without obstruction or gangrene, not specified as recurrent; M17.0 Bilateral primary osteoarthritis of knee; E11.9 Type 2 diabetes mellitus without complications; N40.1 Benign prostatic hyperplasia with lower urinary tract symptoms; R33.8 Other retention of urine; M79.641 Pain in right hand; I48.91 Unspecified atrial fibrillation; F17.210 Nicotine dependence, cigarettes, uncomplicated
CPT/HCPCS: 36415; 71045; 80048; 80053; 80307; 82077; 83036; 83735; 83880; 85025; 85027; 93005; 93970; 96365; 96366; 96375; 97110; 97116; 97161; 97165; 99285; A9270; C8929; J0696; J1650; J1885; J1938; Q9957

== ENCOUNTER 2024-09-23 06:03 | Emergency (ER) | payer MEDICARE, SELFPAY ==
--- OUTSIDE RECORDS SUMMARY | 2024-09-23 06:05 | XMS_ITS | Referral Summary ---
Author Organization [facility] Address [address] [place] [address] Care Team Providers Care Well Logger Name Role Phone Chai Zhong MD Primary Care Provider [phone] Encounters Date Type Department Care Team Description 09/13/2024 Orders Only [facility] Medical Group Cardiology [address] [place] [address] Laurie Mccain NP 09/11/2024 Orders Only [facility] Medical [facility] Cardiology [address] [facility] [address] [place] [address] Laurie Mccain NP from Last 3 Months Allergies No known active allergies Medications finasteride [...] on file Legal Sex 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 Gender Identity Not on file Sexual Orientation Not on file Last Filed Vital Signs Vital Sign Reading Time Taken Comments Blood Pressure 124/69 12/29/2022 3:48 PM INSTRUCTOR BALLROOM DANCING Pulse 85 12/29/2022 3:48 PM INSTRUCTOR BALLROOM DANCING Temperature 36.3 C (97.4 F) 12/29/2022 3:48 PM INSTRUCTOR BALLROOM DANCING Respiratory Rate 20 12/29/2022 6:19 AM INSTRUCTOR BALLROOM DANCING Oxygen Saturation 99% 12/29/2022 3:48 PM INSTRUCTOR BALLROOM DANCING Inhaled Oxygen Concentration - - Weight 95.4 kg (210 lb 4.8 oz) 12/23/2022 10:45 PM CDT Height 182.9 cm (6') 12/23/2022 10:45 PM CDT Body Mass Index 28.52 12/23/2022 10:45 PM CDT Plan of Treatment Not on file Procedures Procedure Name Priority Date/Time Associated Diagnosis Comments CARDIOLOGY DOCUMENT SCAN Routine 09/09/2024 9:55 AM CDT CARDIOLOGY DOCUMENT SCAN Routine 09/08/2024 9:52 AM CDT CARDIOLOGY DOCUMENT SCAN Routine 09/07/2024 3:24 PM CDT CARDIOLOGY DOCUMENT SCAN Routine 09/06/2024 9:48 AM CDT from Last 3 Months Results * Cardiology Document Scan (09/09/2024 9:55 AM CDT) Anatomical Region Laterality Modality Other Chai Lynn MD CV CARDIAC SERVICES PROC EDURES Final Result * Cardiology Document Scan (09/08/2024 9:52 AM CDT) Anatomical Region Laterality Modality Other Chai Lynn MD CV CARDIAC SERVICES PROC EDURES Final Result * Cardiology Document Scan (09/07/2024 3:24 PM CDT) Anatomical Region Laterality Modality Other Laurie Mccain NP CV CARDIAC SERVICES PROCEDUR ES Final Result * Cardiology Document Scan (09/06/2024 9:48 AM CDT) Anatomical Region Laterality Modality Other Laurie Mccain NP CV CARDIAC SERVICES PROCEDUR ES Final Result from Last 3 Months Insurance MEDICARE Advance Directives For more information, please contact: [phone] * Full Code (Latest Code Status on File) Date Activated Date Inactivated Comments 12/24/2022 12:23 AM 12/29/2022 9:26 PM Care Teams Well Logger Relationship Specialty Start Date End Date Chai Zhong MD [facility] [place] [address] PCP - General Family Medicine 12/23/22
--- OUTSIDE RECORDS SUMMARY | 2024-09-23 06:05 | XMS_ITS | Clinical Summary ---
Author Organization [facility] Address [address] [place] [address] Phone Care Team Providers Care Import Dispatcher Name Role Phone Chai Zhong MD Primary Care Provider [phone] Allergies No known active allergies Medications docusate [...] culture positive 01/20/2024 01/20/2024 Abscess 01/16/2024 01/20/2024 Encounters Date Type Department Care Team Description 09/18/2024 Telephone [facility] [address] [place] [address] Vinnie Bradley, BULL BUCKER, CATTLE TESTER from Last 3 Months Family History Medical History Relation Name Comments Diabetes Mother Relation Name Status Comments Father Alive Mother Social History Tobacco Use Types Packs/Day Years Used Date Smoking Tobacco: Some Days Cigars Smokeless Tobacco: Never Tobacco Cessation:Ready to Q uit: No; Counseling Given: Yes Comments:celebratory Alcohol Use Standard Drinks/Week Comments No 0 (1 standard drink = 0.6 oz pur e alcohol) [facility] Utilities Answer Date Recorded In the past 12 months has [employer], gas, oil, or water company threatened to [...] time in the past 12 m [facility], were you homeless or living in a fpc (including now)? Patient declined 01/16/2024 Sexually Active Control Partners Comments Never Sex and Gender Information Value Date Recorded Sex Assigned at Not on file Legal Sex Male 10:38 PM CDT Gender Identity Not on file Sexual Orientation Not on file Last Filed Vital Signs Vital Sign Reading Time Taken Comments Blood Pressure 126/61 01/20/2024 2:29 PM ACCOUNTS PAYABLE BOOKKEEPER Pulse 76 01/19/2024 12:47 PM ACCOUNTS PAYABLE BOOKKEEPER Temperature 36.8 C (98.2 F) 01/20/2024 2:29 PM ACCOUNTS PAYABLE BOOKKEEPER Respiratory Rate 20 01/20/2024 2:29 PM ACCOUNTS PAYABLE BOOKKEEPER Oxygen Saturation 100% 01/20/2024 2:29 PM ACCOUNTS PAYABLE BOOKKEEPER Inhaled Oxygen Concentration - - Weight 103.5 kg (228 lb 1.6 oz) 01/16/2024 6:30 PM ACCOUNTS PAYABLE BOOKKEEPER Height 185.4 cm (6' 1) 01/16/2024 6:30 PM ACCOUNTS PAYABLE BOOKKEEPER Body Mass Index 30.09 01/16/2024 6:30 PM ACCOUNTS PAYABLE BOOKKEEPER Plan of Treatment Health Maintenance Due Date [...] 2016 AAA Screening Ultrasound 2021 SARS-COV-2 Immunization () 10/23/2023 Influenza Immunization (#1) 2024 Hepatitis B Immunization [...] measures to stabilize the patient. Care Teams Import Dispatcher Relationship Specialty Start Date End Date Chai Zhong MD [address] [place] [address] [address] [place] [address] PCP - General Family Medicine 12/12/17
--- OUTSIDE RECORDS SUMMARY | 2024-09-23 06:05 | XMS_ITS | Clinical Summary ---
Author Organization [facility] Address [address] [place] [address] Care Team Providers Care Ham Boner Name Role Phone Chai Zhong MD Primary Care Provider [phone] Allergies No known active allergies Medications finasteride [...] Acute psychosis 12/25/2022 Acute urinary retention 12/23/2022 Encounters Date Type Department Care Team Description 09/13/2024 Orders Only [facility] Medical [facility] Cardiology [address] [facility] [address] [place] [address] Laurie Mccain NP 09/11/2024 Orders Only [facility] Medical Group Cardiology [address] [place] [address] Laurie Mccain NP from Last 3 Months Social History Tobacco Use Types Packs/Day Years [...] on file 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 Gender Identity Not on file Sexual Orientation Not on file Obstetrics History Last Filed Vital Signs Vital Sign Reading Time Taken Comments Blood Pressure 124/69 12/29/2022 3:48 PM DANCE ENTERTAINER Pulse 85 12/29/2022 3:48 PM DANCE ENTERTAINER Temperature 36.3 C (97.4 F) 12/29/2022 3:48 PM DANCE ENTERTAINER Respiratory Rate 20 12/29/2022 6:19 AM DANCE ENTERTAINER Oxygen Saturation 99% 12/29/2022 3:48 PM DANCE ENTERTAINER Inhaled Oxygen Concentration - - Weight 95.4 [...] 2024 Abdominal Aortic Aneurysm (AAA) Screen Completed Procedures Procedure Name Priority Date/Time Associated Diagnosis Comments CARDIOLOGY DOCUMENT SCAN Routine 09/09/2024 9:55 AM CDT CARDIOLOGY DOCUMENT SCAN Routine 09/08/2024 9:52 AM CDT CARDIOLOGY DOCUMENT SCAN Routine 09/07/2024 3:24 PM CDT CARDIOLOGY DOCUMENT SCAN Routine 09/06/2024 9:48 AM CDT from Last 3 Months Results * Cardiology Document Scan (09/09/2024 9:55 AM CDT) Anatomical Region Laterality Modality Other us Chai Lynn MD CV CARDIAC SERVICES PROC EDURES Final Result * Cardiology Document Scan (09/08/2024 9:52 AM CDT) Anatomical Region Laterality Modality Other us Chai Lynn MD CV CARDIAC SERVICES PROC EDURES Final Result * Cardiology Document Scan (09/07/2024 3:24 PM CDT) Anatomical Region Laterality Modality Other Laurie Mccain NP CV CARDIAC SERVICES PROCEDUR ES Final Result * Cardiology Document Scan (09/06/2024 9:48 AM CDT) Anatomical Region Laterality Modality Other us Laurie Mccain NP CV CARDIAC SERVICES PROCEDUR ES Final Result from Last 3 Months Insurance MEDICARE [facility] Address: [address] [address] Advance Directives For more information, please contact: [phone] * Full Code (Latest Code Status on File) Date Activated Date Inactivated Comments 12/24/2022 12:23 AM 12/29/2022 9:26 PM Care Teams Ham Boner Relationship Specialty Start Date End Date Chai Zhong MD [employer] [address] [place] [place] [id number] PCP - General Family Medicine 12/23/22
[2024-09-23 06:16] VITALS: BP 126/80; PULSE 80; RESP 18; O2SAT 97
--- NOTE | 2024-09-23 06:35 | ED_ITS ---
HPI - Male Genitourinary General Chief complaint: Urogenital-Male <Thu Chambers MD - Last Filed: 09/23/24 06:37> Stated complaint: clogged catheter <Thu Chambers MD - Last Filed: 09/23/24 06:37> Time Seen by Provider: 09/23/24 06:13 <Thu Chambers MD - Last Filed: 09/23/24 06:37> History of Present Illness HPI Narrative: Patient presents after noticing that his Muniz has not been draining for hours, he is having more distension and discomfort. <Thu Chambers MD - Last Filed: 09/23/24 06:37> Related Data Allergies/Adverse reactions: Allergies Allergy/AdvReac Type Severity Reaction Status Date / Time No Known Allergies Allergy Verified 09/23/24 06:19 <Thu Chambers MD - Last Filed: 09/23/24 06:37> Review of Systems Review of Systems: All systems reviewed & are unremarkable except as noted in HPI and below <Thu Chambers MD - Last Filed: 09/23/24 06:37> [facility] Past Medical History Medical History: Medical History Inguinal hernia Enlarged prostate Degenerative arthritis of knee, bilateral Hemoglobin A1c less than 7.0% last A1c in chart was 6.5 in july of 2018 Type 2 diabetes mellitus without complication, without long-term current use of insulin <Thu Chambers MD - Last Filed: 09/23/24 06:37> Surgical History Surgical History: Surgical History History of prostate surgery 2018 <Thu Chambers MD - Last Filed: 09/23/24 06:37> Family History Family History: Family History Father Diabetes mellitus Mother Diabetes mellitus Family history of malignant neoplasm of breast in first degree relative Cancer Sibling Family history of cardiovascular disease Cancer <Thu Chambers MD - Last Filed: 09/23/24 06:37> Social History Social History: Social History Social History: Smoking packs per day: 0.5 Smoking cigarettes per day: 10.0 Years smoked: 5 Smoking pack-years: 2.50 Smoking status: Current every day smoker Tobacco type: cigarettes Alcohol intake: unknown Substance use: current Substance use type: does not use Other substance usage details: I don't remember Do You Feel Safe in your Home?: Yes Lack of Transportation: No Lack of Food: Sometimes True Current Housing: I Do Not Have Housing Concerned About Future Housing: YES Difficulty Paying Gas/Electric Bills: YES Difficulty Paying for Meds: YES Currently Unemployed: No Education: Decline to Answer Difficulty w/ Childcare or Family Care: No Occupation/Education: retired Gender identity (if verbalized by the patient): Male Spiritual care concerns: No <Thu Chambers MD - Last Filed: 09/23/24 06:37> Exam Narrative: EXAMINATION OF ORGAN SYSTEMS/BODY AREAS: Constitutional: Vital signs per nursing GENERAL: Appears uncomfortable HEAD: Normal with no signs of head trauma. EYES: EOMI, conjunctiva normal ENT: Hearing grossly intact LUNGS: Nonlabored breathing. HEART: [Regular rate and rhythm] ABD: [Soft], slightly distended : Impressively massive inguinal hernia EXT: Normal range of motion SKIN: [No rashes or lesions.] NEURO: [Alert and oriented x 3. No gross focal sensory or strength deficits.] PSYCH: Normal affect <Thu Chambers MD - Last Filed: 09/23/24 06:37> Course Course Emergency Course: Patient care was signed out to me by the overnight physician. UA was pending at time of sign-out. UA is concerning for urinary tract infection. Patient did have +3 leukocytes, high red blood cells high white blood cells +4 bacteria. Was treated with 1 g of IV Rocephin in the emergency department. Patient be discharged home on Keflex. Patient's most recent urine culture on 08/18/2024 was an Enterobacter species was pansensitive. Patient was encouraged close follow-up with his primary care physician. All questions concerns were addressed. <Jarred Oseguera MD - Last Filed: 09/23/24 17:15> Vital Signs Vital signs: Vital Signs Pulse Rate 80 09/23/24 06:16 Respiratory Rate 18 09/23/24 06:16 Blood Pressure 126/80 09/23/24 06:16 Pulse Oximetry 97 09/23/24 06:16 Pulse Rate 68 09/23/24 09:31 Respiratory Rate 16 09/23/24 09:31 Blood Pressure 111/78 09/23/24 09:31 Pulse Oximetry 96 09/23/24 09:31 <Thu Chambers MD - Last Filed: 09/23/24 06:37> Vital Signs Pulse Rate 80 09/23/24 06:16 Respiratory Rate 18 09/23/24 06:16 Blood Pressure 126/80 09/23/24 06:16 Pulse Oximetry 97 09/23/24 06:16 Pulse Rate 68 09/23/24 09:31 Respiratory Rate 16 09/23/24 09:31 Blood Pressure 111/78 09/23/24 09:31 Pulse Oximetry 96 09/23/24 09:31 <Jarred Oseguera MD - Last Filed: 09/23/24 17:15> MDM - Male Genitourinary MDM Narrative Medical decision making narrative: Patient presenting due to concern for Muniz malfunction, has not been draining, nursing staff successfully able to exchange Muniz with improvement in symptoms. I will check for UTI again and signed out to oncoming physician pending this. <Thu Chambers MD - Last Filed: 09/23/24 06:37> Lab Data Labs: Lab Results 09/23/24 Range/Units 06:37 Urine Color Preston H (Yellow) Urine Appearance Turbid H (Clear) Urine pH 5.5 (5.0-9.0) Ur Specific [place] 1.022 (1.001-1.035) Urine Protein 3+ H (Negative) mg/dL Urine Glucose (UA) Negative (Negative) mg/dL Urine Ketones Negative (Negative) mg/dL Ur Blood (Man) 3+ H (Negative) Urine Nitrate Negative (Negative) Urine Bilirubin Negative (Negative) Urine Urobilinogen 1.0 (<2.0) mg/dL Add Ur Microanalysis Reviewed Leukocyte Esterase Rfl 3+ H (Negative) KATHARINA/UL Urine RBC >100 H (0-2) /hpf Urine WBC >100 H (0-3) /hpf Ur Squamous Epith Cells None seen (Few) /hpf Urine Bacteria 4+ H /hpf Urine Casts 0-2 <Thu Chambers MD - Last Filed: 09/23/24 06:37> Lab Results 09/23/24 Range/Units 06:37 Urine Color Preston H (Yellow) Urine Appearance Turbid H (Clear) Urine pH 5.5 (5.0-9.0) Ur Specific [place] 1.022 (1.001-1.035) Urine Protein 3+ H (Negative) mg/dL Urine Glucose (UA) Negative (Negative) mg/dL Urine Ketones Negative (Negative) mg/dL Ur Blood (Man) 3+ H (Negative) Urine Nitrate Negative (Negative) Urine Bilirubin Negative (Negative) Urine Urobilinogen 1.0 (<2.0) mg/dL Add Ur Microanalysis Reviewed Leukocyte Esterase Rfl 3+ H (Negative) KATHARINA/UL Urine RBC >100 H (0-2) /hpf Urine WBC >100 H (0-3) /hpf Ur Squamous Epith Cells None seen (Few) /hpf Urine Bacteria 4+ H /hpf Urine Casts 0-2 <Jarred Oseguera MD - Last Filed: 09/23/24 17:15> Discharge Plan Discharge Clinical Impression: Malfunction of Muniz catheter, Urinary tract infection <Thu Chambers MD - Last Filed: 09/23/24 06:37> Patient Disposition: Home <Thu Chambers MD - Last Filed: 09/23/24 06:37> Condition: Stable <Thu Chambers MD - Last Filed: 09/23/24 06:37> Instructions: Antibiotic Form, Urinary Tract Infection in Men (ED), Muniz Catheter Placement and Care (ED) <Thu Chambers MD - Last Filed: 09/23/24 06:37> Additional Instructions: Antibiotic as directed until completed. Please follow-up with your urologist. If you have any worsening symptoms then please call or return to the emergency department. <Thu Chambers MD - Last Filed: 09/23/24 06:37> Patient Language: Malaysian <Thu Chambers MD - Last Filed: 09/23/24 06:37> Prescriptions: New cephalexin 500 mg capsule 500 mg PO Q8H 7 Days Qty: 21 0RF No Action furosemide 40 mg Tablet 40 mg PO DAILY 30 Days Qty: 30 0RF lisinopril 5 mg Tablet 5 mg PO QAM Qty: 30 0RF citalopram [Celexa] 20 mg Tablet 10 mg PO QAM Qty: 30 0RF apixaban 5 mg tablet 5 mg PO BID Qty: 60 1RF tamsulosin [Flomax] 0.4 mg capsule 0.4 mg PO HS Qty: 30 0RF finasteride 5 mg tablet 5 mg PO DAILY Qty: 30 0RF <Thu Chambers MD - Last Filed: 09/23/24 06:37> Follow-up/Referrals: Chai Zhong MD [Primary Care Provider] - <Thu Chambers MD - Last Filed: 09/23/24 06:37>
--- OUTSIDE RECORDS SUMMARY | 2024-09-23 06:38 | XMS_ITS | Referral Summary ---
Author Organization [facility] Address [address] [place] [address] Care Team Providers Care Hand Glass Cutter Name Role Phone Chai Zhong MD Primary Care Provider [phone] [phone] Encounters Date Type Department Care Team Description 09/13/2024 Orders Only [facility] Medical Group Cardiology [address] [place] [address] Laurie Mccain NP 09/11/2024 Orders Only [facility] Medical [facility] Cardiology [address] [facility] [address] [place] [address] Laurie Mccain NP from Last [...] on file Legal Sex Male 2:21 AM AMORTIZATION SCHEDULE CLERK Gender Identity Not on file Sexual Orientation Not on file Last Filed Vital Signs Vital Sign Reading Time Taken Comments Blood Pressure 124/69 12/29/2022 3:48 PM AMORTIZATION SCHEDULE CLERK Pulse 85 12/29/2022 3:48 PM AMORTIZATION SCHEDULE CLERK Temperature 36.3 C (97.4 F) 12/29/2022 3:48 PM AMORTIZATION SCHEDULE CLERK Respiratory Rate 20 12/29/2022 6:19 AM AMORTIZATION SCHEDULE CLERK Oxygen Saturation 99% 12/29/2022 3:48 PM AMORTIZATION SCHEDULE CLERK Inhaled Oxygen Concentration - - Weight [...] AM CDT) Anatomical Region Laterality Modality Other Cahi Lynn MD CV CARDIAC SERVICES PROC EDURES [...] Advance Directives For more information, please contact: [phone] * Full Code (Latest Code Status on File) Date Activated Date Inactivated Comments 12/24/2022 12:23 AM 12/29/2022 9:26 PM Care Teams Hand Glass Cutter Relationship Specialty Start Date End Date Chai Zhong MD [facility] [facility] [place] [address] PCP - General Family Medicine 12/23/22
--- OUTSIDE RECORDS SUMMARY | 2024-09-23 06:38 | XMS_ITS | Clinical Summary ---
Author Organization [facility] Address [address] [place] [address] Phone Care Team Providers Care Agricultural Adviser Name Role Phone Chai Zhong MD Primary Care Provider [phone]- [phone] Allergies No known active allergies Medications docusate [...] Type Department Care Team Description 09/18/2024 Telephone [facility] [address] [place] [address] Vinnie Bradley, LEAD OPERATOR, MARKETING FINANCIAL ANALYST from Last 3 Months Family History Medical History Relation Name Comments Diabetes Mother Relation Name Status Comments Father Alive Mother Social History Tobacco Use Types Packs/Day Years Used Date Smoking Tobacco: Some Days Cigars Smokeless Tobacco: Never Tobacco Cessation:Ready to Q uit: No; Counseling Given: Yes Comments:celebratory Alcohol Use Standard Drinks/Week Comments No 0 (1 standard drink = 0.6 oz pur e alcohol) [facility] Utilities Answer Date Recorded In the past 12 months has [employer], gas, oil, or water company threatened to [...] were you homeless or living in a care home (including now)? Patient declined 01/16/2024 Sexually Active Control Partners Comments Never Sex and Gender Information Value Date Recorded Sex Assigned at Not on file Legal Sex Male 10:38 PM CDT Gender Identity Not on file Sexual Orientation Not on file Last Filed Vital Signs Vital Sign Reading Time Taken Comments Blood Pressure 126/61 01/20/2024 2:29 PM ORDER EDITOR Pulse 76 01/19/2024 12:47 PM ORDER EDITOR Temperature 36.8 C (98.2 F) 01/20/2024 2:29 PM ORDER EDITOR Respiratory Rate 20 01/20/2024 2:29 PM ORDER EDITOR Oxygen Saturation 100% 01/20/2024 2:29 PM ORDER EDITOR Inhaled Oxygen Concentration - - Weight 103.5 kg (228 lb 1.6 oz) 01/16/2024 6:30 PM ORDER EDITOR Height 185.4 cm (6' 1) 01/16/2024 6:30 PM ORDER EDITOR Body Mass Index 30.09 01/16/2024 6:30 PM ORDER EDITOR Plan of Treatment Health Maintenance Due Date [...] measures to stabilize the patient. Care Teams Agricultural Adviser Relationship Specialty Start Date End Date Chai Zhong MD [address] [place] [address] [address] [place] [address] PCP - General Family Medicine 12/12/17
--- OUTSIDE RECORDS SUMMARY | 2024-09-23 06:38 | XMS_ITS | Clinical Summary ---
Author Organization [facility] Address [address] [place] [address] Care Team Providers Care Bee Tender Name Role Phone Chai Zhong MD Primary Care Provider [phone] [phone] Allergies No known active allergies Medications finasteride [...] Department Care Team Description 09/13/2024 Orders Only [facility] Medical Group Cardiology [address] [place] [address] Laurie Mccain NP 09/11/2024 Orders Only [facility] Medical Group Cardiology [address] [place] [address] Laurie Mccain NP from Last 3 Months [...] on file Legal Sex Male 2:21 AM INVESTMENT BANKING ASSOCIATE Gender Identity Not on file Sexual Orientation Not on file Obstetrics History Last Filed Vital Signs Vital Sign Reading Time Taken Comments Blood Pressure 124/69 12/29/2022 3:48 PM INVESTMENT BANKING ASSOCIATE Pulse 85 12/29/2022 3:48 PM INVESTMENT BANKING ASSOCIATE Temperature 36.3 C (97.4 F) 12/29/2022 3:48 PM INVESTMENT BANKING ASSOCIATE Respiratory Rate 20 12/29/2022 6:19 AM INVESTMENT BANKING ASSOCIATE Oxygen Saturation 99% 12/29/2022 3:48 PM INVESTMENT BANKING ASSOCIATE Inhaled Oxygen Concentration - - Weight 95.4 [...] Result from Last 3 Months Insurance MEDICARE [facility] Address: [address] [address] Advance Directives For more information, please contact: [phone] * Full Code (Latest Code Status on File) Date Activated Date Inactivated Comments 12/24/2022 12:23 AM 12/29/2022 9:26 PM Care Teams Bee Tender Relationship Specialty Start Date End Date Chai Zhong MD [facility] [facility] [address] [place] [address] [place] [id number] PCP - General Family Medicine 12/23/22
[2024-09-23 07:02] LABS: Add Urine Microscopic? YES; Appearance Urine Turbid (Clear); Glucose Urine UA Negative (Negative); Leukocyte Esterase Ur 3+ LEU/UL (Negative); Nitrate Urine Negative (Negative); Non Pathogenic Casts 0-2; Specific Grav Ur 1.022 (1.001-1.035)
[2024-09-23 07:09] LABS: Need Manual Microscopic Reviewed
[2024-09-23 08:32] VITALS: BP 113/78; PULSE 74; RESP 15; O2SAT 98
[2024-09-23] MEDS: cefTRIAXone 1 GM in SODIUM CHLORIDE 0.9% IV 50 ML 100 ML IVPB (08:32)
[2024-09-23 08:51] VITALS: BP 102/68; PULSE 73; RESP 14; O2SAT 97
[2024-09-23 09:01] VITALS: BP 115/79; PULSE 60; RESP 15; O2SAT 98
[2024-09-23] MEDS: LACTATED RINGERS 1,000 ML 999 ML IV CONT (09:05)
[2024-09-23 09:31] VITALS: BP 111/78; PULSE 68; RESP 16; O2SAT 96
== END 2024-09-23 09:54 | disposition home or self-care (01) ==
PROVIDERS: Emergency Provider Emergency Medicine; PCP Family Medicine
DX: T83.091A Other mechanical complication of indwelling urethral catheter, initial encounter (principal); N39.0 Urinary tract infection, site not specified; E11.9 Type 2 diabetes mellitus without complications; N40.0 Benign prostatic hyperplasia without lower urinary tract symptoms; M17.0 Bilateral primary osteoarthritis of knee; F17.210 Nicotine dependence, cigarettes, uncomplicated; Y84.6 Urinary catheterization as the cause of abnormal reaction of the patient, or of later complication, without mention of misadventure at the time of the procedure; Z79.01 Long term (current) use of anticoagulants; Z79.899 Other long term (current) drug therapy
CPT/HCPCS: 51702; 81001; 87086; 96361; 96365; 99284; J0696; J7120

== ENCOUNTER 2024-12-04 10:17 | Emergency (ER) | payer MEDICARE, SELFPAY ==
--- NOTE | ~2024-12-04 | US_ITS ---
US scrotum doppler INDICATION:Scrotal swelling. COMPARISON:None. FINDINGS: Sonographic evaluation of the scrotum was performed. The right testicle measures 3.7 x 1.8 x 2.8 cm and the left measures 4.4 x 1.5 x 3.2 cm. The testicular echogenicity is homogeneous. Scrotal wall thickening measuring 8.5 mm. Right scrotal wall measures 4.6 mm. No masses are detected. Septated right hydrocele. Cyst in the right epididymis measuring 3.8 x 2.8 mm. Left varicocele. There is questionable left inguinal hernia. Scrotal DOPPLER of the testicles was performed. There are normal arterial waveforms bilaterally. IMPRESSION: Possible left inguinal hernia. Left scrotal wall thickening. Septated right hydrocele. Right epididymal cyst measures 3.8 x 2.8 mm. No evidence for testicular torsion. Reviewed, dictated and finalized at location S.
--- NOTE | ~2024-12-04 | CT_ITS ---
CT abdomen pelvis wo con INDICATION:large hernia, recent mello . COMPARISON: None. TECHNIQUE: Axial 2.5 mm images of the abdomen were obtained without IV or oral contrast. Diagnostic sensitivity is limited due to lack of IV contrast. FINDINGS: Moderate right pleural effusion and small left pleural effusion. Groundglass opacities are noted bilaterally. There is bilateral lower lobe infiltrative opacity noted. The liver parenchyma is unremarkable. No intrahepatic mass or ductal dilatation is evident. The gallbladder is unremarkable. The pancreas and spleen are normal in appearance. The adrenal glands are symmetric in size. The kidneys are unremarkable. No intrarenal stones are noted. There is no hydronephrosis. Large left inguinal hernia containing multiple bowel loops. There is large amount of fluid in the scrotal sac may represent strangulation. There is fat- containing right inguinal hernia. Soft tissue density along the posterior lateral wall may represent protruding enlarged prostate or bladder mass cannot be entirely excluded. No free intraperitoneal fluid or air is evident. There is no significant retroperitoneal lymphadenopathy. The aorta, visceral vessels and renal arteries demonstrate normal caliber. The lower thoracic and lumbar vertebrae are in normal alignment. IMPRESSION: Large left inguinal hernia containing large segment bowel loops. There is large amount of fluid in the scrotal sac. Incarcerated hernia cannot be excluded. All CT scans at this facility are performed using low dose modulation techniques as appropriate to perform exam including the following: automated exposure control; use of iterative reconstruction technique; adjustment of the mA and/or kV according to patient size (this includes techniques or standardized protocols for targeted exams where dose is matched to indication/reason for exam). Reviewed, dictated and finalized at location S. IMPRESSION: Large left inguinal hernia containing large segment bowel loops. There is large amount of fluid in the scrotal sac. Incarcerated hernia cannot be excluded. All CT scans at this facility are performed using low dose modulation techniqu es as appropriate to perform exam including the following: automated exposure c ontrol; use of iterative reconstruction technique; adjustment of the mA and/or kV according to patient size (this includes techniques or standardized protocol s for targeted exams where dose is matched to indication/reason for exam).
[2024-12-04 10:24] VITALS: BP 117/79; PULSE 84; RESP 16; TEMP 36.2; O2SAT 96
--- OUTSIDE RECORDS SUMMARY | 2024-12-04 11:49 | XMS_ITS | Clinical Summary ---
Author Organization [facility] Address [address] [place] [address] Care Team Providers Care Machine Cementer Name Role Phone Chai Zhong MD Primary Care Provider [phone] [phone] Allergies No known active allergies Medications finasteride [...] Department Care Team Description 09/13/[address] [facility] Medical Group Cardiology [address] [facility] [address] [place] [address] Laurie Mccain NP 09/11/[address] [facility] Medical Group Cardiology [address] [place] [address] Laurie Mccain NP from Last 3 Months [...] on file Legal Sex Male 2:21 AM MINE CAR DISPATCHER Gender Identity Not on file Sexual Orientation Not on file Obstetrics History Last Filed Vital Signs Vital Sign Reading Time Taken Comments Blood Pressure 124/69 12/29/2022 3:48 PM MINE CAR DISPATCHER Pulse 85 12/29/2022 3:48 PM MINE CAR DISPATCHER Temperature 36.3 C (97.4 F) 12/29/2022 3:48 PM MINE CAR DISPATCHER Respiratory Rate 20 12/29/2022 6:19 AM MINE CAR DISPATCHER Oxygen Saturation 99% 12/29/2022 3:48 PM MINE CAR DISPATCHER Inhaled Oxygen Concentration - - Weight 95.4 kg (210 lb 4.8 oz) 12/23/2022 10:45 PM CDT Height 182.9 cm (6') 12/23/2022 10:45 PM CDT Body Mass Index 28.52 12/23/2022 10:45 PM CDT Plan of Treatment Health Maintenance Due Date Last Done Comments Albumin Creatinine Ratio, Urine 1956 Colon Cancer Screening-Colonoscopy 1956 Depression Screening 1956 Hemoglobin A1C 1956 Hepatitis C Screening 1956 Prostate Cancer Screening-PSA 1956 Dilated Eye Exam 1956 Foot Exam 1956 Lipid Panel 1956 DTaP/Tdap/Td Vaccine (1 - Tdap) 10/26/1967 Hepatitis B Screening 1974 Pneumococcal vaccine 65+ (1 of 2 - PCV) 10/26/1975 Zoster Vaccine (1 of 2) 2006 Well Visit 65+ 2021 eGFR 12/29/2023 12/28/2022, 11/0 07/2022, 12/26/2022, Additional history exists Fall Risk Assessment 12/30/2023 12/29/2022 Influenza Vaccine (#1) 2024 Abdominal Aortic Aneurysm (A AA) Screen Completed 01/16/2024 Procedures Procedure Name Priority Date/Time Associated Diagnosis Comments CARDIOLOGY DOCUMENT SCAN Routine 09/09/2024 9:55 AM CDT CARDIOLOGY DOCUMENT SCAN Routine 09/08/2024 9:52 AM CDT CARDIOLOGY DOCUMENT SCAN Routine 09/07/2024 3:24 PM CDT CARDIOLOGY DOCUMENT SCAN Routine 09/06/2024 9:48 AM CDT EGFR Routine 12/28/2022 3:50 AM MINE CAR DISPATCHER from Last 3 Months or Most Recently Relevant to Health Maintenance Results * Cardiology Document Scan (09/09/2024 9:55 [...] CARDIAC SERVICES PROCEDUR ES Final Result * eGFR (12/28/2022 3:50 AM MINE CAR DISPATCHER) eGFR 100 mL/min/1. 73 m2 [facility] ([place]) Comment: Interpretive Data Reference Interval Normal >/= 90 mL/min/1.73m2 Mildly decreased* 60 - 89 mL/min/1.73m2 Mildly to moderately decreased 45 - 59 mL/min/1.73m2 Moderately to severely decreased 30 - 44 mL/min/1.73m2 Severely decreased 15 - 29 mL/min/1.73m2 Kidney Failure < 15 mL/min/1.73m2 *Relative to young adult level Estimated glomerular filtration rate is determined by the 2020 CKD-EPI equation recommended by the National Kidney Foundation (A Unifying Approach to GFR Estimation: Recommendations of the NKF-ASK Task Force on Reassessing the Inclusion of Race in Diagnosing Kidney Disease, JASN 2020). The CKD-EPI equation should not be used for patients with unstable renal function and has not been validated in children and those over 70. Current interpretive data was last reviewed 2020. Blood 12/28/2022 3:50 AM MINE CAR DISPATCHER 12/28/2022 4:12 AM MINE CAR DISPATCHER us Melchor Maya MD LAB BLOOD ORDERABLES Fi nal Result [facility] ([place]) 1 [facility] Department [place] [address] from Last 3 Months or Most Recently Relevant to Health Maintenance Insurance MEDICARE Advance Directives For more information, please contact: [phone] * Full Code (Latest Code Status on File) Date Activated Date Inactivated Comments 12/24/2022 12:23 AM 12/29/2022 9:26 PM Care Teams Machine Cementer Relationship Specialty Start Date End Date Chai Zhong MD [address] [place] [address] [place] [address] PCP - General Family Medicine 12/23/22
--- OUTSIDE RECORDS SUMMARY | 2024-12-04 11:49 | XMS_ITS | Clinical Summary ---
Author Organization [facility] Address [address] [place] [address] Phone Care Team Providers Care Fleet Salesperson Name Role Phone Chai Zhong MD Primary Care Provider [phone]- [phone] Allergies No known active allergies Medications docusate [...] Type Department Care Team Description 09/18/2024 Telephone [facility] [address] [place] [address] Vinnie Bradley, TOOL POLISHING MACHINE OPERATOR, RETURNED TELEPHONE EQUIPMENT APPRAISER from Last 3 Months Family History Medical History Relation Name Comments Diabetes Mother Relation Name Status Comments Father Alive Mother Social History Tobacco Use Types Packs/Day Years Used Date Smoking Tobacco: Some Days Cigars Smokeless Tobacco: Never Tobacco Cessation:Ready to Q uit: No; Counseling Given: Yes Comments:celebratory Alcohol Use Standard Drinks/Week Comments No 0 (1 standard drink = 0.6 oz pur e alcohol) [facility] Utilities Answer Date Recorded In the past 12 months has [employer], gas, oil, or water company threatened to [...] any time in the past 12 m [facility], were you homeless or living in [...] Comments Blood Pressure 126/61 01/20/2024 2:29 PM DRUG ABUSE COUNSELOR Pulse 76 01/19/2024 12:47 PM DRUG ABUSE COUNSELOR Temperature 36.8 C (98.2 F) 01/20/2024 2:29 PM DRUG ABUSE COUNSELOR Respiratory Rate 20 01/20/2024 2:29 PM DRUG ABUSE COUNSELOR Oxygen Saturation 100% 01/20/2024 2:29 PM DRUG ABUSE COUNSELOR Inhaled Oxygen Concentration - - Weight 103.5 kg (228 lb 1.6 oz) 01/16/2024 6:30 PM DRUG ABUSE COUNSELOR Height 185.4 cm (6' 1) 01/16/2024 6:30 PM DRUG ABUSE COUNSELOR Body Mass Index 30.09 01/16/2024 6:30 PM DRUG ABUSE COUNSELOR Plan of Treatment Health Maintenance Due Date [...] 1-dose series) 2016 AAA Screening Ultrasound 2021 Medicare Initial AWV [id number] 10/22/2022 Influenza Immunization (#1) 2024 SARS-COV-2 Immunization ( season) 2024 Hepatitis B Immunization Aged Out No [...] measures to stabilize the patient. Care Teams Fleet Salesperson Relationship Specialty Start Date End Date Chai Zhong MD [address] [place] [address] [place] [address] PCP - General Family Medicine 12/12/17
--- NOTE | 2024-12-04 14:25 | ED.ABDPAIN ---
HPI - Abdominal Pain General Chief Complaint: Recheck/Abnormal Lab/Rx <Keshia Lazaro PA-C - Last Filed: 12/04/24 18:20> Stated Complaint: catheter fell out <Keshia Lazaro PA-C - Last Filed: 12/04/24 18:20> Time Seen by Provider: 12/04/24 14:26 <Keshia Lazaro PA-C - Last Filed: 12/04/24 18:20> Focused HPI: This is a 69 year old male that presents to the ER for scrotal swelling. Ongoing for awhile. Also reports his Muniz catheter fell out a couple of days ago. He does report he has been able to urinate. Denies fever, vomiting, dysuria. GENERAL: Disheveled, well-nourished, and in no acute distress. HEAD: Normocephalic, atraumatic. CHEST: Clear to auscultation. ?No respiratory distress. HEART: Regular rate and rhythm.? NEURO: ?Alert and oriented x3. Patient screened in triage and initial orders placed.? ?Additional care and disposition to be based upon?diagnostic testing and treatment. <Keshia Lazaro PA-C - Last Filed: 12/04/24 18:20> History of Present Illness HPI narrative: Agree with the HPI above. Patient's main concern is that his Muniz catheter came out and he is concerned that there might be something left inside of him. Denies any pain or symptoms. Has not quite sure when the catheter was placed although he has been here multiple times for catheter mood issues and malfunctions. Most recently September of this year where he had a Muniz malfunction and catheter placement. Has not followed up outpatient. States that he is able urinate without the catheter and does not want it replaced. Patient only wants to be evaluated to find if he has any retained catheter in him. Has a large inguinal hernia and enlarged scrotum which is chronic and unchanged from baseline. States that he sees a surgeon on outpatient basis and awaiting medical clearance for operation. <Petros Herring MD - Last Filed: 12/05/24 01:55> Related Data Allergies/Adverse Reactions: Allergies Allergy/AdvReac Type Severity Reaction Status Date / Time No Known Allergies Allergy Verified 12/04/24 10:21 <Keshia Lazaro PA-C - Last Filed: 12/04/24 18:20> Review of Systems Review of Systems: As reviewed above in HPI <Petros Herring MD - Last Filed: 12/05/24 01:55> [facility] Past Medical History Medical History: Medical History Inguinal hernia Enlarged prostate Degenerative arthritis of knee, bilateral Hemoglobin A1c less than 7.0% last A1c in chart was 6.5 in july of 2018 Type 2 diabetes mellitus without complication, without long-term current use of insulin <Keshia Lazaro PA-C - Last Filed: 12/04/24 18:20> Surgical History Surgical History: Surgical History History of prostate surgery 2018 <Keshia Lazaro PA-C - Last Filed: 12/04/24 18:20> Family History Family History: Family History Father Diabetes mellitus Mother Diabetes mellitus Family history of malignant neoplasm of breast in first degree relative Cancer Sibling Family history of cardiovascular disease Cancer <Keshia Lazaro PA-C - Last Filed: 12/04/24 18:20> Social History Social History: Social History Social History: Smoking packs per day: 0.5 Smoking cigarettes per day: 10.0 Years smoked: 5 Smoking pack-years: 2.50 Smoking status: Current every day smoker Tobacco type: cigarettes Alcohol intake: unknown Substance use: current Substance use type: does not use Other substance usage details: I don't remember Do You Feel Safe in your Home?: Yes Lack of Transportation: No Lack of Food: Sometimes True Current Housing: I Do Not Have Housing Concerned About Future Housing: YES Difficulty Paying Gas/Electric Bills: YES Difficulty Paying for Meds: YES Currently Unemployed: No Education: Decline to Answer Difficulty w/ Childcare or Family Care: No Occupation/Education: retired Gender identity (if verbalized by the patient): Male Spiritual care concerns: No <Keshia Lazaro PA-C - Last Filed: 12/04/24 18:20> Exam Narrative: GENERAL: [Well-appearing, well-nourished, and in no acute distress.] HEAD: [Normocephalic, atraumatic.] EYES: [PERRLA and EOMI.] ENT: Nares clear, no rhinorrhea or epistaxis. Mucous membranes moist. NECK: Supple. CHEST: [Clear to auscultation. No respiratory distress.] HEART: [Regular rate and rhythm]. No murmur heard. [Normal peripheral pulses.] ABDOMEN: [Soft, nondistended], [nontender], [No rigidity or guarding] : Large scrotum, soft and non indurated, no overlying skin changes. Consistent with known inguinal hernia. No phimosis or paraphimosis. No bleeding from urethral meatus. EXTREMITIES: Normal range of motion. [No edema.] SKIN: Warm, dry, no rash. NEURO: [No focal deficits]. Alert and oriented [x3.] PSYCH: [Normal mood and affect.] <Petros Herring MD - Last Filed: 12/05/24 01:55> Course Vital Signs Vital signs: Vital Signs Temperature 36.2 C L 12/04/24 10:24 Pulse Rate 84 12/04/24 10:24 Respiratory Rate 16 12/04/24 10:24 Blood Pressure 117/79 12/04/24 10:24 Pulse Oximetry 96 12/04/24 10:24 Temperature 36.2 C L 12/04/24 10:24 Pulse Rate 94 12/04/24 15:46 Respiratory Rate 20 12/04/24 15:46 Blood Pressure 117/93 H 12/04/24 15:46 Pulse Oximetry 96 12/04/24 15:46 <Keshia Lazaro PA-C - Last Filed: 12/04/24 18:20> Vital Signs Temperature 36.2 C L 12/04/24 10:24 Pulse Rate 84 12/04/24 10:24 Respiratory Rate 16 12/04/24 10:24 Blood Pressure 117/79 12/04/24 10:24 Pulse Oximetry 96 12/04/24 10:24 Temperature 36.2 C L 12/04/24 10:24 Pulse Rate 94 12/04/24 15:46 Respiratory Rate 20 12/04/24 15:46 Blood Pressure 117/93 H 12/04/24 15:46 Pulse Oximetry 96 12/04/24 15:46 <Petros Herring MD - Last Filed: 12/05/24 01:55> MDM - Abdominal Pain MDM Narrative Medical decision making narrative: 69-year-old male presenting to the emergency department for evaluation after dislodged Muniz catheter. He has a chronic indwelling Muniz catheter he states that he has been having inside for several months as he was having difficulty urinating from his large hiatal hernia. No change in his hernia. No systemic features or complaints. No abdominal pain, pelvic pain, fever, chills. No hematuria. States that he is urinating appropriately and does not need a Muniz catheter and does not wanted reinserted. Patient is concerned that he might have a piece broken off inside. Muniz catheter appears intact as he brought with him. No tachycardia, fever, hypoxia. Workup ordered in triage as well as a CT scan of the abdomen pelvis without contrast to evaluate. Urinalysis ordered. Patient's laboratory studies show a slight leukocytosis 11.5, no significant he may worse than baseline. Normal platelet count. Electrolytes are unremarkable. Normal creatinine, normal glucose and LFTs. Normal bilirubin. Urinalysis shows evidence of urinary tract infection. Previous cultures were reviewed showing bacteria susceptible to Bactrim so he was given a dose of this. No systemic complaints or fever/chills. Normal vital signs. CT scan shows large left inguinal hernia with bowel loops, fluid in the scrotal sac. Compared to prior CT scans this is a chronic finding, patient has no abdominal complaints, pelvic pain or any overlying skin changes concerning for incarceration or strangulation. Hernias soft, reducible but reoccurs secondary to the large defect. Scrotal ultrasound shows no evidence of torsion. There is a hydrocele evident. Epididymal cyst evident. Patient re-evaluated and doing well. No complaints while here in the emergency department. Informed of the CT scan results and discussed surgery referral which patient has previously received but has not continued following up with them due to undisclosed reasons. He is requesting a new surgeon to see. Patient denies any complaints at this time no urinary issues or abdominal pain, pelvic pain, nausea, vomiting. Offered him every insertion of a new Muniz catheter given his large hernia that might cause issues urinating especially with his history of chronic indwelling Muniz. Patient adamantly declines and does not want any new Muniz catheter and urinated several times here without any difficulties. Discussed if he has any retention or developing pain that he needs to return to the hospital or any other concerns such as nausea vomiting, pain or worsening scrotum size or developing any overlying skin changes or signs of infection. Patient agreeable to this plan will be safe for discharge home at this time with Bactrim and general surgery referral. <Petros Herring MD - Last Filed: 12/05/24 01:55> Medical Records Attestation: I reviewed the patient's medical records. <Petros Herring MD - Last Filed: 12/05/24 01:55> Lab Data Attestation: I reviewed the patient's lab results. <Petros Herring MD - Last Filed: 12/05/24 01:55> Result diagrams: 12/04/24 16:37 12/04/24 16:37 <Keshia Lazaro PA-C - Last Filed: 12/04/24 18:20> Labs: Lab Results 12/04/24 12/04/24 Range/Units 16:31 16:37 WBC 11.5 H (4.5-10.0) K/mm3 RBC 4.70 (4.6-6.20) M/mm3 Hgb 12.6 L (14.0-18.0) g/dL Hct 40.1 L (42.0-52.0) % MCV 85.3 (80-100) fl MCH 26.8 (26-34) pg MCHC 31.4 L (32-36) g/dl RDW 16.4 H (11.5-14.5) % Plt Count 177 (150-375) k/mm3 MPV 10.5 H (7.4-10.4) fl Immature Gran % (Auto) 0.4 (0-0.5) % Neut % (Auto) 81.8 H (45.5-73.1) % Lymph % (Auto) 8.5 L (18.3-44.2) % [place] % (Auto) 8.7 H (2.6-8.5) % Eos % (Auto) 0.4 (0-4.4) % Baso % (Auto) 0.2 (0.2-1.2) % Lymph # (Auto) 0.98 (0.9-3.2) K/mm3 [place] # (Auto) 1.0 H (0.1-0.6) K/mm3 Eos # (Auto) 0.1 (0-0.3) K/mm3 Baso # (Auto) 0.0 (0.0-0.1) K/mm3 Abs Immat Gran (auto) 0.05 H (0.00-0.031) K/mm3 Absolute Neuts (auto) 9.4 H (1.3-6.7) K/mm3 Absolute Nucleated RBC 0.000 (0.0-0.012) K/mm3 Nucleated RBC % 0.0 (0.0-0.2) % Sodium 136 L (137-145) mmol/L Potassium 4.2 (3.4-5.0) mmol/L Chloride 99 (98-107) mmol/L Carbon Dioxide 29 (22-30) mmol/L Anion Gap 8 (4-12) mmol/L BUN 19 (9-20) mg/dL Creatinine 0.73 (0.7-1.3) mg/dL Estim Creat Clear Calc 105 ml/min Estimated GFR > 60 (59 - ) Glucose 125 H (65-110) mg/dL Calcium 8.8 (8.4-10.2) mg/dL Total Bilirubin 1.2 (0.2-1.3) mg/dL AST 31 (17-59) U/L ALT 29 (6-50) U/L Alkaline Phosphatase 89 (38-126) U/L Total Protein 6.9 (6.3-8.2) g/dL Albumin 3.7 (3.5-5.1) g/dL Urine Color Dark yellow (Yellow) Urine Appearance Cloudy H (Clear) Urine pH 5.5 (5.0-9.0) Ur Specific [place] 1.021 (1.001-1.035) Urine Protein 2+ H (Negative) mg/dL Urine Glucose (UA) Negative (Negative) mg/dL Urine Ketones Trace H (Negative) mg/dL Ur Blood (Man) 3+ H (Negative) Urine Nitrate Positive H (Negative) Urine Bilirubin Negative (Negative) Urine Urobilinogen 1.0 (<2.0) mg/dL Add Ur Microanalysis Reviewed Leukocyte Esterase Rfl 2+ H (Negative) KATHARINA/UL Urine RBC 21-50 H (0-2) /hpf Urine WBC >100 H (0-3) /hpf Ur Squamous Epith Cells Occasional (Few) /hpf Urine Bacteria 4+ H /hpf Urine Casts 11-20 <Keshia Lazaro PA-C - Last Filed: 12/04/24 18:20> Lab Results 12/04/24 12/04/24 Range/Units 16:31 16:37 WBC 11.5 H (4.5-10.0) K/mm3 RBC 4.70 (4.6-6.20) M/mm3 Hgb 12.6 L (14.0-18.0) g/dL Hct 40.1 L (42.0-52.0) % MCV 85.3 (80-100) fl MCH 26.8 (26-34) pg MCHC 31.4 L (32-36) g/dl RDW 16.4 H (11.5-14.5) % Plt Count 177 (150-375) k/mm3 MPV 10.5 H (7.4-10.4) fl Immature Gran % (Auto) 0.4 (0-0.5) % Neut % (Auto) 81.8 H (45.5-73.1) % Lymph % (Auto) 8.5 L (18.3-44.2) % [place] % (Auto) 8.7 H (2.6-8.5) % Eos % (Auto) 0.4 (0-4.4) % Baso % (Auto) 0.2 (0.2-1.2) % Lymph # (Auto) 0.98 (0.9-3.2) K/mm3 [place] # (Auto) 1.0 H (0.1-0.6) K/mm3 Eos # (Auto) 0.1 (0-0.3) K/mm3 Baso # (Auto) 0.0 (0.0-0.1) K/mm3 Abs Immat Gran (auto) 0.05 H (0.00-0.031) K/mm3 Absolute Neuts (auto) 9.4 H (1.3-6.7) K/mm3 Absolute Nucleated RBC 0.000 (0.0-0.012) K/mm3 Nucleated RBC % 0.0 (0.0-0.2) % Sodium 136 L (137-145) mmol/L Potassium 4.2 (3.4-5.0) mmol/L Chloride 99 (98-107) mmol/L Carbon Dioxide 29 (22-30) mmol/L Anion Gap 8 (4-12) mmol/L BUN 19 (9-20) mg/dL Creatinine 0.73 (0.7-1.3) mg/dL Estim Creat Clear Calc 105 ml/min Estimated GFR > 60 (59 - ) Glucose 125 H (65-110) mg/dL Calcium 8.8 (8.4-10.2) mg/dL Total Bilirubin 1.2 (0.2-1.3) mg/dL AST 31 (17-59) U/L ALT 29 (6-50) U/L Alkaline Phosphatase 89 (38-126) U/L Total Protein 6.9 (6.3-8.2) g/dL Albumin 3.7 (3.5-5.1) g/dL Urine Color Dark yellow (Yellow) Urine Appearance Cloudy H (Clear) Urine pH 5.5 (5.0-9.0) Ur Specific [place] 1.021 (1.001-1.035) Urine Protein 2+ H (Negative) mg/dL Urine Glucose (UA) Negative (Negative) mg/dL Urine Ketones Trace H (Negative) mg/dL Ur Blood (Man) 3+ H (Negative) Urine Nitrate Positive H (Negative) Urine Bilirubin Negative (Negative) Urine Urobilinogen 1.0 (<2.0) mg/dL Add Ur Microanalysis Reviewed Leukocyte Esterase Rfl 2+ H (Negative) KATHARINA/UL Urine RBC 21-50 H (0-2) /hpf Urine WBC >100 H (0-3) /hpf Ur Squamous Epith Cells Occasional (Few) /hpf Urine Bacteria 4+ H /hpf Urine Casts 11-20 <Petros Herring MD - Last Filed: 12/05/24 01:55> Imaging Data Attestation: I personally reviewed and interpreted this imaging study as follows: <Petros Herring MD - Last Filed: 12/05/24 01:55> My impression: Impressions Scrotum Ultrasound 12/04/24 16:09 IMPRESSION: Possible left inguinal hernia. Left scrotal wall thickening. Septated right hydrocele. Right epididymal cyst measures 3.8 x 2.8 mm. No evidence for testicular torsion. Abdomen/Pelvis CT 12/04/24 16:24 IMPRESSION: Large left inguinal hernia containing large segment bowel loops. There is large amount of fluid in the scrotal sac. Incarcerated hernia cannot be excluded. All CT scans at this facility are performed using low dose modulation techniques as appropriate to perform exam including the following: automated exposure control; use of iterative reconstruction technique; adjustment of the mA and/or kV according to patient size (this includes techniques or standardized protocols for targeted exams where dose is matched to indication/reason for exam). <Petros Herring MD - Last Filed: 12/05/24 01:55> Radiologist's impression: ITS Impressions Scrotum Ultrasound 12/04/24 16:09 IMPRESSION: Possible left inguinal hernia. Left scrotal wall thickening. Septated right hydrocele. Right epididymal cyst measures 3.8 x 2.8 mm. No evidence for testicular torsion. Abdomen/Pelvis CT 12/04/24 16:24 IMPRESSION: Large left inguinal hernia containing large segment bowel loops. There is large amount of fluid in the scrotal sac. Incarcerated hernia cannot be excluded. All CT scans at this facility are performed using low dose modulation techniques as appropriate to perform exam including the following: automated exposure control; use of iterative reconstruction technique; adjustment of the mA and/or kV according to patient size (this includes techniques or standardized protocols for targeted exams where dose is matched to indication/reason for exam). <Keshia Lazaro PA-C - Last Filed: 12/04/24 18:20> ITS Impressions Scrotum Ultrasound 12/04/24 16:09 IMPRESSION: Possible left inguinal hernia. Left scrotal wall thickening. Septated right hydrocele. Right epididymal cyst measures 3.8 x 2.8 mm. No evidence for testicular torsion. Abdomen/Pelvis CT 12/04/24 16:24 IMPRESSION: Large left inguinal hernia containing large segment bowel loops. There is large amount of fluid in the scrotal sac. Incarcerated hernia cannot be excluded. All CT scans at this facility are performed using low dose modulation techniques as appropriate to perform exam including the following: automated exposure control; use of iterative reconstruction technique; adjustment of the mA and/or kV according to patient size (this includes techniques or standardized protocols for targeted exams where dose is matched to indication/reason for exam). <Petros Herring MD - Last Filed: 12/05/24 01:55> Discharge Plan Discharge Clinical Impression: Dislodged Muniz catheter, Recurrent left inguinal hernia Urinary tract infection Qualifiers: Urinary tract infection type: catheter-associated UTI Indwelling urinary catheter type: indwelling urethral catheter Encounter type: initial encounter Qualified Code(s): T83.511A - Infection and inflammatory reaction due to indwelling urethral catheter, initial encounter <Keshia Lazaro PA-C - Last Filed: 12/04/24 18:20> Patient Disposition: Home <Keshia Lazaro PA-C - Last Filed: 12/04/24 18:20> Condition: Stable <CONSTANTIN Terrazas Last Filed: 12/04/24 18:20> Instructions: Antibiotic Form, Urinary Tract Infection in Men (ED), Muniz Catheter Placement and Care (ED), Inguinal Hernia (ED), Catheter-associated Urinary Tract Infection (ED), Inguinal Hernia Repair (DC) <Keshia Lazaro PA-C - Last Filed: 12/04/24 18:20> Additional Instructions: You have a urinary tract infection here. Your hernia is large and likely also causing some of your urinary issues with it size and mass effect. If you have difficulties urinating and start developing any pain please return to the emergency department for Muniz catheterization reassessment. You do need to see a general surgeon to get definitive care for your hernia. If you notice any overlying skin changes, foul odor, skin breakdown, fever, chills, abdominal pain, pelvic pain or any other issues please return to the emergency department at that time. Take the antibiotics as prescribed for the next 7 days as well. <CONSTANTIN Terrazas Last Filed: 12/04/24 18:20> Patient Language: American <CONSTANTIN Terrazas Last Filed: 12/04/24 18:20> Prescriptions: New sulfamethoxazole-trimethoprim [Bactrim DS] 800-160 mg tablet 1 tablet PO Q12H Qty: 14 0RF No Action furosemide 40 mg Tablet 40 mg PO DAILY 30 Days Qty: 30 0RF lisinopril 5 mg Tablet 5 mg PO QAM Qty: 30 0RF citalopram [Celexa] 20 mg Tablet 10 mg PO QAM Qty: 30 0RF apixaban 5 mg tablet 5 mg PO BID Qty: 60 1RF tamsulosin [Flomax] 0.4 mg capsule 0.4 mg PO HS Qty: 30 0RF cephalexin 500 mg capsule 500 mg PO Q8H 7 Days Qty: 21 0RF finasteride 5 mg tablet 5 mg PO DAILY Qty: 30 0RF <Keshia Lazaro PA-C - Last Filed: 12/04/24 18:20> Follow-up/Referrals: Chai Zhong MD [Primary Care Provider, Family Practice] Jas Devlin DO [Physician, General Surgery] - 3 Days Referral Note: Large left inguinal hernia, chronic <Keshia Lazaro PA-C - Last Filed: 12/04/24 18:20> Time of Disposition: 17:29 <Keshia Lazaro PA-C - Last Filed: 12/04/24 18:20> 17:29 <Petros Herring MD - Last Filed: 12/05/24 01:55>
[2024-12-04 15:31] VITALS: BP 131/89; PULSE 104; RESP 23; O2SAT 97
[2024-12-04 15:46] VITALS: BP 117/93; PULSE 94; RESP 20; O2SAT 96
[2024-12-04 16:47] LABS: Hematocrit 40.1 % (42.0-52.0); Hemoglobin 12.6 g/dL (14.0-18.0); Immature Granulocyte Percent A 0.4 % (0-0.5); Lymphocytes Absolute Auto 0.98 K/mm3 (0.9-3.2); Mean Corpuscular HGB Conc 31.4 g/dl (32-36); Mean Corpuscular Hemoglobin 26.8 pg (26-34); Mean Corpuscular Volume 85.3 fl (80-100); Nucleated Red Blood Cells Absolute Auto 0.000 K/mm3 (0.0-0.012); Nucleated Red Blood Cells Perc 0.0 % (0.0-0.2); Platelet Count Result 177 k/mm3 (150-375); Red Blood Count 4.70 M/mm3 (4.6-6.20); White Blood Count 11.5 K/mm3 (4.5-10.0)
[2024-12-04 17:03] LABS: Add Urine Microscopic? YES; Appearance Urine Cloudy (Clear); Glucose Urine UA Negative (Negative); Leukocyte Esterase Ur 2+ LEU/UL (Negative); Need Manual Microscopic Reviewed; Nitrate Urine Positive (Negative); Specific Grav Ur 1.021 (1.001-1.035)
[2024-12-04 17:19] LABS: Alanine Aminotransferase 29 U/L (6-50); Albumin Level 3.7 g/dL (3.5-5.1); Alkaline Phosphatase 89 U/L (38-126); Anion Gap 8 mmol/L (4-12); Aspartate Amino Transferase 31 U/L (17-59); Bilirubin,Total 1.2 mg/dL (0.2-1.3); Blood Urea Nitrogen 19 mg/dL (9-20); Calcium 8.8 mg/dL (8.4-10.2); Carbon Dioxide 29 mmol/L (22-30); Chloride 99 mmol/L (98-107); Estimated CRCL calculation 105 ml/min; Estimated Glomerular Filt Rate > 60; Glucose 125 mg/dL (65-110); Potassium 4.2 mmol/L (3.4-5.0); Sodium 136 mmol/L (137-145); Total Protein 6.9 g/dL (6.3-8.2)
--- OUTSIDE RECORDS SUMMARY | 2024-12-04 17:19 | XMS_ITS | Clinical Summary ---
Author Organization [facility] Address [address] [place] [address] Care Team Providers Care Clinical Informatics Educator Name Role Phone Chai Zhong MD Primary Care Provider [phone] Allergies No known active allergies Medications finasteride [...] Department Care Team Description 09/13/2024 Orders Only [facility] Cardiology [address] [place] [address] Laurie Mccain NP 09/11/2024 Orders Only [facility] Cardiology [address] [place] [address] Laurie Mccain NP from Last 3 Months [...] on file Legal Sex Male 2:21 AM DOUBLE END [employer]ON[employer] Gender Identity Not on file Sexual Orientation Not on file Obstetrics History Last Filed Vital Signs Vital Sign Reading Time Taken Comments Blood Pressure 124/69 12/29/2022 3:48 PM DOUBLE END [employer]ENONER SETTER Pulse 85 12/29/2022 3:48 PM DOUBLE END TENONER SETTER Temperature 36.3 C (97.4 F) 12/29/2022 3:48 PM DOUBLE END [employer]ENONER SETTER Respiratory Rate 20 12/29/2022 6:19 AM DOUBLE END TENONER SETTER Oxygen Saturation 99% 12/29/2022 3:48 PM DOUBLE END TENONER SETTER Inhaled Oxygen Concentration - - Weight 95.4 [...] AM CDT EGFR Routine 12/28/2022 3:50 AM DOUBLE END TENONER SETTER from Last 3 Months or Most Recently [...] Final Result * eGFR (12/28/2022 3:50 AM DOUBLE END TENONER SETTER) eGFR 100 mL/min/1. 73 m2 [facility] [employer] [...] last reviewed 2020. Blood 12/28/2022 3:50 AM DOUBLE END TENONER SETTER 12/28/2022 4:12 AM DOUBLE END TENONER SETTER us Melchor Maya MD LAB BLOOD ORDERABLES Fi nal Result [facility] [address] [facility] Department [place] [address] from Last 3 Months or Most Recently Relevant to Health Maintenance Insurance MEDICARE Advance Directives For more information, please contact: [phone] * Full Code (Latest Code Status on File) Date Activated Date Inactivated Comments 12/24/2022 12:23 AM 12/29/2022 9:26 PM Care Teams Clinical Informatics Educator Relationship Specialty Start Date End Date Chai Zhong MD [address] [place] [address] [place] [id number] PCP - General Family Medicine 12/23/22
--- OUTSIDE RECORDS SUMMARY | 2024-12-04 17:19 | XMS_ITS | Clinical Summary ---
Author Organization [facility] Address [address] [place] [address] Phone Care Team Providers Care Mental Health Unit Lead Psychologist Name Role Phone Chai Zhong MD Primary Care Provider [phone] Allergies No known active allergies Medications docusate [...] Type Department Care Team Description 09/18/2024 Telephone [facility] [address] [place] [address] Vinnie Bradley, READING INTERVENTIONIST, FOUNDRY HAND from Last 3 Months Family History Medical History Relation Name Comments Diabetes Mother Relation Name Status Comments Father Alive Mother Social History Tobacco Use Types Packs/Day Years Used Date Smoking Tobacco: Some Days Cigars Smokeless Tobacco: Never Tobacco Cessation:Ready to Q uit: No; Counseling Given: Yes Comments:celebratory Alcohol Use Standard Drinks/Week Comments No 0 (1 standard drink = 0.6 oz pur e alcohol) [facility] Utilities Answer Date Recorded In the past 12 months has [employer], gas, oil, or water company threatened to [...] any time in the past 12 m [facility], were you homeless or living in [...] Comments Blood Pressure 126/61 01/20/2024 2:29 PM GAS PUMPER Pulse 76 01/19/2024 12:47 PM GAS PUMPER Temperature 36.8 C (98.2 F) 01/20/2024 2:29 PM GAS PUMPER Respiratory Rate 20 01/20/2024 2:29 PM GAS PUMPER Oxygen Saturation 100% 01/20/2024 2:29 PM GAS PUMPER Inhaled Oxygen Concentration - - Weight 103.5 kg (228 lb 1.6 oz) 01/16/2024 6:30 PM GAS PUMPER Height 185.4 cm (6' 1) 01/16/2024 6:30 PM GAS PUMPER Body Mass Index 30.09 01/16/2024 6:30 PM GAS PUMPER Plan of Treatment Health Maintenance Due Date [...] measures to stabilize the patient. Care Teams Mental Health Unit Lead Psychologist Relationship Specialty Start Date End Date Chai Zhong MD [address] [place] [address] [place] [id number] PCP - General Family Medicine 12/12/17
== END 2024-12-04 18:10 | disposition home or self-care (01) ==
PROVIDERS: Physician Assistant; Emergency Provider Student in an Organized Health Care Education/Training Program; PCP Family Medicine
DX: T83.511A Infection and inflammatory reaction due to indwelling urethral catheter, initial encounter (principal); T83.021A Displacement of indwelling urethral catheter, initial encounter; K40.90 Unilateral inguinal hernia, without obstruction or gangrene, not specified as recurrent; E11.9 Type 2 diabetes mellitus without complications; N40.0 Benign prostatic hyperplasia without lower urinary tract symptoms; M17.0 Bilateral primary osteoarthritis of knee; F17.210 Nicotine dependence, cigarettes, uncomplicated; Z79.899 Other long term (current) drug therapy; Y84.6 Urinary catheterization as the cause of abnormal reaction of the patient, or of later complication, without mention of misadventure at the time of the procedure; N43.3 Hydrocele, unspecified; N50.3 Cyst of epididymis
CPT/HCPCS: 36415; 74176; 76870; 80053; 81001; 85025; 87077; 87086; 87186; 93976; 99284; A9270